=== PATIENT | female | born 1955 | race Caucasian/White ===

== ENCOUNTER 2018-03-15 11:48 | Inpatient (IN) | payer MEDICARE ==
[2018-03-15 12:02] VITALS: BMI 32.1
--- NOTE | 2018-03-15 12:38 | HP ---
COWS - Scale Resting Pulse: 0= [place] 80 or Below Sweatin= Chills/Flushing Restless Observation: 3= Extraneous Movement Pupil Size: 1= Pupils >than Normal Bone or Joint Aches: 2= Severe Diffuse Aches Runny Nose/ Eye Tearin= Runny Nose/Eyes GI Upset > 30mins: 3= Vomiting/Diarrhea Tremor Observation: 2= Slight Tremor Visible Yawning Observation: 2= >3x During Session Anxiety or Irritability: 2=Irritable/Anxious Goose Flesh Skin: 0=Smooth Skin COWS Score: 18 CIWA Score - CIWA Score Nausea/Vomitin Muscle Tremors: 3 Anxiety: 2 Agitation: 2 Paroxysmal Sweats: 1-Minimal Palms Moist Orientation: 0-Oriented Tacttile Disturbances: 1-Very Mild Itch/Numbness Auditory Disturbances: 1-Very Mild Visual Disturbances: 1-Very Mild Sensitivity Headache: 2-Mild CIWA-Ar Total Score: 16 Admission ROS BHS - HPI Chief Complaint: i need help to stop using heroin and alcohol Allergies/Adverse Reactions: Allergies Allergy/AdvReac Type Severity Reaction Status Date / Time No Known Allergies Allergy Verified 03/15/18 12:11 History of Present Illness: this 62 years old female with heroin and alcohol dependence,seeking detox, withdrawal symptom,mandated by court to come in for detox, last treatment in 2016 fail outpatient program htn no med nicotine dependence asthma on albuterol inhaler, low back p0ain scoliosis bipolar disorder,ptsd longest period of sobriety 10 years history of clamydia infection - Ebola screening Have you traveled outside of the country in the last 21 days: No Have you had contact with anyone from an Ebola affected area: No Have you been sick,other than usual withdrawal symptoms: No - Review of Systems Constitutional: Chills, Loss of Appetite, Malaise, Night Sweats, Changes in sleep, Weakness, Unintentional Wgt. Loss EENT: reports: Tearing, Nose Congestion Respiratory: reports: No Symptoms reported, Other (asthma) Cardiac: reports: No Symptoms Reported GI: reports: Nausea, Vomiting, Abdominal cramping : reports: No Symptoms Reported Musculoskeletal: reports: Back Pain, Joint Pain, Muscle Pain, Joint Stiffness Integumentary: reports: Dryness Neuro: reports: Headache, Tremors Endocrine: reports: No Symptoms Reported, Other (hypothyroidism no med for 2 years) Hematology: reports: No Symptoms Reported Psychiatric: reports: No Sypmtoms Reported, Judgement Intact, Mood/Affect Appropiate, Orientated x3 (bipolar disorder) Patient History - Patient Medical History Hx Anemia: No Hx Asthma: Yes (Pt is on MDI.) Hx Chronic Obstructive Pulmonary Disease (COPD): No Hx Cancer: No Hx Cardiac Disorders: No Hx Congestive Heart Failure: No Hx Hypertension: Yes (not on meds.) Hx Hypercholesterolemia: No HX Cerebrovascular Accident: No Hx Seizures: No Hx Dementia: No Hx Diabetes: No Hx Gastrointestinal Disorders: Yes (acid reflux.) Hx Liver Disease: No Hx Genitourinary Disorders: No Hx Sexually Transmitted Disorders: Yes (Pt states she was tx for chlamydia in the past.) Hx Renal Disease (ESRD): No Hx Thyroid Disease: Yes (WAITING TO SEE HER PMD DR FABIAN FOR WORK/UP.) Hx Human Immunodeficiency Virus (HIV): No (NEGATIVE HX LAST 2013) Hx Hepatitis C: No Hx Depression: Yes Hx Suicide Attempt: No Hx Bipolar Disorder: Yes Hx Schizophrenia: No Other Medical History: no suicidal,no homicidal - Patient Surgical History Past Surgical History: Yes Hx Neurologic Surgery: No Hx Cataract Extraction: No Hx Cardiac Surgery: No Hx Lung Surgery: No Hx Breast Surgery: No Hx Breast Biopsy: No Hx Abdominal Surgery: No Hx Appendectomy: Yes (age 7 yrs) Hx Cholecystectomy: No Hx Genitourinary Surgery: No Hx Section: No Hx Orthopedic Surgery: No Other Surgical History: R arm sx for abscess Anesthesia Reaction: No - PPD History Previous Implant?: Yes Documented Results: Negative w/o proof Implanted On Prior [facility] Admission?: Yes Date: 05/07/15 Results: PT AMA. PPD to be Administered?: Yes - Reproductive History Patient is a Female of Child Bearing Age (11 -55 yrs old): No Patient : No - Smoking Cessation Smoking history: Current every day smoker Have you smoked in the past 12 months: Yes Aproximately how many cigarettes per day: 20 Hx Chewing Tobacco Use: No Initiated information on smoking cessation: Yes 'Breaking Loose' booklet given: 03/15/18 - Substance & Tx. History Hx Alcohol Use: Yes Hx Substance Use: Yes Substance Use Type: Alcohol, Heroin Hx Substance Use Treatment: Yes (2015 [facility]) - Substances Abused Heroin Route: Injection Frequency: Daily Amount used: 3-4 BAGS Age of first use: 40 Date of Last Use: 03/14/18 Alcohol Route: Oral Frequency: Daily Amount used: 1/2 GALLON OF WINE Age of first use: 23 Date of Last Use: 03/14/18 Family Disease History - Family Disease History Family Disease History: Diabetes: Mother (HTN), Other: Mother Admission Physical Exam S - Vital Signs Vital Signs: Vital Signs - 24 hr 03/15/18 11:59 Temperature 99.4 F Pulse Rate 64 Respiratory 20 Rate Blood Pressure 151/82 - Physical General Appearance: Yes: Moderate Distress, Tremorous, Irritable, Anxious HEENTM: Yes: Normal ENT Inspection, CHELSI, Pharynx Normal Respiratory: Yes: Lungs Clear, Normal Breath Sounds, No Respiratory Distress Neck: Yes: Within Normal Limits, Supple, Trachea in good position Breast: Yes: Breast Exam Deferred Cardiology: Yes: Within Normal Limits, Regular Rhythm, Regular Rate, S1, S2 Abdominal: Yes: Within Normal Limits, Normal Bowel Sounds, Non Tender, Soft Genitourinary: Yes: Dysuria, Vaginal Discharge Back: Yes: Muscle Spasm Extremities: Yes: Normal Range of Motion, Tremors Neurological: Yes: boat garnisher II-XII NML intact, Fully Oriented, Alert, Motor Strength 5/5 Integumentary: Yes: Dry Lymphatic: Yes: Within Normal Limits - Diagnostic (1) Opioid dependence with withdrawal Current Visit: No Status: Chronic Comment: refer to methadone program per patient request (2) Alcohol dependence with uncomplicated withdrawal Current Visit: No Status: Chronic (3) Asthma Current Visit: No Status: Chronic Qualifiers: Asthma severity: mild persistent Asthma complication type: uncomplicated (4) Back pain Current Visit: No Status: Acute Qualifiers: Back pain location: low back pain Chronicity: chronic Back pain laterality: bilateral Sciatica presence: without sciatica Qualified Code(s) : M54.5 - Low back pain; G89.29 - Other chronic pain Comment: gentle stretches, flexeril (5) COPD (chronic obstructive pulmonary disease) Current Visit: No Status: Chronic Qualifiers: COPD type: chronic bronchitis (6) GERD (gastroesophageal reflux disease) Current Visit: No Status: Chronic Qualifiers: Esophagitis presence: without esophagitis Qualified Code(s): K21.9 - Gastro -esophageal reflux disease without esophagitis (7) Hypothyroidism Current Visit: No Status: Chronic Qualifiers: Hypothyroidism type: unspecified Qualified Code(s): E03.9 - Hypothyroidism , unspecified Comment: needs f/u with primary (8) Nicotine dependence Current Visit: No Status: Chronic Qualifiers: Nicotine product type: cigarettes Substance use status: uncomplicated Qualified Code(s): F17.210 - Nicotine dependence, cigarettes, uncomplicated Comment: counseled cessation - interested in patch - same Rx (9) History of chlamydia infection Current Visit: Yes Status: Acute (10) Bipolar disorder Current Visit: No Status: Chronic Qualifiers: Current bipolar episode type: mixed Current episode severity: unspecified Comment: saw dr ortiz, on meds Cleared for Admission S - Detox or Rehab S Level of Care: Medically Managed Detox Regimen/Protocol: Methadone/Librium S Breath Alcohol Content Breath Alcohol Content: 0 Urine Pregancy Test - Result Urine Test Results: Negative- NO Line Present Urine Drug Screen - Results Drug Screen Negative: No Urine Drug Screen Results: OPI-Opiates, MTD-Methadone, FEN-Fentanyl
[2018-03-15] MEDS ORDERED: MENTHOL/PHENOL 1 EACH UD MM PRN (12:58)
[2018-03-15] MEDS ORDERED: MAGNESIUM HYDROX 2400MG/30ML ORAL SUSPENSION 30 ML CUP PO PRN (12:58)
[2018-03-15] MEDS ORDERED: ACETAMINOPHEN 325 MG TABLET (FP) PO PRN (12:58)
[2018-03-15] MEDS ORDERED: LOPERAMIDE HCL 2 MG CAPSULE PO PRN (12:58)
[2018-03-15] MEDS ORDERED: P-EPHED 60MG/TRIPROLIDI 2.5MG TABLET PO PRN (12:58)
[2018-03-15] MEDS ORDERED: guaiFENesin/D-METHORPHAN HB 10 ML UNIT-DOSE CUPS PO PRN (12:58)
[2018-03-15] MEDS ORDERED: MAGNESIUM CITRATE 300 ML BOTTLE PO PRN (12:58)
[2018-03-15] MEDS ORDERED: MAG HYDROX/AL HYDROX/SIMETH 30 ML UNIT-DOSE CUP PO PRN (12:58)
[2018-03-15] MEDS ORDERED: NICOTINE POLACRILEX 2 MG GUM BUC PRN (12:58)
[2018-03-15] MEDS ORDERED: ALBUTEROL SO4 2.5/IPRATROPIUM 0.5 INH SOL 3 ML VIAL.NEB. NEB PRN (13:02)
[2018-03-15] MEDS ORDERED: METHADONE HCL 10 MG TABLET (FOR DETOX USE ONLY) PO ONE ×2 (14:30→23:00)
[2018-03-15] MEDS: chlordiazePOXIDE HCL 25 MG CAPSULE PO PRN (15:05)
[2018-03-15] MEDS: NICOTINE 21 MG/24 HOURS TOPICAL PATCH TD SCH (15:05)
[2018-03-15] MEDS: metroNIDAZOLE 250 MG TABLET PO SCH ×2 (15:32→22:23)
[2018-03-15] MEDS: chlordiazePOXIDE HCL 25 MG CAPSULE PO SCH ×2 (17:20→22:23)
[2018-03-15] MEDS: THIAMINE HCL 100 MG TABLET (FP) PO SCH (22:22)
[2018-03-15] MEDS: CYCLOBENZAPRINE HCL 10 MG TABLET (FP) PO PRN (22:23)
[2018-03-15] MEDS: MELATONIN 5 MG TABLETS PO PRN (22:23)
[2018-03-16] MEDS: IBUPROFEN 400 MG TABLET (FP) PO PRN ×3 (01:02→22:32)
[2018-03-16] MEDS: chlordiazePOXIDE HCL 25 MG CAPSULE PO PRN ×3 (01:03→18:58)
[2018-03-16] MEDS: metroNIDAZOLE 250 MG TABLET PO SCH ×3 (05:36→22:31)
[2018-03-16] MEDS: chlordiazePOXIDE HCL 25 MG CAPSULE PO SCH ×4 (05:36→22:31)
[2018-03-16] MEDS: ALBUTEROL SO4 8 GM HFA INHALER IH PRN ×2 (05:39→20:14)
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
[2018-03-16] MEDS ORDERED: METHADONE HCL 10 MG TABLET (FOR DETOX USE ONLY) PO SCH (10:00)
[2018-03-16 10:06] LABS: HEMOGLOBIN 14.8 GM/dL (10.7-15.3); MCH 31.6 pg (25.7-33.7); MCHC 33.7 g/dl (32.0-36.0); MEAN CELL VOLUME 93.8 fl (80-96); MEAN PLT VOLUME 10.8 fl (7.5-11.1); PLATELET COUNT 180 K/MM3 (134-434); RBC 4.69 M/mm3 (3.60-5.2); RDW 13.5 % (11.6-15.6); WHITE BLOOD COUNT 7.2 K/mm3 (4.0-10.0)
[2018-03-16 10:31] LABS: ALBUMIN 4.1 g/dl (3.4-5.0); ALK PHOS 83 U/L (45-117); ANION GAP 6 MMOL/L (8-16); BILIRUBIN,TOTAL 0.5 mg/dL (0.2-1); BLOOD UREA NITROGEN 11 mg/dL (7-18); CHLORIDE 104 mmol/L (98-107); CO2 28 mmol/L (21-32); CREATININE 0.7 mg/dL (0.55-1.3); GLUCOSE,RANDOM 83 mg/dL (74-106); POTASSIUM 4.5 mmol/L (3.5-5.1); SGOT/AST 14 U/L (15-37); SGPT/ALT 15 U/L (13-61); SODIUM 138 mmol/L (136-145); TOT PROT 8.2 g/dl (6.4-8.2)
[2018-03-16] MEDS: NICOTINE 21 MG/24 HOURS TOPICAL PATCH TD SCH (10:38)
[2018-03-16] MEDS: PRENATAL VITAMINS W/ FOLIC ACID TABLET (FP) PO SCH (10:38)
[2018-03-16] MEDS: QUEtiapine FUMARATE 50 MG TABLET PO SCH ×2 (10:38→22:32)
--- NOTE | 2018-03-16 11:45 | EKG ---
Test Reason : Blood Pressure : / mmHG Vent. Rate : 065 BPM Atrial Rate : 065 BPM P-R Int : 180 ms QRS Dur : 098 ms QT Int : 412 ms P-R-T Axes : 050 073 035 degrees QTc Int : 428 ms NORMAL SINUS RHYTHM WITH SINUS ARRHYTHMIA POSSIBLE LEFT ATRIAL ENLARGEMENT BORDERLINE ECG WHEN COMPARED WITH ECG OF 13-SEP-2009 02:11, NO SIGNIFICANT CHANGE WAS FOUND Confirmed by SARA ANTHONY, ELDON ([id number]) on 03/16/2018 11:44:50 AM Referred By: Confirmed By:ELDON RUIZ MD
[2018-03-16] MEDS ORDERED: FLU VACCINE QUAD 60 MCG/0.5 ML (MDV 18-19) IM ONE (12:00)
[2018-03-16] MEDS: hydrOXYzine PAMOATE 25 MG CAPSULE (FP) PO PRN (13:23)
[2018-03-16] MEDS: CYCLOBENZAPRINE HCL 10 MG TABLET (FP) PO PRN ×2 (13:23→22:31)
--- NOTE | 2018-03-16 13:50 | PN ---
[facility] CIWA - CIWA Score Nausea/Vomitin-Mild Nausea/No Vomiting Muscle Tremors: 4-Moderate,w/Arms Extend Anxiety: 3 Agitation: 3 Paroxysmal Sweats: 1-Minimal Palms Moist Orientation: 0-Oriented Tacttile Disturbances: 1-Very Mild Itch/Numbness Auditory Disturbances: 0-None Visual Disturbances: 0-None Headache: 1-Very Mild CIWA-Ar Total Score: 14 S COWS - Scale Resting Pulse: 0= [place] 80 or Below Sweatin= Chills/Flushing Restless Observation: 1= Difficult to Sit Still Pupil Size: 0= Normal to Room Light Bone or Joint Aches: 2= Severe Diffuse Aches Runny Nose/ Eye Tearin= Nasal Congestion GI Upset > 30mins: 2= Nausea/Diarrhea Tremor Observation of Outstretched Hands: 2= Slight Tremor Visible Yawning Observation: 1= 1-2x During Session Anxiety or Irritability: 1=Feels Anxious/Irritable Goose Flesh Skin: 3=Piloerection COWS Score: 14 [facility] Progress Note (SOAP) Subjective: body ache joints pain tremor sweat restlessness anxiety Objective: 03/16/18 13:51 Vital Signs Temperature 98.2 F 03/16/18 13:11 Pulse Rate 73 03/16/18 13:11 Respiratory Rate 20 03/16/18 13:11 Blood Pressure 115/69 03/16/18 13:11 O2 Sat by Pulse Oximetry (%) Laboratory Last Values WBC 7.2 K/mm3 (4.0-10.0) 03/16/18 05:45 RBC 4.69 M/mm3 (3.60-5.2) 03/16/18 05:45 Hgb 14.8 GM/dL (10.7-15.3) 03/16/18 05:45 Hct 44.0 % (32.4-45.2) 03/16/18 05:45 MCV 93.8 fl (80-96) 03/16/18 05:45 MCH 31.6 pg (25.7-33.7) 03/16/18 05:45 MCHC 33.7 g/dl (32.0-36.0) 03/16/18 05:45 RDW 13.5 % (11.6-15.6) 03/16/18 05:45 Plt Count 180 K/MM3 (134-434) 03/16/18 05:45 MPV 10.8 fl (7.5-11.1) 03/16/18 05:45 Sodium 138 mmol/L (136-145) 03/16/18 05:45 Potassium 4.5 mmol/L (3.5-5.1) 03/16/18 05:45 Chloride 104 mmol/L (98-107) 03/16/18 05:45 Carbon Dioxide 28 mmol/L (21-32) 03/16/18 05:45 Anion Gap 6 MMOL/L (8-16) L 03/16/18 05:45 BUN 11 mg/dL (7-18) 03/16/18 05:45 Creatinine 0.7 mg/dL (0.55-1.3) 03/16/18 05:45 Creat Clearance w eGFR > 60 (>60) 03/16/18 05:45 Random Glucose 83 mg/dL (74-106) 03/16/18 05:45 Calcium 10.0 mg/dL (8.5-10.1) 03/16/18 05:45 Total Bilirubin 0.5 mg/dL (0.2-1) 03/16/18 05:45 AST 14 U/L (15-37) L 03/16/18 05:45 ALT 15 U/L (13-61) 03/16/18 05:45 Alkaline Phosphatase 83 U/L (45-117) 03/16/18 05:45 Total Protein 8.2 g/dl (6.4-8.2) 03/16/18 05:45 Albumin 4.1 g/dl (3.4-5.0) 03/16/18 05:45 TSH 0.66 uIU/ml (0.358-3.74) 03/15/18 13:20 Resin T3 Uptake 28.9 % (30-39) L 03/15/18 13:20 RPR Titer Nonreactive (NONREACTIVE) 03/16/18 05:45 HIV 1&2 Antibody Screen Negative 03/15/18 13:05 HIV P24 Antigen Negative 03/15/18 13:05 lab noted 03/16/18 13:51 no thyorid nodule palpated Assessment: 03/16/18 13:52 withdrawal sx Plan: continue detox
[2018-03-16 14:58] LABS: URINE APPEARANCE CLEAR; URINE BILIRUBIN NEGATIVE (<2.0 mg/dL); URINE COLOR LTYELLOW; URINE GLUCOSE (UA) NEGATIVE (NEGATIVE); URINE KETONE NEGATIVE (NEGATIVE); URINE LEUK ESTERASE NEGATIVE (NEGATIVE); URINE NITRITE NEGATIVE (NEGATIVE); URINE PROTEIN NEGATIVE (NEGATIVE); URINE UROBILINOGEN NEGATIVE mg/dL (0.2-1.0)
[2018-03-16] MEDS: THIAMINE HCL 100 MG TABLET (FP) PO SCH (22:31)
[2018-03-16] MEDS: MIRTAZAPINE 15 MG TABLET (FP) PO SCH (22:32)
[2018-03-16] MEDS: MELATONIN 5 MG TABLETS PO PRN (22:32)
[2018-03-17] MEDS: chlordiazePOXIDE HCL 25 MG CAPSULE PO PRN ×2 (01:18→20:12)
[2018-03-17] MEDS: hydrOXYzine PAMOATE 25 MG CAPSULE (FP) PO PRN ×2 (03:33→13:20)
[2018-03-17] MEDS: ALBUTEROL SO4 8 GM HFA INHALER IH PRN ×2 (03:33→13:20)
[2018-03-17] MEDS: chlordiazePOXIDE HCL 25 MG CAPSULE PO SCH ×2 (05:27→10:38)
[2018-03-17] MEDS: metroNIDAZOLE 250 MG TABLET PO SCH ×3 (05:27→22:29)
--- NOTE | 2018-03-17 10:36 | PN ---
BHS COWS - Scale Resting Pulse: 0= [place] 80 or Below Sweatin= Chills/Flushing Restless Observation: 1= Difficult to Sit Still Pupil Size: 0= Normal to Room Light Bone or Joint Aches: 1= Mild Discomfort Runny Nose/ Eye Tearin= Runny Nose/Eyes GI Upset > 30mins: 0= None Tremor Observation of Outstretched Hands: 1= Tremor [place], Not Seen Yawning Observation: 2= >3x During Session Anxiety or Irritability: 4=Extreme Anxiety Goose Flesh Skin: 0=Smooth Skin COWS Score: 12 [facility] Progress Note (SOAP) Subjective: anxious, interrupted sleep, body aches Objective: 03/17/18 10:36 Vital Signs Temperature 97.9 F 03/17/18 09:19 Pulse Rate 67 03/17/18 09:19 Respiratory Rate 18 03/17/18 09:19 Blood Pressure 144/77 03/17/18 09:19 O2 Sat by Pulse Oximetry (%) Laboratory Last Values WBC 7.2 K/mm3 (4.0-10.0) 03/16/18 05:45 RBC 4.69 M/mm3 (3.60-5.2) 03/16/18 05:45 Hgb 14.8 GM/dL (10.7-15.3) 03/16/18 05:45 Hct 44.0 % (32.4-45.2) 03/16/18 05:45 MCV 93.8 fl (80-96) 03/16/18 05:45 MCH 31.6 pg (25.7-33.7) 03/16/18 05:45 MCHC 33.7 g/dl (32.0-36.0) 03/16/18 05:45 RDW 13.5 % (11.6-15.6) 03/16/18 05:45 Plt Count 180 K/MM3 (134-434) 03/16/18 05:45 MPV 10.8 fl (7.5-11.1) 03/16/18 05:45 Sodium 138 mmol/L (136-145) 03/16/18 05:45 Potassium 4.5 mmol/L (3.5-5.1) 03/16/18 05:45 Chloride 104 mmol/L (98-107) 03/16/18 05:45 Carbon Dioxide 28 mmol/L (21-32) 03/16/18 05:45 Anion Gap 6 MMOL/L (8-16) L 03/16/18 05:45 BUN 11 mg/dL (7-18) 03/16/18 05:45 Creatinine 0.7 mg/dL (0.55-1.3) 03/16/18 05:45 Creat Clearance w eGFR > 60 (>60) 03/16/18 05:45 Random Glucose 83 mg/dL (74-106) 03/16/18 05:45 Calcium 10.0 mg/dL (8.5-10.1) 03/16/18 05:45 Total Bilirubin 0.5 mg/dL (0.2-1) 03/16/18 05:45 AST 14 U/L (15-37) L 03/16/18 05:45 ALT 15 U/L (13-61) 03/16/18 05:45 Alkaline Phosphatase 83 U/L (45-117) 03/16/18 05:45 Total Protein 8.2 g/dl (6.4-8.2) 03/16/18 05:45 Albumin 4.1 g/dl (3.4-5.0) 03/16/18 05:45 TSH 0.66 uIU/ml (0.358-3.74) 03/15/18 13:20 Resin T3 Uptake 28.9 % (30-39) L 03/15/18 13:20 Urine Color Ltyellow 03/16/18 09:00 Urine Appearance Clear 03/16/18 09:00 Urine pH 7.0 (5.0-8.0) 03/16/18 09:00 Ur Specific [place] 1.009 (1.001-1.035) 03/16/18 09:00 Urine Protein Negative (NEGATIVE) 03/16/18 09:00 Urine Glucose (UA) Negative (NEGATIVE) 03/16/18 09:00 Urine Ketones Negative (NEGATIVE) 03/16/18 09:00 Urine Blood Negative (NEGATIVE) 03/16/18 09:00 Urine Nitrite Negative (NEGATIVE) 03/16/18 09:00 Urine Bilirubin Negative (<2.0 mg/dL) 03/16/18 09:00 Urine Urobilinogen Negative mg/dL (0.2-1.0) 03/16/18 09:00 Ur Leukocyte Esterase Negative (NEGATIVE) 03/16/18 09:00 RPR Titer Nonreactive (NONREACTIVE) 03/16/18 05:45 Hep C Ab Diagnostic 0.3 s/co ratio (0.0-0.9) 03/15/18 13:20 Liver Fibrosis Interp (.) 03/15/18 13:20 HIV 1&2 Antibody Screen Negative 03/15/18 13:05 HIV P24 Antigen Negative 03/15/18 13:05 Aox3, anxious, pacing no adventitious breath sounds full ROM, ambulating in the unit Assessment: 03/17/18 13:29 withdrawal symptoms Plan: increase PO fluids psych consult : insomnia and anxiety, feels seroquel is not working continue detox continue to monitor
[2018-03-17] MEDS: METHADONE HCL 5 MG TABLET (FOR DETOX USE ONLY) PO SCH (10:37)
[2018-03-17] MEDS: QUEtiapine FUMARATE 50 MG TABLET PO SCH ×2 (10:39→22:30)
[2018-03-17] MEDS: PRENATAL VITAMINS W/ FOLIC ACID TABLET (FP) PO SCH (10:39)
[2018-03-17] MEDS: CYCLOBENZAPRINE HCL 10 MG TABLET (FP) PO PRN (10:39)
[2018-03-17] MEDS: NICOTINE 21 MG/24 HOURS TOPICAL PATCH TD SCH (10:40)
[2018-03-17] MEDS: chlordiazePOXIDE 5 MG CAPSULE PO SCH ×2 (17:10→22:30)
--- NOTE | 2018-03-17 17:30 | PN ---
Psychiatric Progress Note Vital Signs: Vital Signs Period Temp Pulse Resp BP Sys/Steinberg Pulse Ox Last 24 Hr 97.5 F-98.2 F 53-71 16-18 123-144/66-77 Date of Session: 03/17/18 Chief Complaint:: BHS HPI: Pt. admitted to for alcohol and opiate dependence. ROS: Asthma, hypertension, acid reflux, Appendectomy Current Medications: Active Medications Generic Name Dose Route Start Last Admin Trade Name Freq PRN Reason Stop Dose Admin Acetaminophen 650 mg 03/15/18 12:58 Tylenol - PO Q4H PRN FEVER Al Hydroxide/Mg Hydroxide 30 ml 03/15/18 12:58 Mylanta Oral Suspension - PO Q6H PRN DYSPEPSIA Albuterol Sulfate 2 puff 03/15/18 13:01 03/17/18 13:20 Ventolin Hfa Inhaler - IH 2 puff Q4H PRN Administration SHORT OF BREATH/WHEEZING Albuterol/Ipratropium 1 amp 03/15/18 13:02 Duoneb - NEB Q6H PRN SHORTNESS OF BREATH Chlordiazepoxide HCl 15 mg 03/17/18 17:00 03/17/18 17:10 Librium - PO 03/18/18 11:01 15 mg [id number] CHALINO Administration Chlordiazepoxide HCl 10 mg 03/18/18 17:00 Librium - PO 03/19/18 11:01 U2I-LIR CHALINO Chlordiazepoxide HCl 25 mg 03/15/18 12:58 03/17/18 01:18 Librium - PO 03/18/18 12:58 25 mg Q4H PRN Administration WITHDRAWAL(CONT SUBST) Cyclobenzaprine HCl 10 mg 03/15/18 13:05 03/17/18 10:39 Flexeril - PO 10 mg TID PRN Administration MUSCLE SPASMS Eucalyptus/Menthol/Phenol/Sorbitol 1 each 03/15/18 12:58 Cepastat Lozenge - MM Q4H PRN SORE THROAT Guaifenesin 10 ml 03/15/18 12:58 Robitussin Dm - PO Q6H PRN COUGH Hydroxyzine Pamoate 25 mg 03/15/18 12:58 03/17/18 13:20 Vistaril - PO 25 mg Q4H PRN Administration AGITATION Ibuprofen 400 mg 03/15/18 12:58 03/16/18 22:32 Motrin - PO 400 mg Q6H PRN Administration PAIN LEVEL 4-6 Loperamide HCl 4 mg 03/15/18 12:58 Imodium - PO Q6H PRN DIARRHEA Magnesium Citrate 300 ml 03/15/18 12:58 Citroma - PO Q48H PRN CONSTIPATION Magnesium Hydroxide 30 ml 03/15/18 12:58 03/16/18 18:59 Milk Of Magnesia - PO 30 ml DAILY PRN Administration CONSTIPATION Melatonin 5 mg 03/15/18 22:00 03/16/18 22:32 Melatonin PO 5 mg HS PRN Administration INSOMNIA Methadone HCl 15 mg 03/17/18 10:00 03/17/18 10:37 Dolophine - PO 03/18/18 10:01 15 mg DAILY CHALINO Administration Methadone HCl 5 mg 03/20/18 06:00 Dolophine - PO 03/20/18 06:01 DAILY@0600 CHALINO Methadone HCl 10 mg 03/19/18 10:00 Dolophine - PO 03/19/18 10:01 DAILY CHALINO Metronidazole 500 mg 03/15/18 14:00 03/17/18 15:11 Flagyl - PO 500 mg TID CHALINO Administration Mirtazapine 15 mg 03/16/18 22:00 03/16/18 22:32 Remeron - PO 15 mg HS CHALINO Administration Nicotine 21 mg 03/15/18 14:30 03/17/18 10:40 Nicoderm Patch - TD 21 mg DAILY CHALINO Administration Nicotine Polacrilex 2 mg 03/15/18 12:58 03/16/18 22:35 Nicorette Gum - BUC 2 mg Q2H PRN Administration NICOTINE REPLACEMENT RX Multivit/Folic Acid/Iron 1 tab 03/16/18 10:00 03/17/18 10:39 Vitamins (Sjr) - PO 1 tab DAILY CHALINO Administration Pseudoephedrine/Triprolidine 1 combo 03/15/18 12:58 Actifed - PO TID PRN NASAL CONGESTION Quetiapine Fumarate 50 mg 03/16/18 10:00 03/17/18 10:39 Seroquel - PO 50 mg BID CHALINO Administration Thiamine HCl 100 mg 03/15/18 22:00 03/16/18 22:31 Vitamin B1 - PO 100 mg HS CHALINO Administration Medication(s) Change(s): Yes . Will increase seroquel to 100mg BID. Current Side Effect: No Lab tests ordered: No Lab tests reviewed: Yes Provider note:: Chart reviewed. Patient c/o anxiety, poor sleep, and a feeling of "ranging inside." She is currently prescribed seroquel 50mg BID. Medication tolerated well. She reports h/o accepting seroquel 900mg. As per chart patient was prescribed seroquel 200mg BID while in rehab in 2016. Will increase seroquel to 100mg BID. Benefits and side effects discussed. Verbal consent given. Total face to face time:: 25 Mental Status Exam - Mental Status Exam Alert and Oriented to: Time, Place, Person Cognitive Function: Good Patient Appearance: Well Groomed Mood: Anxious, Euthymic Affect: Appropriate Patient Behavior: Appropriate, Cooperative Speech Pattern: Appropriate Voice Loudness: Normal Thought Process: Intact, Goal Oriented Thought Disorder: Not Present Hallucinations: Denies Suicidal Ideation: Denies Homicidal Ideation: Denies Insight/Judgement: Poor Sleep: Poorly Appetite: Fair Muscle strength/Tone: Normal Gait/Station: Normal Psychiatric Treatment Plan - Problem List (1) Alcohol dependence with uncomplicated withdrawal Current Visit: Yes (2) Nicotine dependence Current Visit: Yes Qualifiers: Nicotine product type: cigarettes Substance use status: uncomplicated Qualified Code(s): F17.210 - Nicotine dependence, cigarettes, uncomplicated Comment: counseled cessation - interested in patch - same Rx (3) Opioid dependence with withdrawal Current Visit: Yes Comment: refer to methadone program per patient request (4) Bipolar II disorder Current Visit: Yes
[2018-03-17] MEDS: THIAMINE HCL 100 MG TABLET (FP) PO SCH (22:29)
[2018-03-17] MEDS: MIRTAZAPINE 15 MG TABLET (FP) PO SCH (22:32)
[2018-03-18] MEDS: IBUPROFEN 400 MG TABLET (FP) PO PRN ×2 (04:04→18:41)
[2018-03-18] MEDS: chlordiazePOXIDE 5 MG CAPSULE PO SCH ×2 (04:04→10:51)
[2018-03-18] MEDS: metroNIDAZOLE 250 MG TABLET PO SCH ×3 (05:37→22:34)
[2018-03-18] MEDS: METHADONE HCL 5 MG TABLET (FOR DETOX USE ONLY) PO SCH (10:51)
[2018-03-18] MEDS: NICOTINE 21 MG/24 HOURS TOPICAL PATCH TD SCH (10:51)
[2018-03-18] MEDS: PRENATAL VITAMINS W/ FOLIC ACID TABLET (FP) PO SCH (10:51)
[2018-03-18] MEDS: QUEtiapine FUMARATE 50 MG TABLET PO SCH ×2 (10:51→22:33)
--- NOTE | 2018-03-18 12:23 | PN ---
[facility] Progress Note (SOAP) Subjective: sweats shakes interrupted sleep agitation body aches/back pain Objective: 03/18/18 12:22 Vital Signs Temperature 97.9 F 03/18/18 09:36 Pulse Rate 76 03/18/18 09:36 Respiratory Rate 18 03/18/18 09:36 Blood Pressure 141/77 03/18/18 09:36 O2 Sat by Pulse Oximetry (%) Laboratory Tests 03/15/18 03/15/18 03/15/18 13:05 13:20 13:20 WBC RBC Hgb Hct MCV MCH MCHC RDW Plt Count MPV Sodium Potassium Chloride Carbon Dioxide Anion Gap BUN Creatinine Creat Clearance w eGFR Random Glucose Calcium Total Bilirubin AST ALT Alkaline Phosphatase Total Protein Albumin TSH 0.66 Resin T3 Uptake 28.9 L Cancelled Urine Color Urine Appearance Urine pH Ur Specific [place] Urine Protein Urine Glucose (UA) Urine Ketones Urine Blood Urine Nitrite Urine Bilirubin Urine Urobilinogen Ur Leukocyte Esterase RPR Titer Hep C Ab Diagnostic Liver Fibrosis Interp HIV 1&2 Antibody Screen Negative HIV P24 Antigen Negative 03/15/18 03/16/18 03/16/18 13:20 05:45 05:45 WBC 7.2 RBC 4.69 Hgb 14.8 Hct 44.0 MCV 93.8 MCH 31.6 MCHC 33.7 RDW 13.5 Plt Count 180 MPV 10.8 Sodium 138 Potassium 4.5 Chloride 104 Carbon Dioxide 28 Anion Gap 6 L BUN 11 Creatinine 0.7 Creat Clearance w eGFR > 60 Random Glucose 83 Calcium 10.0 Total Bilirubin 0.5 AST 14 L ALT 15 Alkaline Phosphatase 83 Total Protein 8.2 Albumin 4.1 TSH Resin T3 Uptake Urine Color Urine Appearance Urine pH Ur Specific [place] Urine Protein Urine Glucose (UA) Urine Ketones Urine Blood Urine Nitrite Urine Bilirubin Urine Urobilinogen Ur Leukocyte Esterase RPR Titer Hep C Ab Diagnostic 0.3 Liver Fibrosis Interp HIV 1&2 Antibody Screen HIV P24 Antigen 03/16/18 03/16/18 05:45 09:00 WBC RBC Hgb Hct MCV MCH MCHC RDW Plt Count MPV Sodium Potassium Chloride Carbon Dioxide Anion Gap BUN Creatinine Creat Clearance w eGFR Random Glucose Calcium Total Bilirubin AST ALT Alkaline Phosphatase Total Protein Albumin TSH Resin T3 Uptake Urine Color Ltyellow Urine Appearance Clear Urine pH 7.0 Ur Specific [place] 1.009 Urine Protein Negative Urine Glucose (UA) Negative Urine Ketones Negative Urine Blood Negative Urine Nitrite Negative Urine Bilirubin Negative Urine Urobilinogen Negative Ur Leukocyte Esterase Negative RPR Titer Nonreactive Hep C Ab Diagnostic Liver Fibrosis Interp HIV 1&2 Antibody Screen HIV P24 Antigen aaox3 ambulating no acute distress Assessment: 03/18/18 12:22 withdrawal sx Plan: continue detox increase fluids lidocaine patch
[2018-03-18] MEDS: hydrOXYzine PAMOATE 25 MG CAPSULE (FP) PO PRN ×2 (14:20→18:41)
[2018-03-18] MEDS: LIDOCAINE 5% TOPICAL PATCH TP SCH (14:24)
[2018-03-18] MEDS: chlordiazePOXIDE HCL 10 MG CAPSULE PO SCH ×2 (17:00→22:34)
[2018-03-18] MEDS: MIRTAZAPINE 15 MG TABLET (FP) PO SCH (22:34)
[2018-03-18] MEDS: THIAMINE HCL 100 MG TABLET (FP) PO SCH (22:34)
[2018-03-18] MEDS: CYCLOBENZAPRINE HCL 10 MG TABLET (FP) PO PRN (22:35)
[2018-03-18] MEDS: LIDOCAINE PATCH REMOVAL MC SCH (22:36)
[2018-03-19] MEDS: IBUPROFEN 400 MG TABLET (FP) PO PRN (02:34)
[2018-03-19] MEDS: hydrOXYzine PAMOATE 25 MG CAPSULE (FP) PO PRN ×3 (02:34→22:37)
[2018-03-19] MEDS: metroNIDAZOLE 250 MG TABLET PO SCH ×3 (06:14→22:38)
[2018-03-19] MEDS: chlordiazePOXIDE HCL 10 MG CAPSULE PO SCH ×2 (06:14→10:27)
[2018-03-19] MEDS: ALBUTEROL SO4 8 GM HFA INHALER IH PRN (06:15)
--- NOTE | 2018-03-19 09:24 | PN ---
S Progress Note Note: anxious, interrupted sleep, urinary frequency (chronic) Vital Signs Temperature 97.7 F 03/19/18 09:24 Pulse Rate 78 03/19/18 09:24 Respiratory Rate 18 03/19/18 09:24 Blood Pressure 130/65 03/19/18 09:24 O2 Sat by Pulse Oximetry (%) Laboratory Last Values WBC 7.2 K/mm3 (4.0-10.0) 03/16/18 05:45 RBC 4.69 M/mm3 (3.60-5.2) 03/16/18 05:45 Hgb 14.8 GM/dL (10.7-15.3) 03/16/18 05:45 Hct 44.0 % (32.4-45.2) 03/16/18 05:45 MCV 93.8 fl (80-96) 03/16/18 05:45 MCH 31.6 pg (25.7-33.7) 03/16/18 05:45 MCHC 33.7 g/dl (32.0-36.0) 03/16/18 05:45 RDW 13.5 % (11.6-15.6) 03/16/18 05:45 Plt Count 180 K/MM3 (134-434) 03/16/18 05:45 MPV 10.8 fl (7.5-11.1) 03/16/18 05:45 Sodium 138 mmol/L (136-145) 03/16/18 05:45 Potassium 4.5 mmol/L (3.5-5.1) 03/16/18 05:45 Chloride 104 mmol/L (98-107) 03/16/18 05:45 Carbon Dioxide 28 mmol/L (21-32) 03/16/18 05:45 Anion Gap 6 MMOL/L (8-16) L 03/16/18 05:45 BUN 11 mg/dL (7-18) 03/16/18 05:45 Creatinine 0.7 mg/dL (0.55-1.3) 03/16/18 05:45 Creat Clearance w eGFR > 60 (>60) 03/16/18 05:45 Random Glucose 83 mg/dL (74-106) 03/16/18 05:45 Calcium 10.0 mg/dL (8.5-10.1) 03/16/18 05:45 Total Bilirubin 0.5 mg/dL (0.2-1) 03/16/18 05:45 AST 14 U/L (15-37) L 03/16/18 05:45 ALT 15 U/L (13-61) 03/16/18 05:45 Alkaline Phosphatase 83 U/L (45-117) 03/16/18 05:45 Total Protein 8.2 g/dl (6.4-8.2) 03/16/18 05:45 Albumin 4.1 g/dl (3.4-5.0) 03/16/18 05:45 TSH 0.66 uIU/ml (0.358-3.74) 03/15/18 13:20 Resin T3 Uptake 28.9 % (30-39) L 03/15/18 13:20 Urine Color Ltyellow 03/16/18 09:00 Urine Appearance Clear 03/16/18 09:00 Urine pH 7.0 (5.0-8.0) 03/16/18 09:00 Ur Specific [place] 1.009 (1.001-1.035) 03/16/18 09:00 Urine Protein Negative (NEGATIVE) 03/16/18 09:00 Urine Glucose (UA) Negative (NEGATIVE) 03/16/18 09:00 Urine Ketones Negative (NEGATIVE) 03/16/18 09:00 Urine Blood Negative (NEGATIVE) 03/16/18 09:00 Urine Nitrite Negative (NEGATIVE) 03/16/18 09:00 Urine Bilirubin Negative (<2.0 mg/dL) 03/16/18 09:00 Urine Urobilinogen Negative mg/dL (0.2-1.0) 03/16/18 09:00 Ur Leukocyte Esterase Negative (NEGATIVE) 03/16/18 09:00 RPR Titer Nonreactive (NONREACTIVE) 03/16/18 05:45 Hep C Ab Diagnostic 0.3 s/co ratio (0.0-0.9) 03/15/18 13:20 Liver Fibrosis Interp (.) 03/15/18 13:20 HIV 1&2 Antibody Screen Negative 03/15/18 13:05 HIV P24 Antigen Negative 03/15/18 13:05 Aox3 no distress anxious no adventitious breath sounds full ROM ambulating in the unit withdrawal sx continue detox continue to monitor
[2018-03-19] MEDS ORDERED: METHADONE HCL 10 MG TABLET (FOR DETOX USE ONLY) PO SCH (10:00)
[2018-03-19] MEDS: NICOTINE 21 MG/24 HOURS TOPICAL PATCH TD SCH (10:27)
[2018-03-19] MEDS: QUEtiapine FUMARATE 50 MG TABLET PO SCH ×2 (10:27→22:37)
[2018-03-19] MEDS: PRENATAL VITAMINS W/ FOLIC ACID TABLET (FP) PO SCH (10:28)
[2018-03-19] MEDS: LIDOCAINE 5% TOPICAL PATCH TP SCH (10:28)
[2018-03-19 22:23] VITALS: BP 150/75; PULSE 77; TEMP 97.5
[2018-03-19] MEDS: THIAMINE HCL 100 MG TABLET (FP) PO SCH (22:36)
[2018-03-19] MEDS: MIRTAZAPINE 15 MG TABLET (FP) PO SCH (22:37)
[2018-03-19] MEDS: LIDOCAINE PATCH REMOVAL MC SCH (22:37)
[2018-03-19] MEDS: MELATONIN 5 MG TABLETS PO PRN (22:38)
[2018-03-19] MEDS: CYCLOBENZAPRINE HCL 10 MG TABLET (FP) PO PRN (22:38)
[2018-03-20] MEDS: IBUPROFEN 400 MG TABLET (FP) PO PRN (00:30)
[2018-03-20] MEDS ORDERED: METHADONE HCL 5 MG TABLET (FOR DETOX USE ONLY) PO SCH (06:00)
[2018-03-20] MEDS: metroNIDAZOLE 250 MG TABLET PO SCH (06:19)
--- NOTE | 2018-03-20 09:01 | DS ---
[facility] Detox Discharge Summary Admission Date: 03/15/18 Discharge Date: 03/20/18 - History Present History: Alcohol Dependence, Opioid Dependence Additional Comments: 62 years old female admitted on 03/15/18 for alcohol and opiate withdrawal sx completed detox regimen today left detox unit around 0700 the technical report writer did not assess nor evaluate the patient - Physical Exam Results Vital Signs: Vital Signs Temperature 97.5 F L 03/19/18 22:22 Pulse Rate 77 03/19/18 22:22 Respiratory Rate 18 03/20/18 03:30 Blood Pressure 150/75 03/19/18 22:22 O2 Sat by Pulse Oximetry (%) Pertinent Admission Physical Exam Findings: alcohol and opioid withdrawal sx Vital Signs Temperature 97.5 F L 03/19/18 22:22 Pulse Rate 77 03/19/18 22:22 Respiratory Rate 18 03/20/18 03:30 Blood Pressure 150/75 03/19/18 22:22 O2 Sat by Pulse Oximetry (%) Laboratory Last Values WBC 7.2 K/mm3 (4.0-10.0) 03/16/18 05:45 RBC 4.69 M/mm3 (3.60-5.2) 03/16/18 05:45 Hgb 14.8 GM/dL (10.7-15.3) 03/16/18 05:45 Hct 44.0 % (32.4-45.2) 03/16/18 05:45 MCV 93.8 fl (80-96) 03/16/18 05:45 MCH 31.6 pg (25.7-33.7) 03/16/18 05:45 MCHC 33.7 g/dl (32.0-36.0) 03/16/18 05:45 RDW 13.5 % (11.6-15.6) 03/16/18 05:45 Plt Count 180 K/MM3 (134-434) 03/16/18 05:45 MPV 10.8 fl (7.5-11.1) 03/16/18 05:45 Sodium 138 mmol/L (136-145) 03/16/18 05:45 Potassium 4.5 mmol/L (3.5-5.1) 03/16/18 05:45 Chloride 104 mmol/L (98-107) 03/16/18 05:45 Carbon Dioxide 28 mmol/L (21-32) 03/16/18 05:45 Anion Gap 6 MMOL/L (8-16) L 03/16/18 05:45 BUN 11 mg/dL (7-18) 03/16/18 05:45 Creatinine 0.7 mg/dL (0.55-1.3) 03/16/18 05:45 Creat Clearance w eGFR > 60 (>60) 03/16/18 05:45 Random Glucose 83 mg/dL (74-106) 03/16/18 05:45 Calcium 10.0 mg/dL (8.5-10.1) 03/16/18 05:45 Total Bilirubin 0.5 mg/dL (0.2-1) 03/16/18 05:45 AST 14 U/L (15-37) L 03/16/18 05:45 ALT 15 U/L (13-61) 03/16/18 05:45 Alkaline Phosphatase 83 U/L (45-117) 03/16/18 05:45 Total Protein 8.2 g/dl (6.4-8.2) 03/16/18 05:45 Albumin 4.1 g/dl (3.4-5.0) 03/16/18 05:45 TSH 0.66 uIU/ml (0.358-3.74) 03/15/18 13:20 Resin T3 Uptake 28.9 % (30-39) L 03/15/18 13:20 Urine Color Ltyellow 03/16/18 09:00 Urine Appearance Clear 03/16/18 09:00 Urine pH 7.0 (5.0-8.0) 03/16/18 09:00 Ur Specific [place] 1.009 (1.001-1.035) 03/16/18 09:00 Urine Protein Negative (NEGATIVE) 03/16/18 09:00 Urine Glucose (UA) Negative (NEGATIVE) 03/16/18 09:00 Urine Ketones Negative (NEGATIVE) 03/16/18 09:00 Urine Blood Negative (NEGATIVE) 03/16/18 09:00 Urine Nitrite Negative (NEGATIVE) 03/16/18 09:00 Urine Bilirubin Negative (<2.0 mg/dL) 03/16/18 09:00 Urine Urobilinogen Negative mg/dL (0.2-1.0) 03/16/18 09:00 Ur Leukocyte Esterase Negative (NEGATIVE) 03/16/18 09:00 RPR Titer Nonreactive (NONREACTIVE) 03/16/18 05:45 Hep C Ab Diagnostic 0.3 s/co ratio (0.0-0.9) 03/15/18 13:20 Liver Fibrosis Interp (.) 03/15/18 13:20 HIV 1&2 Antibody Screen Negative 03/15/18 13:05 HIV P24 Antigen Negative 03/15/18 13:05 lab noted appears to have bp elevation according to the nursing reported that the patient was in the [place] and back and forth from the nurses station to her room many times refused to recheck bp patient has stable bp throughout the detox regimen - Treatment Hospital Course: Detox Protocol Followed, Detoxed Safely, Responded well, Discharged Condition Good, Rehab Referral Accepted Patient has Accepted a Rehab Referral to: [facility] - Medication Discharge Medications: Ambulatory Orders Quetiapine Fumarate [Seroquel -] 50 mg PO HS 02/24/16 Albuterol Sulfate Inhaler - [Ventolin HFA Inhaler -] 2 inh PO Q4H PRN #1 inhaler 03/04/18 Cyclobenzaprine HCl [Flexeril -] 10 mg PO HS #30 tablet 03/04/18 Mirtazapine [Remeron -] 15 mg PO HS 03/04/18 Albuterol Sulfate Inhaler - [Ventolin HFA Inhaler -] 2 puff IH Q4H PRN #1 inhaler 03/19/18 - Diagnosis (1) Opioid dependence with withdrawal Status: Acute (2) Alcohol dependence with uncomplicated withdrawal Status: Acute (3) Asthma Status: Chronic Qualifiers: Asthma severity: mild Asthma persistence: intermittent Asthma complication type: with status asthmaticus Qualified Code(s): J45.22 - Mild intermittent asthma with status asthmaticus (4) Bipolar disorder Status: Suspected Qualifiers: Current bipolar episode type: mixed Current episode severity: unspecified (5) COPD (chronic obstructive pulmonary disease) Status: Chronic Qualifiers: COPD type: chronic bronchitis Chronic bronchitis type: mixed simple and mucopurulent Qualified Code(s): J41.8 - Mixed simple and mucopurulent chronic bronchitis (6) GERD (gastroesophageal reflux disease) Status: Chronic Qualifiers: Esophagitis presence: without esophagitis Qualified Code(s): K21.9 - Gastro -esophageal reflux disease without esophagitis (7) Nicotine dependence Status: Acute Qualifiers: Nicotine product type: cigarettes Substance use status: in withdrawal Qualified Code(s): F17.213 - Nicotine dependence, cigarettes, with withdrawal (8) Hypothyroidism Status: Chronic Qualifiers: Hypothyroidism type: unspecified Qualified Code(s): E03.9 - Hypothyroidism , unspecified (9) Asthma Status: Chronic Qualifiers: Asthma severity: mild Asthma persistence: intermittent Asthma complication type: unspecified Qualified Code(s): J45.20 - Mild intermittent asthma, uncomplicated - AMA Did Patient Leave Against Medical Advice: No
== END 2018-03-20 07:02 | disposition home or self-care (01) | DRG 897 ==
LOC: YASAS 11:48 → Y6N 13:46
PROC: HZ2ZZZZ Detoxification Services for Substance Abuse Treatment (ICD-10-PCS; principal; 2018-03-15)
DX: F11.23 Opioid dependence with withdrawal (principal); F10.230 Alcohol dependence with withdrawal, uncomplicated; F17.213 Nicotine dependence, cigarettes, with withdrawal; F41.8 Other specified anxiety disorders; J45.20 Mild intermittent asthma, uncomplicated; J41.8 Mixed simple and mucopurulent chronic bronchitis; K21.9 Gastro-esophageal reflux disease without esophagitis; I10 Essential (primary) hypertension; E03.9 Hypothyroidism, unspecified; G47.00 Insomnia, unspecified; M54.5 Low back pain; G89.29 Other chronic pain; Z86.19 Personal history of other infectious and parasitic diseases; Z91.5 Personal history of self-harm
CPT/HCPCS: 36415; 80053; 81003; 84436; 84443; 84479; 85027; 86593; 86803; 87389; 90688; 93005; 93010; G0008

== ENCOUNTER 2018-03-21 12:50 | Inpatient (IN) | payer MEDICARE, OTHER ==
[2018-03-21 13:06] VITALS: BMI 33.7
--- NOTE | 2018-03-21 15:25 | HP ---
Admission ROS [facility] - [facility] Chief Complaint: I was in detox and completed and need rehab for further tx. Allergies/Adverse Reactions: Allergies Allergy/AdvReac Type Severity Reaction Status Date / Time No Known Allergies Allergy Verified 03/21/18 14:41 History of Present Illness: pt is a 62yr old female with a history of heroin and alcohol and now ready for rehab and go to a [facility] program. Exam Limitations: No Limitations - Ebola screening Have you traveled outside of the country in the last 21 days: No Have you had contact with anyone from an Ebola affected area: No Have you been sick,other than usual withdrawal symptoms: No Do you have a fever: No - Review of Systems Constitutional: Changes in sleep EENT: reports: No Symptoms Reported Respiratory: reports: No Symptoms reported Cardiac: reports: No Symptoms Reported GI: reports: No Symptoms Reported : reports: No Symptoms Reported Musculoskeletal: reports: Back Pain Integumentary: reports: Flushing Neuro: reports: Tingling, Tremors Endocrine: reports: No Symptoms Reported Hematology: reports: No Symptoms Reported Psychiatric: reports: Judgement Intact, Orientated x3, Agitated Other Systems: Reviewed and Negative Patient History - Patient Medical History Hx Anemia: No Hx Asthma: Yes Hx Chronic Obstructive Pulmonary Disease (COPD): No Hx Cancer: No Hx Cardiac Disorders: No Hx Congestive Heart Failure: No Hx Hypertension: No Hx Hypercholesterolemia: No HX Cerebrovascular Accident: No Hx Seizures: No Hx Dementia: No Hx Diabetes: No Hx Gastrointestinal Disorders: Yes (acid reflux) Hx Liver Disease: No Hx Genitourinary Disorders: No Hx Sexually Transmitted Disorders: Yes (chlamydia) Hx Renal Disease (ESRD): No Hx Thyroid Disease: Yes (WAITING TO SEE HER PMD DR FAIBAN FOR WORK/UP.) Hx Human Immunodeficiency Virus (HIV): No (NEGATIVE HX LAST 2013) Hx Hepatitis C: No (denies) Hx Depression: Yes Hx Suicide Attempt: No Hx Bipolar Disorder: Yes Hx Schizophrenia: No - Patient Surgical History Past Surgical History: Yes Hx Neurologic Surgery: No Hx Cataract Extraction: No Hx Cardiac Surgery: No Hx Lung Surgery: No Hx Breast Surgery: No Hx Breast Biopsy: No Hx Abdominal Surgery: No Hx Appendectomy: Yes (age 7 yrs) Hx Cholecystectomy: No Hx Genitourinary Surgery: No Hx Section: No Hx Orthopedic Surgery: No Other Surgical History: R arm sx for abscess Anesthesia Reaction: No - PPD History Previous Implant?: Yes Documented Results: Negative w/proof Implanted On Prior [facility] Admission?: Yes Date: 03/17/18 Results: 0 mm PPD to be Administered?: No - Reproductive History Patient is a Female of Child Bearing Age (11 -55 yrs old): No Patient : No - Smoking Cessation Smoking history: Current every day smoker Have you smoked in the past 12 months: Yes Aproximately how many cigarettes per day: 20 Hx Chewing Tobacco Use: No Initiated information on smoking cessation: Yes 'Breaking Loose' booklet given: 03/21/18 - Substance & Tx. History Hx Alcohol Use: Yes Hx Substance Use: Yes Substance Use Type: Alcohol, Heroin Hx Substance Use Treatment: Yes (last detox 02/2018 [facility]) - Substances Abused Heroin Route: Injection Frequency: Daily Amount used: 2-3 bags Age of first use: 40 Date of Last Use: 03/14/18 Alcohol-wine Route: Oral Frequency: Daily Amount used: 1/2 gal. Age of first use: 23 Date of Last Use: 04/13/18 Family Disease History - Family Disease History Family Disease History: Diabetes: Mother (HTN), Other: Mother Admission Physical Exam S - Vital Signs Vital Signs: Vital Signs - 24 hr 03/21/18 13:05 Temperature 99 F Pulse Rate 67 Respiratory 18 Rate Blood Pressure 143/73 - Physical General Appearance: Yes: Appropriately Dressed, Mild Distress HEENTM: Yes: Hearing grossly Normal, Normal Voice Respiratory: Yes: Lungs Clear, Normal Breath Sounds Neck: Yes: No masses,lesions,Nodules Breast: Yes: Within Normal Limits Cardiology: Yes: Regular Rhythm, Regular Rate, S1, S2 Abdominal: Yes: Normal Bowel Sounds Genitourinary: Yes: Within Normal Limits Back: Yes: Normal Inspection Musculoskeletal: Yes: Back pain Extremities: Yes: Normal Capillary Refill, Normal Inspection, Tremors Neurological: Yes: Fully Oriented, Alert, Normal Response Integumentary: Yes: Normal Color Lymphatic: Yes: Within Normal Limits - Diagnostic (1) Alcohol dependence with uncomplicated withdrawal Current Visit: No Status: Acute (2) Back pain Current Visit: Yes Status: Chronic Qualifiers: Back pain location: low back pain Chronicity: chronic Back pain laterality: unspecified Sciatica presence: unspecified whether sciatica present Qualified Code(s): M54.5 - Low back pain; G89.29 - Other chronic pain Comment: gentle stretches, flexeril (3) Drug-induced mood disorder Current Visit: No Status: Acute (4) Nicotine dependence Current Visit: Yes Status: Chronic Qualifiers: Nicotine product type: cigarettes Substance use status: uncomplicated Qualified Code(s): F17.210 - Nicotine dependence, cigarettes, uncomplicated Comment: counseled cessation - interested in patch - same Rx (5) Opioid dependence with withdrawal Current Visit: No Status: Acute Comment: refer to methadone program per patient request (6) Asthma Current Visit: Yes Status: Chronic Qualifiers: Asthma severity: mild Asthma persistence: intermittent (7) Bipolar II disorder Current Visit: No Status: Chronic (8) COPD (chronic obstructive pulmonary disease) Current Visit: Yes Status: Chronic Qualifiers: COPD type: unspecified COPD Qualified Code(s): J44.9 - Chronic obstructive pulmonary disease, unspecified (9) GERD (gastroesophageal reflux disease) Current Visit: Yes Status: Chronic Qualifiers: Esophagitis presence: without esophagitis Qualified Code(s): K21.9 - Gastro -esophageal reflux disease without esophagitis (10) Hypothyroidism Current Visit: No Status: Chronic Qualifiers: Hypothyroidism type: acquired Qualified Code(s): E03.9 - Hypothyroidism, unspecified Comment: needs f/u with primary (11) Bipolar disorder Current Visit: No Status: Suspected Qualifiers: Active/Remission status: currently active Comment: saw dr ortiz, on meds Cleared for Admission S - Detox or Rehab [facility] Level of Care: Medically Managed Claeared for Rehab Admission: Yes [facility] Breath Alcohol Content Breath Alcohol Content: 0 Urine Pregancy Test - Result Urine Test Results: Negative- NO Line Present Urine Drug Screen - Results Drug Screen Negative: No Urine Drug Screen Results: BZO-Benzodiazepines, MTD-Methadone Inpatient Rehab Admission - Initial Determination Are CD services needed?: Yes Free of communicable disease: Yes Not in need of hospitalization: Yes - Rehab Admission Criteria Poor recovery environment: Yes Comorbidities: Yes Lacks judgement: Yes
[2018-03-21] MEDS ORDERED: LOPERAMIDE HCL 2 MG CAPSULE PO PRN (15:29)
[2018-03-21] MEDS ORDERED: MENTHOL/PHENOL 1 EACH UD MM PRN (15:29)
[2018-03-21] MEDS ORDERED: P-EPHED 60MG/TRIPROLIDI 2.5MG TABLET PO PRN (15:29)
[2018-03-21] MEDS ORDERED: MAGNESIUM CITRATE 300 ML BOTTLE PO PRN (15:29)
[2018-03-21] MEDS ORDERED: MAG HYDROX/AL HYDROX/SIMETH 30 ML UNIT-DOSE CUP PO PRN (15:29)
[2018-03-21] MEDS ORDERED: MAGNESIUM HYDROX 2400MG/30ML ORAL SUSPENSION 30 ML CUP PO PRN (15:29)
[2018-03-21] MEDS ORDERED: guaiFENesin/D-METHORPHAN HB 10 ML UNIT-DOSE CUPS PO PRN (15:29)
[2018-03-21] MEDS: MIRTAZAPINE 15 MG TABLET (FP) PO SCH (21:28)
[2018-03-21] MEDS: LIDOCAINE PATCH REMOVAL MC SCH (21:28)
[2018-03-21] MEDS: CYCLOBENZAPRINE HCL 10 MG TABLET (FP) PO SCH (21:28)
[2018-03-21] MEDS: THIAMINE HCL 100 MG TABLET (FP) PO SCH (21:28)
[2018-03-21] MEDS: QUEtiapine FUMARATE 100 MG TABLET (FP) PO SCH (21:28)
[2018-03-21 23:25] LABS: URINE APPEARANCE SLCLOUDY; URINE BILIRUBIN NEGATIVE (<2.0 mg/dL); URINE COLOR YELLOW; URINE GLUCOSE (UA) NEGATIVE (NEGATIVE); URINE KETONE NEGATIVE (NEGATIVE); URINE LEUK ESTERASE NEGATIVE (NEGATIVE); URINE NITRITE NEGATIVE (NEGATIVE); URINE PROTEIN NEGATIVE (NEGATIVE); URINE UROBILINOGEN NEGATIVE mg/dL (0.2-1.0)
[2018-03-22] MEDS: IBUPROFEN 400 MG TABLET (FP) PO PRN ×3 (06:28→21:24)
[2018-03-22] MEDS: NICOTINE 21 MG/24 HOURS TOPICAL PATCH TD SCH (09:13)
[2018-03-22] MEDS: LIDOCAINE 5% TOPICAL PATCH TP SCH (09:13)
[2018-03-22] MEDS: PRENATAL VITAMINS W/ FOLIC ACID TABLET (FP) PO SCH (09:14)
[2018-03-22] MEDS: QUEtiapine FUMARATE 100 MG TABLET (FP) PO SCH ×2 (09:14→21:22)
--- NOTE | 2018-03-22 11:07 | EKG ---
Test Reason : Blood Pressure : / mmHG Vent. Rate : 063 BPM Atrial Rate : 063 BPM P-R Int : 182 ms QRS Dur : 090 ms QT Int : 424 ms P-R-T Axes : 063 065 047 degrees QTc Int : 433 ms NORMAL SINUS RHYTHM NORMAL ECG WHEN COMPARED WITH ECG OF 15-MAR-2018 14:20, NO SIGNIFICANT CHANGE WAS FOUND Confirmed by Johnnie Lopez MD ([id number]) on 03/22/2018 11:07:01 AM Referred By: Confirmed By:Johnnie Lopez MD
[2018-03-22] MEDS: ALBUTEROL SO4 8 GM HFA INHALER IH PRN (12:51)
[2018-03-22] MEDS ORDERED: FLUCONAZOLE 50 MG TABLET PO ONE (12:55)
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
[2018-03-22] MEDS: hydrOXYzine PAMOATE 50 MG CAPSULE (FP) PO PRN ×2 (14:07→21:22)
[2018-03-22] MEDS: BACITRACIN 0.9 GM PACKET TP SCH (14:16)
[2018-03-22 14:55] LABS: HEMOGLOBIN 15.2 GM/dL (10.7-15.3); MCH 31.6 pg (25.7-33.7); MCHC 33.7 g/dl (32.0-36.0); MEAN CELL VOLUME 93.8 fl (80-96); MEAN PLT VOLUME 9.7 fl (7.5-11.1); PLATELET COUNT 180 K/MM3 (134-434); RDW 13.7 % (11.6-15.6); WHITE BLOOD COUNT 6.8 K/mm3 (4.0-10.0)
[2018-03-22 15:30] LABS: ALBUMIN 4.1 g/dl (3.4-5.0); ALK PHOS 95 U/L (45-117); ANION GAP 5 MMOL/L (8-16); BILIRUBIN,TOTAL 0.3 mg/dL (0.2-1); BLOOD UREA NITROGEN 19 mg/dL (7-18); CALCIUM 9.7 mg/dL (8.5-10.1); CHLORIDE 105 mmol/L (98-107); CO2 26 mmol/L (21-32); CREATININE 0.7 mg/dL (0.55-1.3); GLUCOSE,RANDOM 106 mg/dL (74-106); POTASSIUM 4.9 mmol/L (3.5-5.1); SGOT/AST 25 U/L (15-37); SGPT/ALT 42 U/L (13-61); SODIUM 135 mmol/L (136-145); TOT PROT 8.1 g/dl (6.4-8.2)
[2018-03-22] MEDS: LIDOCAINE PATCH REMOVAL MC SCH (21:22)
[2018-03-22] MEDS: THIAMINE HCL 100 MG TABLET (FP) PO SCH (21:22)
[2018-03-22] MEDS: CYCLOBENZAPRINE HCL 10 MG TABLET (FP) PO SCH (21:22)
[2018-03-22] MEDS: MIRTAZAPINE 15 MG TABLET (FP) PO SCH (21:22)
[2018-03-23] MEDS: hydrOXYzine PAMOATE 50 MG CAPSULE (FP) PO PRN ×3 (03:20→17:03)
[2018-03-23] MEDS: LIDOCAINE 5% TOPICAL PATCH TP SCH (10:20)
[2018-03-23] MEDS: NICOTINE 21 MG/24 HOURS TOPICAL PATCH TD SCH (10:20)
[2018-03-23] MEDS: PRENATAL VITAMINS W/ FOLIC ACID TABLET (FP) PO SCH (10:20)
[2018-03-23] MEDS: BACITRACIN 0.9 GM PACKET TP SCH (10:20)
[2018-03-23] MEDS: QUEtiapine FUMARATE 100 MG TABLET (FP) PO SCH ×2 (10:21→21:13)
[2018-03-23] MEDS: IBUPROFEN 400 MG TABLET (FP) PO PRN ×2 (10:21→17:01)
[2018-03-23] MEDS ORDERED: PT OWN MED DRAWER 7, Y5N ONE (10:22)
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
[2018-03-23] MEDS: GABAPENTIN 100 MG CAPSULE (FP) PO SCH ×2 (17:01→21:13)
[2018-03-23] MEDS: THIAMINE HCL 100 MG TABLET (FP) PO SCH (21:13)
[2018-03-23] MEDS: CYCLOBENZAPRINE HCL 10 MG TABLET (FP) PO SCH (21:13)
[2018-03-23] MEDS: MIRTAZAPINE 15 MG TABLET (FP) PO SCH (21:13)
[2018-03-23] MEDS: LIDOCAINE PATCH REMOVAL MC SCH (21:14)
[2018-03-24] MEDS: hydrOXYzine PAMOATE 50 MG CAPSULE (FP) PO PRN ×3 (00:42→17:22)
[2018-03-24] MEDS: IBUPROFEN 400 MG TABLET (FP) PO PRN ×2 (00:42→10:19)
[2018-03-24] MEDS: GABAPENTIN 100 MG CAPSULE (FP) PO SCH ×3 (06:06→21:29)
[2018-03-24] MEDS: PRENATAL VITAMINS W/ FOLIC ACID TABLET (FP) PO SCH (10:13)
[2018-03-24] MEDS: BACITRACIN 0.9 GM PACKET TP SCH (10:13)
[2018-03-24] MEDS: QUEtiapine FUMARATE 100 MG TABLET (FP) PO SCH ×2 (10:13→21:29)
[2018-03-24] MEDS: NICOTINE 21 MG/24 HOURS TOPICAL PATCH TD SCH (10:13)
[2018-03-24] MEDS: LIDOCAINE 5% TOPICAL PATCH TP SCH (10:14)
[2018-03-24] MEDS: ALBUTEROL SO4 8 GM HFA INHALER IH PRN (11:02)
[2018-03-24] MEDS: ACETAMINOPHEN 325 MG TABLET (FP) PO PRN ×2 (12:19→23:47)
[2018-03-24] MEDS ORDERED: CYCLOBENZAPRINE HCL 10 MG TABLET (FP) PO ONE (16:30)
--- NOTE | 2018-03-24 17:02 | PN ---
[facility] Progress Note Note: PT WANTS FLEXERIL CHANGED TO TID FROM HS. Laboratory Tests 03/21/18 03/22/18 03/22/18 19:46 10:40 10:40 WBC 6.8 RBC 4.80 Hgb 15.2 Hct 45.0 MCV 93.8 MCH 31.6 MCHC 33.7 RDW 13.7 Plt Count 180 MPV 9.7 D Sodium 135 L Potassium 4.9 Chloride 105 Carbon Dioxide 26 Anion Gap 5 L BUN 19 H Creatinine 0.7 Creat Clearance w eGFR > 60 Random Glucose 106 Calcium 9.7 Total Bilirubin 0.3 AST 25 ALT 42 Alkaline Phosphatase 95 Total Protein 8.1 Albumin 4.1 Urine Color Yellow Urine Appearance Slcloudy Urine pH 7.0 Ur Specific [place] 1.015 Urine Protein Negative Urine Glucose (UA) Negative Urine Ketones Negative Urine Blood Negative Urine Nitrite Negative Urine Bilirubin Negative Urine Urobilinogen Negative Ur Leukocyte Esterase Negative RPR Titer 03/22/18 10:40 WBC RBC Hgb Hct MCV MCH MCHC RDW Plt Count MPV Sodium Potassium Chloride Carbon Dioxide Anion Gap BUN Creatinine Creat Clearance w eGFR Random Glucose Calcium Total Bilirubin AST ALT Alkaline Phosphatase Total Protein Albumin Urine Color Urine Appearance Urine pH Ur Specific [place] Urine Protein Urine Glucose (UA) Urine Ketones Urine Blood Urine Nitrite Urine Bilirubin Urine Urobilinogen Ur Leukocyte Esterase RPR Titer Nonreactive Vital Signs - 24 hr 03/24/18 06:34 Temperature 97.6 F Pulse Rate 63 Respiratory 18 Rate Blood Pressure 130/71 SEROLOGY RESULT FOR STD PENDING
[2018-03-24] MEDS: THIAMINE HCL 100 MG TABLET (FP) PO SCH (21:29)
[2018-03-24] MEDS: LIDOCAINE PATCH REMOVAL MC SCH (21:29)
[2018-03-24] MEDS: MIRTAZAPINE 15 MG TABLET (FP) PO SCH (21:29)
[2018-03-24] MEDS: CYCLOBENZAPRINE HCL 10 MG TABLET (FP) PO SCH (21:30)
[2018-03-25] MEDS: hydrOXYzine PAMOATE 50 MG CAPSULE (FP) PO PRN ×5 (01:58→21:14)
[2018-03-25] MEDS: IBUPROFEN 400 MG TABLET (FP) PO PRN ×2 (01:58→14:12)
[2018-03-25] MEDS: CYCLOBENZAPRINE HCL 10 MG TABLET (FP) PO SCH ×3 (06:18→21:14)
[2018-03-25] MEDS: GABAPENTIN 100 MG CAPSULE (FP) PO SCH ×3 (06:18→21:14)
[2018-03-25] MEDS: ACETAMINOPHEN 325 MG TABLET (FP) PO PRN ×4 (06:18→21:16)
[2018-03-25] MEDS: LIDOCAINE 5% TOPICAL PATCH TP SCH (10:38)
[2018-03-25] MEDS: QUEtiapine FUMARATE 100 MG TABLET (FP) PO SCH ×2 (10:38→21:14)
[2018-03-25] MEDS: BACITRACIN 0.9 GM PACKET TP SCH (10:38)
[2018-03-25] MEDS: NICOTINE 21 MG/24 HOURS TOPICAL PATCH TD SCH (10:38)
[2018-03-25] MEDS: PRENATAL VITAMINS W/ FOLIC ACID TABLET (FP) PO SCH (10:38)
--- NOTE | 2018-03-25 16:25 | PN ---
S Progress Note Note: PT WANTS TO KNOW RESULT OF STD LABS RESULTS STILL PENDING F/U WHEN RESULTS OBTAINED
[2018-03-25] MEDS: MIRTAZAPINE 15 MG TABLET (FP) PO SCH (21:14)
[2018-03-25] MEDS: THIAMINE HCL 100 MG TABLET (FP) PO SCH (21:14)
[2018-03-25] MEDS: LIDOCAINE PATCH REMOVAL MC SCH (21:16)
[2018-03-26] MEDS: hydrOXYzine PAMOATE 50 MG CAPSULE (FP) PO PRN ×3 (01:50→16:50)
[2018-03-26] MEDS: ACETAMINOPHEN 325 MG TABLET (FP) PO PRN ×4 (01:50→21:10)
[2018-03-26] MEDS: GABAPENTIN 100 MG CAPSULE (FP) PO SCH ×3 (06:40→21:08)
[2018-03-26] MEDS: CYCLOBENZAPRINE HCL 10 MG TABLET (FP) PO SCH ×3 (06:40→21:20)
[2018-03-26] MEDS: IBUPROFEN 400 MG TABLET (FP) PO PRN (06:42)
[2018-03-26] MEDS: LIDOCAINE 5% TOPICAL PATCH TP SCH (09:34)
[2018-03-26] MEDS: NICOTINE 21 MG/24 HOURS TOPICAL PATCH TD SCH (09:35)
[2018-03-26] MEDS: QUEtiapine FUMARATE 100 MG TABLET (FP) PO SCH ×2 (09:35→21:08)
[2018-03-26] MEDS: BACITRACIN 0.9 GM PACKET TP SCH (09:35)
[2018-03-26] MEDS: PRENATAL VITAMINS W/ FOLIC ACID TABLET (FP) PO SCH (09:35)
[2018-03-26] MEDS: MIRTAZAPINE 15 MG TABLET (FP) PO SCH (21:08)
[2018-03-26] MEDS: THIAMINE HCL 100 MG TABLET (FP) PO SCH (21:08)
[2018-03-26] MEDS: LIDOCAINE PATCH REMOVAL MC SCH (21:20)
[2018-03-26] MEDS: ALBUTEROL SO4 8 GM HFA INHALER IH PRN (21:59)
[2018-03-27] MEDS: ACETAMINOPHEN 325 MG TABLET (FP) PO PRN ×2 (01:35→17:02)
[2018-03-27] MEDS: hydrOXYzine PAMOATE 50 MG CAPSULE (FP) PO PRN ×4 (01:36→21:09)
[2018-03-27] MEDS: CYCLOBENZAPRINE HCL 10 MG TABLET (FP) PO SCH ×3 (06:36→21:06)
[2018-03-27] MEDS: GABAPENTIN 100 MG CAPSULE (FP) PO SCH ×3 (06:37→21:06)
[2018-03-27] MEDS: IBUPROFEN 400 MG TABLET (FP) PO PRN (08:50)
[2018-03-27] MEDS: NICOTINE 21 MG/24 HOURS TOPICAL PATCH TD SCH (09:57)
[2018-03-27] MEDS: BACITRACIN 0.9 GM PACKET TP SCH (09:57)
[2018-03-27] MEDS: LIDOCAINE 5% TOPICAL PATCH TP SCH (09:57)
[2018-03-27] MEDS: QUEtiapine FUMARATE 100 MG TABLET (FP) PO SCH ×2 (09:58→21:06)
[2018-03-27] MEDS: PRENATAL VITAMINS W/ FOLIC ACID TABLET (FP) PO SCH (09:58)
[2018-03-27] MEDS: ALBUTEROL SO4 8 GM HFA INHALER IH PRN (09:59)
[2018-03-27] MEDS ORDERED: PT OWN MED DRAWER 7, Y5N ONE ×2 (20:12→21:31)
[2018-03-27] MEDS: MIRTAZAPINE 15 MG TABLET (FP) PO SCH (21:06)
[2018-03-27] MEDS: THIAMINE HCL 100 MG TABLET (FP) PO SCH (21:06)
[2018-03-27] MEDS: LIDOCAINE PATCH REMOVAL MC SCH (21:07)
[2018-03-27] MEDS: MELATONIN 5 MG TABLETS PO PRN (21:09)
[2018-03-28] MEDS: hydrOXYzine PAMOATE 50 MG CAPSULE (FP) PO PRN ×4 (02:39→21:17)
[2018-03-28] MEDS: ACETAMINOPHEN 325 MG TABLET (FP) PO PRN ×2 (02:39→06:22)
[2018-03-28] MEDS: GABAPENTIN 100 MG CAPSULE (FP) PO SCH ×3 (06:21→21:19)
[2018-03-28] MEDS: CYCLOBENZAPRINE HCL 10 MG TABLET (FP) PO SCH ×3 (06:21→21:17)
[2018-03-28] MEDS: PRENATAL VITAMINS W/ FOLIC ACID TABLET (FP) PO SCH (09:44)
[2018-03-28] MEDS: NICOTINE 21 MG/24 HOURS TOPICAL PATCH TD SCH (09:44)
[2018-03-28] MEDS: QUEtiapine FUMARATE 100 MG TABLET (FP) PO SCH ×3 (09:44→21:17)
[2018-03-28] MEDS: LIDOCAINE 5% TOPICAL PATCH TP SCH (09:44)
[2018-03-28] MEDS: BACITRACIN 0.9 GM PACKET TP SCH (09:44)
[2018-03-28] MEDS: IBUPROFEN 400 MG TABLET (FP) PO PRN (12:16)
--- NOTE | 2018-03-28 14:24 | PN ---
[facility] Progress Note (SOAP) Subjective: Sexually active prior to admission. c/o vaginal itching and yellowish discharge. Objective: 03/28/18 14:21 A&O x3. Laboratory Last Values WBC 6.8 K/mm3 (4.0-10.0) 03/22/18 10:40 RBC 4.80 M/mm3 (3.60-5.2) 03/22/18 10:40 Hgb 15.2 GM/dL (10.7-15.3) 03/22/18 10:40 Hct 45.0 % (32.4-45.2) 03/22/18 10:40 MCV 93.8 fl (80-96) 03/22/18 10:40 MCH 31.6 pg (25.7-33.7) 03/22/18 10:40 MCHC 33.7 g/dl (32.0-36.0) 03/22/18 10:40 RDW 13.7 % (11.6-15.6) 03/22/18 10:40 Plt Count 180 K/MM3 (134-434) 03/22/18 10:40 MPV 9.7 fl (7.5-11.1) D 03/22/18 10:40 Sodium 135 mmol/L (136-145) L 03/22/18 10:40 Potassium 4.9 mmol/L (3.5-5.1) 03/22/18 10:40 Chloride 105 mmol/L (98-107) 03/22/18 10:40 Carbon Dioxide 26 mmol/L (21-32) 03/22/18 10:40 Anion Gap 5 MMOL/L (8-16) L 03/22/18 10:40 BUN 19 mg/dL (7-18) H 03/22/18 10:40 Creatinine 0.7 mg/dL (0.55-1.3) 03/22/18 10:40 Creat Clearance w eGFR > 60 (>60) 03/22/18 10:40 Random Glucose 106 mg/dL (74-106) 03/22/18 10:40 Calcium 9.7 mg/dL (8.5-10.1) 03/22/18 10:40 Total Bilirubin 0.3 mg/dL (0.2-1) 03/22/18 10:40 AST 25 U/L (15-37) 03/22/18 10:40 ALT 42 U/L (13-61) 03/22/18 10:40 Alkaline Phosphatase 95 U/L (45-117) 03/22/18 10:40 Total Protein 8.1 g/dl (6.4-8.2) 03/22/18 10:40 Albumin 4.1 g/dl (3.4-5.0) 03/22/18 10:40 Urine Color Yellow 03/21/18 19:46 Urine Appearance Slcloudy 03/21/18 19:46 Urine pH 7.0 (5.0-8.0) 03/21/18 19:46 Ur Specific [place] 1.015 (1.001-1.035) 03/21/18 19:46 Urine Protein Negative (NEGATIVE) 03/21/18 19:46 Urine Glucose (UA) Negative (NEGATIVE) 03/21/18 19:46 Urine Ketones Negative (NEGATIVE) 03/21/18 19:46 Urine Blood Negative (NEGATIVE) 03/21/18 19:46 Urine Nitrite Negative (NEGATIVE) 03/21/18 19:46 Urine Bilirubin Negative (<2.0 mg/dL) 03/21/18 19:46 Urine Urobilinogen Negative mg/dL (0.2-1.0) 03/21/18 19:46 Ur Leukocyte Esterase Negative (NEGATIVE) 03/21/18 19:46 RPR Titer Nonreactive (NONREACTIVE) 03/22/18 10:40 C. trachomatis (JELANI) Negative (Negative) 03/22/18 13:10 N.gonorrhoeae DNA (JELANI) Negative (Negative) 03/22/18 13:10 T. vaginalis (JELANI) Negative (Negative) 03/22/18 13:10 Assessment: R/o BV Early remission poly-substance use. Plan: Increased water intake. Monistat. Continue rehab.
--- NOTE | 2018-03-28 15:51 | PN ---
Psychiatric Progress Note Vital Signs: Vital Signs Period Temp Pulse Resp BP Sys/Steinberg Pulse Ox Last 24 Hr 97.8 F 69 18-18 121/70 Date of Session: 03/28/18 Chief Complaint:: Octavio nervious,sleep is still a problem and i am nervious. HPI: Patient addressed Opioid,Alcohol dependence comorbid with Bipolar disorder. ROS: Significant for GERD,COPD,Hypothyroidism. Current Medications: Active Medications Generic Name Dose Route Start Last Admin Trade Name Freq PRN Reason Stop Dose Admin Acetaminophen 650 mg 03/21/18 15:29 03/28/18 06:22 Tylenol - PO 650 mg Q4H PRN Administration FEVER Al Hydroxide/Mg Hydroxide 30 ml 03/21/18 15:29 Mylanta Oral Suspension - PO Q6H PRN DYSPEPSIA Albuterol Sulfate 2 puff 03/21/18 15:32 03/27/18 09:59 Ventolin Hfa Inhaler - IH 2 puff Q4H PRN Administration SHORT OF BREATH/WHEEZING Bacitracin 0.9 gm 03/22/18 14:10 03/28/18 09:44 Bacitracin - TP 0.9 gm DAILY CHALINO Administration Cyclobenzaprine HCl 10 mg 03/24/18 22:00 03/28/18 13:29 Flexeril - PO 10 mg TID CHALINO Administration Eucalyptus/Menthol/Phenol/Sorbitol 1 each 03/21/18 15:29 Cepastat Lozenge - MM Q4H PRN SORE THROAT Gabapentin 200 mg 03/28/18 15:37 Neurontin - PO TID CHALINO Guaifenesin 10 ml 03/21/18 15:29 Robitussin Dm - PO Q6H PRN COUGH Hydroxyzine Pamoate 50 mg 03/21/18 15:29 03/28/18 13:29 Vistaril - PO 50 mg Q4H PRN Administration AGITATION Ibuprofen 400 mg 03/21/18 15:29 03/28/18 12:16 Motrin - PO 400 mg Q6H PRN Administration Pain level 4-6 Lidocaine 1 patch 03/22/18 10:00 03/28/18 09:44 Lidoderm Patch - TP 1 patch DAILY CHALINO Administration Loperamide HCl 4 mg 03/21/18 15:29 Imodium - PO Q6H PRN DIARRHEA Magnesium Citrate 300 ml 03/21/18 15:29 Citroma - PO Q48H PRN CONSTIPATION Magnesium Hydroxide 30 ml 03/21/18 15:29 03/27/18 21:09 Milk Of Magnesia - PO 30 ml DAILY PRN Administration CONSTIPATION Melatonin 5 mg 03/21/18 22:00 03/27/18 21:09 Melatonin PO 5 mg HS PRN Administration INSOMNIA Miconazole Nitrate 100 mg 03/28/18 22:00 Monistat-7 Vaginal Suppository - PV HS CHALINO Mirtazapine 15 mg 03/21/18 22:00 03/27/18 21:06 Remeron - PO 15 mg HS CHALINO Administration Miscellaneous 1 each 03/21/18 22:00 03/27/18 21:07 Lidoderm Patch Removal MC 1 each DAILY@2200 CHALINO Administration Nicotine 21 mg 03/22/18 10:00 03/28/18 09:44 Nicoderm Patch - TD 21 mg DAILY CHALINO Administration Nicotine Polacrilex 4 mg 03/21/18 15:29 Nicorette Gum - BUC Q2H PRN NICOTINE REPLACEMENT RX Multivit/Folic Acid/Iron 1 tab 03/22/18 10:00 03/28/18 09:44 Vitamins (Sjr) - PO 1 tab DAILY CHALINO Administration Pseudoephedrine/Triprolidine 1 combo 03/21/18 15:29 Actifed - PO TID PRN NASAL CONGESTION Quetiapine Fumarate 100 mg 03/28/18 15:45 Seroquel - PO TID CHALINO Thiamine HCl 100 mg 03/21/18 22:00 03/27/18 21:06 Vitamin B1 - PO 100 mg HS CHALINO Administration Current Side Effect: No Lab tests ordered: No Lab tests reviewed: Yes Provider note:: Chart was revuewed,met with the patient.She addressed ongoing anxiety,mood instability,sleeping difficulties.Properties of Seroquel and Gabapentin has been discussed with the patient including side effects,benefits, dose adjustment.Seroquel 50 mg po hs will be adjusted to 100 mg po hs, Gabapentin 100 mg po tid will be adjusted to 200 mg po tid,continue Remeron 15 mg po hs. Supportive therapy provided. Supportive therapy provided. Total face to face time:: 35 Mental Status Exam - Mental Status Exam Alert and Oriented to: Time, Place, Person Cognitive Function: Grossly Intact Patient Appearance: Unkempt Mood: Sad, Anxious, Irritable Affect: Mood Congruent, Labile Patient Behavior: Cooperative Speech Pattern: Clear Voice Loudness: Normal Thought Process: Goal Oriented Thought Disorder: Not Present Hallucinations: Denies Suicidal Ideation: Denies Homicidal Ideation: Denies Insight/Judgement: Fair Sleep: Fair Appetite: Good Muscle strength/Tone: Normal Gait/Station: Normal Psychiatric Treatment Plan - Problem List (1) Asthma Current Visit: Yes Qualifiers: Asthma severity: mild Asthma persistence: intermittent (2) Back pain Current Visit: Yes Qualifiers: Back pain location: low back pain Chronicity: chronic Back pain laterality: unspecified Sciatica presence: unspecified whether sciatica present Qualified Code(s): M54.5 - Low back pain; G89.29 - Other chronic pain Comment: gentle stretches, flexeril (3) COPD (chronic obstructive pulmonary disease) Current Visit: Yes Qualifiers: COPD type: unspecified COPD Qualified Code(s): J44.9 - Chronic obstructive pulmonary disease, unspecified (4) GERD (gastroesophageal reflux disease) Current Visit: Yes Qualifiers: Esophagitis presence: without esophagitis Qualified Code(s): K21.9 - Gastro -esophageal reflux disease without esophagitis (5) Nicotine dependence Current Visit: Yes Qualifiers: Nicotine product type: cigarettes Substance use status: uncomplicated Qualified Code(s): F17.210 - Nicotine dependence, cigarettes, uncomplicated Comment: counseled cessation - interested in patch - same Rx (6) Opioid dependence Current Visit: Yes (7) Bipolar II disorder Current Visit: Yes (8) Hypothyroidism Current Visit: Yes Qualifiers: Hypothyroidism type: acquired Qualified Code(s): E03.9 - Hypothyroidism, unspecified Comment: needs f/u with primary (9) Alcohol dependence Current Visit: Yes
[2018-03-28] MEDS: THIAMINE HCL 100 MG TABLET (FP) PO SCH (21:16)
[2018-03-28] MEDS: MIRTAZAPINE 15 MG TABLET (FP) PO SCH (21:16)
[2018-03-28] MEDS: LIDOCAINE PATCH REMOVAL MC SCH (21:17)
[2018-03-28] MEDS: MELATONIN 5 MG TABLETS PO PRN (21:17)
[2018-03-28] MEDS: MICONAZOLE NITRATE 100 MG SUPP SUPP.VAG PV SCH (22:49)
[2018-03-29] MEDS: GABAPENTIN 100 MG CAPSULE (FP) PO SCH ×3 (06:07→21:23)
[2018-03-29] MEDS: CYCLOBENZAPRINE HCL 10 MG TABLET (FP) PO SCH ×3 (06:07→21:23)
[2018-03-29] MEDS: QUEtiapine FUMARATE 100 MG TABLET (FP) PO SCH ×3 (06:07→21:23)
[2018-03-29] MEDS: BACITRACIN 0.9 GM PACKET TP SCH (09:34)
[2018-03-29] MEDS: LIDOCAINE 5% TOPICAL PATCH TP SCH (09:34)
[2018-03-29] MEDS: PRENATAL VITAMINS W/ FOLIC ACID TABLET (FP) PO SCH (09:35)
[2018-03-29] MEDS: NICOTINE 21 MG/24 HOURS TOPICAL PATCH TD SCH (09:39)
[2018-03-29] MEDS: hydrOXYzine PAMOATE 50 MG CAPSULE (FP) PO PRN (16:45)
[2018-03-29] MEDS: ACETAMINOPHEN 325 MG TABLET (FP) PO PRN (16:45)
[2018-03-29] MEDS: NICOTINE POLACRILEX 4 MG GUM BUC PRN (16:47)
[2018-03-29] MEDS: MIRTAZAPINE 15 MG TABLET (FP) PO SCH (21:23)
[2018-03-29] MEDS: MELATONIN 5 MG TABLETS PO PRN (21:23)
[2018-03-29] MEDS: THIAMINE HCL 100 MG TABLET (FP) PO SCH (21:23)
[2018-03-29] MEDS: LIDOCAINE PATCH REMOVAL MC SCH (21:24)
[2018-03-29] MEDS: MICONAZOLE NITRATE 100 MG SUPP SUPP.VAG PV SCH (21:45)
[2018-03-29] MEDS ORDERED: PT OWN MED DRAWER 7, Y5N ONE ×2 (23:09→23:10)
[2018-03-30] MEDS: GABAPENTIN 100 MG CAPSULE (FP) PO SCH ×3 (06:22→21:36)
[2018-03-30] MEDS: CYCLOBENZAPRINE HCL 10 MG TABLET (FP) PO SCH ×3 (06:22→21:36)
[2018-03-30] MEDS: QUEtiapine FUMARATE 100 MG TABLET (FP) PO SCH ×3 (06:22→21:36)
[2018-03-30] MEDS: ALBUTEROL SO4 8 GM HFA INHALER IH PRN (06:23)
[2018-03-30] MEDS ORDERED: PT OWN MED DRAWER 7, Y5N ONE (08:43)
[2018-03-30] MEDS: LIDOCAINE 5% TOPICAL PATCH TP SCH (09:40)
[2018-03-30] MEDS: NICOTINE 21 MG/24 HOURS TOPICAL PATCH TD SCH (09:40)
[2018-03-30] MEDS: BACITRACIN 0.9 GM PACKET TP SCH (09:40)
[2018-03-30] MEDS: hydrOXYzine PAMOATE 50 MG CAPSULE (FP) PO PRN ×3 (09:41→21:36)
[2018-03-30] MEDS: PRENATAL VITAMINS W/ FOLIC ACID TABLET (FP) PO SCH (09:41)
[2018-03-30] MEDS: NICOTINE POLACRILEX 4 MG GUM BUC PRN (09:43)
[2018-03-30] MEDS: ACETAMINOPHEN 325 MG TABLET (FP) PO PRN (17:01)
[2018-03-30] MEDS: MELATONIN 5 MG TABLETS PO PRN (21:36)
[2018-03-30] MEDS: MIRTAZAPINE 15 MG TABLET (FP) PO SCH (21:36)
[2018-03-30] MEDS: MICONAZOLE NITRATE 100 MG SUPP SUPP.VAG PV SCH (21:36)
[2018-03-30] MEDS: THIAMINE HCL 100 MG TABLET (FP) PO SCH (21:36)
[2018-03-30] MEDS: LIDOCAINE PATCH REMOVAL MC SCH (21:37)
[2018-03-31] MEDS: CYCLOBENZAPRINE HCL 10 MG TABLET (FP) PO SCH ×3 (06:23→21:18)
[2018-03-31] MEDS: GABAPENTIN 100 MG CAPSULE (FP) PO SCH ×3 (06:23→21:17)
[2018-03-31] MEDS: QUEtiapine FUMARATE 100 MG TABLET (FP) PO SCH ×3 (06:23→21:17)
[2018-03-31] MEDS: ACETAMINOPHEN 325 MG TABLET (FP) PO PRN ×2 (06:24→16:59)
[2018-03-31] MEDS: BACITRACIN 0.9 GM PACKET TP SCH (10:01)
[2018-03-31] MEDS: PRENATAL VITAMINS W/ FOLIC ACID TABLET (FP) PO SCH (10:01)
[2018-03-31] MEDS: NICOTINE 21 MG/24 HOURS TOPICAL PATCH TD SCH (10:01)
[2018-03-31] MEDS: LIDOCAINE 5% TOPICAL PATCH TP SCH (10:01)
[2018-03-31] MEDS: hydrOXYzine PAMOATE 50 MG CAPSULE (FP) PO PRN ×2 (10:02→16:59)
[2018-03-31] MEDS: IBUPROFEN 400 MG TABLET (FP) PO PRN (10:02)
[2018-03-31] MEDS: ALBUTEROL SO4 8 GM HFA INHALER IH PRN (10:04)
[2018-03-31] MEDS: MELATONIN 5 MG TABLETS PO PRN (21:17)
[2018-03-31] MEDS: THIAMINE HCL 100 MG TABLET (FP) PO SCH (21:17)
[2018-03-31] MEDS: MIRTAZAPINE 15 MG TABLET (FP) PO SCH (21:18)
[2018-03-31] MEDS: LIDOCAINE PATCH REMOVAL MC SCH (21:18)
[2018-03-31] MEDS: MICONAZOLE NITRATE 100 MG SUPP SUPP.VAG PV SCH (21:19)
[2018-03-31] MEDS ORDERED: PT OWN MED DRAWER 7, Y5N ONE (21:19)
[2018-04-01] MEDS: hydrOXYzine PAMOATE 50 MG CAPSULE (FP) PO PRN ×3 (02:11→18:38)
[2018-04-01] MEDS: IBUPROFEN 400 MG TABLET (FP) PO PRN ×3 (02:12→18:38)
[2018-04-01] MEDS: CYCLOBENZAPRINE HCL 10 MG TABLET (FP) PO SCH ×3 (06:25→21:09)
[2018-04-01] MEDS: GABAPENTIN 100 MG CAPSULE (FP) PO SCH ×3 (06:25→21:09)
[2018-04-01] MEDS: QUEtiapine FUMARATE 100 MG TABLET (FP) PO SCH ×2 (06:25→13:58)
[2018-04-01] MEDS: LIDOCAINE 5% TOPICAL PATCH TP SCH (10:07)
[2018-04-01] MEDS: PRENATAL VITAMINS W/ FOLIC ACID TABLET (FP) PO SCH (10:07)
[2018-04-01] MEDS: NICOTINE 21 MG/24 HOURS TOPICAL PATCH TD SCH (10:07)
[2018-04-01] MEDS: BACITRACIN 0.9 GM PACKET TP SCH (10:07)
--- NOTE | 2018-04-01 16:39 | PN ---
Psychiatric Progress Note Vital Signs: Vital Signs Period Temp Pulse Resp BP Sys/Steinberg Pulse Ox Last 24 Hr 97.7 F 66 16-18 150/80 Date of Session: 04/01/18 Chief Complaint:: Octavio not sleeping,still anxious. HPI: Alcohol,Opioid dependence comorbid with Bipolar disorder. ROS: COPD,BA,Hypothyroidism. Current Medications: Active Medications Generic Name Dose Route Start Last Admin Trade Name Freq PRN Reason Stop Dose Admin Acetaminophen 650 mg 03/21/18 15:29 03/31/18 16:59 Tylenol - PO 650 mg Q4H PRN Administration FEVER Al Hydroxide/Mg Hydroxide 30 ml 03/21/18 15:29 Mylanta Oral Suspension - PO Q6H PRN DYSPEPSIA Albuterol Sulfate 2 puff 03/21/18 15:32 03/31/18 10:04 Ventolin Hfa Inhaler - IH 2 puff Q4H PRN Administration SHORT OF BREATH/WHEEZING Bacitracin 0.9 gm 03/22/18 14:10 04/01/18 10:07 Bacitracin - TP 0.9 gm DAILY CHALINO Administration Cyclobenzaprine HCl 10 mg 03/24/18 22:00 04/01/18 13:57 Flexeril - PO 10 mg TID CHALINO Administration Eucalyptus/Menthol/Phenol/Sorbitol 1 each 03/21/18 15:29 Cepastat Lozenge - MM Q4H PRN SORE THROAT Gabapentin 200 mg 03/28/18 22:00 04/01/18 13:57 Neurontin - PO 200 mg TID CHALINO Administration Guaifenesin 10 ml 03/21/18 15:29 Robitussin Dm - PO Q6H PRN COUGH Hydroxyzine Pamoate 50 mg 03/21/18 15:29 04/01/18 10:07 Vistaril - PO 50 mg Q4H PRN Administration AGITATION Ibuprofen 400 mg 03/21/18 15:29 04/01/18 10:06 Motrin - PO 400 mg Q6H PRN Administration Pain level 4-6 Lidocaine 1 patch 03/22/18 10:00 04/01/18 10:07 Lidoderm Patch - TP 1 patch DAILY CHALINO Administration Loperamide HCl 4 mg 03/21/18 15:29 Imodium - PO Q6H PRN DIARRHEA Magnesium Citrate 300 ml 10/01/18 15:29 Citroma - PO Q48H PRN CONSTIPATION Magnesium Hydroxide 30 ml 03/21/18 15:29 03/27/18 21:09 Milk Of Magnesia - PO 30 ml DAILY PRN Administration CONSTIPATION Melatonin 5 mg 03/21/18 22:00 03/31/18 21:17 Melatonin PO 5 mg HS PRN Administration INSOMNIA Miconazole Nitrate 100 mg 03/28/18 22:00 03/31/18 21:19 Monistat-7 Vaginal Suppository - PV 1 supp HS CHALINO Administration Mirtazapine 15 mg 03/21/18 22:00 03/31/18 21:18 Remeron - PO 15 mg HS CHALINO Administration Miscellaneous 1 each 03/21/18 22:00 03/31/18 21:18 Lidoderm Patch Removal MC 1 each DAILY@2200 CHALINO Administration Nicotine 21 mg 03/22/18 10:00 04/01/18 10:07 Nicoderm Patch - TD 21 mg DAILY CHALINO Administration Nicotine Polacrilex 4 mg 03/21/18 15:29 03/30/18 09:43 Nicorette Gum - BUC 4 mg Q2H PRN Administration NICOTINE REPLACEMENT RX Multivit/Folic Acid/Iron 1 tab 03/22/18 10:00 04/01/18 10:07 Vitamins (Sjr) - PO 1 tab DAILY CHALINO Administration Pseudoephedrine/Triprolidine 1 combo 03/21/18 15:29 Actifed - PO TID PRN NASAL CONGESTION Quetiapine Fumarate 100 mg 04/02/18 10:00 Seroquel - PO BID@1000,1400 CHALINO Quetiapine Fumarate 150 mg 04/01/18 22:00 Seroquel - PO HS CHALINO Thiamine HCl 100 mg 03/21/18 22:00 03/31/18 21:17 Vitamin B1 - PO 100 mg HS CHALINO Administration Current Side Effect: No Lab tests ordered: No Lab tests reviewed: Yes Provider note:: Chart was revuewed,met with the patient .Properties of Seroquel has been discussed with patient .Seroquel 100 mg po tid will be adjusted to 100 mg po bid and 150 mg po hs.Sleep improving techniques has been discussed with the patient. Emotional support provided. Total face to face time:: 30 Mental Status Exam - Mental Status Exam Alert and Oriented to: Time, Place, Person Cognitive Function: Grossly Intact Patient Appearance: Unkempt Mood: Nervous, Anxious Affect: Labile Patient Behavior: Cooperative Speech Pattern: Clear Voice Loudness: Normal Thought Process: Goal Oriented Thought Disorder: Not Present Hallucinations: Denies Suicidal Ideation: Denies Homicidal Ideation: Denies Insight/Judgement: Fair Sleep: Fair, Difficulty falling asleep Appetite: Good Muscle strength/Tone: Normal Gait/Station: Normal Psychiatric Treatment Plan - Problem List (1) Asthma Current Visit: Yes Qualifiers: Asthma severity: mild Asthma persistence: intermittent (2) Back pain Current Visit: Yes Qualifiers: Back pain location: low back pain Chronicity: chronic Back pain laterality: unspecified Sciatica presence: unspecified whether sciatica present Qualified Code(s): M54.5 - Low back pain; G89.29 - Other chronic pain Comment: gentle stretches, flexeril (3) COPD (chronic obstructive pulmonary disease) Current Visit: Yes Qualifiers: COPD type: unspecified COPD Qualified Code(s): J44.9 - Chronic obstructive pulmonary disease, unspecified (4) GERD (gastroesophageal reflux disease) Current Visit: Yes Qualifiers: Esophagitis presence: without esophagitis Qualified Code(s): K21.9 - Gastro -esophageal reflux disease without esophagitis (5) Nicotine dependence Current Visit: Yes Qualifiers: Nicotine product type: cigarettes Substance use status: uncomplicated Qualified Code(s): F17.210 - Nicotine dependence, cigarettes, uncomplicated Comment: counseled cessation - interested in patch - same Rx (6) Opioid dependence Current Visit: Yes (7) Bipolar II disorder Current Visit: Yes (8) Hypothyroidism Current Visit: Yes Qualifiers: Hypothyroidism type: acquired Qualified Code(s): E03.9 - Hypothyroidism, unspecified Comment: needs f/u with primary (9) Alcohol dependence Current Visit: Yes
[2018-04-01] MEDS ORDERED: PT OWN MED DRAWER 7, Y5N ONE ×2 (19:33→23:32)
[2018-04-01] MEDS: MIRTAZAPINE 15 MG TABLET (FP) PO SCH (21:08)
[2018-04-01] MEDS: THIAMINE HCL 100 MG TABLET (FP) PO SCH (21:08)
[2018-04-01] MEDS: LIDOCAINE PATCH REMOVAL MC SCH (21:09)
[2018-04-01] MEDS: MICONAZOLE NITRATE 100 MG SUPP SUPP.VAG PV SCH (21:09)
[2018-04-01] MEDS: QUEtiapine FUMARATE 50 MG TABLET PO SCH (21:10)
[2018-04-01] MEDS: MELATONIN 5 MG TABLETS PO PRN (21:11)
[2018-04-02] MEDS: IBUPROFEN 400 MG TABLET (FP) PO PRN ×3 (02:27→20:05)
[2018-04-02] MEDS: hydrOXYzine PAMOATE 50 MG CAPSULE (FP) PO PRN ×4 (02:27→20:05)
[2018-04-02] MEDS: GABAPENTIN 100 MG CAPSULE (FP) PO SCH ×3 (06:11→21:15)
[2018-04-02] MEDS: CYCLOBENZAPRINE HCL 10 MG TABLET (FP) PO SCH ×3 (06:11→21:15)
[2018-04-02] MEDS: BACITRACIN 0.9 GM PACKET TP SCH (09:53)
[2018-04-02] MEDS: LIDOCAINE 5% TOPICAL PATCH TP SCH (09:53)
[2018-04-02] MEDS: PRENATAL VITAMINS W/ FOLIC ACID TABLET (FP) PO SCH (09:53)
[2018-04-02] MEDS: QUEtiapine FUMARATE 100 MG TABLET (FP) PO SCH ×2 (09:53→14:13)
[2018-04-02] MEDS: NICOTINE 21 MG/24 HOURS TOPICAL PATCH TD SCH (09:53)
[2018-04-02] MEDS: NICOTINE POLACRILEX 4 MG GUM BUC PRN (09:57)
[2018-04-02] MEDS: MIRTAZAPINE 15 MG TABLET (FP) PO SCH (21:15)
[2018-04-02] MEDS: QUEtiapine FUMARATE 50 MG TABLET PO SCH (21:15)
[2018-04-02] MEDS: MELATONIN 5 MG TABLETS PO PRN (21:16)
[2018-04-02] MEDS: LIDOCAINE PATCH REMOVAL MC SCH (21:17)
[2018-04-02] MEDS: THIAMINE HCL 100 MG TABLET (FP) PO SCH (21:17)
[2018-04-02] MEDS: MICONAZOLE NITRATE 100 MG SUPP SUPP.VAG PV SCH (21:17)
[2018-04-03] MEDS: IBUPROFEN 400 MG TABLET (FP) PO PRN ×2 (03:16→19:29)
[2018-04-03] MEDS: hydrOXYzine PAMOATE 50 MG CAPSULE (FP) PO PRN ×2 (03:16→19:29)
[2018-04-03] MEDS: CYCLOBENZAPRINE HCL 10 MG TABLET (FP) PO SCH ×3 (06:47→21:11)
[2018-04-03] MEDS: GABAPENTIN 100 MG CAPSULE (FP) PO SCH ×3 (06:47→21:11)
[2018-04-03] MEDS: LIDOCAINE 5% TOPICAL PATCH TP SCH (09:40)
[2018-04-03] MEDS: QUEtiapine FUMARATE 100 MG TABLET (FP) PO SCH ×2 (09:40→13:50)
[2018-04-03] MEDS: NICOTINE 21 MG/24 HOURS TOPICAL PATCH TD SCH (09:40)
[2018-04-03] MEDS: BACITRACIN 0.9 GM PACKET TP SCH (09:40)
[2018-04-03] MEDS: PRENATAL VITAMINS W/ FOLIC ACID TABLET (FP) PO SCH (09:40)
[2018-04-03] MEDS: ALBUTEROL SO4 8 GM HFA INHALER IH PRN (09:41)
[2018-04-03] MEDS: QUEtiapine FUMARATE 50 MG TABLET PO SCH (21:11)
[2018-04-03] MEDS: MIRTAZAPINE 15 MG TABLET (FP) PO SCH (21:11)
[2018-04-03] MEDS: THIAMINE HCL 100 MG TABLET (FP) PO SCH (21:11)
[2018-04-03] MEDS: MELATONIN 5 MG TABLETS PO PRN (21:12)
[2018-04-03] MEDS: MICONAZOLE NITRATE 100 MG SUPP SUPP.VAG PV SCH (21:13)
[2018-04-03] MEDS: LIDOCAINE PATCH REMOVAL MC SCH (21:13)
[2018-04-04] MEDS: GABAPENTIN 100 MG CAPSULE (FP) PO SCH ×3 (06:35→21:16)
[2018-04-04] MEDS: CYCLOBENZAPRINE HCL 10 MG TABLET (FP) PO SCH ×3 (06:35→21:16)
[2018-04-04] MEDS: hydrOXYzine PAMOATE 50 MG CAPSULE (FP) PO PRN ×3 (06:35→21:16)
[2018-04-04] MEDS: IBUPROFEN 400 MG TABLET (FP) PO PRN ×2 (06:36→12:44)
[2018-04-04] MEDS: PRENATAL VITAMINS W/ FOLIC ACID TABLET (FP) PO SCH (09:36)
[2018-04-04] MEDS: NICOTINE 21 MG/24 HOURS TOPICAL PATCH TD SCH (09:36)
[2018-04-04] MEDS: LIDOCAINE 5% TOPICAL PATCH TP SCH (09:36)
[2018-04-04] MEDS: BACITRACIN 0.9 GM PACKET TP SCH (09:37)
[2018-04-04] MEDS: QUEtiapine FUMARATE 100 MG TABLET (FP) PO SCH ×2 (09:38→13:43)
--- NOTE | 2018-04-04 16:24 | PN ---
Psychiatric Progress Note Vital Signs: Vital Signs Period Temp Pulse Resp BP Sys/Steinberg Pulse Ox Last 24 Hr 98.3 F 67 18-20 150/53 Date of Session: 04/04/18 Chief Complaint:: Discharge visit Current Medications: Active Medications Generic Name Dose Route Start Last Admin Trade Name Freq PRN Reason Stop Dose Admin Acetaminophen 650 mg 03/21/18 15:29 03/31/18 16:59 Tylenol - PO 650 mg Q4H PRN Administration FEVER Al Hydroxide/Mg Hydroxide 30 ml 03/21/18 15:29 Mylanta Oral Suspension - PO Q6H PRN DYSPEPSIA Albuterol Sulfate 2 puff 03/21/18 15:32 04/03/18 09:41 Ventolin Hfa Inhaler - IH 2 puff Q4H PRN Administration SHORT OF BREATH/WHEEZING Bacitracin 0.9 gm 03/22/18 14:10 04/04/18 09:37 Bacitracin - TP 0.9 gm DAILY CHALINO Administration Cyclobenzaprine HCl 10 mg 03/24/18 22:00 04/04/18 13:43 Flexeril - PO 10 mg TID CHALINO Administration Eucalyptus/Menthol/Phenol/Sorbitol 1 each 03/21/18 15:29 Cepastat Lozenge - MM Q4H PRN SORE THROAT Gabapentin 200 mg 03/28/18 22:00 04/04/18 13:43 Neurontin - PO 200 mg TID CHALINO Administration Guaifenesin 10 ml 03/21/18 15:29 Robitussin Dm - PO Q6H PRN COUGH Hydroxyzine Pamoate 50 mg 03/21/18 15:29 04/04/18 12:44 Vistaril - PO 50 mg Q4H PRN Administration AGITATION Ibuprofen 400 mg 03/21/18 15:29 04/04/18 12:44 Motrin - PO 400 mg Q6H PRN Administration Pain level 4-6 Lidocaine 1 patch 03/22/18 10:00 04/04/18 09:36 Lidoderm Patch - TP 1 patch DAILY CHALINO Administration Loperamide HCl 4 mg 03/21/18 15:29 Imodium - PO Q6H PRN DIARRHEA Magnesium Citrate 300 ml 03/21/18 15:29 Citroma - PO Q48H PRN CONSTIPATION Magnesium Hydroxide 30 ml 03/21/18 15:29 03/27/18 21:09 Milk Of Magnesia - PO 30 ml DAILY PRN Administration CONSTIPATION Melatonin 5 mg 03/21/18 22:00 04/03/18 21:12 Melatonin PO 5 mg HS PRN Administration INSOMNIA Miconazole Nitrate 100 mg 03/28/18 22:00 04/03/18 21:13 Monistat-7 Vaginal Suppository - PV 1 supp HS CHALINO Administration Mirtazapine 15 mg 03/21/18 22:00 04/03/18 21:11 Remeron - PO 15 mg HS CHALINO Administration Miscellaneous 1 each 03/21/18 22:00 04/03/18 21:13 Lidoderm Patch Removal MC 1 each DAILY@2200 CHALINO Administration Nicotine 21 mg 03/22/18 10:00 04/04/18 09:36 Nicoderm Patch - TD 21 mg DAILY CHALINO Administration Nicotine Polacrilex 4 mg 03/21/18 15:29 04/02/18 09:57 Nicorette Gum - BUC 4 mg Q2H PRN Administration NICOTINE REPLACEMENT RX Multivit/Folic Acid/Iron 1 tab 03/22/18 10:00 04/04/18 09:36 Vitamins (Sjr) - PO 1 tab DAILY CHALINO Administration Pseudoephedrine/Triprolidine 1 combo 03/21/18 15:29 Actifed - PO TID PRN NASAL CONGESTION Quetiapine Fumarate 100 mg 04/02/18 10:00 04/04/18 13:43 Seroquel - PO 100 mg BID@1000,1400 CHALINO Administration Quetiapine Fumarate 150 mg 04/01/18 22:00 04/03/18 21:11 Seroquel - PO 150 mg HS CHALINO Administration Thiamine HCl 100 mg 03/21/18 22:00 04/03/18 21:11 Vitamin B1 - PO 100 mg HS CHALINO Administration Psychiatric Treatment Plan - Problem List (1) Asthma Current Visit: Yes Qualifiers: Asthma severity: mild Asthma persistence: intermittent (2) Back pain Current Visit: Yes Qualifiers: Back pain location: low back pain Chronicity: chronic Back pain laterality: unspecified Sciatica presence: unspecified whether sciatica present Qualified Code(s): M54.5 - Low back pain; G89.29 - Other chronic pain Comment: gentle stretches, flexeril (3) COPD (chronic obstructive pulmonary disease) Current Visit: Yes Qualifiers: COPD type: unspecified COPD Qualified Code(s): J44.9 - Chronic obstructive pulmonary disease, unspecified (4) GERD (gastroesophageal reflux disease) Current Visit: Yes Qualifiers: Esophagitis presence: without esophagitis Qualified Code(s): K21.9 - Gastro -esophageal reflux disease without esophagitis (5) Nicotine dependence Current Visit: Yes Qualifiers: Nicotine product type: cigarettes Substance use status: uncomplicated Qualified Code(s): F17.210 - Nicotine dependence, cigarettes, uncomplicated Comment: counseled cessation - interested in patch - same Rx (6) Opioid dependence Current Visit: Yes (7) Bipolar II disorder Current Visit: Yes (8) Hypothyroidism Current Visit: Yes Qualifiers: Hypothyroidism type: acquired Qualified Code(s): E03.9 - Hypothyroidism, unspecified Comment: needs f/u with primary (9) Alcohol dependence Current Visit: Yes
[2018-04-04] MEDS: THIAMINE HCL 100 MG TABLET (FP) PO SCH (21:16)
[2018-04-04] MEDS: QUEtiapine FUMARATE 50 MG TABLET PO SCH (21:16)
[2018-04-04] MEDS: LIDOCAINE PATCH REMOVAL MC SCH (21:17)
[2018-04-04] MEDS: MICONAZOLE NITRATE 100 MG SUPP SUPP.VAG PV SCH (21:17)
[2018-04-04] MEDS: MIRTAZAPINE 15 MG TABLET (FP) PO SCH (21:18)
[2018-04-05] MEDS: IBUPROFEN 400 MG TABLET (FP) PO PRN (02:47)
[2018-04-05] MEDS: hydrOXYzine PAMOATE 50 MG CAPSULE (FP) PO PRN (02:47)
[2018-04-05] MEDS: GABAPENTIN 100 MG CAPSULE (FP) PO SCH (06:25)
[2018-04-05] MEDS: CYCLOBENZAPRINE HCL 10 MG TABLET (FP) PO SCH (06:25)
[2018-04-05 06:56] VITALS: BP 145/79; PULSE 65; TEMP 98.2
--- NOTE | 2018-04-05 09:04 | PN ---
[facility] Progress Note Note: REHAB COMPLETED TODAY. ALERT O X 3. NAD. PT REPORTS SHE HAS PRIMARY CARE AT [facility] IN [address] [place] [address]. REPORTS SHE WAS GIVEN UROLOGY REFERRAL TO ON "[facility]" BY HER PMD BUT NEVER WENT BEFORE COMING HERE. STATES "I AM GOING TO THE UROLOGY WHEN I GET OUT TODAY". Vital Signs - 24 hr 04/05/18 04/05/18 04/05/18 00:30 03:30 06:55 Temperature 98.2 F Pulse Rate 65 Respiratory 18 18 18 Rate Blood Pressure 145/79 Laboratory Tests 03/21/18 03/22/18 03/22/18 19:46 10:40 10:40 WBC 6.8 RBC 4.80 Hgb 15.2 Hct 45.0 MCV 93.8 MCH 31.6 MCHC 33.7 RDW 13.7 Plt Count 180 MPV 9.7 D Sodium 135 L Potassium 4.9 Chloride 105 Carbon Dioxide 26 Anion Gap 5 L BUN 19 H Creatinine 0.7 Creat Clearance w eGFR > 60 Random Glucose 106 Calcium 9.7 Total Bilirubin 0.3 AST 25 ALT 42 Alkaline Phosphatase 95 Total Protein 8.1 Albumin 4.1 Urine Color Yellow Urine Appearance Slcloudy Urine pH 7.0 Ur Specific [place] 1.015 Urine Protein Negative Urine Glucose (UA) Negative Urine Ketones Negative Urine Blood Negative Urine Nitrite Negative Urine Bilirubin Negative Urine Urobilinogen Negative Ur Leukocyte Esterase Negative RPR Titer C. trachomatis (JELANI) N.gonorrhoeae DNA (JELANI) T. vaginalis (JELANI) 03/22/18 03/22/18 10:40 13:10 WBC RBC Hgb Hct MCV MCH MCHC RDW Plt Count MPV Sodium Potassium Chloride Carbon Dioxide Anion Gap BUN Creatinine Creat Clearance w eGFR Random Glucose Calcium Total Bilirubin AST ALT Alkaline Phosphatase Total Protein Albumin Urine Color Urine Appearance Urine pH Ur Specific [place] Urine Protein Urine Glucose (UA) Urine Ketones Urine Blood Urine Nitrite Urine Bilirubin Urine Urobilinogen Ur Leukocyte Esterase RPR Titer Nonreactive C. trachomatis (JELANI) Negative N.gonorrhoeae DNA (JELANI) Negative T. vaginalis (JELANI) Negative PT REMINDED TO TAKE ALL LAB RESULTS TO HER FOLLOW UP APPOINTMENTS. FOLLOW UP AT [facility] FOR AFTER CARE PLANNED.
[2018-04-05] MEDS: PRENATAL VITAMINS W/ FOLIC ACID TABLET (FP) PO SCH (09:14)
[2018-04-05] MEDS: NICOTINE 21 MG/24 HOURS TOPICAL PATCH TD SCH (09:14)
[2018-04-05] MEDS: LIDOCAINE 5% TOPICAL PATCH TP SCH (09:14)
[2018-04-05] MEDS: QUEtiapine FUMARATE 100 MG TABLET (FP) PO SCH (09:14)
[2018-04-05] MEDS: BACITRACIN 0.9 GM PACKET TP SCH (09:14)
== END 2018-04-05 09:15 | disposition home or self-care (01) | DRG 895 ==
LOC: YASAS 12:50 → Y3E 15:44
PROVIDERS: ADMIT Psychiatry & Neurology Psychiatry; ATTEND Psychiatry & Neurology Psychiatry
PROC: HZ42ZZZ Group Counseling for Substance Abuse Treatment, Cognitive-Behavioral (ICD-10-PCS; principal; 2018-03-21)
DX: F11.20 Opioid dependence, uncomplicated (principal); F31.81 Bipolar II disorder; B37.49 Other urogenital candidiasis; F10.20 Alcohol dependence, uncomplicated; F17.210 Nicotine dependence, cigarettes, uncomplicated; E03.9 Hypothyroidism, unspecified; J45.909 Unspecified asthma, uncomplicated; J44.9 Chronic obstructive pulmonary disease, unspecified; K21.9 Gastro-esophageal reflux disease without esophagitis; M54.5 Low back pain; G89.29 Other chronic pain; R10.30 Lower abdominal pain, unspecified; R30.0 Dysuria; Z87.42 Personal history of other diseases of the female genital tract
CPT/HCPCS: 36415; 80053; 81003; 85027; 86593; 87491; 87591; 87661; 93005; 93010

== ENCOUNTER 2018-12-05 11:58 | Inpatient (IN) | payer OTHER ==
[2018-12-05 17:05] VITALS: BMI 39.3
--- NOTE | 2018-12-05 17:36 | HP ---
COWS - Scale Resting Pulse: 1= [place] 81-100 Sweatin= Chills/Flushing Restless Observation: 1= Difficult to Sit Still Pupil Size: 0= Normal to Room Light Bone or Joint Aches: 1= Mild Discomfort Runny Nose/ Eye Tearin= Runny Nose/Eyes GI Upset > 30mins: 2= Nausea/Diarrhea Tremor Observation: 1= Tremor [place], Not Seen Yawning Observation: 1= 1-2x During Session Anxiety or Irritability: 2=Irritable/Anxious Goose Flesh Skin: 0=Smooth Skin COWS Score: 12 CIWA Score Nausea/Vomitin-Mild Nausea/No Vomiting Muscle Tremors: 2 Anxiety: 3 Agitation: 3 Paroxysmal Sweats: 2 Orientation: 0-Oriented Tacttile Disturbances: 0-None Auditory Disturbances: 0-None Visual Disturbances: 0-None Headache: 1-Very Mild CIWA-Ar Total Score: 12 - Admission Criteria OASAS Guidelines: Admission for Medically Managed Detox: Requires at least one of the followin. CIWA greater than 12 2. Seizures within the past 24 hours 3. Delirium tremens within the past 24 hours 4. Hallucinations within the past 24 hours 5. Acute intervention needed for co occurring medical disorder 6. Acute intervention needed for co occurring psychiatric disorder 7. Severe withdrawal that cannot be handled at a lower level of care (continued vomiting, continued diarrhea, abnormal vital signs) requiring intravenous medication and/or fluids 8. Patient presents the following: CIWA greater than 12 Admission Criteria Met: Admission criteria met Admission ROS [facility] Chief Complaint: alcohol and heroin detox 63 yo with MH d/o, asthma/COPD, scoliosis, here for detox. Last here in 03/2018 , completed rehab. Pt states she relapsed to alcohol and heroin after her passed in October. Says she is on disabiilty for . Lives with her son in [place]. Was in a methadone MAT several years ago. Pt [facility] to [facility] 3 days a week. alcohol- a bottle a day of wine, no seizures/DT's heroin- IV, 2-4 bags/day, no h/o OD, has narcan kit, interested in going back to methadone MAT BZO- was in group home 2 weeks ago- got benzo DUR- shows librium from 10/2018 in group home Allergies/Adverse Reactions: Allergies Allergy/AdvReac Type Severity Reaction Status Date / Time No Known Allergies Allergy Verified 03/21/18 14:41 - Ebola screening Have you traveled outside of the country in the last 21 days: No Have you had contact with anyone from an Ebola affected area: No Patient History - Patient Medical History Hx Anemia: No Hx Asthma: Yes Hx Chronic Obstructive Pulmonary Disease (COPD): Yes Hx Cancer: Yes (Cervical Cancer 1983) Hx Cardiac Disorders: No Hx Congestive Heart Failure: No Hx Hypertension: No Hx Hypercholesterolemia: No HX Cerebrovascular Accident: No Hx Seizures: No Hx Dementia: No Hx Diabetes: No Hx Gastrointestinal Disorders: No Hx Liver Disease: No Hx Genitourinary Disorders: No Hx Sexually Transmitted Disorders: Yes (chlamydia) Hx Renal Disease (ESRD): No Hx Thyroid Disease: No Hx Human Immunodeficiency Virus (HIV): No (NEGATIVE HX LAST 2013) Hx Hepatitis C: No (denies) Hx Depression: Yes Hx Suicide Attempt: No Hx Bipolar Disorder: Yes Hx Schizophrenia: No - Patient Surgical History Past Surgical History: Yes Hx Neurologic Surgery: No Hx Cataract Extraction: No Hx Cardiac Surgery: No Hx Lung Surgery: No Hx Breast Surgery: No Hx Breast Biopsy: No Hx Abdominal Surgery: No Hx Appendectomy: Yes (age 7 yrs) Hx Cholecystectomy: No Hx Genitourinary Surgery: No Hx Section: No Hx Orthopedic Surgery: No Other Surgical History: R arm sx for abscess Anesthesia Reaction: No - PPD History Date: 03/17/18 Results: 0 mm - Smoking Cessation Smoking history: Current every day smoker Have you smoked in the past 12 months: Yes Aproximately how many cigarettes per day: 20 Hx Chewing Tobacco Use: No Initiated information on smoking cessation: Yes 'Breaking Loose' booklet given: 12/05/18 - Substance & Tx. History Substance Use Type: Alcohol, Heroin Family Disease History - Family Disease History Family Disease History: Diabetes: Mother (HTN, ), Heart Disease: Grandparent, Mother, CA: Father (Pancreatic cancer ), Sister, Other: Mother, Brother ( for OD), Son (Alive and well ) Admission Physical Exam BHS - Vital Signs Vital Signs: Vital Signs - 24 hr 12/05/18 12/05/18 16:48 17:24 Temperature 97.0 F L 97.0 F L Pulse Rate 53 L 53 L Respiratory 18 18 Rate Blood Pressure 133/66 133/66 - Physical General Appearance: Yes: Within Normal Limits, Disheveled, Obese HEENTM: Yes: Within Normal Limits, EOMI, Hearing grossly Normal, Normal Voice, CHELSI Respiratory: Yes: Within Normal Limits, No Respiratory Distress, Wheezing Neck: Yes: Within Normal Limits Cardiology: Yes: Regular Rhythm, Regular Rate Abdominal: Yes: Non Tender, Protuberent, Other (in umbilicus with redness- no warmth or tenderness- pt states longstanding) Back: Yes: Normal Inspection Musculoskeletal: Yes: Within Normal Limits Extremities: Yes: Other (track krishna, 2 quarter size area of redness, pain, warmth near R elbow and L forearm near antecubital fossa) Neurological: Yes: Within Normal Limits, Fully Oriented, Alert Integumentary: Yes: Track Krishna, Other (track krishna, 2 quarter size area of redness, pain, warmth near R elbow and L forearm near antecubital fossa) Lymphatic: Yes: Within Normal Limits - Diagnostic (1) Alcohol dependence with uncomplicated withdrawal Current Visit: No Status: Acute (2) Candidiasis Current Visit: No Status: Acute (3) Drug-induced mood disorder Current Visit: No Status: Acute (4) Opioid dependence with withdrawal Current Visit: No Status: Acute Comment: refer to methadone program per patient request (5) Asthma Current Visit: No Status: Chronic Qualifiers: Asthma severity: mild Asthma persistence: intermittent Comment: pt did not pick up driver the last set of prescription, will resend; recombivent, smoking cessation, singulair, flovent, exercise as tolerated, pulm consult (6) Back pain Current Visit: No Status: Chronic Qualifiers: Back pain location: low back pain Chronicity: chronic Back pain laterality: unspecified Sciatica presence: unspecified whether sciatica present Qualified Code(s): M54.5 - Low back pain; G89.29 - Other chronic pain Comment: gentle stretches, flexeril (7) Bipolar II disorder Current Visit: No Status: Chronic (8) COPD (chronic obstructive pulmonary disease) Current Visit: No Status: Chronic Qualifiers: COPD type: unspecified COPD Qualified Code(s): J44.9 - Chronic obstructive pulmonary disease, unspecified Comment: combivent, pulmonary consult dalia made, missed last appointment (9) Nicotine dependence Current Visit: No Status: Chronic Qualifiers: Nicotine product type: cigarettes Substance use status: uncomplicated Qualified Code(s): F17.210 - Nicotine dependence, cigarettes, uncomplicated Comment: counseled cessation - interested in patch - same Rx Breathalyzer - Breathalyzer Breathalyzer: 0 Urine Drug Screen - Test Device Lot number: [id number] Expiration date: 08/18/20 - Control Is test valid?: Yes - Results Drug screen NEGATIVE: No Urine drug screen results: FEN-Fentanyl, MOP-Opiates, OXY-Oxycodone, BZO- Benzodiazepines Inpatient Rehab Admission - Rehab Decision to Admit Inpatient rehab admission?: No
[2018-12-05] MEDS ORDERED: ONDANSETRON *ODT* 4 MG TABLET SL PRN (17:46)
[2018-12-05] MEDS ORDERED: chlordiazePOXIDE HCL 25 MG CAPSULE PO ONE ×2 (17:46→18:30)
[2018-12-05] MEDS ORDERED: BISMUTH SUBSALICYLATE 524 MG/30 ML UD PO PRN (17:46)
[2018-12-05] MEDS ORDERED: NALOXONE HCL 0.4 MG/ML VIAL IVPUSH PRN (17:46)
[2018-12-05] MEDS ORDERED: MAGNESIUM CITRATE 300 ML BOTTLE PO PRN (17:46)
[2018-12-05] MEDS ORDERED: ACETAMINOPHEN 325 MG TABLET (FP) PO PRN (17:46)
[2018-12-05] MEDS ORDERED: MAGNESIUM HYDROX 2400MG/30ML ORAL SUSPENSION 30 ML CUP PO PRN (17:46)
[2018-12-05] MEDS ORDERED: MENTHOL/PHENOL 1 EACH UD MM PRN (17:46)
[2018-12-05] MEDS ORDERED: ALBUTEROL SO4 0.083% IH SOL 2.5 MG/3 ML VIAL.NEB. NEB PRN (17:53)
[2018-12-05] MEDS ORDERED: METHADONE HCL 10 MG TABLET (FOR DETOX USE ONLY) PO ONE ×2 (18:00→23:00)
[2018-12-05] MEDS: CEPHALEXIN MONOHYDRATE 250 MG CAPSULE (FP) PO SCH ×2 (19:07→23:05)
[2018-12-05] MEDS: ACETAMINOPHEN 325 MG TABLET (FP) PO PRN (20:43)
[2018-12-05] MEDS: MOMETASONE FUROATE 220 MCG/IH INHALER IH SCH (20:51)
[2018-12-05] MEDS: ALBUTEROL SO4 8 GM HFA INHALER IH PRN (20:52)
[2018-12-05] MEDS ORDERED: ALBUTEROL SO4 2.5/IPRATROPIUM 0.5 INH SOL 3 ML VIAL.NEB. NEB PRN (22:00)
[2018-12-05] MEDS: CLOTRIMAZOLE 1% CREAM 15 GM TUBE TP SCH (22:53)
[2018-12-05] MEDS: THIAMINE HCL 100 MG TABLET (FP) PO SCH (22:53)
[2018-12-05] MEDS: MIRTAZAPINE 15 MG TABLET (FP) PO SCH (22:54)
[2018-12-05] MEDS: chlordiazePOXIDE HCL 25 MG CAPSULE PO SCH (22:54)
[2018-12-05] MEDS: GABAPENTIN 300 MG CAPSULE (FP) PO SCH (22:55)
[2018-12-06] MEDS: chlordiazePOXIDE HCL 10 MG CAPSULE PO PRN ×3 (01:32→17:08)
[2018-12-06] MEDS: CEPHALEXIN MONOHYDRATE 250 MG CAPSULE (FP) PO SCH ×4 (05:52→23:11)
[2018-12-06] MEDS: GABAPENTIN 300 MG CAPSULE (FP) PO SCH ×3 (05:52→22:22)
[2018-12-06] MEDS: chlordiazePOXIDE HCL 25 MG CAPSULE PO SCH ×2 (05:52→12:01)
[2018-12-06] MEDS ORDERED: METHADONE HCL 10 MG TABLET (FOR DETOX USE ONLY) PO ONE (10:00)
[2018-12-06] MEDS: CLOTRIMAZOLE 1% CREAM 15 GM TUBE TP SCH ×2 (10:37→22:23)
[2018-12-06] MEDS: PRENATAL VITAMINS W/ FOLIC ACID TABLET (FP) PO SCH (10:37)
[2018-12-06] MEDS: LACTOBACILLUS ACIDOPHILUS 1 TABLET PO SCH (10:37)
[2018-12-06] MEDS: NICOTINE 21 MG/24 HOURS TOPICAL PATCH TD SCH (10:37)
[2018-12-06] MEDS: MONTELUKAST NA 10 MG TABLET PO SCH (10:37)
[2018-12-06] MEDS: ALBUTEROL SO4 8 GM HFA INHALER IH PRN ×2 (10:38→17:07)
[2018-12-06 10:49] LABS: HEMATOCRIT 39.2 % (32.4-45.2); HEMOGLOBIN 13.1 GM/dL (10.7-15.3); MCH 32.1 pg (25.7-33.7); MCHC 33.4 g/dl (32.0-36.0); MEAN CELL VOLUME 95.9 fl (80-96); MEAN PLT VOLUME 10.5 fl (7.5-11.1); PLATELET COUNT 144 K/MM3 (134-434); RBC 4.09 M/mm3 (3.60-5.2); RDW 13.3 % (11.6-15.6); WHITE BLOOD COUNT 5.4 K/mm3 (4.0-10.0)
[2018-12-06 10:55] LABS: ALBUMIN 3.4 g/dl (3.4-5.0); BILIRUBIN,TOTAL 0.5 mg/dL (0.2-1); BLOOD UREA NITROGEN 9.1 mg/dL (7-18); CALCIUM 8.8 mg/dL (8.5-10.1); CREATININE 0.7 mg/dL (0.55-1.3); POTASSIUM 3.8 mmol/L (3.5-5.1); TOT PROT 6.4 g/dl (6.4-8.2)
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
--- NOTE | 2018-12-06 14:51 | PN ---
S CIWA - CIWA Score Nausea/Vomitin-No Nausea/No Vomiting Muscle Tremors: 2 Anxiety: 3 Agitation: 2 Paroxysmal Sweats: 2 Orientation: 0-Oriented Tacttile Disturbances: 0-None Auditory Disturbances: 0-None Visual Disturbances: 2-Mild Sensitivity Headache: 0-None Present CIWA-Ar Total Score: 11 S COWS - Scale Resting Pulse: 0= [place] 80 or Below Sweatin= Chills/Flushing Restless Observation: 1= Difficult to Sit Still Pupil Size: 0= Normal to Room Light Bone or Joint Aches: 2= Severe Diffuse Aches Runny Nose/ Eye Tearin= None GI Upset > 30mins: 0= None Tremor Observation of Outstretched Hands: 2= Slight Tremor Visible Yawning Observation: 1= 1-2x During Session Anxiety or Irritability: 2=Irritable/Anxious Goose Flesh Skin: 3=Piloerection COWS Score: 12 S Progress Note (SOAP) Subjective: Sweating, Tremors, Anxious, Body Aches. Objective: PATIENT A & O X 3, OBSERVED AMBULATING ON UNIT UNASSISTED. IN NO ACUTE DISTRESS. 12/06/18 14:53 Vital Signs Temperature 98.1 F 12/06/18 13:35 Pulse Rate 54 L 12/06/18 13:35 Respiratory Rate 20 12/06/18 13:35 Blood Pressure 153/69 12/06/18 13:35 O2 Sat by Pulse Oximetry (%) Laboratory Tests 12/05/18 12/06/18 12/06/18 17:25 07:20 07:20 WBC 5.4 RBC 4.09 Hgb 13.1 Hct 39.2 MCV 95.9 MCH 32.1 MCHC 33.4 RDW 13.3 Plt Count 144 MPV 10.5 Sodium 141 Potassium 3.8 Chloride 108 H Carbon Dioxide 25 Anion Gap 8 BUN 9.1 Creatinine 0.7 Est GFR (CKD-EPI)AfAm 108.38 Est GFR (CKD-EPI)NonAf 93.51 Random Glucose 104 Calcium 8.8 Total Bilirubin 0.5 AST 13 L ALT 23 Alkaline Phosphatase 71 Total Protein 6.4 Albumin 3.4 POC Urine HCG, Qual Negative RPR Titer 12/06/18 07:20 WBC RBC Hgb Hct MCV MCH MCHC RDW Plt Count MPV Sodium Potassium Chloride Carbon Dioxide Anion Gap BUN Creatinine Est GFR (CKD-EPI)AfAm Est GFR (CKD-EPI)NonAf Random Glucose Calcium Total Bilirubin AST ALT Alkaline Phosphatase Total Protein Albumin POC Urine HCG, Qual RPR Titer Nonreactive LABS NOTED. Assessment: 12/06/18 14:53 WITHDRAWAL SYMPTOMS. INTERMITTENT ELEVATED BP (SYSTOLIC). 12/06/18 14:54 Plan: CONTINUE DETOX. CONTINUE TO MONITOR BP.
[2018-12-06] MEDS: hydrOXYzine PAMOATE 25 MG CAPSULE (FP) PO PRN (15:35)
[2018-12-06] MEDS: MOMETASONE FUROATE 220 MCG/IH INHALER IH SCH (17:05)
[2018-12-06] MEDS: cloNIDine HCL 0.1 MG TABLET PO PRN (17:08)
[2018-12-06] MEDS: CYCLOBENZAPRINE HCL 10 MG TABLET (FP) PO PRN (17:09)
[2018-12-06 18:51] LABS: PH,URINE 5.5 (5.0-8.0); URINE APPEARANCE TURBID; URINE BILIRUBIN 2+ (NEGATIVE); URINE COLOR DK YELLOW; URINE GLUCOSE (UA) NEGATIVE (NEGATIVE); URINE KETONE 1+ (NEGATIVE); URINE LEUK ESTERASE 1+ (NEGATIVE); URINE NITRITE NEGATIVE (NEGATIVE); URINE PROTEIN 1+ (NEGATIVE)
[2018-12-06] MEDS: chlordiazePOXIDE 5 MG CAPSULE PO SCH (22:22)
[2018-12-06] MEDS: THIAMINE HCL 100 MG TABLET (FP) PO SCH (22:22)
[2018-12-06] MEDS: MIRTAZAPINE 15 MG TABLET (FP) PO SCH (22:22)
[2018-12-06] MEDS: MELATONIN 5 MG TABLETS PO PRN (22:25)
[2018-12-07] MEDS: chlordiazePOXIDE HCL 10 MG CAPSULE PO PRN ×2 (00:42→10:35)
[2018-12-07] MEDS: hydrOXYzine PAMOATE 25 MG CAPSULE (FP) PO PRN ×2 (00:43→16:42)
[2018-12-07] MEDS: CEPHALEXIN MONOHYDRATE 250 MG CAPSULE (FP) PO SCH ×3 (06:34→18:09)
[2018-12-07] MEDS: GABAPENTIN 300 MG CAPSULE (FP) PO SCH ×3 (06:34→21:15)
[2018-12-07] MEDS: chlordiazePOXIDE 5 MG CAPSULE PO SCH ×2 (06:35→13:41)
[2018-12-07] MEDS: ALBUTEROL SO4 8 GM HFA INHALER IH PRN ×2 (06:36→18:11)
[2018-12-07] MEDS ORDERED: METHADONE HCL 10 MG TABLET (FOR DETOX USE ONLY) PO ONE (10:00)
[2018-12-07] MEDS: PRENATAL VITAMINS W/ FOLIC ACID TABLET (FP) PO SCH (10:35)
[2018-12-07] MEDS: LACTOBACILLUS ACIDOPHILUS 1 TABLET PO SCH (10:36)
[2018-12-07] MEDS: CLOTRIMAZOLE 1% CREAM 15 GM TUBE TP SCH ×2 (10:36→21:16)
[2018-12-07] MEDS: NICOTINE 21 MG/24 HOURS TOPICAL PATCH TD SCH (10:37)
[2018-12-07] MEDS: MONTELUKAST NA 10 MG TABLET PO SCH (10:37)
[2018-12-07] MEDS: CYCLOBENZAPRINE HCL 10 MG TABLET (FP) PO PRN ×2 (12:16→21:15)
--- NOTE | 2018-12-07 16:43 | PN ---
[facility] CIWA - CIWA Score Nausea/Vomitin-No Nausea/No Vomiting Muscle Tremors: None Anxiety: 0-No Anxiety, at Ease Agitation: 2 Paroxysmal Sweats: 3 Orientation: 0-Oriented Tacttile Disturbances: 1-Very Mild Itch/Numbness Auditory Disturbances: 0-None Visual Disturbances: 1-Very Mild Sensitivity Headache: 0-None Present CIWA-Ar Total Score: 7 BHS COWS - Scale Resting Pulse: 0= [place] 80 or Below Sweatin= Chills/Flushing Restless Observation: 1= Difficult to Sit Still Pupil Size: 0= Normal to Room Light Bone or Joint Aches: 2= Severe Diffuse Aches Runny Nose/ Eye Tearin= None GI Upset > 30mins: 0= None Tremor Observation of Outstretched Hands: 0= None Yawning Observation: 1= 1-2x During Session Anxiety or Irritability: 2=Irritable/Anxious Goose Flesh Skin: 0=Smooth Skin COWS Score: 7 S Progress Note (SOAP) Subjective: Sweating (Mild), Body Aches (Mild). Patient Reports that Current Withdrawal / Detox Symptoms have subsided considerably over last couple of days. Objective: PATIENT A & O X 3, OBSERVED AMBULATING ON UNIT UNASSISTED. IN NO ACUTE DISTRESS. 12/07/18 16:45 Vital Signs Temperature 97.3 F L 12/07/18 13:18 Pulse Rate 53 L 12/07/18 13:18 Respiratory Rate 18 12/07/18 13:18 Blood Pressure 136/72 12/07/18 13:18 O2 Sat by Pulse Oximetry (%) Laboratory Tests 12/05/18 12/05/18 12/06/18 15:45 17:25 07:20 WBC 5.4 RBC 4.09 Hgb 13.1 Hct 39.2 MCV 95.9 MCH 32.1 MCHC 33.4 RDW 13.3 Plt Count 144 MPV 10.5 Sodium Potassium Chloride Carbon Dioxide Anion Gap BUN Creatinine Est GFR (CKD-EPI)AfAm Est GFR (CKD-EPI)NonAf Random Glucose Calcium Total Bilirubin AST ALT Alkaline Phosphatase Total Protein Albumin Urine Color Dk yellow Urine Appearance Turbid Urine pH 5.5 Ur Specific [place] 1.036 H Urine Protein 1+ H Urine Glucose (UA) Negative Urine Ketones 1+ H Urine Blood Negative Urine Nitrite Negative Urine Bilirubin 2+ H Urine Urobilinogen 1.0 Ur Leukocyte Esterase 1+ H Urine WBC (Auto) 2-5 Urine RBC (Auto) No Result Required. Urine Casts (Auto) No Result Required. U Pathogenic Cast Auto No Result Required. U Epithel Cells (Auto) No Result Required. U Sm Round Cell (Auto) No Result Required. Urine Crystals (Auto) Urine Bacteria (Auto) No Result Required. POC Urine HCG, Qual Negative RPR Titer 12/06/18 12/06/18 07:20 07:20 WBC RBC Hgb Hct MCV MCH MCHC RDW Plt Count MPV Sodium 141 Potassium 3.8 Chloride 108 H Carbon Dioxide 25 Anion Gap 8 BUN 9.1 Creatinine 0.7 Est GFR (CKD-EPI)AfAm 108.38 Est GFR (CKD-EPI)NonAf 93.51 Random Glucose 104 Calcium 8.8 Total Bilirubin 0.5 AST 13 L ALT 23 Alkaline Phosphatase 71 Total Protein 6.4 Albumin 3.4 Urine Color Urine Appearance Urine pH Ur Specific [place] Urine Protein Urine Glucose (UA) Urine Ketones Urine Blood Urine Nitrite Urine Bilirubin Urine Urobilinogen Ur Leukocyte Esterase Urine WBC (Auto) Urine RBC (Auto) Urine Casts (Auto) U Pathogenic Cast Auto U Epithel Cells (Auto) U Sm Round Cell (Auto) Urine Crystals (Auto) Urine Bacteria (Auto) POC Urine HCG, Qual RPR Titer Nonreactive LABS NOTED. Assessment: 12/07/18 16:45 WITHDRAWAL SYMPTOMS. Plan: CONTINUE DETOX. PATIENT REPORTS THAT CURRENT WITHDRAWAL / DETOX SYMPTOMS ARE MINIMAL AND THAT SHE IS TOLERATING THEM WELL. AT PATIENT'S REQUEST, CURRENT DETOX MEDICATION REGIMEN MODIFIED SO THAT PATIENT MAY BE DISCHARGED TOMORROW, 12/08/2018. PATIENT NOTES THAT SHE INTENDS TO RETURN HOME B[place] AFTER DISCHARGE FROM DETOX UNIT, THEN SHE WILL APPLY FOR ADMISSION TO REHAB WITHIN NEXT FEW DAYS.
[2018-12-07] MEDS: MOMETASONE FUROATE 220 MCG/IH INHALER IH SCH (18:09)
[2018-12-07] MEDS ORDERED: chlordiazePOXIDE HCL 10 MG CAPSULE PO PRN (21:00)
[2018-12-07] MEDS: THIAMINE HCL 100 MG TABLET (FP) PO SCH (21:16)
[2018-12-07] MEDS: chlordiazePOXIDE HCL 10 MG CAPSULE PO SCH (21:16)
[2018-12-07] MEDS: MIRTAZAPINE 15 MG TABLET (FP) PO SCH (21:16)
[2018-12-07] MEDS: cloNIDine HCL 0.1 MG TABLET PO PRN (21:16)
[2018-12-08] MEDS: CEPHALEXIN MONOHYDRATE 250 MG CAPSULE (FP) PO SCH ×4 (00:20→18:51)
[2018-12-08] MEDS: GABAPENTIN 300 MG CAPSULE (FP) PO SCH ×3 (05:40→21:32)
[2018-12-08] MEDS: chlordiazePOXIDE HCL 10 MG CAPSULE PO SCH (05:40)
[2018-12-08] MEDS ORDERED: METHADONE HCL 10 MG TABLET (FOR DETOX USE ONLY) PO ONE ×2 (06:00→10:00)
[2018-12-08] MEDS: PRENATAL VITAMINS W/ FOLIC ACID TABLET (FP) PO SCH (10:27)
[2018-12-08] MEDS: CLOTRIMAZOLE 1% CREAM 15 GM TUBE TP SCH ×2 (10:27→21:34)
[2018-12-08] MEDS: MONTELUKAST NA 10 MG TABLET PO SCH (10:28)
[2018-12-08] MEDS: NICOTINE 21 MG/24 HOURS TOPICAL PATCH TD SCH (10:28)
[2018-12-08] MEDS: ALBUTEROL SO4 8 GM HFA INHALER IH PRN ×2 (10:29→15:35)
[2018-12-08] MEDS: ACETAMINOPHEN 325 MG TABLET (FP) PO PRN (12:34)
[2018-12-08] MEDS: hydrOXYzine PAMOATE 25 MG CAPSULE (FP) PO PRN (12:34)
--- NOTE | 2018-12-08 13:37 | DS ---
[facility] Detox Discharge Summary Admission Date: 12/05/18 Discharge Date: 12/08/18 - History Present History: Alcohol Dependence, Opioid Dependence Additional Comments: PATIENT GOING TO [facility] ([facility]) FOR AFTERCARE. PATIENT WAS DISCHARGED FROM DETOX UNIT TO BE TAKEN OVER TO REHAB UNIT IN STABLE MEDICAL CONDITION. Pertinent Past History: Asthma, Candidiasis, History Of Back Pain, History Of Scoliosis, History Of Cervical Cancer, History Of Bipolar Disorder, C.O.P.D., Nicotine Dependence, History Of Depression, Abscess Of Right And Left Arms, Bereavement. - Physical Exam Results Vital Signs: Vital Signs Temperature 98.5 F 12/08/18 09:37 Pulse Rate 59 L 12/08/18 09:37 Respiratory Rate 18 12/08/18 09:37 Blood Pressure 131/81 12/08/18 09:37 O2 Sat by Pulse Oximetry (%) Pertinent Admission Physical Exam Findings: WITHDRAWAL SYMPTOMS. Laboratory Tests 12/05/18 12/05/18 12/06/18 15:45 17:25 07:20 WBC 5.4 RBC 4.09 Hgb 13.1 Hct 39.2 MCV 95.9 MCH 32.1 MCHC 33.4 RDW 13.3 Plt Count 144 MPV 10.5 Sodium Potassium Chloride Carbon Dioxide Anion Gap BUN Creatinine Est GFR (CKD-EPI)AfAm Est GFR (CKD-EPI)NonAf Random Glucose Calcium Total Bilirubin AST ALT Alkaline Phosphatase Total Protein Albumin Urine Color Dk yellow Urine Appearance Turbid Urine pH 5.5 Ur Specific [place] 1.036 H Urine Protein 1+ H Urine Glucose (UA) Negative Urine Ketones 1+ H Urine Blood Negative Urine Nitrite Negative Urine Bilirubin 2+ H Urine Urobilinogen 1.0 Ur Leukocyte Esterase 1+ H Urine WBC (Auto) 2-5 Urine RBC (Auto) No Result Required. Urine Casts (Auto) No Result Required. U Pathogenic Cast Auto No Result Required. U Epithel Cells (Auto) No Result Required. U Sm Round Cell (Auto) No Result Required. Urine Crystals (Auto) Urine Bacteria (Auto) No Result Required. POC Urine HCG, Qual Negative RPR Titer 12/06/18 12/06/18 07:20 07:20 WBC RBC Hgb Hct MCV MCH MCHC RDW Plt Count MPV Sodium 141 Potassium 3.8 Chloride 108 H Carbon Dioxide 25 Anion Gap 8 BUN 9.1 Creatinine 0.7 Est GFR (CKD-EPI)AfAm 108.38 Est GFR (CKD-EPI)NonAf 93.51 Random Glucose 104 Calcium 8.8 Total Bilirubin 0.5 AST 13 L ALT 23 Alkaline Phosphatase 71 Total Protein 6.4 Albumin 3.4 Urine Color Urine Appearance Urine pH Ur Specific [place] Urine Protein Urine Glucose (UA) Urine Ketones Urine Blood Urine Nitrite Urine Bilirubin Urine Urobilinogen Ur Leukocyte Esterase Urine WBC (Auto) Urine RBC (Auto) Urine Casts (Auto) U Pathogenic Cast Auto U Epithel Cells (Auto) U Sm Round Cell (Auto) Urine Crystals (Auto) Urine Bacteria (Auto) POC Urine HCG, Qual RPR Titer Nonreactive LABS NOTED. - Treatment Hospital Course: Detox Protocol Followed, Detoxed Safely, Responded well, Discharged Condition Good, Rehab Referral Accepted Patient has Accepted a Rehab Referral to: [facility] ([place], [place]). - Medication Discharge Medications: Ambulatory Orders Mirtazapine [Remeron -] 15 mg PO HS 03/04/18 Quetiapine Fumarate [Seroquel -] 150 mg PO HS #90 tablet 04/04/18 Quetiapine Fumarate [Seroquel] 100 tab PO ACBK 04/13/18 Cyclobenzaprine HCl [Flexeril -] 10 mg PO HS PRN #30 tablet 09/16/18 Gabapentin [Neurontin] 600 mg PO TID #90 tablet 09/16/18 Albuterol Sulfate Inhaler - [Ventolin HFA Inhaler -] 2 puff IH Q4H PRN #1 inhaler 12/01/18 Fluticasone Propionate [Flovent Diskus] 50 mcg IH BID #1 blst.w.dev 12/01/18 Ipratropium/Albuterol Sulfate [Combivent Respimat 20-100 Mcg] 1 puff IH Q6H PRN #1 aer.w.adap 12/01/18 Montelukast Sodium [Singulair] 10 mg PO DAILY #30 tablet 12/01/18 Nicotine [Nicotine Patch 21 mg/24 hr] 1 each TD DAILY #30 patch.td24 12/01/18 Cephalexin [Keflex] 500 mg PO TID 7 Days #21 capsule 12/07/18 - Diagnosis (1) Alcohol dependence with uncomplicated withdrawal Current Visit: Yes Status: Acute (2) Opioid dependence with withdrawal Current Visit: Yes Status: Acute (3) Drug-induced mood disorder Current Visit: Yes Status: Chronic (4) Nicotine dependence Current Visit: Yes Status: Chronic Qualifiers: Nicotine product type: cigarettes Substance use status: uncomplicated Qualified Code(s): F17.210 - Nicotine dependence, cigarettes, uncomplicated (5) Candidiasis Current Visit: Yes Status: Acute (6) Asthma Current Visit: Yes Status: Chronic Qualifiers: Asthma severity: mild Asthma persistence: intermittent Asthma complication type: uncomplicated Qualified Code(s): J45.20 - Mild intermittent asthma, uncomplicated (7) Back pain Current Visit: No Status: Chronic Qualifiers: Back pain location: low back pain Chronicity: chronic Back pain laterality: unspecified Sciatica presence: unspecified whether sciatica present Qualified Code(s): M54.5 - Low back pain; G89.29 - Other chronic pain (8) Bipolar II disorder Current Visit: Yes Status: Chronic (9) COPD (chronic obstructive pulmonary disease) Current Visit: Yes Status: Chronic Qualifiers: COPD type: unspecified COPD Qualified Code(s): J44.9 - Chronic obstructive pulmonary disease, unspecified (10) Abscess Current Visit: Yes Status: Acute (11) Bereavement Current Visit: Yes Status: Acute (12) Bipolar disorder Current Visit: Yes Status: Chronic Qualifiers: Active/Remission status: remission status unspecified Qualified Code(s): F31.9 - Bipolar disorder, unspecified (13) Non-compliance Current Visit: Yes Status: Chronic - AMA Did Patient Leave Against Medical Advice: No
--- NOTE | 2018-12-08 13:43 | HP ---
[facility] Rehab Assess/Revision - Admission History Admitted to Rehab from: [facility] Date of Admission to Rehab: 12/08/2018 - Vital signs Vital Signs: Vital Signs Period Temp Pulse Resp BP Sys/Steinberg Pulse Ox Last 24 Hr 97.5 F-98.6 F 54-67 18-18 119-140/70-97 - Findings Detox History & Physical reviewed: Yes Concur with findings: Yes Comments/Additional Findings: PATIENT'S MEDICAL / MEDICATION HISTORY REVIEWED PRIOR TO DISCHARGE FROM DETOX UNIT. ANTIBIOTIC (KELFLEX) STARTED FOR TREATMENT OF ABSCESS OF BILATERAL ARMS WHILE PATIENT WAS ADMITTED FOR DETOX TO BE CONTINUED FOR FIRST SEVEN DAYS OF REHAB ADMISSION. PATIENT WAS DISCHARGED FROM DETOX UNIT TO BE TAKEN OVER TO REHAB UNIT IN STABLE MEDICAL CONDITION. Inpatient Rehab Admission - Rehab Decision to Admit Inpatient rehab admission?: Yes - Initial Determination Are CD services needed?: Yes Free of communicable disease: Yes Not in need of hospitalization: Yes - Rehab Admission Criteria Previous failed treatment: Yes Poor recovery environment: Yes Comorbidities: Yes Lacks judgement: No Patient is meeting Inpatient Rehab admission criteria:: Yes
[2018-12-08] MEDS: MIRTAZAPINE 15 MG TABLET (FP) PO SCH (21:32)
[2018-12-08] MEDS: THIAMINE HCL 100 MG TABLET (FP) PO SCH (21:32)
[2018-12-08] MEDS: CYCLOBENZAPRINE HCL 10 MG TABLET (FP) PO PRN (21:33)
[2018-12-08] MEDS: MELATONIN 5 MG TABLETS PO PRN (21:33)
[2018-12-08] MEDS: MOMETASONE FUROATE 220 MCG/IH INHALER IH SCH (22:30)
[2018-12-09] MEDS: CEPHALEXIN MONOHYDRATE 250 MG CAPSULE (FP) PO SCH ×5 (00:02→23:28)
[2018-12-09] MEDS ORDERED: METHADONE HCL 5 MG TABLET (FOR DETOX USE ONLY) PO ONE (06:00)
[2018-12-09] MEDS: GABAPENTIN 300 MG CAPSULE (FP) PO SCH ×3 (06:16→21:05)
[2018-12-09] MEDS: ACETAMINOPHEN 325 MG TABLET (FP) PO PRN (06:17)
[2018-12-09] MEDS ORDERED: PT OWN MED DRAWER 7, Y5N ONE ×4 (08:46→21:38)
[2018-12-09] MEDS: MONTELUKAST NA 10 MG TABLET PO SCH (10:15)
[2018-12-09] MEDS: LACTOBACILLUS ACIDOPHILUS 1 TABLET PO SCH (10:15)
[2018-12-09] MEDS: PRENATAL VITAMINS W/ FOLIC ACID TABLET (FP) PO SCH (10:15)
[2018-12-09] MEDS: NICOTINE 21 MG/24 HOURS TOPICAL PATCH TD SCH (10:16)
[2018-12-09] MEDS: IBUPROFEN 400 MG TABLET (FP) PO PRN (10:18)
[2018-12-09] MEDS: CLOTRIMAZOLE 1% CREAM 15 GM TUBE TP SCH ×2 (10:19→21:06)
--- NOTE | 2018-12-09 10:54 | PN ---
Psychiatric Progress Note Vital Signs: Vital Signs Period Temp Pulse Resp BP Sys/Steinberg Pulse Ox Last 24 Hr 97.9 F-98.5 F 60-65 18-18 136-140/77-84 Date of Session: 12/09/18 Chief Complaint:: " I need medication for my mood." HPI: Patient calm and cooperative but is reporting worsening anxiety and irritability while in rehab. ROS: Patient is coherent, alert and oriented X3. Current Medications: Active Medications Generic Name Dose Route Start Last Admin Trade Name Freq PRN Reason Stop Dose Admin Acetaminophen 650 mg 12/05/18 17:46 12/09/18 06:17 Tylenol - PO 650 mg Q6H PRN Administration PAIN LEVEL 4 - 6 Acetaminophen 650 mg 12/05/18 17:46 Tylenol - PO Q6H PRN FEVER Al Hydroxide/Mg Hydroxide 30 ml 12/05/18 17:46 Mylanta Oral Suspension - PO Q6H PRN DYSPEPSIA Albuterol Sulfate 2 puff 12/05/18 17:52 12/08/18 15:35 Ventolin Hfa Inhaler - IH 2 puff Q4H PRN Administration SHORT OF BREATH/WHEEZING Albuterol Sulfate 1 amp 12/05/18 17:53 Ventolin 0.083% Nebulizer Soln - NEB Q6H PRN SHORT OF BREATH/WHEEZING Albuterol/Ipratropium 1 amp 12/05/18 22:00 Duoneb - NEB BID PRN SHORTNESS OF BREATH Bismuth Subsalicylate 524 mg 12/05/18 17:46 Pepto-Bismol - PO Q1H PRN DIARRHEA Cephalexin HCl 250 mg 12/05/18 18:00 12/09/18 06:16 Keflex - PO 250 mg Q6HPO CHALINO Administration Clotrimazole 1 applic 12/05/18 22:00 12/09/18 10:19 Lotrimin 1% Cream - TP Not Given BID CHALINO Cyclobenzaprine HCl 10 mg 12/05/18 17:52 12/08/18 21:33 Flexeril - PO 10 mg HS PRN Administration BACK PAIN Eucalyptus/Menthol/Phenol/Sorbitol 1 each 12/05/18 17:46 Cepastat Lozenge - MM 12/11/18 17:47 Q4H PRN SORE THROAT Gabapentin 600 mg 12/05/18 22:00 12/09/18 06:16 Neurontin - PO 600 mg TID CHALINO Administration Hydroxyzine Pamoate 25 mg 12/05/18 17:46 12/08/18 12:34 Vistaril - PO 12/11/18 17:47 25 mg Q6H PRN Administration For Anxiety Ibuprofen 400 mg 12/05/18 17:46 12/09/18 10:18 Motrin - PO 400 mg Q6H PRN Administration PAIN LEVEL 1 - 3 Lactobacillus Acidophilus 1 tab 12/06/18 10:00 12/09/18 10:15 Bacid - PO 1 tab DAILY CHALINO Administration Magnesium Citrate 300 ml 12/05/18 17:46 Citroma - PO Q48H PRN CONSTIPATION Magnesium Hydroxide 30 ml 12/05/18 17:46 Milk Of Magnesia - PO PRN PRN CONSTIPATION Melatonin 5 mg 12/05/18 17:46 12/08/18 21:33 Melatonin PO 5 mg HS PRN Administration INSOMNIA Mirtazapine 15 mg 12/05/18 22:00 12/08/18 21:32 Remeron - PO 15 mg HS CHALINO Administration Mometasone Furoate 1 puff 12/05/18 19:00 12/08/18 22:30 Asmanex 220mcg - IH Not Given DAILY@1800 [facility] Montelukast Sodium 10 mg 12/06/18 10:00 12/09/18 10:15 Singulair - PO 10 mg DAILY CHALINO Administration Naloxone HCl 0.4 mg 12/05/18 17:46 Narcan - IVPUSH PRN PRN RESPIRATORY DEPRESSION Nicotine 21 mg 12/06/18 10:00 12/09/18 10:16 Nicoderm Patch - TD 21 mg DAILY [facility] Administration Ondansetron HCl 4 mg 12/05/18 17:46 Zofran Odt - SL 12/11/18 17:48 Q12H PRN Nausea/Vomiting Multivit/Folic Acid/Iron 1 tab 12/06/18 10:00 12/09/18 10:15 Vitamins (Sjr) - PO 1 tab DAILY CHALINO Administration Thiamine HCl 100 mg 12/05/18 22:00 12/08/18 21:32 Vitamin B1 - PO 100 mg HS CHALINO Administration Medication(s) Change(s): Yes. Will add risperdal 0.5mg BID Current Side Effect: No Lab tests ordered: No Lab tests reviewed: Yes Provider note:: Patient reports h/o mood dyregulation and irritability. Past diagnosis of Bipolar disorder. Dr. Alonso note read and appreciated. Patient reports feeling sad and depressed due to the of her last month. States she becomes easily irritable and does not want to have any issues on the unit. Patient with past history of accepting seroquel, risperdal and depakote. A prescription of risperdal 0.5mg BID + Depakote 250mg BID was electronically sent to patient's pharmacy on 11/03/18. Ms. Zhu is unwilling to resume depakote and is agreeable to resuming risperdal 0.5mg BID. Benefits and side effects discussed. Verbal consent given. Total face to face time:: 25 Mental Status Exam - Mental Status Exam Alert and Oriented to: Time, Place, Person Cognitive Function: Good Patient Appearance: Well Groomed Mood: Euthymic Affect: Appropriate Patient Behavior: Cooperative Speech Pattern: Appropriate Voice Loudness: Normal Thought Process: Goal Oriented Thought Disorder: Not Present Hallucinations: Denies Suicidal Ideation: Denies Homicidal Ideation: Denies Insight/Judgement: Poor Sleep: Fair Appetite: Fair Muscle strength/Tone: Normal Gait/Station: Normal Psychiatric Treatment Plan - Problem List (1) Alcohol dependence Current Visit: Yes (2) Bereavement Current Visit: Yes Comment: on 10/31/18 from medical complications (as per patient). (3) Bipolar disorder Current Visit: Yes Qualifiers: Active/Remission status: remission status unspecified Qualified Code(s): F31.9 - Bipolar disorder, unspecified Comment: As per history. (4) Nicotine dependence Current Visit: Yes Qualifiers: Nicotine product type: cigarettes Substance use status: uncomplicated Qualified Code(s): F17.210 - Nicotine dependence, cigarettes, uncomplicated Comment: counseled cessation - interested in patch - same Rx (5) Opioid dependence Current Visit: Yes
[2018-12-09] MEDS ORDERED: risperiDONE 0.5 MG TABLET (FP) PO SCH (12:05)
--- NOTE | 2018-12-09 13:30 | PN ---
[facility] Progress Note Note: Patient seen for c/o LBP. Has hx of scoliosis. Denies any numbness/tingling to extremities. Laboratory Tests 12/05/18 12/05/18 12/06/18 15:45 17:25 07:20 WBC 5.4 RBC 4.09 Hgb 13.1 Hct 39.2 MCV 95.9 MCH 32.1 MCHC 33.4 RDW 13.3 Plt Count 144 MPV 10.5 Sodium Potassium Chloride Carbon Dioxide Anion Gap BUN Creatinine Est GFR (CKD-EPI)AfAm Est GFR (CKD-EPI)NonAf Random Glucose Calcium Total Bilirubin AST ALT Alkaline Phosphatase Total Protein Albumin Urine Color Dk yellow Urine Appearance Turbid Urine pH 5.5 Ur Specific [place] 1.036 H Urine Protein 1+ H Urine Glucose (UA) Negative Urine Ketones 1+ H Urine Blood Negative Urine Nitrite Negative Urine Bilirubin 2+ H Urine Urobilinogen 1.0 Ur Leukocyte Esterase 1+ H Urine WBC (Auto) 2-5 Urine RBC (Auto) No Result Required. Urine Casts (Auto) No Result Required. U Pathogenic Cast Auto No Result Required. U Epithel Cells (Auto) No Result Required. U Sm Round Cell (Auto) No Result Required. Urine Crystals (Auto) Urine Bacteria (Auto) No Result Required. POC Urine HCG, Qual Negative RPR Titer 12/06/18 12/06/18 07:20 07:20 WBC RBC Hgb Hct MCV MCH MCHC RDW Plt Count MPV Sodium 141 Potassium 3.8 Chloride 108 H Carbon Dioxide 25 Anion Gap 8 BUN 9.1 Creatinine 0.7 Est GFR (CKD-EPI)AfAm 108.38 Est GFR (CKD-EPI)NonAf 93.51 Random Glucose 104 Calcium 8.8 Total Bilirubin 0.5 AST 13 L ALT 23 Alkaline Phosphatase 71 Total Protein 6.4 Albumin 3.4 Urine Color Urine Appearance Urine pH Ur Specific [place] Urine Protein Urine Glucose (UA) Urine Ketones Urine Blood Urine Nitrite Urine Bilirubin Urine Urobilinogen Ur Leukocyte Esterase Urine WBC (Auto) Urine RBC (Auto) Urine Casts (Auto) U Pathogenic Cast Auto U Epithel Cells (Auto) U Sm Round Cell (Auto) Urine Crystals (Auto) Urine Bacteria (Auto) POC Urine HCG, Qual RPR Titer Nonreactive Vital Signs Temperature 97.9 F 12/09/18 07:04 Pulse Rate 65 12/09/18 07:04 Respiratory Rate 18 12/09/18 07:04 Blood Pressure 140/84 12/09/18 07:04 O2 Sat by Pulse Oximetry (%) PE: alert and oriented x 3 skin warm and dry Ext full rom, amb ad steven UA appreciated (no symptoms reported) A/P abnormal UA LBP will repeat UA lidocaine patch for pain monitor clinically
[2018-12-09] MEDS ORDERED: COLLOIDAL OATMEAL 1 BAR EACH TP PRN (13:49)
[2018-12-09] MEDS: LIDOCAINE 5% TOPICAL PATCH TP SCH (14:33)
[2018-12-09] MEDS: hydrOXYzine PAMOATE 25 MG CAPSULE (FP) PO PRN (14:50)
--- NOTE | 2018-12-09 15:19 | PN ---
Psychiatric Progress Note Vital Signs: Vital Signs Period Temp Pulse Resp BP Sys/Steinberg Pulse Ox Last 24 Hr 97.9 F 65 18 140/84 Date of Session: 12/09/18 Chief Complaint:: " I do not want risperdal. Seroquel is more effective." HPI: Patient complaining of worsening irritability while in rehab. ROS: Patient coherent, alert and oriented X3. Current Medications: Active Medications Generic Name Dose Route Start Last Admin Trade Name Freq PRN Reason Stop Dose Admin Acetaminophen 650 mg 12/05/18 17:46 12/09/18 06:17 Tylenol - PO 650 mg Q6H PRN Administration PAIN LEVEL 4 - 6 Acetaminophen 650 mg 12/05/18 17:46 Tylenol - PO Q6H PRN FEVER Al Hydroxide/Mg Hydroxide 30 ml 12/05/18 17:46 Mylanta Oral Suspension - PO Q6H PRN DYSPEPSIA Albuterol Sulfate 2 puff 12/05/18 17:52 12/08/18 15:35 Ventolin Hfa Inhaler - IH 2 puff Q4H PRN Administration SHORT OF BREATH/WHEEZING Albuterol Sulfate 1 amp 12/05/18 17:53 Ventolin 0.083% Nebulizer Soln - NEB Q6H PRN SHORT OF BREATH/WHEEZING Albuterol/Ipratropium 1 amp 12/05/18 22:00 Duoneb - NEB BID PRN SHORTNESS OF BREATH Bismuth Subsalicylate 524 mg 12/05/18 17:46 Pepto-Bismol - PO Q1H PRN DIARRHEA Cephalexin HCl 250 mg 12/05/18 18:00 12/09/18 12:32 Keflex - PO 250 mg Q6HPO CHALINO Administration Clotrimazole 1 applic 12/05/18 22:00 12/09/18 10:19 Lotrimin 1% Cream - TP Not Given BID CHALINO Colloidal Oatmeal 1 applic 12/09/18 13:49 12/09/18 14:33 Aveeno Soap - TP 1 bar DAILY PRN Administration HYGEINE Cyclobenzaprine HCl 10 mg 12/05/18 17:52 12/08/18 21:33 Flexeril - PO 10 mg HS PRN Administration BACK PAIN Eucalyptus/Menthol/Phenol/Sorbitol 1 each 12/05/18 17:46 Cepastat Lozenge - MM 12/11/18 17:47 Q4H PRN SORE THROAT Gabapentin 600 mg 12/05/18 22:00 12/09/18 13:03 Neurontin - PO 600 mg TID CHALINO Administration Hydroxyzine Pamoate 25 mg 12/05/18 17:46 12/09/18 14:50 Vistaril - PO 12/11/18 17:47 25 mg Q6H PRN Administration For Anxiety Ibuprofen 400 mg 12/05/18 17:46 12/09/18 10:18 Motrin - PO 400 mg Q6H PRN Administration PAIN LEVEL 1 - 3 Lactobacillus Acidophilus 1 tab 12/06/18 10:00 12/09/18 10:15 Bacid - PO 1 tab DAILY CHALINO Administration Lidocaine 2 patch 12/09/18 14:15 12/09/18 14:33 Lidoderm Patch - TP 2 patch DAILY CHALINO Administration Magnesium Citrate 300 ml 12/05/18 17:46 Citroma - PO Q48H PRN CONSTIPATION Magnesium Hydroxide 30 ml 12/05/18 17:46 Milk Of Magnesia - PO PRN PRN CONSTIPATION Melatonin 5 mg 12/05/18 17:46 12/08/18 21:33 Melatonin PO 5 mg HS PRN Administration INSOMNIA Mirtazapine 15 mg 12/05/18 22:00 12/08/18 21:32 Remeron - PO 15 mg HS CHALINO Administration Miscellaneous 1 each 12/09/18 22:00 Lidoderm Patch Removal MC DAILY@2200 [facility] Mometasone Furoate 1 puff 12/05/18 19:00 12/08/18 22:30 Asmanex 220mcg - IH Not Given DAILY@1800 [facility] Montelukast Sodium 10 mg 12/06/18 10:00 12/09/18 10:15 Singulair - PO 10 mg DAILY [facility]ALINO Administration Naloxone HCl 0.4 mg 12/05/18 17:46 Narcan - IVPUSH PRN PRN RESPIRATORY DEPRESSION Nicotine 21 mg 12/06/18 10:00 12/09/18 10:16 Nicoderm Patch - TD 21 mg DAILY [facility] Administration Ondansetron HCl 4 mg 12/05/18 17:46 Zofran Odt - SL 12/11/18 17:48 Q12H PRN Nausea/Vomiting Multivit/Folic Acid/Iron 1 tab 12/06/18 10:00 12/09/18 10:15 Vitamins (Sjr) - PO 1 tab DAILY CHALINO Administration Risperidone 0.5 mg 12/09/18 12:05 12/09/18 12:32 Risperdal - PO 0.5 mg BID CHALINO Administration Thiamine HCl 100 mg 12/05/18 22:00 12/08/18 21:32 Vitamin B1 - PO 100 mg HS CHALINO Administration Medication(s) Change(s): Yes. Will d/c risperdal 0.5mg BID and will order Seroquel 50mg BID. Current Side Effect: No Lab tests ordered: No Lab tests reviewed: Yes Provider note:: Cafeteria Operator saw patient earlier this morning concerning her history of bipolar disorder and was resumed on risperdal 0.5mg BID for mood stabilization. Patient spoke to telegraphic typewriter installer again this afternoon and requested if seroquel can be ordered as oppose to risperdal. Patient states the seroquel is more effective in managing her anxiety and irritability throughout the day. States her 's which occured last month has made her depressed and states the seroquel has been effective for improving her mood. Patient has accepted seroquel 50mg BID in the past with good effect while in detox. Patient reports past history of accepting seroquel 150mg HS + Seroquel 100mg daily in 2018. Will d/c risperdal 0.5mg BID and order Seroquel 50mg BID. Benefits and side effects discussed. Verbal consent given. Total face to face time:: 25 Mental Status Exam - Mental Status Exam Alert and Oriented to: Time, Place, Person Cognitive Function: Good Patient Appearance: Well Groomed Mood: Irritable (Slightly irritable) Affect: Appropriate Patient Behavior: Cooperative Speech Pattern: Appropriate Voice Loudness: Normal Thought Process: Goal Oriented Thought Disorder: Not Present Hallucinations: Denies Suicidal Ideation: Denies Homicidal Ideation: Denies Insight/Judgement: Poor Sleep: Poorly Appetite: Fair Muscle strength/Tone: Normal Gait/Station: Normal Psychiatric Treatment Plan - Problem List (1) Alcohol dependence Current Visit: Yes (2) Bereavement Current Visit: Yes Comment: on 10/31/18 from medical complications (as per patient). (3) Bipolar disorder Current Visit: Yes Qualifiers: Active/Remission status: remission status unspecified Qualified Code(s): F31.9 - Bipolar disorder, unspecified Comment: As per history. (4) Nicotine dependence Current Visit: Yes Qualifiers: Nicotine product type: cigarettes Substance use status: uncomplicated Qualified Code(s): F17.210 - Nicotine dependence, cigarettes, uncomplicated Comment: counseled cessation - interested in patch - same Rx (5) Opioid dependence Current Visit: Yes
[2018-12-09] MEDS: MOMETASONE FUROATE 220 MCG/IH INHALER IH SCH (17:40)
[2018-12-09] MEDS: ALBUTEROL SO4 8 GM HFA INHALER IH PRN (17:40)
[2018-12-09] MEDS: MIRTAZAPINE 15 MG TABLET (FP) PO SCH (21:05)
[2018-12-09] MEDS: LIDOCAINE PATCH REMOVAL MC SCH (21:06)
[2018-12-09] MEDS: QUEtiapine FUMARATE 50 MG TABLET PO SCH (21:06)
[2018-12-09] MEDS: THIAMINE HCL 100 MG TABLET (FP) PO SCH (21:07)
[2018-12-09] MEDS: MELATONIN 5 MG TABLETS PO PRN (21:36)
[2018-12-10] MEDS: hydrOXYzine PAMOATE 25 MG CAPSULE (FP) PO PRN ×3 (04:06→21:23)
[2018-12-10] MEDS: ACETAMINOPHEN 325 MG TABLET (FP) PO PRN ×2 (04:06→19:13)
[2018-12-10] MEDS: GABAPENTIN 300 MG CAPSULE (FP) PO SCH ×3 (06:19→21:23)
[2018-12-10] MEDS: CEPHALEXIN MONOHYDRATE 250 MG CAPSULE (FP) PO SCH ×3 (06:19→17:29)
[2018-12-10] MEDS ORDERED: PT OWN MED DRAWER 7, Y5N ONE ×2 (08:39→09:21)
[2018-12-10] MEDS: MONTELUKAST NA 10 MG TABLET PO SCH (09:18)
[2018-12-10] MEDS: QUEtiapine FUMARATE 50 MG TABLET PO SCH ×2 (09:18→21:23)
[2018-12-10] MEDS: PRENATAL VITAMINS W/ FOLIC ACID TABLET (FP) PO SCH (09:18)
[2018-12-10] MEDS: LACTOBACILLUS ACIDOPHILUS 1 TABLET PO SCH (09:18)
[2018-12-10] MEDS: LIDOCAINE 5% TOPICAL PATCH TP SCH (09:19)
[2018-12-10] MEDS: NICOTINE 21 MG/24 HOURS TOPICAL PATCH TD SCH (09:19)
[2018-12-10] MEDS: CLOTRIMAZOLE 1% CREAM 15 GM TUBE TP SCH ×2 (09:22→21:25)
[2018-12-10] MEDS: IBUPROFEN 400 MG TABLET (FP) PO PRN (12:59)
[2018-12-10] MEDS ORDERED: ALBUTEROL SO4 2.5/IPRATROPIUM 0.5 INH SOL 3 ML VIAL.NEB. NEB PRN (12:59)
[2018-12-10] MEDS: NICOTINE POLACRILEX 2 MG GUM BUC PRN ×3 (13:00→21:24)
[2018-12-10] MEDS: MOMETASONE FUROATE 220 MCG/IH INHALER IH SCH (17:30)
[2018-12-10] MEDS ORDERED: ALBUTEROL SO4 0.083% IH SOL 2.5 MG/3 ML VIAL.NEB. NEB PRN (17:53)
[2018-12-10] MEDS: MIRTAZAPINE 15 MG TABLET (FP) PO SCH (21:23)
[2018-12-10] MEDS: CYCLOBENZAPRINE HCL 10 MG TABLET (FP) PO PRN (21:23)
[2018-12-10] MEDS: MELATONIN 5 MG TABLETS PO PRN (21:23)
[2018-12-10] MEDS: THIAMINE HCL 100 MG TABLET (FP) PO SCH (21:23)
[2018-12-10] MEDS: LIDOCAINE PATCH REMOVAL MC SCH (21:25)
[2018-12-11] MEDS: CEPHALEXIN MONOHYDRATE 250 MG CAPSULE (FP) PO SCH ×5 (00:11→23:24)
[2018-12-11] MEDS: hydrOXYzine PAMOATE 25 MG CAPSULE (FP) PO PRN ×3 (04:02→17:42)
[2018-12-11] MEDS: ACETAMINOPHEN 325 MG TABLET (FP) PO PRN ×2 (04:02→17:42)
[2018-12-11] MEDS: GABAPENTIN 300 MG CAPSULE (FP) PO SCH ×3 (06:37→21:29)
[2018-12-11] MEDS ORDERED: PT OWN MED DRAWER 7, Y5N ONE ×2 (08:24→20:01)
[2018-12-11] MEDS: NICOTINE 21 MG/24 HOURS TOPICAL PATCH TD SCH (09:54)
[2018-12-11] MEDS: LACTOBACILLUS ACIDOPHILUS 1 TABLET PO SCH (09:55)
[2018-12-11] MEDS: MONTELUKAST NA 10 MG TABLET PO SCH (09:55)
[2018-12-11] MEDS: PRENATAL VITAMINS W/ FOLIC ACID TABLET (FP) PO SCH (09:55)
[2018-12-11] MEDS: QUEtiapine FUMARATE 50 MG TABLET PO SCH ×2 (09:55→21:29)
[2018-12-11] MEDS: LIDOCAINE 5% TOPICAL PATCH TP SCH (09:56)
[2018-12-11] MEDS: CLOTRIMAZOLE 1% CREAM 15 GM TUBE TP SCH ×2 (09:56→21:31)
[2018-12-11] MEDS: NICOTINE POLACRILEX 2 MG GUM BUC PRN ×3 (09:59→21:32)
[2018-12-11] MEDS: MAG HYDROX/AL HYDROX/SIMETH 30 ML UNIT-DOSE CUP PO PRN (18:45)
[2018-12-11] MEDS: MOMETASONE FUROATE 220 MCG/IH INHALER IH SCH (21:28)
[2018-12-11] MEDS: MIRTAZAPINE 15 MG TABLET (FP) PO SCH (21:29)
[2018-12-11] MEDS: MELATONIN 5 MG TABLETS PO PRN (21:30)
[2018-12-11] MEDS: THIAMINE HCL 100 MG TABLET (FP) PO SCH (21:30)
[2018-12-11] MEDS: LIDOCAINE PATCH REMOVAL MC SCH (21:31)
[2018-12-12] MEDS: IBUPROFEN 400 MG TABLET (FP) PO PRN (05:00)
[2018-12-12] MEDS ORDERED: hydrOXYzine PAMOATE 25 MG CAPSULE (FP) PO ONE (05:09)
[2018-12-12] MEDS: GABAPENTIN 300 MG CAPSULE (FP) PO SCH ×3 (06:10→21:06)
[2018-12-12] MEDS: CEPHALEXIN MONOHYDRATE 250 MG CAPSULE (FP) PO SCH ×3 (06:10→23:27)
[2018-12-12] MEDS ORDERED: PT OWN MED DRAWER 7, Y5N ONE ×3 (09:41→17:17)
[2018-12-12] MEDS: NICOTINE 21 MG/24 HOURS TOPICAL PATCH TD SCH (09:42)
[2018-12-12] MEDS: LACTOBACILLUS ACIDOPHILUS 1 TABLET PO SCH (09:42)
[2018-12-12] MEDS: LIDOCAINE 5% TOPICAL PATCH TP SCH (09:42)
[2018-12-12] MEDS: QUEtiapine FUMARATE 50 MG TABLET PO SCH ×2 (09:43→21:06)
[2018-12-12] MEDS: PRENATAL VITAMINS W/ FOLIC ACID TABLET (FP) PO SCH (09:43)
[2018-12-12] MEDS: MONTELUKAST NA 10 MG TABLET PO SCH (09:43)
[2018-12-12] MEDS: CLOTRIMAZOLE 1% CREAM 15 GM TUBE TP SCH ×2 (09:43→21:08)
[2018-12-12] MEDS: NICOTINE POLACRILEX 2 MG GUM BUC PRN ×2 (09:44→13:56)
[2018-12-12] MEDS: ACETAMINOPHEN 325 MG TABLET (FP) PO PRN (11:43)
--- NOTE | 2018-12-12 11:52 | PN ---
[facility] Progress Note Note: PT REQUESTING TO RESTART VISTARIL 25 MG PO Q4H PRN FOR ANXIETY AND TO SEE PSYCH FOR RE-EVAL FOR MEDICATION. PT REPORTS SHE IS RECENTLY BEREAVED IN OCTOBER OF LOSS OF . PT IS ALERT O X 3. Vital Signs - 24 hr 12/12/18 12/12/18 00:30 07:09 Temperature 97.9 F Pulse Rate 57 L Respiratory 18 18 Rate Blood Pressure 116/68 Laboratory Tests 12/05/18 12/05/18 12/06/18 15:45 17:25 07:20 WBC 5.4 RBC 4.09 Hgb 13.1 Hct 39.2 MCV 95.9 MCH 32.1 MCHC 33.4 RDW 13.3 Plt Count 144 MPV 10.5 Sodium Potassium Chloride Carbon Dioxide Anion Gap BUN Creatinine Est GFR (CKD-EPI)AfAm Est GFR (CKD-EPI)NonAf Random Glucose Calcium Total Bilirubin AST ALT Alkaline Phosphatase Total Protein Albumin Urine Color Dk yellow Urine Appearance Turbid Urine pH 5.5 Ur Specific [place] 1.036 H Urine Protein 1+ H Urine Glucose (UA) Negative Urine Ketones 1+ H Urine Blood Negative Urine Nitrite Negative Urine Bilirubin 2+ H Urine Urobilinogen 1.0 Ur Leukocyte Esterase 1+ H Urine WBC (Auto) 2-5 Urine RBC (Auto) No Result Required. Urine Casts (Auto) No Result Required. U Pathogenic Cast Auto No Result Required. U Epithel Cells (Auto) No Result Required. U Sm Round Cell (Auto) No Result Required. Urine Crystals (Auto) Urine Bacteria (Auto) No Result Required. POC Urine HCG, Qual Negative RPR Titer 12/06/18 12/06/18 07:20 07:20 WBC RBC Hgb Hct MCV MCH MCHC RDW Plt Count MPV Sodium 141 Potassium 3.8 Chloride 108 H Carbon Dioxide 25 Anion Gap 8 BUN 9.1 Creatinine 0.7 Est GFR (CKD-EPI)AfAm 108.38 Est GFR (CKD-EPI)NonAf 93.51 Random Glucose 104 Calcium 8.8 Total Bilirubin 0.5 AST 13 L ALT 23 Alkaline Phosphatase 71 Total Protein 6.4 Albumin 3.4 Urine Color Urine Appearance Urine pH Ur Specific [place] Urine Protein Urine Glucose (UA) Urine Ketones Urine Blood Urine Nitrite Urine Bilirubin Urine Urobilinogen Ur Leukocyte Esterase Urine WBC (Auto) Urine RBC (Auto) Urine Casts (Auto) U Pathogenic Cast Auto U Epithel Cells (Auto) U Sm Round Cell (Auto) Urine Crystals (Auto) Urine Bacteria (Auto) POC Urine HCG, Qual RPR Titer Nonreactive PLAN:PSYCH RE-EVAL REORDER VISTARIL 25 MG PO Q4H PRN FOR ANXIETY.
[2018-12-12] MEDS: hydrOXYzine PAMOATE 25 MG CAPSULE (FP) PO PRN ×2 (13:05→18:20)
[2018-12-12] MEDS: MOMETASONE FUROATE 220 MCG/IH INHALER IH SCH (18:22)
[2018-12-12] MEDS: THIAMINE HCL 100 MG TABLET (FP) PO SCH (21:05)
[2018-12-12] MEDS: MIRTAZAPINE 15 MG TABLET (FP) PO SCH (21:06)
[2018-12-12] MEDS: CYCLOBENZAPRINE HCL 10 MG TABLET (FP) PO PRN (21:06)
[2018-12-12] MEDS: MELATONIN 5 MG TABLETS PO PRN (21:06)
[2018-12-12] MEDS: LIDOCAINE PATCH REMOVAL MC SCH (23:28)
[2018-12-13] MEDS: hydrOXYzine PAMOATE 25 MG CAPSULE (FP) PO PRN ×5 (00:30→19:03)
[2018-12-13] MEDS: ACETAMINOPHEN 325 MG TABLET (FP) PO PRN ×2 (00:30→06:09)
[2018-12-13] MEDS: GABAPENTIN 300 MG CAPSULE (FP) PO SCH ×3 (06:09→21:24)
[2018-12-13] MEDS: CEPHALEXIN MONOHYDRATE 250 MG CAPSULE (FP) PO SCH ×4 (06:09→23:57)
[2018-12-13] MEDS: NICOTINE POLACRILEX 2 MG GUM BUC PRN ×2 (06:10→21:26)
[2018-12-13] MEDS: LACTOBACILLUS ACIDOPHILUS 1 TABLET PO SCH (09:43)
[2018-12-13] MEDS: LIDOCAINE 5% TOPICAL PATCH TP SCH (09:43)
[2018-12-13] MEDS: MONTELUKAST NA 10 MG TABLET PO SCH (09:43)
[2018-12-13] MEDS: QUEtiapine FUMARATE 50 MG TABLET PO SCH (09:43)
[2018-12-13] MEDS: CLOTRIMAZOLE 1% CREAM 15 GM TUBE TP SCH ×2 (09:43→21:24)
[2018-12-13] MEDS: NICOTINE 21 MG/24 HOURS TOPICAL PATCH TD SCH (09:43)
[2018-12-13] MEDS: PRENATAL VITAMINS W/ FOLIC ACID TABLET (FP) PO SCH (09:45)
[2018-12-13] MEDS: ALBUTEROL SO4 8 GM HFA INHALER IH PRN (09:46)
[2018-12-13] MEDS ORDERED: QUEtiapine FUMARATE 100 MG TABLET (FP) PO SCH (10:00)
[2018-12-13] MEDS ORDERED: QUEtiapine FUMARATE 25 MG TABLET (FP) PO ONE (10:55)
--- NOTE | 2018-12-13 10:59 | PN ---
Psychiatric Progress Note Vital Signs: Vital Signs Period Temp Pulse Resp BP Sys/Steinberg Pulse Ox Last 24 Hr 97.1 F 65 18 133/84 Date of Session: 12/13/18 Chief Complaint:: " I need an increase in seroquel" HPI: Patient reports worsening irritability. ROS: Patient is coherent, alert and oriented X3. Current Medications: Active Medications Generic Name Dose Route Start Last Admin Trade Name Freq PRN Reason Stop Dose Admin Acetaminophen 650 mg 12/05/18 17:46 12/13/18 06:09 Tylenol - PO 650 mg Q6H PRN Administration PAIN LEVEL 4 - 6 Acetaminophen 650 mg 12/05/18 17:46 Tylenol - PO Q6H PRN FEVER Al Hydroxide/Mg Hydroxide 30 ml 12/05/18 17:46 12/11/18 18:45 Mylanta Oral Suspension - PO 30 ml Q6H PRN Administration DYSPEPSIA Albuterol Sulfate 2 puff 12/05/18 17:52 12/13/18 09:46 Ventolin Hfa Inhaler - IH 2 puff Q4H PRN Administration SHORT OF BREATH/WHEEZING Albuterol Sulfate 1 amp 12/10/18 17:53 Ventolin 0.083% Nebulizer Soln - NEB 12/17/18 17:52 Q6H PRN SHORT OF BREATH/WHEEZING Albuterol/Ipratropium 1 amp 12/10/18 12:59 Duoneb - NEB Q6H PRN SHORTNESS OF BREATH Bismuth Subsalicylate 524 mg 12/05/18 17:46 Pepto-Bismol - PO Q1H PRN DIARRHEA Cephalexin HCl 250 mg 12/12/18 18:00 12/13/18 06:09 Keflex - PO 250 mg Q6HPO CHALINO Administration Clotrimazole 1 applic 12/05/18 22:00 12/13/18 09:43 Lotrimin 1% Cream - TP 1 applic BID CHALINO Administration Colloidal Oatmeal 1 applic 12/09/18 13:49 12/09/18 14:33 Aveeno Soap - TP 1 bar DAILY PRN Administration HYGEINE Cyclobenzaprine HCl 10 mg 12/05/18 17:52 12/12/18 21:06 Flexeril - PO 10 mg HS PRN Administration BACK PAIN Gabapentin 600 mg 12/05/18 22:00 12/13/18 06:09 Neurontin - PO 600 mg TID CHALINO Administration Hydroxyzine Pamoate 25 mg 12/12/18 11:20 12/13/18 09:48 Vistaril - PO 25 mg Q4H PRN Administration FOR ITCHING Ibuprofen 400 mg 12/05/18 17:46 12/12/18 05:00 Motrin - PO 400 mg Q6H PRN Administration PAIN LEVEL 1 - 3 Lactobacillus Acidophilus 1 tab 12/06/18 10:00 12/13/18 09:43 Bacid - PO 1 tab DAILY CHALINO Administration Lidocaine 2 patch 12/09/18 14:15 12/13/18 09:43 Lidoderm Patch - TP 2 patch DAILY CHALINO Administration Magnesium Citrate 300 ml 12/05/18 17:46 Citroma - PO Q48H PRN CONSTIPATION Magnesium Hydroxide 30 ml 12/05/18 17:46 Milk Of Magnesia - PO PRN PRN CONSTIPATION Melatonin 5 mg 12/05/18 17:46 12/12/18 21:06 Melatonin PO 5 mg HS PRN Administration INSOMNIA Mirtazapine 15 mg 12/05/18 22:00 12/12/18 21:06 Remeron - PO 15 mg HS CHALINO Administration Miscellaneous 1 each 12/09/18 22:00 12/12/18 23:28 Lidoderm Patch Removal MC 1 each DAILY@2200 [facility] Administration Mometasone Furoate 1 puff 12/05/18 19:00 12/12/18 18:22 Asmanex 220mcg - IH Not Given DAILY@1800 [facility] Montelukast Sodium 10 mg 12/06/18 10:00 12/13/18 09:43 Singulair - PO 10 mg DAILY [facility]INO Administration Naloxone HCl 0.4 mg 12/05/18 17:46 Narcan - IVPUSH PRN PRN RESPIRATORY DEPRESSION Nicotine 21 mg 12/06/18 10:00 12/13/18 09:43 Nicoderm Patch - TD 21 mg DAILY CHALINO Administration Nicotine Polacrilex 2 mg 12/10/18 09:30 12/13/18 06:10 Nicorette Gum - BUC 2 mg Q2H PRN Administration NICOTINE REPLACEMENT RX Multivit/Folic Acid/Iron 1 tab 12/06/18 10:00 12/13/18 09:45 Vitamins (Sjr) - PO Not Given DAILY [facility]ALINO Quetiapine Fumarate 100 mg 12/13/18 22:00 Seroquel - PO BID CHALINO Thiamine HCl 100 mg 12/05/18 22:00 12/12/18 21:05 Vitamin B1 - PO 100 mg HS CHALINO Administration Medication(s) Change(s): Yes. Will d/c Seroquel 50mg BID. Will order Seroquel 100mg BID. Current Side Effect: No Lab tests ordered: No Lab tests reviewed: Yes Provider note:: Patient reports worsening irritabilty, anxiety, restless, and sadness due to her 's which occured last month. Detacher saw patient last week and started her on seroquel 50mg BID after she refused to continue risperdal 0.5mg BID. Patient reports past history of accepting seroquel 150mg HS + 100 daily with favorable effect. Will d/c seroquel 50mg BID and order Seroquel 100mg BID. Patient encouraged to utilize her coping mechansims when she becomes irritable and anxious. Patient satisfied and receptive to feedback. Total face to face time:: 25 Mental Status Exam - Mental Status Exam Alert and Oriented to: Time, Place, Person Cognitive Function: Good Patient Appearance: Well Groomed Mood: Sad Affect: Mood Congruent Patient Behavior: Cooperative Speech Pattern: Appropriate Voice Loudness: Normal Thought Process: Goal Oriented Thought Disorder: Not Present Hallucinations: Denies Suicidal Ideation: Denies Homicidal Ideation: Denies Insight/Judgement: Poor Sleep: Poorly Appetite: Fair Muscle strength/Tone: Normal Gait/Station: Normal Psychiatric Treatment Plan - Problem List (1) Alcohol dependence Current Visit: Yes (2) Bereavement Current Visit: Yes Comment: on 10/31/18 from medical complications (as per patient). (3) Bipolar disorder Current Visit: Yes Qualifiers: Active/Remission status: remission status unspecified Qualified Code(s): F31.9 - Bipolar disorder, unspecified Comment: As per history. (4) Nicotine dependence Current Visit: Yes Qualifiers: Nicotine product type: cigarettes Substance use status: uncomplicated Qualified Code(s): F17.210 - Nicotine dependence, cigarettes, uncomplicated Comment: counseled cessation - interested in patch - same Rx (5) Opioid dependence Current Visit: Yes
[2018-12-13] MEDS ORDERED: QUEtiapine FUMARATE 50 MG TABLET PO ONE (11:15)
[2018-12-13] MEDS: MOMETASONE FUROATE 220 MCG/IH INHALER IH SCH (17:18)
[2018-12-13] MEDS: LIDOCAINE PATCH REMOVAL MC SCH (21:24)
[2018-12-13] MEDS: MIRTAZAPINE 15 MG TABLET (FP) PO SCH (21:24)
[2018-12-13] MEDS: THIAMINE HCL 100 MG TABLET (FP) PO SCH (21:25)
[2018-12-13] MEDS: MELATONIN 5 MG TABLETS PO PRN (21:26)
[2018-12-13] MEDS: QUEtiapine FUMARATE 100 MG TABLET (FP) PO SCH (21:54)
[2018-12-14] MEDS: ACETAMINOPHEN 325 MG TABLET (FP) PO PRN ×2 (01:54→17:02)
[2018-12-14] MEDS: hydrOXYzine PAMOATE 25 MG CAPSULE (FP) PO PRN ×6 (01:54→21:38)
[2018-12-14] MEDS: CEPHALEXIN MONOHYDRATE 250 MG CAPSULE (FP) PO SCH ×4 (06:17→23:28)
[2018-12-14] MEDS: GABAPENTIN 300 MG CAPSULE (FP) PO SCH ×3 (06:17→21:38)
[2018-12-14] MEDS: IBUPROFEN 400 MG TABLET (FP) PO PRN ×2 (06:19→21:40)
[2018-12-14] MEDS ORDERED: PT OWN MED DRAWER 7, Y5N ONE (09:24)
[2018-12-14] MEDS: MONTELUKAST NA 10 MG TABLET PO SCH (09:57)
[2018-12-14] MEDS: NICOTINE 21 MG/24 HOURS TOPICAL PATCH TD SCH (09:57)
[2018-12-14] MEDS: LACTOBACILLUS ACIDOPHILUS 1 TABLET PO SCH (09:57)
[2018-12-14] MEDS: LIDOCAINE 5% TOPICAL PATCH TP SCH (09:57)
[2018-12-14] MEDS: QUEtiapine FUMARATE 100 MG TABLET (FP) PO SCH ×2 (09:57→21:38)
[2018-12-14] MEDS: CLOTRIMAZOLE 1% CREAM 15 GM TUBE TP SCH ×2 (10:13→22:25)
[2018-12-14] MEDS: PRENATAL VITAMINS W/ FOLIC ACID TABLET (FP) PO SCH (10:13)
[2018-12-14] MEDS: MOMETASONE FUROATE 220 MCG/IH INHALER IH SCH (18:43)
[2018-12-14] MEDS: MIRTAZAPINE 15 MG TABLET (FP) PO SCH (21:38)
[2018-12-14] MEDS: CYCLOBENZAPRINE HCL 10 MG TABLET (FP) PO PRN (21:38)
[2018-12-14] MEDS: MELATONIN 5 MG TABLETS PO PRN (21:39)
[2018-12-14] MEDS: LIDOCAINE PATCH REMOVAL MC SCH (21:39)
[2018-12-14] MEDS: THIAMINE HCL 100 MG TABLET (FP) PO SCH (21:40)
[2018-12-14] MEDS: NICOTINE POLACRILEX 2 MG GUM BUC PRN (22:25)
[2018-12-15] MEDS: GABAPENTIN 300 MG CAPSULE (FP) PO SCH ×3 (05:58→21:51)
[2018-12-15] MEDS: CEPHALEXIN MONOHYDRATE 250 MG CAPSULE (FP) PO SCH ×3 (05:59→17:37)
[2018-12-15] MEDS: ACETAMINOPHEN 325 MG TABLET (FP) PO PRN ×2 (05:59→11:47)
[2018-12-15] MEDS: hydrOXYzine PAMOATE 25 MG CAPSULE (FP) PO PRN ×3 (05:59→17:37)
[2018-12-15] MEDS ORDERED: PT OWN MED DRAWER 7, Y5N ONE (08:49)
[2018-12-15] MEDS ORDERED: ALBUTEROL SO4 0.083% IH SOL 2.5 MG/3 ML VIAL.NEB. NEB PRN (09:14)
[2018-12-15] MEDS: NICOTINE 21 MG/24 HOURS TOPICAL PATCH TD SCH (09:58)
[2018-12-15] MEDS: LACTOBACILLUS ACIDOPHILUS 1 TABLET PO SCH (09:58)
[2018-12-15] MEDS: LIDOCAINE 5% TOPICAL PATCH TP SCH (09:59)
[2018-12-15] MEDS: CLOTRIMAZOLE 1% CREAM 15 GM TUBE TP SCH ×2 (09:59→21:51)
[2018-12-15] MEDS: PRENATAL VITAMINS W/ FOLIC ACID TABLET (FP) PO SCH (09:59)
[2018-12-15] MEDS: QUEtiapine FUMARATE 100 MG TABLET (FP) PO SCH ×2 (09:59→21:50)
[2018-12-15] MEDS: MONTELUKAST NA 10 MG TABLET PO SCH (09:59)
[2018-12-15] MEDS: NICOTINE POLACRILEX 2 MG GUM BUC PRN ×3 (11:48→21:52)
--- NOTE | 2018-12-15 14:43 | PN ---
[facility] COWS - Scale Resting Pulse: 0= NE 80 or Below Sweatin= No chills or Flushing Restless Observation: 0= Sits Still Pupil Size: 0= Normal to Room Light Bone or Joint Aches: 4=Acute Joint/Muscle Pain Runny Nose/ Eye Tearin= Runny Nose/Eyes GI Upset > 30mins: 0= None Tremor Observation of Outstretched Hands: 0= None Yawning Observation: 1= 1-2x During Session Anxiety or Irritability: 2=Irritable/Anxious Goose Flesh Skin: 0=Smooth Skin COWS Score: 9 [facility] Progress Note (SOAP) Subjective: PT REQUESTING FOR SUBOXONE TREATMENT. PT HAS MET WITH HER COUNSELOR, JASS LEBLANC AND PT WILL BE REFERRED TO [facility] FOR CD AFTERCARE WELL CONTINUE WITH SUBOXONE TREATMENT. Objective: 12/15/18 14:59 Vital Signs (72 hours) 12/13/18 12/14/18 12/14/18 07:05 00:30 03:30 Temperature 97.1 F L Pulse Rate 65 Respiratory 18 18 18 Rate Blood Pressure 133/84 12/14/18 12/15/18 12/15/18 07:13 00:30 03:30 Temperature 97.8 F Pulse Rate 56 L Respiratory 18 18 18 Rate Blood Pressure 135/70 12/15/18 06:54 Temperature 97.2 F L Pulse Rate 64 Respiratory 18 Rate Blood Pressure 120/77 Assessment: 12/15/18 14:59 PROTRACTED W/S CRAVINGS Plan: UDS FOR MAT D/W PT ABOUT CONTINUING CD AFTERCARE AND SUBOXONE MAINTENANCE AT [facility] AFTER DISCHARGE FROM REHAB. START SUBOXONE 2MG/0.5 MG SL NOW THEN 4MG/1MG SL DAILY STARTING 12/16/18.
[2018-12-15] MEDS ORDERED: BUPRENORPHINE/NALOXONE 2 MG/0.5 MG FILM PACKET SL ONE (16:30)
[2018-12-15] MEDS: MOMETASONE FUROATE 220 MCG/IH INHALER IH SCH (17:41)
[2018-12-15] MEDS: MIRTAZAPINE 15 MG TABLET (FP) PO SCH (21:50)
[2018-12-15] MEDS: THIAMINE HCL 100 MG TABLET (FP) PO SCH (21:50)
[2018-12-15] MEDS: CYCLOBENZAPRINE HCL 10 MG TABLET (FP) PO PRN (21:50)
[2018-12-15] MEDS: MELATONIN 5 MG TABLETS PO PRN (21:50)
[2018-12-15] MEDS: LIDOCAINE PATCH REMOVAL MC SCH (21:51)
[2018-12-16] MEDS: CEPHALEXIN MONOHYDRATE 250 MG CAPSULE (FP) PO SCH ×5 (00:04→23:22)
[2018-12-16] MEDS: hydrOXYzine PAMOATE 25 MG CAPSULE (FP) PO PRN ×4 (04:41→18:28)
[2018-12-16] MEDS: ACETAMINOPHEN 325 MG TABLET (FP) PO PRN (04:41)
[2018-12-16] MEDS: GABAPENTIN 300 MG CAPSULE (FP) PO SCH ×3 (06:16→21:32)
[2018-12-16] MEDS ORDERED: PT OWN MED DRAWER 7, Y5N ONE ×3 (08:59→21:35)
[2018-12-16] MEDS: PRENATAL VITAMINS W/ FOLIC ACID TABLET (FP) PO SCH (09:56)
[2018-12-16] MEDS: MONTELUKAST NA 10 MG TABLET PO SCH (09:57)
[2018-12-16] MEDS: LACTOBACILLUS ACIDOPHILUS 1 TABLET PO SCH (09:57)
[2018-12-16] MEDS: QUEtiapine FUMARATE 100 MG TABLET (FP) PO SCH ×2 (09:57→21:34)
[2018-12-16] MEDS: LIDOCAINE 5% TOPICAL PATCH TP SCH (09:58)
[2018-12-16] MEDS: NICOTINE 21 MG/24 HOURS TOPICAL PATCH TD SCH (09:59)
[2018-12-16] MEDS: CLOTRIMAZOLE 1% CREAM 15 GM TUBE TP SCH ×2 (09:59→21:35)
[2018-12-16] MEDS: BUPRENORPHINE/NALOXONE 2 MG/0.5 MG FILM PACKET SL SCH (10:07)
--- NOTE | 2018-12-16 10:43 | PN ---
[facility] Progress Note Note: Pt refused suboxone dose this morning- requesting it now- ordered 4mg
[2018-12-16] MEDS ORDERED: BUPRENORPHINE/NALOXONE 2 MG/0.5 MG FILM PACKET SL ONE (11:05)
[2018-12-16] MEDS: IBUPROFEN 400 MG TABLET (FP) PO PRN ×2 (11:23→17:40)
[2018-12-16] MEDS: MOMETASONE FUROATE 220 MCG/IH INHALER IH SCH (17:38)
[2018-12-16] MEDS: ALBUTEROL SO4 8 GM HFA INHALER IH PRN (17:39)
[2018-12-16] MEDS: MIRTAZAPINE 15 MG TABLET (FP) PO SCH (21:32)
[2018-12-16] MEDS: THIAMINE HCL 100 MG TABLET (FP) PO SCH (21:32)
[2018-12-16] MEDS: MELATONIN 5 MG TABLETS PO PRN (21:33)
[2018-12-16] MEDS: LIDOCAINE PATCH REMOVAL MC SCH (21:33)
[2018-12-17] MEDS: hydrOXYzine PAMOATE 25 MG CAPSULE (FP) PO PRN ×4 (01:43→16:59)
[2018-12-17] MEDS: IBUPROFEN 400 MG TABLET (FP) PO PRN ×2 (01:43→13:03)
[2018-12-17] MEDS: CEPHALEXIN MONOHYDRATE 250 MG CAPSULE (FP) PO SCH ×4 (06:12→23:15)
[2018-12-17] MEDS: GABAPENTIN 300 MG CAPSULE (FP) PO SCH ×3 (06:12→21:28)
[2018-12-17] MEDS: ACETAMINOPHEN 325 MG TABLET (FP) PO PRN (06:13)
[2018-12-17] MEDS ORDERED: PT OWN MED DRAWER 7, Y5N ONE ×2 (08:33→10:00)
[2018-12-17] MEDS: LACTOBACILLUS ACIDOPHILUS 1 TABLET PO SCH (09:42)
[2018-12-17] MEDS: LIDOCAINE 5% TOPICAL PATCH TP SCH (09:43)
[2018-12-17] MEDS: CLOTRIMAZOLE 1% CREAM 15 GM TUBE TP SCH ×2 (09:43→21:28)
[2018-12-17] MEDS: NICOTINE 21 MG/24 HOURS TOPICAL PATCH TD SCH (09:43)
[2018-12-17] MEDS: PRENATAL VITAMINS W/ FOLIC ACID TABLET (FP) PO SCH (09:44)
[2018-12-17] MEDS: MONTELUKAST NA 10 MG TABLET PO SCH (09:44)
[2018-12-17] MEDS: QUEtiapine FUMARATE 100 MG TABLET (FP) PO SCH ×2 (09:44→21:28)
[2018-12-17] MEDS: BUPRENORPHINE/NALOXONE 2 MG/0.5 MG FILM PACKET SL SCH (09:46)
[2018-12-17] MEDS: NICOTINE POLACRILEX 2 MG GUM BUC PRN ×3 (09:49→21:29)
[2018-12-17] MEDS: MOMETASONE FUROATE 220 MCG/IH INHALER IH SCH (17:00)
[2018-12-17] MEDS: THIAMINE HCL 100 MG TABLET (FP) PO SCH (21:28)
[2018-12-17] MEDS: LIDOCAINE PATCH REMOVAL MC SCH (21:28)
[2018-12-17] MEDS: MIRTAZAPINE 15 MG TABLET (FP) PO SCH (21:28)
[2018-12-17] MEDS: MELATONIN 5 MG TABLETS PO PRN (21:29)
[2018-12-17] MEDS: CYCLOBENZAPRINE HCL 10 MG TABLET (FP) PO PRN (21:31)
[2018-12-18] MEDS: ACETAMINOPHEN 325 MG TABLET (FP) PO PRN (03:06)
[2018-12-18] MEDS: hydrOXYzine PAMOATE 25 MG CAPSULE (FP) PO PRN ×3 (03:06→17:36)
[2018-12-18] MEDS: CEPHALEXIN MONOHYDRATE 250 MG CAPSULE (FP) PO SCH ×4 (06:08→23:30)
[2018-12-18] MEDS: GABAPENTIN 300 MG CAPSULE (FP) PO SCH ×3 (06:08→21:29)
[2018-12-18] MEDS ORDERED: PT OWN MED DRAWER 7, Y5N ONE ×2 (08:30→17:32)
[2018-12-18] MEDS: NICOTINE 21 MG/24 HOURS TOPICAL PATCH TD SCH (10:08)
[2018-12-18] MEDS: LIDOCAINE 5% TOPICAL PATCH TP SCH (10:08)
[2018-12-18] MEDS: PRENATAL VITAMINS W/ FOLIC ACID TABLET (FP) PO SCH (10:08)
[2018-12-18] MEDS: LACTOBACILLUS ACIDOPHILUS 1 TABLET PO SCH (10:09)
[2018-12-18] MEDS: MONTELUKAST NA 10 MG TABLET PO SCH (10:09)
[2018-12-18] MEDS: QUEtiapine FUMARATE 100 MG TABLET (FP) PO SCH ×2 (10:09→21:28)
[2018-12-18] MEDS: BUPRENORPHINE/NALOXONE 2 MG/0.5 MG FILM PACKET SL SCH (10:13)
[2018-12-18] MEDS: CLOTRIMAZOLE 1% CREAM 15 GM TUBE TP SCH ×2 (10:14→21:29)
[2018-12-18] MEDS: NICOTINE POLACRILEX 2 MG GUM BUC PRN ×3 (14:41→21:31)
[2018-12-18] MEDS: MOMETASONE FUROATE 220 MCG/IH INHALER IH SCH (17:35)
[2018-12-18] MEDS: MIRTAZAPINE 15 MG TABLET (FP) PO SCH (21:28)
[2018-12-18] MEDS: MELATONIN 5 MG TABLETS PO PRN (21:29)
[2018-12-18] MEDS: LIDOCAINE PATCH REMOVAL MC SCH (21:29)
[2018-12-18] MEDS: THIAMINE HCL 100 MG TABLET (FP) PO SCH (21:29)
[2018-12-18] MEDS: CYCLOBENZAPRINE HCL 10 MG TABLET (FP) PO PRN (21:30)
[2018-12-19] MEDS: hydrOXYzine PAMOATE 25 MG CAPSULE (FP) PO PRN ×4 (02:26→21:17)
[2018-12-19] MEDS: IBUPROFEN 400 MG TABLET (FP) PO PRN (02:27)
[2018-12-19] MEDS: GABAPENTIN 300 MG CAPSULE (FP) PO SCH ×3 (06:30→21:17)
[2018-12-19] MEDS: CEPHALEXIN MONOHYDRATE 250 MG CAPSULE (FP) PO SCH ×2 (06:31→11:58)
[2018-12-19] MEDS: NICOTINE POLACRILEX 2 MG GUM BUC PRN ×3 (06:50→13:46)
[2018-12-19] MEDS: NICOTINE 21 MG/24 HOURS TOPICAL PATCH TD SCH (10:03)
[2018-12-19] MEDS: MONTELUKAST NA 10 MG TABLET PO SCH (10:04)
[2018-12-19] MEDS: PRENATAL VITAMINS W/ FOLIC ACID TABLET (FP) PO SCH (10:04)
[2018-12-19] MEDS: CLOTRIMAZOLE 1% CREAM 15 GM TUBE TP SCH ×2 (10:04→21:18)
[2018-12-19] MEDS: LACTOBACILLUS ACIDOPHILUS 1 TABLET PO SCH (10:04)
[2018-12-19] MEDS: BUPRENORPHINE/NALOXONE 2 MG/0.5 MG FILM PACKET SL SCH (10:04)
[2018-12-19] MEDS: QUEtiapine FUMARATE 100 MG TABLET (FP) PO SCH ×2 (10:04→21:17)
[2018-12-19] MEDS: LIDOCAINE 5% TOPICAL PATCH TP SCH (10:05)
[2018-12-19] MEDS ORDERED: PT OWN MED DRAWER 7, Y5N ONE ×2 (10:20→10:35)
[2018-12-19] MEDS: MOMETASONE FUROATE 220 MCG/IH INHALER IH SCH (17:44)
[2018-12-19] MEDS: MIRTAZAPINE 15 MG TABLET (FP) PO SCH (21:17)
[2018-12-19] MEDS: THIAMINE HCL 100 MG TABLET (FP) PO SCH (21:17)
[2018-12-19] MEDS: MELATONIN 5 MG TABLETS PO PRN (21:18)
[2018-12-19] MEDS: LIDOCAINE PATCH REMOVAL MC SCH (21:18)
[2018-12-19] MEDS: CYCLOBENZAPRINE HCL 10 MG TABLET (FP) PO SCH (21:19)
[2018-12-20] MEDS: IBUPROFEN 400 MG TABLET (FP) PO PRN ×2 (01:55→12:00)
[2018-12-20] MEDS: hydrOXYzine PAMOATE 25 MG CAPSULE (FP) PO PRN ×2 (01:55→06:29)
[2018-12-20] MEDS: NICOTINE POLACRILEX 2 MG GUM BUC PRN ×2 (01:57→12:08)
[2018-12-20] MEDS: GABAPENTIN 300 MG CAPSULE (FP) PO SCH ×3 (06:29→21:15)
[2018-12-20] MEDS ORDERED: ALBUTEROL SO4 0.083% IH SOL 2.5 MG/3 ML VIAL.NEB. NEB PRN (06:59)
[2018-12-20] MEDS: MONTELUKAST NA 10 MG TABLET PO SCH (09:32)
[2018-12-20] MEDS: QUEtiapine FUMARATE 100 MG TABLET (FP) PO SCH ×2 (09:32→21:15)
[2018-12-20] MEDS: BUPRENORPHINE/NALOXONE 2 MG/0.5 MG FILM PACKET SL SCH (09:32)
[2018-12-20] MEDS: CYCLOBENZAPRINE HCL 10 MG TABLET (FP) PO SCH ×2 (09:32→21:15)
[2018-12-20] MEDS: LACTOBACILLUS ACIDOPHILUS 1 TABLET PO SCH (09:32)
[2018-12-20] MEDS: NICOTINE 21 MG/24 HOURS TOPICAL PATCH TD SCH (09:32)
[2018-12-20] MEDS: PRENATAL VITAMINS W/ FOLIC ACID TABLET (FP) PO SCH (09:32)
[2018-12-20] MEDS: LIDOCAINE 5% TOPICAL PATCH TP SCH (09:32)
[2018-12-20] MEDS: CLOTRIMAZOLE 1% CREAM 15 GM TUBE TP SCH ×2 (09:33→21:16)
--- NOTE | 2018-12-20 11:24 | PN ---
Psychiatric Progress Note Vital Signs: Vital Signs Period Temp Pulse Resp BP Sys/Steinberg Pulse Ox Last 24 Hr 97.6 F 55 18-18 123/73 Date of Session: 12/20/18 Chief Complaint:: " I feel anxious and irritable. HPI: Patient mildly anxious. ROS: Patient coherent, alert and oriented X3. Current Medications: Active Medications Generic Name Dose Route Start Last Admin Trade Name Freq PRN Reason Stop Dose Admin Acetaminophen 650 mg 12/05/18 17:46 12/18/18 03:06 Tylenol - PO 650 mg Q6H PRN Administration PAIN LEVEL 4 - 6 Acetaminophen 650 mg 12/05/18 17:46 Tylenol - PO Q6H PRN FEVER Al Hydroxide/Mg Hydroxide 30 ml 12/05/18 17:46 12/11/18 18:45 Mylanta Oral Suspension - PO 30 ml Q6H PRN Administration DYSPEPSIA Albuterol Sulfate 2 puff 12/05/18 17:52 12/16/18 17:39 Ventolin Hfa Inhaler - IH 2 puff Q4H PRN Administration SHORT OF BREATH/WHEEZING Albuterol Sulfate 1 amp 12/20/18 06:59 Ventolin 0.083% Nebulizer Soln - NEB 12/23/18 06:57 Q6H PRN SHORT OF BREATH/WHEEZING Bismuth Subsalicylate 524 mg 12/05/18 17:46 Pepto-Bismol - PO Q1H PRN DIARRHEA Buprenorphine/Naloxone 2 each 12/16/18 10:00 12/20/18 09:32 Suboxone 2mg/0.5mg Sl Film - SL 2 each DAILY CHALINO Administration Clotrimazole 1 applic 12/05/18 22:00 12/20/18 09:33 Lotrimin 1% Cream - TP Not Given BID CHALINO Colloidal Oatmeal 1 applic 12/09/18 13:49 12/09/18 14:33 Aveeno Soap - TP 1 bar DAILY PRN Administration HYGEINE Cyclobenzaprine HCl 10 mg 12/19/18 22:00 12/20/18 09:32 Flexeril - PO 10 mg BID CHALINO Administration Gabapentin 600 mg 12/05/18 22:00 12/20/18 06:29 Neurontin - PO 600 mg TID CHALINO Administration Hydroxyzine Pamoate 25 mg 12/12/18 11:20 12/20/18 06:29 Vistaril - PO 25 mg Q4H PRN Administration FOR ITCHING Ibuprofen 400 mg 12/05/18 17:46 12/20/18 01:55 Motrin - PO 400 mg Q6H PRN Administration PAIN LEVEL 1 - 3 Lactobacillus Acidophilus 1 tab 12/06/18 10:00 12/20/18 09:32 Bacid - PO 1 tab DAILY CHALINO Administration Lidocaine 2 patch 12/09/18 14:15 12/20/18 09:32 Lidoderm Patch - TP 2 patch DAILY CHALINO Administration Magnesium Citrate 300 ml 12/05/18 17:46 Citroma - PO Q48H PRN CONSTIPATION Magnesium Hydroxide 30 ml 12/05/18 17:46 Milk Of Magnesia - PO PRN PRN CONSTIPATION Melatonin 5 mg 12/05/18 17:46 12/19/18 21:18 Melatonin PO 5 mg HS PRN Administration INSOMNIA Mirtazapine 15 mg 12/05/18 22:00 12/19/18 21:17 Remeron - PO 15 mg HS CHALINO Administration Miscellaneous 1 each 12/09/18 22:00 12/19/18 21:18 Lidoderm Patch Removal MC 1 each DAILY@2200 CHALINO Administration Mometasone Furoate 1 puff 12/05/18 19:00 12/19/18 17:44 Asmanex 220mcg - IH Not Given DAILY@1800 CHALINO Montelukast Sodium 10 mg 12/06/18 10:00 12/20/18 09:32 Singulair - PO 10 mg DAILY CHALINO Administration Naloxone HCl 0.4 mg 12/05/18 17:46 Narcan - IVPUSH PRN PRN RESPIRATORY DEPRESSION Nicotine 21 mg 12/06/18 10:00 12/20/18 09:32 Nicoderm Patch - TD 21 mg DAILY CHALINO Administration Nicotine Polacrilex 2 mg 12/10/18 09:30 12/20/18 01:57 Nicorette Gum - BUC 2 mg Q2H PRN Administration NICOTINE REPLACEMENT RX Multivit/Folic Acid/Iron 1 tab 12/06/18 10:00 12/20/18 09:32 Vitamins (Sjr) - PO Not Given DAILY CHALINO Quetiapine Fumarate 100 mg 12/13/18 22:00 12/20/18 09:32 Seroquel - PO 100 mg BID CHALINO Administration Thiamine HCl 100 mg 12/05/18 22:00 12/19/18 21:17 Vitamin B1 - PO 100 mg HS CHALINO Administration Medication(s) Change(s): Yes. Current Side Effect: No Lab tests ordered: No Lab tests reviewed: Yes Provider note:: Patient reports ongoing anxiety, restlessness, and irritability. Reports having cravings to leave rehab so that she can use illicit substances. Medications reviewed. Will discontinue vistaril 25mg q4h and order vistaril 50mg q4h. Patient encouraged to utilize her coping mechanisms to help manage her anxiety and irritability. Patient satisifed and receptive to feedback. Total face to face time:: 25 Mental Status Exam - Mental Status Exam Alert and Oriented to: Time, Place, Person Cognitive Function: Good Patient Appearance: Well Groomed Mood: Anxious, Euthymic Affect: Appropriate Patient Behavior: Cooperative Speech Pattern: Appropriate Voice Loudness: Normal Thought Process: Goal Oriented Thought Disorder: Not Present Hallucinations: Denies Suicidal Ideation: Denies Homicidal Ideation: Denies Insight/Judgement: Poor Sleep: Fair Appetite: Fair Muscle strength/Tone: Normal Gait/Station: Normal Psychiatric Treatment Plan - Problem List (1) Alcohol dependence Current Visit: Yes (2) Bereavement Current Visit: Yes Comment: on 10/31/18 from medical complications (as per patient). (3) Bipolar disorder Current Visit: Yes Qualifiers: Active/Remission status: remission status unspecified Qualified Code(s): F31.9 - Bipolar disorder, unspecified Comment: As per history. (4) Nicotine dependence Current Visit: Yes Qualifiers: Nicotine product type: cigarettes Substance use status: uncomplicated Qualified Code(s): F17.210 - Nicotine dependence, cigarettes, uncomplicated Comment: counseled cessation - interested in patch - same Rx (5) Opioid dependence Current Visit: Yes
[2018-12-20] MEDS ORDERED: BUPRENORPHINE/NALOXONE 2 MG/0.5 MG FILM PACKET SL ONE (11:52)
[2018-12-20] MEDS: hydrOXYzine PAMOATE 50 MG CAPSULE (FP) PO PRN ×2 (11:59→21:15)
--- NOTE | 2018-12-20 12:31 | PN ---
[facility] Progress Note (SOAP) Subjective: PT REQUESTING INCREASED SUBOXONE DUE TO CRAVINGS AND DISCOMFORT. Objective: 12/20/18 12:29 Vital Signs - 24 hr 12/20/18 12/20/18 03:30 07:17 Temperature 97.6 F Pulse Rate 55 L Respiratory 18 18 Rate Blood Pressure 123/73 Laboratory Tests 12/05/18 12/05/18 12/06/18 15:45 17:25 07:20 WBC 5.4 RBC 4.09 Hgb 13.1 Hct 39.2 MCV 95.9 MCH 32.1 MCHC 33.4 RDW 13.3 Plt Count 144 MPV 10.5 Sodium Potassium Chloride Carbon Dioxide Anion Gap BUN Creatinine Est GFR (CKD-EPI)AfAm Est GFR (CKD-EPI)NonAf Random Glucose Calcium Total Bilirubin AST ALT Alkaline Phosphatase Total Protein Albumin Urine Color Dk yellow Urine Appearance Turbid Urine pH 5.5 Ur Specific [place] 1.036 H Urine Protein 1+ H Urine Glucose (UA) Negative Urine Ketones 1+ H Urine Blood Negative Urine Nitrite Negative Urine Bilirubin 2+ H Urine Urobilinogen 1.0 Ur Leukocyte Esterase 1+ H Urine WBC (Auto) 2-5 Urine RBC (Auto) No Result Required. Urine Casts (Auto) No Result Required. U Pathogenic Cast Auto No Result Required. U Epithel Cells (Auto) No Result Required. U Sm Round Cell (Auto) No Result Required. Urine Crystals (Auto) Urine Bacteria (Auto) No Result Required. POC Urine HCG, Qual Negative RPR Titer 12/06/18 12/06/18 07:20 07:20 WBC RBC Hgb Hct MCV MCH MCHC RDW Plt Count MPV Sodium 141 Potassium 3.8 Chloride 108 H Carbon Dioxide 25 Anion Gap 8 BUN 9.1 Creatinine 0.7 Est GFR (CKD-EPI)AfAm 108.38 Est GFR (CKD-EPI)NonAf 93.51 Random Glucose 104 Calcium 8.8 Total Bilirubin 0.5 AST 13 L ALT 23 Alkaline Phosphatase 71 Total Protein 6.4 Albumin 3.4 Urine Color Urine Appearance Urine pH Ur Specific [place] Urine Protein Urine Glucose (UA) Urine Ketones Urine Blood Urine Nitrite Urine Bilirubin Urine Urobilinogen Ur Leukocyte Esterase Urine WBC (Auto) Urine RBC (Auto) Urine Casts (Auto) U Pathogenic Cast Auto U Epithel Cells (Auto) U Sm Round Cell (Auto) Urine Crystals (Auto) Urine Bacteria (Auto) POC Urine HCG, Qual RPR Titer Nonreactive Assessment: 12/20/18 12:29 OUD CRAVINGS Plan: INCREASE TO SUBOXONE 8 MG/2MG SL DAILY STARTING 12/21/18 GIVE ADDITIONAL 4MG/1M G SL TODAY.
[2018-12-20] MEDS: MOMETASONE FUROATE 220 MCG/IH INHALER IH SCH (17:42)
[2018-12-20] MEDS: MELATONIN 5 MG TABLETS PO PRN (21:15)
[2018-12-20] MEDS: MIRTAZAPINE 15 MG TABLET (FP) PO SCH (21:15)
[2018-12-20] MEDS: LIDOCAINE PATCH REMOVAL MC SCH (21:16)
[2018-12-20] MEDS: THIAMINE HCL 100 MG TABLET (FP) PO SCH (21:17)
[2018-12-21] MEDS: ACETAMINOPHEN 325 MG TABLET (FP) PO PRN (03:35)
[2018-12-21] MEDS: hydrOXYzine PAMOATE 50 MG CAPSULE (FP) PO PRN ×4 (03:35→21:18)
[2018-12-21] MEDS: GABAPENTIN 300 MG CAPSULE (FP) PO SCH ×3 (06:20→21:18)
[2018-12-21] MEDS: NICOTINE POLACRILEX 2 MG GUM BUC PRN ×3 (06:21→14:52)
[2018-12-21] MEDS: LACTOBACILLUS ACIDOPHILUS 1 TABLET PO SCH (09:36)
[2018-12-21] MEDS: LIDOCAINE 5% TOPICAL PATCH TP SCH (09:37)
[2018-12-21] MEDS: QUEtiapine FUMARATE 100 MG TABLET (FP) PO SCH ×2 (09:37→21:18)
[2018-12-21] MEDS: CYCLOBENZAPRINE HCL 10 MG TABLET (FP) PO SCH ×2 (09:37→21:18)
[2018-12-21] MEDS: NICOTINE 21 MG/24 HOURS TOPICAL PATCH TD SCH (09:37)
[2018-12-21] MEDS: MONTELUKAST NA 10 MG TABLET PO SCH (09:39)
[2018-12-21] MEDS: BUPRENORPHINE/NALOXONE 8 MG/2 MG FILM PACKET SL SCH (09:39)
[2018-12-21] MEDS: PRENATAL VITAMINS W/ FOLIC ACID TABLET (FP) PO SCH (09:40)
[2018-12-21] MEDS: CLOTRIMAZOLE 1% CREAM 15 GM TUBE TP SCH ×2 (10:00→21:20)
[2018-12-21] MEDS: IBUPROFEN 400 MG TABLET (FP) PO PRN (14:52)
[2018-12-21] MEDS ORDERED: PT OWN MED DRAWER 7, Y5N ONE (16:11)
[2018-12-21] MEDS: MOMETASONE FUROATE 220 MCG/IH INHALER IH SCH (17:51)
[2018-12-21] MEDS: MELATONIN 5 MG TABLETS PO PRN (21:18)
[2018-12-21] MEDS: THIAMINE HCL 100 MG TABLET (FP) PO SCH (21:18)
[2018-12-21] MEDS: MIRTAZAPINE 15 MG TABLET (FP) PO SCH (21:18)
[2018-12-21] MEDS: LIDOCAINE PATCH REMOVAL MC SCH (21:20)
[2018-12-22] MEDS: ACETAMINOPHEN 325 MG TABLET (FP) PO PRN (01:34)
[2018-12-22] MEDS: hydrOXYzine PAMOATE 50 MG CAPSULE (FP) PO PRN ×4 (01:34→18:21)
[2018-12-22] MEDS: IBUPROFEN 400 MG TABLET (FP) PO PRN (06:13)
[2018-12-22] MEDS: GABAPENTIN 300 MG CAPSULE (FP) PO SCH ×3 (06:13→21:19)
[2018-12-22] MEDS: NICOTINE POLACRILEX 2 MG GUM BUC PRN ×2 (06:14→09:54)
[2018-12-22] MEDS: NICOTINE 21 MG/24 HOURS TOPICAL PATCH TD SCH (09:52)
[2018-12-22] MEDS: QUEtiapine FUMARATE 100 MG TABLET (FP) PO SCH ×2 (09:52→21:19)
[2018-12-22] MEDS: CYCLOBENZAPRINE HCL 10 MG TABLET (FP) PO SCH ×2 (09:52→21:19)
[2018-12-22] MEDS: LACTOBACILLUS ACIDOPHILUS 1 TABLET PO SCH (09:52)
[2018-12-22] MEDS: PRENATAL VITAMINS W/ FOLIC ACID TABLET (FP) PO SCH (09:52)
[2018-12-22] MEDS: MONTELUKAST NA 10 MG TABLET PO SCH (09:52)
[2018-12-22] MEDS: BUPRENORPHINE/NALOXONE 8 MG/2 MG FILM PACKET SL SCH (09:53)
[2018-12-22] MEDS: LIDOCAINE 5% TOPICAL PATCH TP SCH (09:54)
[2018-12-22] MEDS: CLOTRIMAZOLE 1% CREAM 15 GM TUBE TP SCH ×2 (09:54→21:20)
[2018-12-22] MEDS: MOMETASONE FUROATE 220 MCG/IH INHALER IH SCH (17:02)
[2018-12-22] MEDS: THIAMINE HCL 100 MG TABLET (FP) PO SCH (21:19)
[2018-12-22] MEDS: MIRTAZAPINE 15 MG TABLET (FP) PO SCH (21:19)
[2018-12-22] MEDS: LIDOCAINE PATCH REMOVAL MC SCH (21:20)
[2018-12-23] MEDS: hydrOXYzine PAMOATE 50 MG CAPSULE (FP) PO PRN ×4 (00:47→19:36)
[2018-12-23] MEDS: IBUPROFEN 400 MG TABLET (FP) PO PRN ×2 (00:48→19:36)
[2018-12-23] MEDS: NICOTINE POLACRILEX 2 MG GUM BUC PRN ×3 (06:18→19:37)
[2018-12-23] MEDS: GABAPENTIN 300 MG CAPSULE (FP) PO SCH ×3 (06:18→21:00)
[2018-12-23] MEDS ORDERED: PT OWN MED DRAWER 7, Y5N ONE ×2 (08:50→19:37)
[2018-12-23] MEDS: LACTOBACILLUS ACIDOPHILUS 1 TABLET PO SCH (09:46)
[2018-12-23] MEDS: LIDOCAINE 5% TOPICAL PATCH TP SCH (09:47)
[2018-12-23] MEDS: CYCLOBENZAPRINE HCL 10 MG TABLET (FP) PO SCH ×2 (09:47→21:00)
[2018-12-23] MEDS: NICOTINE 21 MG/24 HOURS TOPICAL PATCH TD SCH (09:47)
[2018-12-23] MEDS: QUEtiapine FUMARATE 100 MG TABLET (FP) PO SCH ×2 (09:48→21:00)
[2018-12-23] MEDS: MONTELUKAST NA 10 MG TABLET PO SCH (09:49)
[2018-12-23] MEDS: BUPRENORPHINE/NALOXONE 8 MG/2 MG FILM PACKET SL SCH (09:49)
[2018-12-23] MEDS: PRENATAL VITAMINS W/ FOLIC ACID TABLET (FP) PO SCH (09:49)
[2018-12-23] MEDS: CLOTRIMAZOLE 1% CREAM 15 GM TUBE TP SCH ×2 (09:54→21:02)
[2018-12-23] MEDS: ALBUTEROL SO4 8 GM HFA INHALER IH PRN (19:38)
[2018-12-23] MEDS: MOMETASONE FUROATE 220 MCG/IH INHALER IH SCH (19:41)
[2018-12-23] MEDS: THIAMINE HCL 100 MG TABLET (FP) PO SCH (20:59)
[2018-12-23] MEDS: MELATONIN 5 MG TABLETS PO PRN (21:00)
[2018-12-23] MEDS: MIRTAZAPINE 15 MG TABLET (FP) PO SCH (21:00)
[2018-12-23] MEDS: LIDOCAINE PATCH REMOVAL MC SCH (21:01)
[2018-12-24] MEDS: hydrOXYzine PAMOATE 50 MG CAPSULE (FP) PO PRN ×4 (02:12→19:17)
[2018-12-24] MEDS: IBUPROFEN 400 MG TABLET (FP) PO PRN (02:12)
[2018-12-24] MEDS: NICOTINE POLACRILEX 2 MG GUM BUC PRN ×3 (02:14→13:59)
[2018-12-24] MEDS: GABAPENTIN 300 MG CAPSULE (FP) PO SCH ×3 (06:16→21:36)
[2018-12-24] MEDS ORDERED: PT OWN MED DRAWER 7, Y5N ONE ×2 (09:16→14:54)
[2018-12-24] MEDS: CLOTRIMAZOLE 1% CREAM 15 GM TUBE TP SCH ×2 (10:10→21:37)
[2018-12-24] MEDS: LIDOCAINE 5% TOPICAL PATCH TP SCH (10:10)
[2018-12-24] MEDS: NICOTINE 21 MG/24 HOURS TOPICAL PATCH TD SCH (10:10)
[2018-12-24] MEDS: BUPRENORPHINE/NALOXONE 8 MG/2 MG FILM PACKET SL SCH (10:11)
[2018-12-24] MEDS: MONTELUKAST NA 10 MG TABLET PO SCH (10:11)
[2018-12-24] MEDS: QUEtiapine FUMARATE 100 MG TABLET (FP) PO SCH ×2 (10:11→21:36)
[2018-12-24] MEDS: PRENATAL VITAMINS W/ FOLIC ACID TABLET (FP) PO SCH (10:11)
[2018-12-24] MEDS: CYCLOBENZAPRINE HCL 10 MG TABLET (FP) PO SCH ×2 (10:11→21:36)
[2018-12-24] MEDS: LACTOBACILLUS ACIDOPHILUS 1 TABLET PO SCH (10:42)
[2018-12-24] MEDS: MOMETASONE FUROATE 220 MCG/IH INHALER IH SCH (19:29)
[2018-12-24] MEDS: MIRTAZAPINE 15 MG TABLET (FP) PO SCH (21:36)
[2018-12-24] MEDS: THIAMINE HCL 100 MG TABLET (FP) PO SCH (21:36)
[2018-12-24] MEDS: MELATONIN 5 MG TABLETS PO PRN (21:36)
[2018-12-24] MEDS: LIDOCAINE PATCH REMOVAL MC SCH (21:37)
[2018-12-25] MEDS: GABAPENTIN 300 MG CAPSULE (FP) PO SCH ×3 (06:36→21:26)
[2018-12-25] MEDS: hydrOXYzine PAMOATE 50 MG CAPSULE (FP) PO PRN ×2 (06:36→18:02)
[2018-12-25] MEDS: LACTOBACILLUS ACIDOPHILUS 1 TABLET PO SCH (09:53)
[2018-12-25] MEDS: QUEtiapine FUMARATE 100 MG TABLET (FP) PO SCH ×2 (09:54→21:26)
[2018-12-25] MEDS: CYCLOBENZAPRINE HCL 10 MG TABLET (FP) PO SCH ×2 (09:54→21:26)
[2018-12-25] MEDS: BUPRENORPHINE/NALOXONE 8 MG/2 MG FILM PACKET SL SCH (09:54)
[2018-12-25] MEDS: MONTELUKAST NA 10 MG TABLET PO SCH (09:54)
[2018-12-25] MEDS: NICOTINE 21 MG/24 HOURS TOPICAL PATCH TD SCH (09:54)
[2018-12-25] MEDS: CLOTRIMAZOLE 1% CREAM 15 GM TUBE TP SCH ×2 (09:55→21:28)
[2018-12-25] MEDS: PRENATAL VITAMINS W/ FOLIC ACID TABLET (FP) PO SCH (09:56)
[2018-12-25] MEDS: LIDOCAINE 5% TOPICAL PATCH TP SCH (09:57)
[2018-12-25] MEDS: NICOTINE POLACRILEX 2 MG GUM BUC PRN (10:53)
[2018-12-25] MEDS: IBUPROFEN 400 MG TABLET (FP) PO PRN (18:02)
[2018-12-25] MEDS: MOMETASONE FUROATE 220 MCG/IH INHALER IH SCH (18:04)
[2018-12-25] MEDS: MELATONIN 5 MG TABLETS PO PRN (21:26)
[2018-12-25] MEDS: THIAMINE HCL 100 MG TABLET (FP) PO SCH (21:26)
[2018-12-25] MEDS: MIRTAZAPINE 15 MG TABLET (FP) PO SCH (21:27)
[2018-12-25] MEDS: LIDOCAINE PATCH REMOVAL MC SCH (21:28)
[2018-12-26] MEDS: GABAPENTIN 300 MG CAPSULE (FP) PO SCH ×3 (06:10→21:14)
[2018-12-26] MEDS: hydrOXYzine PAMOATE 50 MG CAPSULE (FP) PO PRN ×3 (06:11→21:14)
[2018-12-26] MEDS: NICOTINE POLACRILEX 2 MG GUM BUC PRN ×4 (06:12→17:00)
[2018-12-26] MEDS: LACTOBACILLUS ACIDOPHILUS 1 TABLET PO SCH (09:19)
[2018-12-26] MEDS: QUEtiapine FUMARATE 100 MG TABLET (FP) PO SCH ×2 (09:20→21:14)
[2018-12-26] MEDS: LIDOCAINE 5% TOPICAL PATCH TP SCH (09:20)
[2018-12-26] MEDS: NICOTINE 21 MG/24 HOURS TOPICAL PATCH TD SCH (09:20)
[2018-12-26] MEDS: BUPRENORPHINE/NALOXONE 8 MG/2 MG FILM PACKET SL SCH (09:21)
[2018-12-26] MEDS: CYCLOBENZAPRINE HCL 10 MG TABLET (FP) PO SCH ×2 (09:21→21:14)
[2018-12-26] MEDS: CLOTRIMAZOLE 1% CREAM 15 GM TUBE TP SCH ×2 (09:21→21:16)
[2018-12-26] MEDS: PRENATAL VITAMINS W/ FOLIC ACID TABLET (FP) PO SCH (09:21)
[2018-12-26] MEDS: MONTELUKAST NA 10 MG TABLET PO SCH (09:21)
[2018-12-26] MEDS: MOMETASONE FUROATE 220 MCG/IH INHALER IH SCH (19:55)
[2018-12-26] MEDS: MIRTAZAPINE 15 MG TABLET (FP) PO SCH (21:14)
[2018-12-26] MEDS: LIDOCAINE PATCH REMOVAL MC SCH (21:16)
[2018-12-26] MEDS: THIAMINE HCL 100 MG TABLET (FP) PO SCH (21:16)
[2018-12-27] MEDS: IBUPROFEN 400 MG TABLET (FP) PO PRN ×2 (04:49→21:12)
[2018-12-27] MEDS: hydrOXYzine PAMOATE 50 MG CAPSULE (FP) PO PRN ×2 (04:49→18:18)
[2018-12-27] MEDS: NICOTINE POLACRILEX 2 MG GUM BUC PRN ×3 (04:50→21:11)
[2018-12-27] MEDS: GABAPENTIN 300 MG CAPSULE (FP) PO SCH ×3 (06:27→21:11)
[2018-12-27] MEDS: CYCLOBENZAPRINE HCL 10 MG TABLET (FP) PO SCH ×2 (09:35→21:11)
[2018-12-27] MEDS: QUEtiapine FUMARATE 100 MG TABLET (FP) PO SCH ×2 (09:35→21:11)
[2018-12-27] MEDS: PRENATAL VITAMINS W/ FOLIC ACID TABLET (FP) PO SCH (09:35)
[2018-12-27] MEDS: NICOTINE 21 MG/24 HOURS TOPICAL PATCH TD SCH (09:35)
[2018-12-27] MEDS: MONTELUKAST NA 10 MG TABLET PO SCH (09:35)
[2018-12-27] MEDS: CLOTRIMAZOLE 1% CREAM 15 GM TUBE TP SCH ×2 (09:36→22:49)
[2018-12-27] MEDS: LIDOCAINE 5% TOPICAL PATCH TP SCH (09:36)
[2018-12-27] MEDS: BUPRENORPHINE/NALOXONE 8 MG/2 MG FILM PACKET SL SCH (09:58)
[2018-12-27] MEDS: LACTOBACILLUS ACIDOPHILUS 1 TABLET PO SCH (10:50)
[2018-12-27] MEDS ORDERED: PT OWN MED DRAWER 7, Y5N ONE ×2 (17:04→20:40)
[2018-12-27] MEDS: MOMETASONE FUROATE 220 MCG/IH INHALER IH SCH (18:19)
[2018-12-27] MEDS: MIRTAZAPINE 15 MG TABLET (FP) PO SCH (21:11)
[2018-12-27] MEDS: THIAMINE HCL 100 MG TABLET (FP) PO SCH (21:11)
[2018-12-27] MEDS: MELATONIN 5 MG TABLETS PO PRN (21:12)
[2018-12-27] MEDS: LIDOCAINE PATCH REMOVAL MC SCH (22:50)
[2018-12-28] MEDS: hydrOXYzine PAMOATE 50 MG CAPSULE (FP) PO PRN ×3 (02:53→21:21)
[2018-12-28] MEDS: IBUPROFEN 400 MG TABLET (FP) PO PRN (02:53)
[2018-12-28] MEDS: GABAPENTIN 300 MG CAPSULE (FP) PO SCH ×3 (06:42→21:21)
[2018-12-28] MEDS: NICOTINE POLACRILEX 2 MG GUM BUC PRN ×3 (06:43→21:24)
[2018-12-28] MEDS ORDERED: PT OWN MED DRAWER 7, Y5N ONE (09:18)
[2018-12-28] MEDS: NICOTINE 21 MG/24 HOURS TOPICAL PATCH TD SCH (09:55)
[2018-12-28] MEDS: MONTELUKAST NA 10 MG TABLET PO SCH (09:55)
[2018-12-28] MEDS: CYCLOBENZAPRINE HCL 10 MG TABLET (FP) PO SCH ×2 (09:55→21:22)
[2018-12-28] MEDS: BUPRENORPHINE/NALOXONE 8 MG/2 MG FILM PACKET SL SCH (09:55)
[2018-12-28] MEDS: LACTOBACILLUS ACIDOPHILUS 1 TABLET PO SCH (09:55)
[2018-12-28] MEDS: LIDOCAINE 5% TOPICAL PATCH TP SCH (09:55)
[2018-12-28] MEDS: CLOTRIMAZOLE 1% CREAM 15 GM TUBE TP SCH ×2 (09:56→21:45)
[2018-12-28] MEDS: QUEtiapine FUMARATE 100 MG TABLET (FP) PO SCH ×2 (09:56→21:46)
[2018-12-28] MEDS: PRENATAL VITAMINS W/ FOLIC ACID TABLET (FP) PO SCH (09:56)
[2018-12-28] MEDS: ACETAMINOPHEN 325 MG TABLET (FP) PO PRN ×2 (13:52→21:20)
[2018-12-28] MEDS: MOMETASONE FUROATE 220 MCG/IH INHALER IH SCH (20:58)
[2018-12-28] MEDS: MELATONIN 5 MG TABLETS PO PRN (21:21)
[2018-12-28] MEDS: THIAMINE HCL 100 MG TABLET (FP) PO SCH (21:21)
[2018-12-28] MEDS: MIRTAZAPINE 15 MG TABLET (FP) PO SCH (21:22)
[2018-12-28] MEDS: LIDOCAINE PATCH REMOVAL MC SCH (21:45)
[2018-12-29] MEDS: GABAPENTIN 300 MG CAPSULE (FP) PO SCH ×3 (06:40→21:41)
[2018-12-29] MEDS: NICOTINE POLACRILEX 2 MG GUM BUC PRN ×2 (06:41→14:10)
[2018-12-29] MEDS: hydrOXYzine PAMOATE 50 MG CAPSULE (FP) PO PRN ×2 (06:42→18:55)
[2018-12-29] MEDS: LIDOCAINE 5% TOPICAL PATCH TP SCH (09:28)
[2018-12-29] MEDS: LACTOBACILLUS ACIDOPHILUS 1 TABLET PO SCH (09:28)
[2018-12-29] MEDS: CYCLOBENZAPRINE HCL 10 MG TABLET (FP) PO SCH ×2 (09:28→21:41)
[2018-12-29] MEDS: QUEtiapine FUMARATE 100 MG TABLET (FP) PO SCH ×2 (09:29→21:40)
[2018-12-29] MEDS: PRENATAL VITAMINS W/ FOLIC ACID TABLET (FP) PO SCH (09:29)
[2018-12-29] MEDS: MONTELUKAST NA 10 MG TABLET PO SCH (09:29)
[2018-12-29] MEDS: BUPRENORPHINE/NALOXONE 8 MG/2 MG FILM PACKET SL SCH (09:29)
[2018-12-29] MEDS: CLOTRIMAZOLE 1% CREAM 15 GM TUBE TP SCH ×2 (09:29→21:41)
[2018-12-29] MEDS: NICOTINE 21 MG/24 HOURS TOPICAL PATCH TD SCH (09:30)
[2018-12-29] MEDS: MOMETASONE FUROATE 220 MCG/IH INHALER IH SCH (18:55)
[2018-12-29] MEDS: MAG HYDROX/AL HYDROX/SIMETH 30 ML UNIT-DOSE CUP PO PRN (18:55)
[2018-12-29] MEDS: THIAMINE HCL 100 MG TABLET (FP) PO SCH (21:40)
[2018-12-29] MEDS: MIRTAZAPINE 15 MG TABLET (FP) PO SCH (21:41)
[2018-12-29] MEDS: ACETAMINOPHEN 325 MG TABLET (FP) PO PRN (21:41)
[2018-12-29] MEDS: LIDOCAINE PATCH REMOVAL MC SCH (21:50)
[2018-12-30] MEDS: hydrOXYzine PAMOATE 50 MG CAPSULE (FP) PO PRN ×3 (06:26→21:30)
[2018-12-30] MEDS: GABAPENTIN 300 MG CAPSULE (FP) PO SCH ×3 (06:27→21:30)
[2018-12-30] MEDS: NICOTINE POLACRILEX 2 MG GUM BUC PRN ×2 (06:27→10:09)
[2018-12-30] MEDS ORDERED: PT OWN MED DRAWER 7, Y5N ONE ×2 (08:56→18:57)
[2018-12-30] MEDS: LACTOBACILLUS ACIDOPHILUS 1 TABLET PO SCH (10:08)
[2018-12-30] MEDS: CLOTRIMAZOLE 1% CREAM 15 GM TUBE TP SCH ×2 (10:08→21:40)
[2018-12-30] MEDS: PRENATAL VITAMINS W/ FOLIC ACID TABLET (FP) PO SCH (10:08)
[2018-12-30] MEDS: NICOTINE 21 MG/24 HOURS TOPICAL PATCH TD SCH (10:08)
[2018-12-30] MEDS: LIDOCAINE 5% TOPICAL PATCH TP SCH (10:08)
[2018-12-30] MEDS: BUPRENORPHINE/NALOXONE 8 MG/2 MG FILM PACKET SL SCH (10:08)
[2018-12-30] MEDS: QUEtiapine FUMARATE 100 MG TABLET (FP) PO SCH ×2 (10:09→21:29)
[2018-12-30] MEDS: CYCLOBENZAPRINE HCL 10 MG TABLET (FP) PO SCH ×2 (10:09→21:29)
[2018-12-30] MEDS: MONTELUKAST NA 10 MG TABLET PO SCH (10:09)
[2018-12-30] MEDS: MOMETASONE FUROATE 220 MCG/IH INHALER IH SCH (18:57)
[2018-12-30] MEDS: THIAMINE HCL 100 MG TABLET (FP) PO SCH (21:29)
[2018-12-30] MEDS: MIRTAZAPINE 15 MG TABLET (FP) PO SCH (21:29)
[2018-12-30] MEDS: MELATONIN 5 MG TABLETS PO PRN (21:30)
[2018-12-30] MEDS: LIDOCAINE PATCH REMOVAL MC SCH (21:30)
[2018-12-30] MEDS: ACETAMINOPHEN 325 MG TABLET (FP) PO PRN (21:31)
[2018-12-31] MEDS: GABAPENTIN 300 MG CAPSULE (FP) PO SCH ×3 (06:24→21:18)
[2018-12-31] MEDS: NICOTINE POLACRILEX 2 MG GUM BUC PRN ×3 (06:25→21:20)
[2018-12-31] MEDS: LACTOBACILLUS ACIDOPHILUS 1 TABLET PO SCH (09:47)
[2018-12-31] MEDS: QUEtiapine FUMARATE 100 MG TABLET (FP) PO SCH ×2 (09:47→21:18)
[2018-12-31] MEDS: CYCLOBENZAPRINE HCL 10 MG TABLET (FP) PO SCH ×2 (09:47→21:18)
[2018-12-31] MEDS: LIDOCAINE 5% TOPICAL PATCH TP SCH (09:47)
[2018-12-31] MEDS: MONTELUKAST NA 10 MG TABLET PO SCH (09:47)
[2018-12-31] MEDS: PRENATAL VITAMINS W/ FOLIC ACID TABLET (FP) PO SCH (09:47)
[2018-12-31] MEDS: CLOTRIMAZOLE 1% CREAM 15 GM TUBE TP SCH ×2 (09:48→21:20)
[2018-12-31] MEDS: NICOTINE 21 MG/24 HOURS TOPICAL PATCH TD SCH (09:48)
[2018-12-31] MEDS: BUPRENORPHINE/NALOXONE 8 MG/2 MG FILM PACKET SL SCH (09:48)
[2018-12-31] MEDS: hydrOXYzine PAMOATE 50 MG CAPSULE (FP) PO PRN (09:49)
[2018-12-31] MEDS: MOMETASONE FUROATE 220 MCG/IH INHALER IH SCH (18:40)
[2018-12-31] MEDS: MELATONIN 5 MG TABLETS PO PRN (21:19)
[2018-12-31] MEDS: MIRTAZAPINE 15 MG TABLET (FP) PO SCH (21:19)
[2018-12-31] MEDS: THIAMINE HCL 100 MG TABLET (FP) PO SCH (21:20)
[2018-12-31] MEDS: LIDOCAINE PATCH REMOVAL MC SCH (21:20)
[2019-01-01] MEDS: hydrOXYzine PAMOATE 50 MG CAPSULE (FP) PO PRN ×2 (06:26→16:37)
[2019-01-01] MEDS: GABAPENTIN 300 MG CAPSULE (FP) PO SCH ×3 (06:26→21:27)
[2019-01-01] MEDS: ACETAMINOPHEN 325 MG TABLET (FP) PO PRN (06:27)
[2019-01-01] MEDS: NICOTINE POLACRILEX 2 MG GUM BUC PRN (06:28)
[2019-01-01] MEDS ORDERED: PT OWN MED DRAWER 7, Y5N ONE (08:57)
[2019-01-01] MEDS: MONTELUKAST NA 10 MG TABLET PO SCH (10:23)
[2019-01-01] MEDS: CYCLOBENZAPRINE HCL 10 MG TABLET (FP) PO SCH ×2 (10:23→21:27)
[2019-01-01] MEDS: QUEtiapine FUMARATE 100 MG TABLET (FP) PO SCH ×2 (10:23→21:27)
[2019-01-01] MEDS: LACTOBACILLUS ACIDOPHILUS 1 TABLET PO SCH (10:23)
[2019-01-01] MEDS: PRENATAL VITAMINS W/ FOLIC ACID TABLET (FP) PO SCH (10:23)
[2019-01-01] MEDS: LIDOCAINE 5% TOPICAL PATCH TP SCH (10:23)
[2019-01-01] MEDS: BUPRENORPHINE/NALOXONE 8 MG/2 MG FILM PACKET SL SCH (10:25)
[2019-01-01] MEDS: NICOTINE 21 MG/24 HOURS TOPICAL PATCH TD SCH (10:27)
[2019-01-01] MEDS: CLOTRIMAZOLE 1% CREAM 15 GM TUBE TP SCH ×2 (10:27→23:30)
[2019-01-01] MEDS: MOMETASONE FUROATE 220 MCG/IH INHALER IH SCH (18:00)
[2019-01-01] MEDS: MIRTAZAPINE 15 MG TABLET (FP) PO SCH (21:27)
[2019-01-01] MEDS: MELATONIN 5 MG TABLETS PO PRN (21:27)
[2019-01-01] MEDS: LIDOCAINE PATCH REMOVAL MC SCH (21:28)
[2019-01-01] MEDS: THIAMINE HCL 100 MG TABLET (FP) PO SCH (23:30)
[2019-01-02] MEDS: GABAPENTIN 300 MG CAPSULE (FP) PO SCH ×3 (06:36→21:41)
[2019-01-02] MEDS: ACETAMINOPHEN 325 MG TABLET (FP) PO PRN ×2 (06:36→21:42)
[2019-01-02] MEDS: hydrOXYzine PAMOATE 50 MG CAPSULE (FP) PO PRN ×3 (06:36→19:18)
[2019-01-02] MEDS: NICOTINE POLACRILEX 2 MG GUM BUC PRN ×3 (06:37→21:43)
[2019-01-02] MEDS: LIDOCAINE 5% TOPICAL PATCH TP SCH (10:13)
[2019-01-02] MEDS: NICOTINE 21 MG/24 HOURS TOPICAL PATCH TD SCH (10:13)
[2019-01-02] MEDS: LACTOBACILLUS ACIDOPHILUS 1 TABLET PO SCH (10:14)
[2019-01-02] MEDS: MONTELUKAST NA 10 MG TABLET PO SCH (10:15)
[2019-01-02] MEDS: CYCLOBENZAPRINE HCL 10 MG TABLET (FP) PO SCH ×2 (10:15→21:42)
[2019-01-02] MEDS: QUEtiapine FUMARATE 100 MG TABLET (FP) PO SCH ×2 (10:15→21:42)
[2019-01-02] MEDS: ALBUTEROL SO4 8 GM HFA INHALER IH PRN (10:16)
[2019-01-02] MEDS: PRENATAL VITAMINS W/ FOLIC ACID TABLET (FP) PO SCH (10:16)
[2019-01-02] MEDS: CLOTRIMAZOLE 1% CREAM 15 GM TUBE TP SCH ×2 (10:17→21:44)
[2019-01-02] MEDS ORDERED: PT OWN MED DRAWER 7, Y5N ONE ×2 (10:46→16:56)
[2019-01-02] MEDS ORDERED: BUPRENORPHINE/NALOXONE 8 MG/2 MG FILM PACKET SL ONE (11:15)
[2019-01-02] MEDS: MAG HYDROX/AL HYDROX/SIMETH 30 ML UNIT-DOSE CUP PO PRN (16:39)
[2019-01-02] MEDS: MOMETASONE FUROATE 220 MCG/IH INHALER IH SCH (17:52)
[2019-01-02] MEDS: MIRTAZAPINE 15 MG TABLET (FP) PO SCH (21:42)
[2019-01-02] MEDS: THIAMINE HCL 100 MG TABLET (FP) PO SCH (21:44)
[2019-01-02] MEDS: LIDOCAINE PATCH REMOVAL MC SCH (21:44)
[2019-01-03] MEDS: GABAPENTIN 300 MG CAPSULE (FP) PO SCH ×3 (06:54→21:43)
[2019-01-03] MEDS: ACETAMINOPHEN 325 MG TABLET (FP) PO PRN ×2 (10:32→21:44)
[2019-01-03] MEDS: hydrOXYzine PAMOATE 50 MG CAPSULE (FP) PO PRN ×2 (10:32→19:41)
[2019-01-03] MEDS: NICOTINE 21 MG/24 HOURS TOPICAL PATCH TD SCH (10:33)
[2019-01-03] MEDS: LACTOBACILLUS ACIDOPHILUS 1 TABLET PO SCH (10:33)
[2019-01-03] MEDS: QUEtiapine FUMARATE 100 MG TABLET (FP) PO SCH ×2 (10:33→21:43)
[2019-01-03] MEDS: MONTELUKAST NA 10 MG TABLET PO SCH (10:33)
[2019-01-03] MEDS: CYCLOBENZAPRINE HCL 10 MG TABLET (FP) PO SCH ×2 (10:33→21:43)
[2019-01-03] MEDS: CLOTRIMAZOLE 1% CREAM 15 GM TUBE TP SCH ×2 (10:34→21:45)
[2019-01-03] MEDS: LIDOCAINE 5% TOPICAL PATCH TP SCH (10:34)
[2019-01-03] MEDS: BUPRENORPHINE/NALOXONE 8 MG/2 MG FILM PACKET SL SCH (10:34)
[2019-01-03] MEDS: NICOTINE POLACRILEX 2 MG GUM BUC PRN (10:34)
[2019-01-03] MEDS: PRENATAL VITAMINS W/ FOLIC ACID TABLET (FP) PO SCH (10:49)
--- NOTE | 2019-01-03 13:33 | PN ---
[facility] Progress Note Note: c/o dyspepsia/hx acid reflux and was on prilosec otc sometime ago. Wants remedy. Vital Signs - 24 hr 01/03/19 01/03/19 01/03/19 00:30 03:30 07:25 Temperature 97.6 F Pulse Rate 64 Respiratory 20 20 18 Rate Blood Pressure 139/79 Abdomen:+bs:fatty abdomen; protruded. A:Hx Gerd P:Protonix 40 mg po daily, first dose now.
[2019-01-03] MEDS ORDERED: PANTOPRAZOLE 40 MG TABLET (FP) PO ONE (14:00)
[2019-01-03] MEDS ORDERED: PT OWN MED DRAWER 7, Y5N ONE (14:06)
[2019-01-03] MEDS: MOMETASONE FUROATE 220 MCG/IH INHALER IH SCH (17:52)
[2019-01-03] MEDS: MAG HYDROX/AL HYDROX/SIMETH 30 ML UNIT-DOSE CUP PO PRN (19:40)
[2019-01-03] MEDS: MIRTAZAPINE 15 MG TABLET (FP) PO SCH (21:43)
[2019-01-03] MEDS: THIAMINE HCL 100 MG TABLET (FP) PO SCH (21:43)
[2019-01-03] MEDS: LIDOCAINE PATCH REMOVAL MC SCH (21:45)
[2019-01-04] MEDS: ACETAMINOPHEN 325 MG TABLET (FP) PO PRN ×2 (06:15→21:32)
[2019-01-04] MEDS: hydrOXYzine PAMOATE 50 MG CAPSULE (FP) PO PRN ×2 (06:15→21:34)
[2019-01-04] MEDS: NICOTINE POLACRILEX 2 MG GUM BUC PRN (06:15)
[2019-01-04] MEDS: GABAPENTIN 300 MG CAPSULE (FP) PO SCH ×3 (06:15→21:33)
[2019-01-04 07:33] VITALS: BP 134/74; PULSE 67; TEMP 97.9
[2019-01-04] MEDS ORDERED: PANTOPRAZOLE 40 MG TABLET (FP) PO SCH (10:00)
[2019-01-04] MEDS: NICOTINE 21 MG/24 HOURS TOPICAL PATCH TD SCH (10:06)
[2019-01-04] MEDS: LIDOCAINE 5% TOPICAL PATCH TP SCH (10:06)
[2019-01-04] MEDS: BUPRENORPHINE/NALOXONE 8 MG/2 MG FILM PACKET SL SCH (10:06)
[2019-01-04] MEDS: PRENATAL VITAMINS W/ FOLIC ACID TABLET (FP) PO SCH (10:07)
[2019-01-04] MEDS: MONTELUKAST NA 10 MG TABLET PO SCH (10:07)
[2019-01-04] MEDS: LACTOBACILLUS ACIDOPHILUS 1 TABLET PO SCH (10:07)
[2019-01-04] MEDS: CLOTRIMAZOLE 1% CREAM 15 GM TUBE TP SCH ×2 (10:07→21:35)
[2019-01-04] MEDS: QUEtiapine FUMARATE 100 MG TABLET (FP) PO SCH ×2 (10:07→21:32)
[2019-01-04] MEDS: CYCLOBENZAPRINE HCL 10 MG TABLET (FP) PO SCH ×2 (10:07→21:33)
--- NOTE | 2019-01-04 14:36 | PN ---
[facility] Progress Note Note: Patient is scheduled for discharge tomorrow. Scripts for 30 days supply(Remeron 15 mg/hs, Seroquel 100 mg/bid) will be electronically transmitted to [facility] at [address] [place], [place] [id number]
[2019-01-04] MEDS: MOMETASONE FUROATE 220 MCG/IH INHALER IH SCH (17:00)
[2019-01-04] MEDS ORDERED: PT OWN MED DRAWER 7, Y5N ONE (19:31)
[2019-01-04] MEDS: MAG HYDROX/AL HYDROX/SIMETH 30 ML UNIT-DOSE CUP PO PRN (19:35)
[2019-01-04] MEDS: THIAMINE HCL 100 MG TABLET (FP) PO SCH (21:32)
[2019-01-04] MEDS: MIRTAZAPINE 15 MG TABLET (FP) PO SCH (21:33)
[2019-01-04] MEDS: LIDOCAINE PATCH REMOVAL MC SCH (21:35)
[2019-01-05] MEDS: hydrOXYzine PAMOATE 50 MG CAPSULE (FP) PO PRN (06:06)
[2019-01-05] MEDS: GABAPENTIN 300 MG CAPSULE (FP) PO SCH (06:06)
[2019-01-05] MEDS: ACETAMINOPHEN 325 MG TABLET (FP) PO PRN (06:07)
[2019-01-05] MEDS: NICOTINE POLACRILEX 2 MG GUM BUC PRN (06:08)
[2019-01-05] MEDS ORDERED: BUPRENORPHINE/NALOXONE 8 MG/2 MG FILM PACKET SL ONE (06:18)
== END 2019-01-05 06:55 | disposition home or self-care (01) | DRG 895 ==
LOC: YASAS 11:58 → Y3N 18:02 → Y3E 12-08 13:49
PROVIDERS: ADMIT Surgery; ATTEND Neuromusculoskeletal Medicine & OMM
PROC: HZ2ZZZZ Detoxification Services for Substance Abuse Treatment (ICD-10-PCS; 2018-12-05)
PROC: HZ42ZZZ Group Counseling for Substance Abuse Treatment, Cognitive-Behavioral (ICD-10-PCS; principal; 2018-12-08)
DX: F10.20 Alcohol dependence, uncomplicated (principal); F11.20 Opioid dependence, uncomplicated; F17.210 Nicotine dependence, cigarettes, uncomplicated; F31.9 Bipolar disorder, unspecified; F41.9 Anxiety disorder, unspecified; K21.9 Gastro-esophageal reflux disease without esophagitis; M54.5 Low back pain; J44.9 Chronic obstructive pulmonary disease, unspecified; Z63.4 Disappearance and death of family member
CPT/HCPCS: 36415; 80053; 81003; 81025; 85027; 86593; J0735

== ENCOUNTER 2019-05-24 06:08 | Inpatient (IN) | payer OTHER ==
[2019-05-24] MEDS ORDERED: MAGNESIUM SULF 50% (8.12 MEQ/2 ML-1 GM VIAL) IVPB ONE (07:41)
[2019-05-24] MEDS ORDERED: methylPREDNISolone NA SUCC 125 MG/2 ML VIAL IVPUSH ONE (07:41)
[2019-05-24] MEDS ORDERED: ALBUTEROL SO4 2.5/IPRATROPIUM 0.5 INH SOL 3 ML VIAL.NEB. NEB ONE ×2 (07:41→07:45)
[2019-05-24] MEDS ORDERED: MAGNESIUM SULF 50% (8.12 MEQ/2 ML-1 GM VIAL) ONE (07:45)
[2019-05-24] MEDS ORDERED: methylPREDNISolone NA SUCC 125 MG/2 ML VIAL ONE ×2 (07:46→16:49)
[2019-05-24 07:47] LABS: HEMATOCRIT 39.8 % (32.4-45.2); HEMOGLOBIN 13.5 GM/dL (10.7-15.3); MCH 31.5 pg (25.7-33.7); MCHC 33.8 g/dl (32.0-36.0); MEAN CELL VOLUME 93.1 fl (80-96); MEAN PLT VOLUME 8.7 fl (7.5-11.1); PLATELET COUNT 170 K/MM3 (134-434); RBC 4.27 M/mm3 (3.60-5.2); RDW 13.8 % (11.6-15.6); WHITE BLOOD COUNT 8.6 K/mm3 (4.0-10.0)
[2019-05-24 08:07] LABS: ALBUMIN 3.8 g/dl (3.4-5.0); BILIRUBIN,TOTAL 0.5 mg/dL (0.2-1); BLOOD UREA NITROGEN 6.6 mg/dL (7-18); CALCIUM 9.1 mg/dL (8.5-10.1); CREATININE 0.7 mg/dL (0.55-1.3); POTASSIUM 4.2 mmol/L (3.5-5.1)
[2019-05-24] MEDS ORDERED: ALBUTEROL SO4 0.083% IH SOL 2.5 MG/3 ML VIAL.NEB. NEB ONE ×2 (09:28→09:33)
[2019-05-24] MEDS ORDERED: AZITHROMYCIN IVPB 500 MG in DEXTROSE 5%-WATER - 250 ML IVPB ONE (09:53)
[2019-05-24] MEDS ORDERED: CEFTRIAXONE 1,000 MG in DEXTROSE 5%-WATER - 50 ML IVPB ONE (09:53)
--- NOTE | 2019-05-24 10:01 | PDOC ---
Documentation entered by Laci Gaines SCRIBE, acting as scribe for Alexys Hi MD. Alexys Hi MD: This documentation has been prepared by the Eder muhammad Daniel, SCRIBE, under my direction and personally reviewed by me in its entirety. I confirm that the documentation accurately reflects all work, treatment, procedures, and medical decision making performed by me. History of Present Illness - General Chief Complaint: Shortness of Breath Stated Complaint: S.O.B. Time Seen by Provider: 05/24/19 07:28 History Source: Patient Exam Limitations: No Limitations - History of Present Illness Initial Comments: 05/24/19 07:49 The patient is a 63 year old female with a past medical history of COPD, HTN, and scoliosis here today for evaluation of shortness of breath and chest pain. The patient reports that she has had 3 weeks of shortness of breath and dyspnea on exertion. She states that she presented to [facility] twice over a week ago and was two 5 day courses of prednisone which ended 5 days ago and was on antibiotics for 2 weeks. She states that has trouble walking from room to room without becoming short of breath. Patient notes a productive cough of greenish sputum for the past 3 days which has been getting worse and notes associated chills. She also reports substernal stabbing chest pain that is worse with laying down. Patient denies headache, lightheadedness. Denies fever. Denies nausea, vomiting , diarrhea, abdominal pain. Allergies: NKA Social history: Confirms 2 pack a day smoking history for 45 years and IV heroin use (currently on suboxone). 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 Past History - Past Medical History Allergies/Adverse Reactions: Allergies Allergy/AdvReac Type Severity Reaction Status Date / Time No Known Allergies Allergy Verified 03/21/18 14:41 Home Medications: Ambulatory Orders Pantoprazole Sodium [Protonix -] 40 mg PO DAILY #14 tablet.ec 01/03/19 Blood Pressure Test Kit-Large [Blood Pressure Monitor] 1 each MC DAILY #1 kit Cyclobenzaprine HCl [Flexeril -] 10 mg PO HS PRN #30 tablet 02/24/19 Gabapentin 300 mg PO TID #42 capsule 03/22/19 Budesonide/Formeterol Fumarate [SYMBICORT 160/4.5mcg -] 1 inh IH BID #1 inhaler 04/07/19 Chlorthalidone 25 mg PO DAILY #30 tablet 04/07/19 Albuterol Sulfate Inhaler - [Ventolin HFA Inhaler -] 2 puff IH Q4H PRN #1 inhaler 04/12/19 Fluticasone Propionate [Flovent Diskus] 50 mcg IH BID #1 blst.w.dev 04/12/19 Mirtazapine [Remeron -] 15 mg PO HS #30 tablet 05/05/19 Quetiapine Fumarate [Seroquel -] 100 mg PO DAILY #30 tablet 05/05/19 Quetiapine Fumarate [Seroquel -] 200 tab PO HS #60 tablet 05/05/19 Albuterol 0.083% Nebulizer Nida [Ventolin 0.083% Nebulizer Soln -] 1 neb NEB Q4H #4 box 05/10/19 Amlodipine Besylate 5 mg PO DAILY #30 tablet 05/10/19 Ipratropium 0.02% Nebulizer [Atrovent 0.02% Nebulizer -] 1 neb NEB TID #2 box Montelukast Na [Singulair -] 10 mg PO DAILY #30 tablet 05/10/19 Buprenorphine/Naloxone [Suboxone 8Mg/2Mg Sl Film -] 1 each SL DAILY #14 packet MDD 1 05/17/19 Anemia: No Asthma: Yes Cancer: Yes (Cervical Cancer 1983) Cardiac Disorders: No CVA: No COPD: Yes CHF: No Dementia: No Diabetes: No GI Disorders: No Disorders: No HTN: No Hypercholesterolemia: No Kidney Stones: No Liver Disease: No Seizures: No Thyroid Disease: No - Surgical History Abdominal Surgery: No Appendectomy: Yes (age 7 yrs) Cardiac Surgery: No Cholecystectomy: No Lung Surgery: No Neurologic Surgery: No Orthopedic Surgery: No - Reproductive History PID: No - Immunization History Td Vaccination: Yes TDAP Vaccination: Yes - Psycho Social/Smoking Cessation Hx Smoking Status: Yes Smoking History: Current every day smoker Have you smoked in the past 12 months: Yes Number of Cigarettes Smoked Daily: 40 Information on smoking cessation initiated: No 'Breaking Loose' booklet given: 12/05/18 Hx Alcohol Use: No Drug/Substance Use Hx: No Substance Use Type: Alcohol, Heroin Hx Substance Use Treatment: Yes (detox, rehab, methadone) Review of Systems - Review of Systems Able to Perform ROS?: Yes Comments:: 05/24/19 07:49 CONSTITUTIONAL:+chills. No fever, no fatigue EYES: No visual changes ENT: No ear pain, no sore throat CARDIOVASCULAR: +chest pain. No palpitations RESPIRATORY: +cough. +SOB. +dyspnea on exertion. GI: No abdominal pain, no nausea, no vomiting, no constipation, no diarrhea GENITOURINARY: No dysuria, no frequency, no hematuria MUSKULOSKELETAL: No backpain, no joint pain, no myalgias SKIN: No rash NEURO: No headache *Physical Exam - Vital Signs Last Vital Signs Temp Pulse Resp BP Pulse Ox 97.9 F 91 H 20 158/73 95 05/24/19 06:28 05/24/19 06:28 05/24/19 06:28 05/24/19 06:28 05/24/19 06:45 - Physical Exam 05/24/19 08:15 CONSTITUTIONAL: +obese. Well-appearing; well-nourished; in no apparent distress HEAD: Normocephalic; atraumatic EYES: PERRL; EOM intact ENMT: External appears normal; normal oropharynx NECK: Supple; non-tender; no cervical lymphadenopathy CARD: Normal S1, S2; no murmurs, rubs, or gallops RESP: +significantly decreased lung sounds with diffuse rhonchi and expiratory wheeze. +hypoxic to 90 on 2L nasal cannula and 85 on room air. Normal chest excursion with respiration; no rales ABD: Soft, non-distended; non-tender; no palpable organomegaly, no palpable hernias EXT: Normal ROM in all four extremities; non-tender to palpation; distal pulses intact SKIN: Warm, dry, no rash NEURO: No focal neurological deficiencies. Heart Score/ECG Review - ECG Intrepretation Comment:: 05/24/19 07:49 Normal sinus rhythm, possible left atrial enlargement, borderline EKG. ED Treatment Course - LABORATORY CBC & Chemistry Diagram: 05/24/19 07:22 05/24/19 07:22 - ADDITIONAL ORDERS Additional order review: Laboratory Results 05/24/19 05/24/19 07:22 07:22 Sodium 139 Potassium 4.2 Chloride 106 Carbon Dioxide 24 Anion Gap 9 BUN 6.6 L Creatinine 0.7 Est GFR (CKD-EPI)AfAm 108.38 Est GFR (CKD-EPI)NonAf 93.51 Random Glucose 121 H Calcium 9.1 Total Bilirubin 0.5 AST 12 L ALT 16 Alkaline Phosphatase 93 Troponin I < 0.02 Total Protein 7.0 Albumin 3.8 05/24/19 07:22 RBC 4.27 MCV 93.1 MCHC 33.8 RDW 13.8 MPV 8.7 - RADIOLOGY Radiology Studies Ordered: Category Date Time Status CHEST CT WITHOUT CONTRAST [CT] Stat CT Scan 05/24/19 08:36 Completed - Medications Given in the ED: ED Medications Discontinued Medications Generic Name Dose Route Start Last Admin Trade Name Freq PRN Reason Stop Dose Admin Albuterol Sulfate 1 amp 05/24/19 09:28 05/24/19 09:38 Ventolin 0.083% Nebulizer Soln - NEB 05/24/19 09:29 1 amp ONCE ONE Administration Albuterol/Ipratropium 3 amp 05/24/19 07:41 05/24/19 07:55 Duoneb - NEB 05/24/19 07:42 3 amp ONCE ONE Administration Magnesium Sulfate 2 gm 05/24/19 07:41 05/24/19 08:10 Magnesium Sulfate IVPB 05/24/19 07:42 2 gm ONCE ONE Administration Methylprednisolone Sodium Succinate 125 mg 05/24/19 07:41 05/24/19 07:55 Solu-Medrol - IVPUSH 05/24/19 07:42 125 mg ONCE ONE Administration Medical Decision Making - Medical Decision Making 05/24/19 09:36 As per pharmacist at [facility], patient was prescribed 10 days cefdinir 300mg BID starting on 05/08/19 and was taking prednisone 20mg BID, last dose 4 days ago. 05/24/19 09:59 Patient is a 63-year-old female with poorly controlled COPD, history of heavy smoking, former IVDA who presents with signs and symptoms of acute COPD exacerbation. On room air, patient is noted to have oxygen saturation of 82 to 85%, increasing to 92% on 6 L via nasal cannula. Patient is afebrile without significant leukocytosis. Patient had recently completed 2 courses of prednisone-5 days each and cefdinir. CT of chest in the ER, reveals significant emphysematous changes as well as diffuse groundglass opacities which may be infectious/inflammatory. Will obtain blood and sputum cultures. Will administer ceftriaxone and Zithromax IV. Patient is received Combivent, albuterol nebs, [id number] mg as well as 2 g of magnesium sulfate. Patient 's clinical condition has improved only minimally at this time. She does not require definitive airway control but will consider BiPAP if patient's condition deteriorates. Will admit. Discharge - Discharge Information Problems reviewed: Yes Clinical Impression/Diagnosis: COPD with acute exacerbation, Hypoxemia Condition: Fair - Admission Yes - Follow up/Referral - Patient Discharge Instructions - Post Discharge Activity
[2019-05-24] MEDS ORDERED: AZITHROMYCIN IVPB 500 MG/250 ML BAG IVPB ONE (10:19)
[2019-05-24] MEDS ORDERED: CEFTRIAXONE 1 GM/50 ML BAG ONE (10:19)
--- NOTE | 2019-05-24 10:32 | HP ---
Admitting History and Physical - Primary Care Physician PCP: Dov Velazquez - Admission Chief Complaint: SOB, sputumn production, plerutic chest pain History of Present Illness: 63yo F with h/o of long-standing tobacco use, suspected ENRIQUE, HTN, suboxone use who presents to ED worsening AGUIRRE and wheezing. She was seen in ED at [facility] about 3 weeks ago with similar complaints where she was given a Medrol dose pack and abx. She was instructed to use her home nebulizer. After completions of steroids she had reoccurrence of symptoms and returned back to [facility] where she was given another dose pack. Pt had worsening of symptoms in addition to green sputum production and pleuritic chest pain and presented to ED here History Source: Patient Limitations to Obtaining History: No Limitations - Past Medical History Cardiovascular: Yes: HTN Pulmonary: Yes: COPD, Sleep Apnea (suspected) Heme/Onc: Yes: Cancer (cervical Ca 1983) - Past Surgical History Past Surgical History: Yes: Appendectomy (age 7) - Smoking History Smoking history: Current every day smoker Have you smoked in the past 12 months: Yes Aproximately how many cigarettes per day: 40 - Alcohol/Substance Use Hx Alcohol Use: No History of Substance Use: reports: Heroin (currently on suboxone) - Social History Usual Living Arrangement: Yes: With Spouse, With Child (son) Do you think of yourself as: Straight/Heterosexual ADL: Family Assistance Occupation: on disability, worked at [employer] History of Recent Travel: No Home Medications - Allergies Allergies/Adverse Reactions: Allergies Allergy/AdvReac Type Severity Reaction Status Date / Time No Known Allergies Allergy Verified 03/21/18 14:41 - Home Medications Home Medications: Ambulatory Orders Pantoprazole Sodium [Protonix -] 40 mg PO DAILY #14 tablet.ec 01/03/19 Blood Pressure Test Kit-Large [Blood Pressure Monitor] 1 each MC DAILY #1 kit Cyclobenzaprine HCl [Flexeril -] 10 mg PO HS PRN #30 tablet 02/24/19 Gabapentin 300 mg PO TID #42 capsule 03/22/19 Budesonide/Formeterol Fumarate [SYMBICORT 160/4.5mcg -] 1 inh IH BID #1 inhaler 04/07/19 Chlorthalidone 25 mg PO DAILY #30 tablet 04/07/19 Albuterol Sulfate Inhaler - [Ventolin HFA Inhaler -] 2 puff IH Q4H PRN #1 inhaler 04/12/19 Fluticasone Propionate [Flovent Diskus] 50 mcg IH BID #1 blst.w.dev 04/12/19 Mirtazapine [Remeron -] 15 mg PO HS #30 tablet 05/05/19 Quetiapine Fumarate [Seroquel -] 100 mg PO DAILY #30 tablet 05/05/19 Quetiapine Fumarate [Seroquel -] 200 tab PO HS #60 tablet 05/05/19 Albuterol 0.083% Nebulizer Nida [Ventolin 0.083% Nebulizer Soln -] 1 neb NEB Q4H #4 box 05/10/19 Amlodipine Besylate 5 mg PO DAILY #30 tablet 05/10/19 Ipratropium 0.02% Nebulizer [Atrovent 0.02% Nebulizer -] 1 neb NEB TID #2 box Montelukast Na [Singulair -] 10 mg PO DAILY #30 tablet 05/10/19 Buprenorphine/Naloxone [Suboxone 8Mg/2Mg Sl Film -] 1 each SL DAILY #14 packet MDD 1 05/17/19 Family Medical History Family Hx Cancer: Father (pancreatic Ca) Family Hx Cardiac Disorders: Mother Family Hx Psychiatric Problems: Mother (drug abuse), Sister Review of Systems - Review of Systems Constitutional: reports: Chills Eyes: reports: No Symptoms HENT: reports: No Symptoms Neck: reports: No Symptoms Cardiovascular: reports: Chest Pain (pleutioc chest pain) Respiratory: reports: Cough, Exercise Intolerance, SOB, SOB on Exertion, Other ( yellow/greenish sputum) Gastrointestinal: reports: No Symptoms Genitourinary: reports: No Symptoms Breasts: reports: No Symptoms Reported Musculoskeletal: reports: No Symptoms Integumentary: reports: No Symptoms Neurological: reports: No Symptoms Endocrine: reports: No Symptoms Hematology/Lymphatic: reports: No Symptoms Psychiatric: reports: No Symptoms Physical Examination Vital Signs: Vital Signs Temperature 97.9 F 05/24/19 06:28 Pulse Rate 91 H 05/24/19 06:28 Respiratory Rate 20 05/24/19 06:28 Blood Pressure 158/73 05/24/19 06:28 O2 Sat by Pulse Oximetry (%) 95 05/24/19 06:45 Constitutional: Yes: Calm, Mild Distress (due to SOB) Eyes: Yes: WNL, Conjunctiva Clear, EOM Intact HENT: Yes: WNL, Atraumatic, Normocephalic Neck: Yes: WNL, Supple, Trachea Midline Cardiovascular: Yes: WNL, Regular Rate and Rhythm (HR 90) Respiratory: Yes: Diminished, On Nasal O2 (6L), Poor Air Entry, Rhonchi ( scattered), SOB on Exertion Gastrointestinal: Yes: Soft, Abdomen, Obese ...Rectal Exam: Yes: Deferred Renal/: Yes: WNL Breast(s): Yes: WNL Musculoskeletal: Yes: WNL Extremities: Yes: WNL Edema: No Peripheral Pulses WNL: Yes Peripheral Pulses: Left Radial: 2+, Right Radial: 2+, Left Doralis Pedis: 2+, Right Dorsalis Pedis: 2+, Left Femoral: 2+, Right Femoral: 2+ Integumentary: Yes: WNL Neurological: Yes: WNL, Alert, Oriented ...Motor Strength: WNL Psychiatric: Yes: WNL Labs: CBC, BMP 05/24/19 07:22 05/24/19 07:22 Imaging - Results Cat Scan: Report Reviewed (Multiple ground glass opacities BL scattered throughout. Most liekly infectious/inflammatory. Emyhysematous changes with subpleural blebs. Small right sided nodule will need outpatient follow up. Hepatomegaly with fatty liver) Problem List - Problems (1) Heroin addiction Assessment/Plan: c/w suboxone Code(s): F11.20 - OPIOID DEPENDENCE, UNCOMPLICATED (2) Prophylactic measure Assessment/Plan: FEN regualr diet adequate PO intake monitor electrolytes DVT heparin sq Dispo maintain as in patient full code discharge planning Code(s): Z29.9 - ENCOUNTER FOR PROPHYLACTIC MEASURES, UNSPECIFIED (3) COPD with acute exacerbation Assessment/Plan: supplemental O2 to maintain SPO2 >92% Duo nebs solumedrol c/w home dose of sinqular c/w abx for now Code(s): J44.1 - CHRONIC OBSTRUCTIVE PULMONARY DISEASE W (ACUTE) EXACERBATION (4) Hypoxemia Assessment/Plan: supplemental O2 with Bipap prn Code(s): R09.02 - HYPOXEMIA (5) Pneumonia Assessment/Plan: c/w axithromycin and ceftriaxone Dr Serna to see Code(s): J18.9 - PNEUMONIA, UNSPECIFIED ORGANISM (6) Hypertension Assessment/Plan: c/w home medications, norvasc Code(s): I10 - ESSENTIAL (PRIMARY) HYPERTENSION (7) Back pain Assessment/Plan: PT to see Code(s): M54.9 - DORSALGIA, UNSPECIFIED Qualifiers: Back pain location: low back pain Chronicity: chronic Back pain laterality: unspecified Sciatica presence: unspecified whether sciatica present Qualified Code(s): M54.5 - Low back pain; G89.29 - Other chronic pain (8) Bipolar disorder Assessment/Plan: c/w seroquel Code(s): F31.9 - BIPOLAR DISORDER, UNSPECIFIED Qualifiers: Active/Remission status: remission status unspecified Qualified Code(s): F31.9 - Bipolar disorder, unspecified (9) GERD (gastroesophageal reflux disease) Assessment/Plan: c/w protonix Code(s): K21.9 - GASTRO-ESOPHAGEAL REFLUX DISEASE WITHOUT ESOPHAGITIS Qualifiers: Esophagitis presence: without esophagitis Qualified Code(s): K21.9 - Gastro -esophageal reflux disease without esophagitis (10) Nicotine dependence Assessment/Plan: nictotine patch counseled on smoking cessation Code(s): F17.200 - NICOTINE DEPENDENCE, UNSPECIFIED, UNCOMPLICATED Qualifiers: Nicotine product type: cigarettes Substance use status: uncomplicated Qualified Code(s): F17.210 - Nicotine dependence, cigarettes, uncomplicated (11) Obesity (BMI 30-39.9) Assessment/Plan: counseled on weight loss Code(s): E66.9 - OBESITY, UNSPECIFIED (12) Respiratory failure with hypoxia Assessment/Plan: BiPap prn, supplemental O2 c/w steroids & abx Code(s): J96.91 - RESPIRATORY FAILURE, UNSPECIFIED WITH HYPOXIA Visit type - Emergency Visit Emergency Visit: Yes ED Registration Date: 05/24/19 Care time: The patient presented to the Emergency Department on the above date and was hospitalized for further evaluation of their emergent condition. - New Patient This patient is new to me today: Yes Date on this admission: 05/25/19 - Critical Care Critical Care patient: No
[2019-05-24] MEDS ORDERED: ALBUTEROL SO4 2.5/IPRATROPIUM 0.5 INH SOL 3 ML VIAL.NEB. NEB PRN (10:36)
--- NOTE | 2019-05-24 10:40 | EKG ---
Test Reason : Blood Pressure : / mmHG Vent. Rate : 074 BPM Atrial Rate : 074 BPM P-R Int : 178 ms QRS Dur : 096 ms QT Int : 394 ms P-R-T Axes : 054 073 070 degrees QTc Int : 437 ms NORMAL SINUS RHYTHM POSSIBLE LEFT ATRIAL ENLARGEMENT BORDERLINE ECG WHEN COMPARED WITH ECG OF 21-MAR-2018 17:47, NO SIGNIFICANT CHANGE WAS FOUND Confirmed by SARA ANTHONY, ELDON ([id number]) on 05/24/2019 10:40:45 AM Referred By: Confirmed By:ELDON RUIZ MD
[2019-05-24] MEDS ORDERED: QUEtiapine FUMARATE 100 MG TABLET (FP) PO ONE (13:27)
--- NOTE | 2019-05-24 13:27 | CON.ID ---
Consult Consult Specialty:: infectious diseases Referred by:: Wili Reason for Consultation:: pneumonia,sob - History of Present Illness Chief Complaint: sob History of Present Illness: 63yo F with h/o of long-standing tobacco use, suspected ENRIQUE, HTN, suboxone use who presents today with worsening AGUIRRE and wheezing. Pt reports about 3 weeks ago going to [facility] due to increasing dyspnea where she was given a Medrol dose pack. She was instructed to use her home nebulizer at this time as well. After she finished her corticosteroids pt had reoccurrence of symptoms and returned to [facility] where she was given another dose pack. Pt had worsening of symptoms in addition to green sputum production and pleuritic chest pain. patient feels like everything is stuck in her chest and continues to ahve breathing difficulty - History Source History Provided By: Patient Limitations to Obtaining History: No Limitations - Alcohol/Substance Use Hx Alcohol Use: No - Smoking History Smoking history: Current every day smoker Have you smoked in the past 12 months: Yes Aproximately how many cigarettes per day: 40 Home Medications - Allergies Allergies/Adverse Reactions: Allergies Allergy/AdvReac Type Severity Reaction Status Date / Time No Known Allergies Allergy Verified 03/21/18 14:41 - Home Medications Home Medications: Ambulatory Orders Pantoprazole Sodium [Protonix -] 40 mg PO DAILY #14 tablet.ec 01/03/19 Blood Pressure Test Kit-Large [Blood Pressure Monitor] 1 each MC DAILY #1 kit Cyclobenzaprine HCl [Flexeril -] 10 mg PO HS PRN #30 tablet 02/24/19 Gabapentin 300 mg PO TID #42 capsule 03/22/19 Budesonide/Formeterol Fumarate [SYMBICORT 160/4.5mcg -] 1 inh IH BID #1 inhaler 04/07/19 Chlorthalidone 25 mg PO DAILY #30 tablet 04/07/19 Albuterol Sulfate Inhaler - [Ventolin HFA Inhaler -] 2 puff IH Q4H PRN #1 inhaler 04/12/19 Fluticasone Propionate [Flovent Diskus] 50 mcg IH BID #1 blst.w.dev 04/12/19 Mirtazapine [Remeron -] 15 mg PO HS #30 tablet 05/05/19 Quetiapine Fumarate [Seroquel -] 100 mg PO DAILY #30 tablet 05/05/19 Quetiapine Fumarate [Seroquel -] 200 tab PO HS #60 tablet 05/05/19 Albuterol 0.083% Nebulizer Nida [Ventolin 0.083% Nebulizer Soln -] 1 neb NEB Q4H #4 box 05/10/19 Amlodipine Besylate 5 mg PO DAILY #30 tablet 05/10/19 Ipratropium 0.02% Nebulizer [Atrovent 0.02% Nebulizer -] 1 neb NEB TID #2 box Montelukast Na [Singulair -] 10 mg PO DAILY #30 tablet 05/10/19 Buprenorphine/Naloxone [Suboxone 8Mg/2Mg Sl Film -] 1 each SL DAILY #14 packet MDD 1 05/17/19 Review of Systems - Review of Systems Constitutional: reports: No Symptoms Eyes: reports: No Symptoms HENT: reports: No Symptoms Neck: reports: No Symptoms Cardiovascular: reports: No Symptoms Respiratory: reports: Cough, Wheezing Gastrointestinal: reports: No Symptoms Genitourinary: reports: No Symptoms Musculoskeletal: reports: No Symptoms Integumentary: reports: No Symptoms Neurological: reports: No Symptoms Endocrine: reports: No Symptoms Hematology/Lymphatic: reports: No Symptoms Psychiatric: reports: No Symptoms Physical Exam Vital Signs: Vital Signs Temperature 98.1 F 05/24/19 11:56 Pulse Rate 88 05/24/19 11:56 Respiratory Rate 18 05/24/19 11:56 Blood Pressure 144/71 05/24/19 11:56 O2 Sat by Pulse Oximetry (%) 94 L 05/24/19 11:56 Constitutional: Yes: Well Nourished, Calm, Mild Distress Eyes: Yes: Conjunctiva Clear HENT: Yes: Atraumatic, Normocephalic Neck: Yes: Supple, Trachea Midline Cardiovascular: Yes: Regular Rate and Rhythm Respiratory: Yes: On Nasal O2, Poor Air Entry, Rhonchi Gastrointestinal: Yes: Normal Bowel Sounds, Soft Musculoskeletal: Yes: WNL Extremities: Yes: WNL Neurological: Yes: Alert, Oriented Psychiatric: Yes: Alert, Oriented Labs: CBC, BMP 05/24/19 07:22 05/24/19 07:22 Imaging - Results Chest X-ray: Report Reviewed, Image Reviewed Assessment/Plan mayra List - Problems (1) COPD with acute exacerbation Code(s): J44.1 - CHRONIC OBSTRUCTIVE PULMONARY DISEASE W (ACUTE) EXACERBATION (2) Hypoxemia Code(s): R09.02 - HYPOXEMIA (3) COPD exacerbation Code(s): J44.1 - CHRONIC OBSTRUCTIVE PULMONARY DISEASE W (ACUTE) EXACERBATION (4) Hypertension Code(s): I10 - ESSENTIAL (PRIMARY) HYPERTENSION (5) GERD (gastroesophageal reflux disease) Code(s): K21.9 - GASTRO-ESOPHAGEAL REFLUX DISEASE WITHOUT ESOPHAGITIS Qualifiers: Esophagitis presence: without esophagitis Qualified Code(s): K21.9 - Gastro -esophageal reflux disease without esophagitis (6) Hypothyroidism Code(s): E03.9 - HYPOTHYROIDISM, UNSPECIFIED Qualifiers: Hypothyroidism type: acquired Qualified Code(s): E03.9 - Hypothyroidism, unspecified (7) Nicotine dependence Code(s): F17.200 - NICOTINE DEPENDENCE, UNSPECIFIED, UNCOMPLICATED Qualifiers: Nicotine product type: cigarettes Substance use status: uncomplicated Qualified Code(s): F17.210 - Nicotine dependence, cigarettes, uncomplicated (8) Obesity (BMI 30-39.9) Code(s): E66.9 - OBESITY, UNSPECIFIED (9) Pneumonia Code(s): J18.9 - PNEUMONIA, UNSPECIFIED ORGANISM plan will start patient on zosyn ct scan of the chest resp support rest as per the team
[2019-05-24] MEDS ORDERED: PANTOPRAZOLE 40 MG TABLET (FP) ONE (15:16)
[2019-05-24] MEDS ORDERED: PIPERACILLIN/TAZOB 3.375 GM 3.375 GM/50 ML BAG IVPB ONE (15:17)
[2019-05-24] MEDS ORDERED: MONTELUKAST NA 10 MG TABLET ONE (15:17)
[2019-05-24] MEDS ORDERED: GABAPENTIN 100 MG CAPSULE (FP) ONE (15:17)
[2019-05-24] MEDS ORDERED: QUEtiapine FUMARATE 100 MG TABLET (FP) ONE (15:17)
[2019-05-24] MEDS: GABAPENTIN 300 MG CAPSULE (FP) PO SCH ×2 (15:27→21:53)
[2019-05-24] MEDS: PIPERACILLIN/TAZOB 3.375 GM 3.375 GM in DEXTROSE 5%-WATER - 50 ML IVPB SCH ×2 (15:27→18:39)
[2019-05-24] MEDS: PANTOPRAZOLE 40 MG TABLET (FP) PO SCH (15:27)
[2019-05-24] MEDS: QUEtiapine FUMARATE 100 MG TABLET (FP) PO SCH (15:28)
[2019-05-24] MEDS: CHLORTHALIDONE 25 MG TABLET PO SCH (15:43)
--- NOTE | 2019-05-24 15:44 | PN ---
Teaching Attending Note Name of Resident: Rehan Ochoa ATTENDING PHYSICIAN STATEMENT I saw and evaluated the patient. I reviewed the resident's note and discussed the case with the resident. I agree with the resident's findings and plan as documented. PULMONARY IMP DYSPNEA COPD EXACERBATION BILATERAL GROUND GLASS INFILTRATES LIKELY INFECTIOUS PNEUMONIA HTN TOBACCO ABUSE SUSPECTED ENRIQUE PLAN ABX PER ID INHALED BRONCHODILATORS O2 ABG ON RA SPUTUM C+S F/U CHESTS X-RAYS ECHO OUTPATIENT PFTS F/U CHEST CT 6 WKS TO DOCUMENT RESOLUTION OF INFILTRATES SMOKING CESSATION COUNSELED OUTPATIENT SLEEP STUDIES DR PERSAUD Problem List - Problems (1) COPD with acute exacerbation Code(s): J44.1 - CHRONIC OBSTRUCTIVE PULMONARY DISEASE W (ACUTE) EXACERBATION (2) Hypoxemia Code(s): R09.02 - HYPOXEMIA (3) COPD exacerbation Code(s): J44.1 - CHRONIC OBSTRUCTIVE PULMONARY DISEASE W (ACUTE) EXACERBATION (4) Hypertension Code(s): I10 - ESSENTIAL (PRIMARY) HYPERTENSION (5) GERD (gastroesophageal reflux disease) Code(s): K21.9 - GASTRO-ESOPHAGEAL REFLUX DISEASE WITHOUT ESOPHAGITIS Qualifiers: Esophagitis presence: without esophagitis Qualified Code(s): K21.9 - Gastro -esophageal reflux disease without esophagitis (6) Hypothyroidism Code(s): E03.9 - HYPOTHYROIDISM, UNSPECIFIED Qualifiers: Hypothyroidism type: acquired Qualified Code(s): E03.9 - Hypothyroidism, unspecified (7) Nicotine dependence Code(s): F17.200 - NICOTINE DEPENDENCE, UNSPECIFIED, UNCOMPLICATED Qualifiers: Nicotine product type: cigarettes Substance use status: uncomplicated Qualified Code(s): F17.210 - Nicotine dependence, cigarettes, uncomplicated (8) Obesity (BMI 30-39.9) Code(s): E66.9 - OBESITY, UNSPECIFIED (9) Pneumonia Code(s): J18.9 - PNEUMONIA, UNSPECIFIED ORGANISM
--- NOTE | 2019-05-24 15:54 | CONSULT ---
Consultation: REQUESTING PROVIDER: CONSULT REQUEST: We have been asked to medically evaluate this patient for ( specify). HISTORY OF PRESENT ILLNESS: 63yo F with h/o of long-standing tobacco use, suspected ENRIQUE, HTN, suboxone use who presents today with worsening AGUIRRE and wheezing. Pt reports about 3 weeks ago going to [facility] due to increasing dyspnea where she was given a Medrol dose pack. She was instructed to use her home nebulizer at this time as well. After she finished her corticosteroids pt had reoccurrence of symptoms and returned to [facility] where she was given another dose pack. Pt had worsening of symptoms in addition to green sputum production and pleuritic chest pain. At home, pt continues to smoke, denies using oxygen, and does not have any maintenance inhalers. She does have an operating nebulizer which she had used without any effect. Pt denies any fever/chills, rhinorrhea, sick contacts, palpitations, current chest pain, abdominal pain, dysuria, polyuria, increasing LE edema. PMHX: As above Depression/Bipolar PSHx: Appendectomy age 7 I&D arm abscess (over 10 years prior) FamHx: Mother - HTN, CAD, Drug abuse Father: Pancreatic Ca Sister: Drug abuse SoHx: Tobacco - 2 packs /day for 30 years Alcohol - Denies Illicit substances - Prior Heroin use; now on suboxone Occuptation: Unemployed Living: Lives in Apartment with ; has O2 REVIEW OF SYSTEMS: As per HPI PHYSICAL EXAMINATION Vital Signs - 24 hr 05/24/19 05/24/19 05/24/19 06:28 06:45 11:56 Temperature 97.9 F 98.1 F Pulse Rate 91 H Pulse Rate [ 88 Right Radial] Respiratory 20 18 Rate Blood Pressure 158/73 Blood Pressure 144/71 [Right Arm] O2 Sat by Pulse 95 95 94 L Oximetry (%) 05/24/19 15:42 Temperature 98.6 F Pulse Rate Pulse Rate [ 91 H Right Radial] Respiratory 18 Rate Blood Pressure Blood Pressure 145/64 [Right Arm] O2 Sat by Pulse 92 L Oximetry (%) GENERAL: N AD, Awake, alert, and fully oriented, dyspneic HEENT: NC/AT, EOMI, VIRAJ, sclera anicteric, MMM, no exudates of posterior oropharynx NECK: No JVD LUNGS: Scattered wheezes bilaterally. No rales appreciated. No accessory muscle use. 4LNC SpO2 91% . HEART: RRR, normal S1 and S2 without murmur ABDOMEN: Soft, nontender, not distended, normoactive bowel sounds, EXTREMITIES: 2+ pulses, warm, well-perfused. No calf tenderness. Trace peripheral edema. PSYCHIATRIC: Cooperative. Good eye contact. Appropriate mood and affect. SKIN: Warm, dry, normal turgor, no rashes or lesions noted. Laboratory Results - last 24 hr 05/24/19 05/24/19 05/24/19 07:22 07:22 07:22 WBC 8.6 RBC 4.27 Hgb 13.5 Hct 39.8 MCV 93.1 MCH 31.5 MCHC 33.8 RDW 13.8 Plt Count 170 D MPV 8.7 Sodium 139 Potassium 4.2 Chloride 106 Carbon Dioxide 24 Anion Gap 9 BUN 6.6 L Creatinine 0.7 Est GFR (CKD-EPI)AfAm 108.38 Est GFR (CKD-EPI)NonAf 93.51 Random Glucose 121 H Calcium 9.1 Total Bilirubin 0.5 AST 12 L ALT 16 Alkaline Phosphatase 93 Troponin I < 0.02 Total Protein 7.0 Albumin 3.8 Active Medications Generic Name Dose Route Start Last Admin Trade Name Freq PRN Reason Stop Dose Admin Albuterol/Ipratropium 1 amp 05/24/19 10:36 Duoneb - NEB Q4H PRN Dyspnea Amlodipine Besylate 5 mg 05/25/19 14:00 Norvasc - PO DAILY CHALINO Buprenorphine/Naloxone 1 each 05/25/19 10:00 Suboxone 8 Mg/2 Mg Film Packet SL 06/07/19 10:01 DAILY CHALINO Chlorthalidone 25 mg 05/24/19 14:00 05/24/19 15:43 Hygroton - PO 25 mg DAILY CHALINO Administration Gabapentin 300 mg 05/24/19 14:00 05/24/19 15:27 Neurontin - PO 300 mg TID [facility]INO Administration Heparin Sodium (Porcine) 5,000 unit 05/24/19 22:00 Heparin - SQ BID [facility]INO Piperacillin Sod/Tazobactam 50 mls @ 100 mls/hr 05/24/19 13:30 05/24/19 15:27 Sod 3.375 gm/ Dextrose IVPB 100 mls/hr Q8H-IV [facility]INO Administration Protocol Mirtazapine 15 mg 12/04/19 22:00 Remeron - PO HS [facility]INO Montelukast Sodium 10 mg 05/24/19 18:00 Singulair - PO DAILY@1800 [facility] Pantoprazole Sodium 40 mg 05/24/19 14:00 05/24/19 15:27 Protonix - PO 40 mg DAILY [facility] Administration Quetiapine Fumarate 200 mg 05/24/19 22:00 Seroquel - PO HS [facility] Quetiapine Fumarate 100 mg 05/24/19 14:00 05/24/19 15:28 Seroquel - PO Not Given DAILY [facility] ASSESSMENT/PLAN: Acute COPD Exacerbation Ground Glass Opacifications Pneumonia Rule-out ENRIQUE Hypertension History --CT Chest reviewed with areas of bronchiectasis and ground-glass opacifications --ABG ordered while on RA --Medrol 40mg q6h --Duoneb QID with Albuterol PRN --Would benefit from outpatient PFTs and f/u chest CT for ground glass opacities --Encouraged smoking cessation --Recommend outpatient sleep studies --Sputum culture ordered --F/u CXR tomorrow AM Case discussed with Dr. Luci Ochoa, DO - IM PGY-3 Thank you for this consultative opportunity Visit type - Emergency Visit Emergency Visit: Yes ED Registration Date: 05/24/19 Care time: The patient presented to the Emergency Department on the above date and was hospitalized for further evaluation of their emergent condition. - New Patient This patient is new to me today: Yes Date on this admission: 05/24/19 - Critical Care Critical Care patient: No ATTENDING PHYSICIAN STATEMENT I saw and evaluated the patient. I reviewed the resident's note and discussed the case with the resident. I agree with the resident's findings and plan as documented. SUBJECTIVE: OBJECTIVE: ASSESSMENT AND PLAN:
[2019-05-24] MEDS ORDERED: ALBUTEROL SO4 0.083% IH SOL 2.5 MG/3 ML VIAL.NEB. NEB PRN (16:05)
[2019-05-24] MEDS: ALBUTEROL SO4 2.5/IPRATROPIUM 0.5 INH SOL 3 ML VIAL.NEB. NEB SCH ×2 (16:46→20:45)
[2019-05-24] MEDS: methylPREDNISolone NA SUCC 40 MG/1 ML VIAL IVPUSH SCH ×2 (16:46→21:53)
[2019-05-24] MEDS ORDERED: PNEUMOC 13-VAL CONJ-DIP CRM/PF 0.5 ML DISP.SYRIN IM ONE (17:59)
[2019-05-24] MEDS ORDERED: PNEUMOCOCCAL 23 VACCINE 0.5 ML VIAL IM ONE (18:15)
[2019-05-24] MEDS ORDERED: DEXTROSE 5%-WATER - 50 ML IVPB ONE (18:24)
[2019-05-24] MEDS ORDERED: PIPERACILLIN/TAZOBACTAM 3.375 GM VIAL IVPB ONE (18:24)
[2019-05-24] MEDS: NICOTINE 21 MG/24 HOURS TOPICAL PATCH TD SCH (18:33)
[2019-05-24] MEDS: BUPRENORPHINE/NALOXONE 8 MG/2 MG FILM PACKET SL SCH (18:33)
[2019-05-24] MEDS: MONTELUKAST NA 10 MG TABLET PO SCH (18:33)
[2019-05-24 21:42] LABS: ALLENS TEST POSITIVE; ARTERIAL BLOOD GAS BASE EXCESS -2.4 meq/l (-2-2); ARTERIAL BLOOD GAS PCO2 42.2 mmHg (35-45); ARTERIAL BLOOD GAS PO2 61.3 mmHg (80-100); ARTERIAL BLOOD GAS pH 7.35 (7.35-7.45)
[2019-05-24] MEDS: MIRTAZAPINE 15 MG TABLET (FP) PO SCH (21:53)
[2019-05-24] MEDS: HEPARIN NA (PORCINE) 5,000 UNITS/ML 1ML VIAL SQ SCH (21:53)
[2019-05-24] MEDS: QUEtiapine FUMARATE 200 MG TABLET PO SCH (21:53)
[2019-05-24] MEDS ORDERED: QUEtiapine FUMARATE 100 MG TABLET (FP) PO SCH (22:00)
[2019-05-25] MEDS ORDERED: DEXTROSE 5%-WATER - 50 ML IVPB ONE ×3 (02:44→16:59)
[2019-05-25] MEDS ORDERED: PIPERACILLIN/TAZOBACTAM 3.375 GM VIAL IVPB ONE ×3 (02:44→16:59)
[2019-05-25] MEDS: methylPREDNISolone NA SUCC 40 MG/1 ML VIAL IVPUSH SCH ×4 (02:47→21:42)
[2019-05-25] MEDS: PIPERACILLIN/TAZOB 3.375 GM 3.375 GM in DEXTROSE 5%-WATER - 50 ML IVPB SCH ×3 (02:47→17:20)
[2019-05-25] MEDS: GABAPENTIN 300 MG CAPSULE (FP) PO SCH ×3 (06:39→21:42)
--- NOTE | 2019-05-25 07:24 | PN ---
Progress Note, Physician Chief Complaint: States breathing is better but still remains dyspneic off O2 History of Present Illness: 63yo F with h/o of long-standing tobacco use, suspected ENRIQUE, HTN, suboxone use who presents to ED worsening AGUIRRE and wheezing. She was seen in ED at [facility] about 3 weeks ago with similar complaints where she was given a Medrol dose pack and abx. Her home nebs were ineffective. After completion of steroids she had reoccurrence of symptoms and returned back to [facility] where she was given another dose pack. Pt had worsening of symptoms in addition to green sputum production and pleuritic chest pain and presented to ED here - Current Medication List Current Medications: Active Medications Albuterol Sulfate (Ventolin 0.083% Nebulizer Soln -) 1 amp NEB Q4H PRN PRN Reason: SHORT OF BREATH/WHEEZING Albuterol/Ipratropium (Duoneb -) 1 amp NEB RQID [facility] Last Admin: 05/24/19 20:45 Dose: 1 amp Amlodipine Besylate (Norvasc -) 5 mg PO DAILY [facility] Buprenorphine/Naloxone (Suboxone 8 Mg/2 Mg Film Packet) 1 each SL DAILY [facility] Stop: 06/06/19 10:01 Last Admin: 05/24/19 18:33 Dose: 1 each Chlorthalidone (Hygroton -) 25 mg PO DAILY [facility] Last Admin: 05/24/19 15:43 Dose: 25 mg Gabapentin (Neurontin -) 300 mg PO TID [facility] Last Admin: 05/25/19 06:39 Dose: 300 mg Heparin Sodium (Porcine) (Heparin -) 5,000 unit SQ BID [facility] Last Admin: 05/24/19 21:53 Dose: 5,000 unit Piperacillin Sod/Tazobactam (Sod 3.375 gm/ Dextrose) 50 mls @ 100 mls/hr IVPB Q8H-IV [facility]; Protocol Last Admin: 05/25/19 02:47 Dose: 100 mls/hr Methylprednisolone Sodium Succinate (Solu-Medrol -) 40 mg IVPUSH Q6H-IV [facility] Last Admin: 05/25/19 02:47 Dose: 40 mg Mirtazapine (Remeron -) 15 mg PO HS [facility] Last Admin: 05/24/19 21:53 Dose: 15 mg Montelukast Sodium (Singulair -) 10 mg PO DAILY@1800 [facility] Last Admin: 05/24/19 18:33 Dose: 10 mg Nicotine (Nicoderm Patch -) 21 mg TD DAILY [facility] Stop: 07/04/19 10:01 Last Admin: 05/24/19 18:33 Dose: 21 mg Pantoprazole Sodium (Protonix -) 40 mg PO DAILY [facility] Last Admin: 05/24/19 15:27 Dose: 40 mg Quetiapine Fumarate (Seroquel -) 200 mg PO HS [facility] Last Admin: 05/24/19 21:53 Dose: 200 mg Quetiapine Fumarate (Seroquel -) 100 mg PO DAILY [facility] Last Admin: 05/24/19 15:28 Dose: Not Given - Objective Vital Signs: Vital Signs Temperature 97.9 F 05/25/19 05:50 Pulse Rate 83 05/25/19 05:50 Respiratory Rate 22 H 05/25/19 05:50 Blood Pressure 127/92 05/25/19 05:50 O2 Sat by Pulse Oximetry (%) 94 L 05/24/19 21:00 Additional Findings/Remarks: Constitutional: Yes: Calm, Mild Distress (due to SOB) Eyes: Yes: WNL, Conjunctiva Clear, EOM Intact HENT: Yes: WNL, Atraumatic, Normocephalic Neck: Yes: WNL, Supple, Trachea Midline Cardiovascular: Yes: WNL, Regular Rate and Rhythm (HR 90) Respiratory: Yes: Diminished, On Nasal O2 (6L), Poor Air Entry, Rhonchi ( scattered), SOB on Exertion Gastrointestinal: Yes: Soft, Abdomen, Obese ...Rectal Exam: Yes: Deferred Renal/: Yes: WNL Breast(s): Yes: WNL Musculoskeletal: Yes: WNL Extremities: Yes: WNL Edema: No Peripheral Pulses WNL: Yes Peripheral Pulses: Left Radial: 2+, Right Radial: 2+, Left Doralis Pedis: 2+, Right Dorsalis Pedis: 2+, Left Femoral: 2+, Right Femoral: 2+ Integumentary: Yes: WNL Neurological: Yes: WNL, Alert, Oriented ...Motor Strength: WNL Psychiatric: Yes: WNL Labs: CBC, BMP 05/24/19 07:22 05/24/19 07:22 - ....Imaging Chest X-ray: Report Reviewed, Image Reviewed Cat Scan: Report Reviewed Problem List - Problems (1) Heroin addiction Assessment/Plan: c/w suboxone Code(s): F11.20 - OPIOID DEPENDENCE, UNCOMPLICATED (2) Prophylactic measure Assessment/Plan: FEN regular diet adequate PO intake monitor electrolytes DVT heparin sq Dispo maintain as in patient full code discharge planning Code(s): Z29.9 - ENCOUNTER FOR PROPHYLACTIC MEASURES, UNSPECIFIED (3) COPD with acute exacerbation Assessment/Plan: supplemental O2 to maintain SPO2 >92% Duo nebs solumedrol c/w home dose of sinqular c/w abx Code(s): J44.1 - CHRONIC OBSTRUCTIVE PULMONARY DISEASE W (ACUTE) EXACERBATION (4) Hypoxemia Assessment/Plan: supplemental O2 with Bipap prn Code(s): R09.02 - HYPOXEMIA (5) Pneumonia Assessment/Plan: c/w axithromycin and ceftriaxone Dr Daphne blas, c/w abx Code(s): J18.9 - PNEUMONIA, UNSPECIFIED ORGANISM (6) Hypertension Assessment/Plan: c/w home medications, norvasc Code(s): I10 - ESSENTIAL (PRIMARY) HYPERTENSION (7) Back pain Assessment/Plan: PT to see Code(s): M54.9 - DORSALGIA, UNSPECIFIED Qualifiers: Back pain location: low back pain Chronicity: chronic Back pain laterality: unspecified Sciatica presence: unspecified whether sciatica present Qualified Code(s): M54.5 - Low back pain; G89.29 - Other chronic pain (8) Bipolar disorder Assessment/Plan: c/w seroquel Code(s): F31.9 - BIPOLAR DISORDER, UNSPECIFIED Qualifiers: Active/Remission status: remission status unspecified Qualified Code(s): F31.9 - Bipolar disorder, unspecified (9) GERD (gastroesophageal reflux disease) Assessment/Plan: c/w protonix Code(s): K21.9 - GASTRO-ESOPHAGEAL REFLUX DISEASE WITHOUT ESOPHAGITIS Qualifiers: Esophagitis presence: without esophagitis Qualified Code(s): K21.9 - Gastro -esophageal reflux disease without esophagitis (10) Nicotine dependence Assessment/Plan: nictotine patch counseled on smoking cessation pt walking off unit to smoke, counseled Code(s): F17.200 - NICOTINE DEPENDENCE, UNSPECIFIED, UNCOMPLICATED Qualifiers: Nicotine product type: cigarettes Substance use status: uncomplicated Qualified Code(s): F17.210 - Nicotine dependence, cigarettes, uncomplicated (11) Obesity (BMI 30-39.9) Assessment/Plan: counseled on weight loss Code(s): E66.9 - OBESITY, UNSPECIFIED (12) Respiratory failure with hypoxia Assessment/Plan: BiPap prn, supplemental O2 c/w steroids & abx appreciate pulm consultation Code(s): J96.91 - RESPIRATORY FAILURE, UNSPECIFIED WITH HYPOXIA Visit type - Emergency Visit Emergency Visit: Yes ED Registration Date: 05/24/19 Care time: The patient presented to the Emergency Department on the above date and was hospitalized for further evaluation of their emergent condition. - New Patient This patient is new to me today: No - Critical Care Critical Care patient: No - Discharge Referral Referred to [facility] Med [facility] No
[2019-05-25] MEDS: ALBUTEROL SO4 2.5/IPRATROPIUM 0.5 INH SOL 3 ML VIAL.NEB. NEB SCH ×4 (08:03→20:41)
[2019-05-25 08:54] LABS: BASO % 0.1 % (0-2.0); HEMATOCRIT 39.7 % (32.4-45.2); HEMOGLOBIN 13.3 GM/dL (10.7-15.3); LYMPH % 7.4 % (8-40); MCH 31.4 pg (25.7-33.7); MCHC 33.5 g/dl (32.0-36.0); MEAN CELL VOLUME 93.7 fl (80-96); MEAN PLT VOLUME 9.2 fl (7.5-11.1); MONO % 3.1 % (3.8-10.2); NEUT % 89.4 % (42.8-82.8); PLATELET COUNT 184 K/MM3 (134-434); RBC 4.24 M/mm3 (3.60-5.2); WHITE BLOOD COUNT 13.6 K/mm3 (4.0-10.0)
[2019-05-25 09:08] LABS: INR 0.99 (0.83-1.09); PROTHROMBIN TIME (PATIENT) 11.7 SEC (9.7-13.0)
[2019-05-25 09:23] LABS: ALBUMIN 3.8 g/dl (3.4-5.0); BILIRUBIN,TOTAL 0.3 mg/dL (0.2-1); BLOOD UREA NITROGEN 17.7 mg/dL (7-18); CALCIUM 9.2 mg/dL (8.5-10.1); CREATININE 1.1 mg/dL (0.55-1.3); MAGNESIUM 2.5 mg/dL (1.8-2.4); PHOSPHOROUS 2.9 mg/dL (2.5-4.9); POTASSIUM 4.2 mmol/L (3.5-5.1); TOT PROT 7.6 g/dl (6.4-8.2)
[2019-05-25] MEDS: CHLORTHALIDONE 25 MG TABLET PO SCH (09:54)
[2019-05-25] MEDS: HEPARIN NA (PORCINE) 5,000 UNITS/ML 1ML VIAL SQ SCH ×2 (09:54→21:42)
[2019-05-25] MEDS: QUEtiapine FUMARATE 100 MG TABLET (FP) PO SCH (09:54)
[2019-05-25] MEDS: PANTOPRAZOLE 40 MG TABLET (FP) PO SCH (09:54)
[2019-05-25] MEDS: BUPRENORPHINE/NALOXONE 8 MG/2 MG FILM PACKET SL SCH (09:55)
[2019-05-25] MEDS: NICOTINE 21 MG/24 HOURS TOPICAL PATCH TD SCH (09:55)
[2019-05-25] MEDS ORDERED: QUEtiapine FUMARATE 100 MG TABLET (FP) PO SCH (10:00)
[2019-05-25] MEDS ORDERED: CHLORTHALIDONE 25 MG TABLET PO SCH (10:00)
[2019-05-25] MEDS ORDERED: BUPRENORPHINE/NALOXONE 8 MG/2 MG FILM PACKET SL SCH (10:00)
[2019-05-25] MEDS ORDERED: PANTOPRAZOLE 40 MG TABLET (FP) PO SCH (10:00)
[2019-05-25] MEDS ORDERED: amLODIPine BESYLATE 5 MG TABLET (FP) PO SCH (10:00)
--- NOTE | 2019-05-25 10:11 | PN ---
Progress Note, Physician History of Present Illness: still not feeling much better breathing still an issue - Current Medication List Current Medications: Active Medications Albuterol Sulfate (Ventolin 0.083% Nebulizer Soln -) 1 amp NEB Q4H PRN PRN Reason: SHORT OF BREATH/WHEEZING Albuterol/Ipratropium (Duoneb -) 1 amp NEB RQID [facility] Last Admin: 05/25/19 08:03 Dose: 1 amp Amlodipine Besylate (Norvasc -) 5 mg PO DAILY [facility] Buprenorphine/Naloxone (Suboxone 8 Mg/2 Mg Film Packet) 1 each SL DAILY [facility] Stop: 06/06/19 10:01 Last Admin: 05/25/19 09:55 Dose: 1 each Chlorthalidone (Hygroton -) 25 mg PO DAILY [facility] Last Admin: 05/25/19 09:54 Dose: 25 mg Gabapentin (Neurontin -) 300 mg PO TID [facility] Last Admin: 05/25/19 06:39 Dose: 300 mg Heparin Sodium (Porcine) (Heparin -) 5,000 unit SQ BID [facility] Last Admin: 05/25/19 09:54 Dose: 5,000 unit Piperacillin Sod/Tazobactam (Sod 3.375 gm/ Dextrose) 50 mls @ 100 mls/hr IVPB Q8H-IV [facility]; Protocol Last Admin: 05/25/19 09:53 Dose: 100 mls/hr Methylprednisolone Sodium Succinate (Solu-Medrol -) 40 mg IVPUSH Q6H-IV [facility] Last Admin: 05/25/19 09:53 Dose: 40 mg Mirtazapine (Remeron -) 15 mg PO HS [facility] Last Admin: 05/24/19 21:53 Dose: 15 mg Montelukast Sodium (Singulair -) 10 mg PO DAILY@1800 [facility] Last Admin: 05/24/19 18:33 Dose: 10 mg Nicotine (Nicoderm Patch -) 21 mg TD DAILY [facility] Stop: 07/04/19 10:01 Last Admin: 05/25/19 09:55 Dose: 21 mg Pantoprazole Sodium (Protonix -) 40 mg PO DAILY [facility] Last Admin: 05/25/19 09:54 Dose: 40 mg Quetiapine Fumarate (Seroquel -) 200 mg PO HS [facility] Last Admin: 05/24/19 21:53 Dose: 200 mg Quetiapine Fumarate (Seroquel -) 100 mg PO DAILY [facility] Last Admin: 05/25/19 09:54 Dose: 100 mg - Objective Vital Signs: Vital Signs Temperature 97.9 F 05/25/19 05:50 Pulse Rate 83 05/25/19 05:50 Respiratory Rate 22 H 05/25/19 05:50 Blood Pressure 127/92 05/25/19 05:50 O2 Sat by Pulse Oximetry (%) 94 L 05/24/19 21:00 Constitutional: Yes: No Distress, Calm Cardiovascular: Yes: S1, S2 Respiratory: Yes: Regular, On Nasal O2, Rhonchi Gastrointestinal: Yes: Normal Bowel Sounds, Soft Musculoskeletal: Yes: Other Extremities: Yes: WNL Neurological: Yes: Alert, Oriented Psychiatric: Yes: Alert, Oriented Labs: CBC, BMP 05/25/19 08:00 05/25/19 08:00 INR, PTT INR 0.99 (0.83-1.09) 05/25/19 08:00 - ....Imaging Cat Scan: Report Reviewed, Image Reviewed Assessment/Plan mayra List - Problems (1) COPD with acute exacerbation Code(s): J44.1 - CHRONIC OBSTRUCTIVE PULMONARY DISEASE W (ACUTE) EXACERBATION (2) Hypoxemia Code(s): R09.02 - HYPOXEMIA (3) COPD exacerbation Code(s): J44.1 - CHRONIC OBSTRUCTIVE PULMONARY DISEASE W (ACUTE) EXACERBATION (4) Hypertension Code(s): I10 - ESSENTIAL (PRIMARY) HYPERTENSION (5) GERD (gastroesophageal reflux disease) Code(s): K21.9 - GASTRO-ESOPHAGEAL REFLUX DISEASE WITHOUT ESOPHAGITIS Qualifiers: Esophagitis presence: without esophagitis Qualified Code(s): K21.9 - Gastro -esophageal reflux disease without esophagitis (6) Hypothyroidism Code(s): E03.9 - HYPOTHYROIDISM, UNSPECIFIED Qualifiers: Hypothyroidism type: acquired Qualified Code(s): E03.9 - Hypothyroidism, unspecified (7) Nicotine dependence Code(s): F17.200 - NICOTINE DEPENDENCE, UNSPECIFIED, UNCOMPLICATED Qualifiers: Nicotine product type: cigarettes Substance use status: uncomplicated Qualified Code(s): F17.210 - Nicotine dependence, cigarettes, uncomplicated (8) Obesity (BMI 30-39.9) Code(s): E66.9 - OBESITY, UNSPECIFIED (9) Pneumonia Code(s): J18.9 - PNEUMONIA, UNSPECIFIED ORGANISM plan ct abx resp support incentive renetta rest as per the team
--- NOTE | 2019-05-25 11:16 | PN ---
Progress Note (short form) - Note Progress Note: PULMONARY Still short of breath, cough and wheezing. Vital Signs Period Temp Pulse Resp BP Sys/Steinberg Pulse Ox Last 24 Hr 97.8 F-98.6 F 83-98 18-24 127-145/64-92 91-94 Gen: NAD at rest Heart: RRR Lung: scattered rhonchi Abd: soft, nontender Ext: no edema CBC, BMP 05/25/19 08:00 05/25/19 08:00 Active Medications Albuterol Sulfate (Ventolin 0.083% Nebulizer Soln -) 1 amp NEB Q4H PRN PRN Reason: SHORT OF BREATH/WHEEZING Albuterol/Ipratropium (Duoneb -) 1 amp NEB RQID [facility] Last Admin: 05/25/19 08:03 Dose: 1 amp Amlodipine Besylate (Norvasc -) 5 mg PO DAILY [facility] Buprenorphine/Naloxone (Suboxone 8 Mg/2 Mg Film Packet) 1 each SL DAILY [facility] Stop: 06/06/19 10:01 Last Admin: 05/25/19 09:55 Dose: 1 each Chlorthalidone (Hygroton -) 25 mg PO DAILY [facility] Last Admin: 05/25/19 09:54 Dose: 25 mg Gabapentin (Neurontin -) 300 mg PO TID [facility] Last Admin: 05/25/19 06:39 Dose: 300 mg Heparin Sodium (Porcine) (Heparin -) 5,000 unit SQ BID [facility] Last Admin: 05/25/19 09:54 Dose: 5,000 unit Piperacillin Sod/Tazobactam (Sod 3.375 gm/ Dextrose) 50 mls @ 100 mls/hr IVPB Q8H-IV [facility]; Protocol Last Admin: 05/25/19 09:53 Dose: 100 mls/hr Methylprednisolone Sodium Succinate (Solu-Medrol -) 40 mg IVPUSH Q6H-IV [facility] Last Admin: 05/25/19 09:53 Dose: 40 mg Mirtazapine (Remeron -) 15 mg PO HS [facility] Last Admin: 05/24/19 21:53 Dose: 15 mg Montelukast Sodium (Singulair -) 10 mg PO DAILY@1800 [facility] Last Admin: 05/24/19 18:33 Dose: 10 mg Nicotine (Nicoderm Patch -) 21 mg TD DAILY [facility] Stop: 07/04/19 10:01 Last Admin: 05/25/19 09:55 Dose: 21 mg Pantoprazole Sodium (Protonix -) 40 mg PO DAILY [facility] Last Admin: 05/25/19 09:54 Dose: 40 mg Quetiapine Fumarate (Seroquel -) 200 mg PO HS [facility] Last Admin: 05/24/19 21:53 Dose: 200 mg Quetiapine Fumarate (Seroquel -) 100 mg PO DAILY [facility] Last Admin: 05/25/19 09:54 Dose: 100 mg A/P Acute COPD Exacerbation Pneumonia HTN Smoker Suspected ENRIQUE - continue medrol at current dose - inhaled bronchodilators - O2 to keep SpO2 >90% - check ambulatory room air SpO2 when ready for discharge to assess for home O2 - smoking cessation - outpt PFTs, NPSG - outpt f/u of chest imaging - DVT prophylaxis
[2019-05-25] MEDS ORDERED: MICONAZOLE NITRATE 14 GM/TUBE TUBE TP SCH (13:00)
[2019-05-25] MEDS ORDERED: COLLOIDAL OATMEAL 1 BAR EACH TP PRN (13:06)
[2019-05-25] MEDS: amLODIPine BESYLATE 5 MG TABLET (FP) PO SCH (15:30)
[2019-05-25] MEDS: MONTELUKAST NA 10 MG TABLET PO SCH (17:21)
[2019-05-25] MEDS ORDERED: MONTELUKAST NA 10 MG TABLET PO SCH (18:00)
[2019-05-25] MEDS: MICONAZOLE NITRATE 2% VAGINAL CREAM 45 GM TUBE PV SCH (21:42)
[2019-05-25] MEDS: QUEtiapine FUMARATE 200 MG TABLET PO SCH (21:42)
[2019-05-25] MEDS: MIRTAZAPINE 15 MG TABLET (FP) PO SCH (21:42)
[2019-05-26] MEDS ORDERED: PIPERACILLIN/TAZOBACTAM 3.375 GM VIAL IVPB ONE ×3 (02:32→17:19)
[2019-05-26] MEDS ORDERED: DEXTROSE 5%-WATER - 50 ML IVPB ONE ×3 (02:33→17:19)
[2019-05-26] MEDS: PIPERACILLIN/TAZOB 3.375 GM 3.375 GM in DEXTROSE 5%-WATER - 50 ML IVPB SCH ×3 (02:50→17:49)
[2019-05-26] MEDS: methylPREDNISolone NA SUCC 40 MG/1 ML VIAL IVPUSH SCH ×4 (03:11→21:09)
[2019-05-26] MEDS: GABAPENTIN 300 MG CAPSULE (FP) PO SCH ×3 (06:49→21:09)
[2019-05-26] MEDS: ALBUTEROL SO4 2.5/IPRATROPIUM 0.5 INH SOL 3 ML VIAL.NEB. NEB SCH ×4 (07:49→20:12)
[2019-05-26 08:48] LABS: BASO % 0.1 % (0-2.0); EOS % 0.1 % (0-4.5); HEMATOCRIT 37.4 % (32.4-45.2); HEMOGLOBIN 12.7 GM/dL (10.7-15.3); LYMPH % 7.9 % (8-40); MCH 31.5 pg (25.7-33.7); MCHC 33.9 g/dl (32.0-36.0); MEAN PLT VOLUME 9.3 fl (7.5-11.1); MONO % 3.7 % (3.8-10.2); NEUT % 88.2 % (42.8-82.8); PLATELET COUNT 187 K/MM3 (134-434); RBC 4.02 M/mm3 (3.60-5.2); RDW 13.9 % (11.6-15.6); WHITE BLOOD COUNT 12.7 K/mm3 (4.0-10.0)
[2019-05-26 09:20] LABS: ALBUMIN 3.8 g/dl (3.4-5.0); BILIRUBIN,TOTAL 0.2 mg/dL (0.2-1); BLOOD UREA NITROGEN 17.9 mg/dL (7-18); CALCIUM 9.6 mg/dL (8.5-10.1); CREATININE 0.8 mg/dL (0.55-1.3); MAGNESIUM 2.6 mg/dL (1.8-2.4); POTASSIUM 4.1 mmol/L (3.5-5.1); TOT PROT 7.5 g/dl (6.4-8.2)
--- NOTE | 2019-05-26 09:49 | PN ---
Progress Note, Physician History of Present Illness: still not improving says still sob - Current Medication List Current Medications: Active Medications Albuterol Sulfate (Ventolin 0.083% Nebulizer Soln -) 1 amp NEB Q4H PRN PRN Reason: SHORT OF BREATH/WHEEZING Last Admin: 05/26/19 03:22 Dose: 1 amp Albuterol/Ipratropium (Duoneb -) 1 amp NEB RQID [facility] Last Admin: 05/26/19 07:49 Dose: 1 amp Amlodipine Besylate (Norvasc -) 5 mg PO DAILY [facility] Last Admin: 05/25/19 15:30 Dose: 5 mg Buprenorphine/Naloxone (Suboxone 8 Mg/2 Mg Film Packet) 1 each SL DAILY [facility] Stop: 06/06/19 10:01 Last Admin: 05/25/19 09:55 Dose: 1 each Chlorthalidone (Hygroton -) 25 mg PO DAILY [facility] Last Admin: 05/25/19 09:54 Dose: 25 mg Colloidal Oatmeal (Aveeno Soap -) 1 applic TP DAILY PRN PRN Reason: HYGEINE Gabapentin (Neurontin -) 300 mg PO TID [facility] Last Admin: 05/26/19 06:49 Dose: 300 mg Heparin Sodium (Porcine) (Heparin -) 5,000 unit SQ BID [facility] Last Admin: 05/25/19 21:42 Dose: 5,000 unit Piperacillin Sod/Tazobactam (Sod 3.375 gm/ Dextrose) 50 mls @ 100 mls/hr IVPB Q8H-IV [facility]; Protocol Last Admin: 05/26/19 02:50 Dose: 100 mls/hr Methylprednisolone Sodium Succinate (Solu-Medrol -) 40 mg IVPUSH Q6H-IV [facility] Last Admin: 05/26/19 03:11 Dose: 40 mg Miconazole Nitrate (Monistat-7 Vaginal Cream -) 1 applic PV HS [facility] Last Admin: 05/25/19 21:42 Dose: 1 applic Mirtazapine (Remeron -) 15 mg PO HS [facility] Last Admin: 05/25/19 21:42 Dose: 15 mg Montelukast Sodium (Singulair -) 10 mg PO DAILY@1800 [facility] Last Admin: 05/25/19 17:21 Dose: 10 mg Nicotine (Nicoderm Patch -) 21 mg TD DAILY [facility] Stop: 07/04/19 10:01 Last Admin: 05/25/19 09:55 Dose: 21 mg Pantoprazole Sodium (Protonix -) 40 mg PO DAILY [facility] Last Admin: 05/25/19 09:54 Dose: 40 mg Quetiapine Fumarate (Seroquel -) 200 mg PO HS [facility] Last Admin: 05/25/19 21:42 Dose: 200 mg Quetiapine Fumarate (Seroquel -) 100 mg PO DAILY [facility] Last Admin: 05/25/19 09:54 Dose: 100 mg - Objective Vital Signs: Vital Signs Temperature 97.9 F 05/26/19 05:45 Pulse Rate 66 05/26/19 05:45 Respiratory Rate 22 H 05/26/19 05:45 Blood Pressure 132/65 05/26/19 05:45 O2 Sat by Pulse Oximetry (%) 92 L 05/25/19 21:00 Constitutional: Yes: Calm, Mild Distress Cardiovascular: Yes: S1, S2 Respiratory: Yes: On Nasal O2, Poor Air Entry Gastrointestinal: Yes: Normal Bowel Sounds, Soft Musculoskeletal: Yes: WNL Extremities: Yes: WNL Neurological: Yes: Alert, Oriented Psychiatric: Yes: Alert, Oriented Labs: CBC, BMP 05/26/19 07:35 05/26/19 07:35 INR, PTT INR 0.99 (0.83-1.09) 05/25/19 08:00 Assessment/Plan roblem List - Problems (1) COPD with acute exacerbation Code(s): J44.1 - CHRONIC OBSTRUCTIVE PULMONARY DISEASE W (ACUTE) EXACERBATION (2) Hypoxemia Code(s): R09.02 - HYPOXEMIA (3) COPD exacerbation Code(s): J44.1 - CHRONIC OBSTRUCTIVE PULMONARY DISEASE W (ACUTE) EXACERBATION (4) Hypertension Code(s): I10 - ESSENTIAL (PRIMARY) HYPERTENSION (5) GERD (gastroesophageal reflux disease) Code(s): K21.9 - GASTRO-ESOPHAGEAL REFLUX DISEASE WITHOUT ESOPHAGITIS Qualifiers: Esophagitis presence: without esophagitis Qualified Code(s): K21.9 - Gastro -esophageal reflux disease without esophagitis (6) Hypothyroidism Code(s): E03.9 - HYPOTHYROIDISM, UNSPECIFIED Qualifiers: Hypothyroidism type: acquired Qualified Code(s): E03.9 - Hypothyroidism, unspecified (7) Nicotine dependence Code(s): F17.200 - NICOTINE DEPENDENCE, UNSPECIFIED, UNCOMPLICATED Qualifiers: Nicotine product type: cigarettes Substance use status: uncomplicated Qualified Code(s): F17.210 - Nicotine dependence, cigarettes, uncomplicated (8) Obesity (BMI 30-39.9) Code(s): E66.9 - OBESITY, UNSPECIFIED (9) Pneumonia Code(s): J18.9 - PNEUMONIA, UNSPECIFIED ORGANISM plan ct abx resp support incentive renetta rest as per the team
[2019-05-26] MEDS ORDERED: PT OWN MED DRAWER 7, Y5N ONE ×3 (10:38→17:19)
[2019-05-26] MEDS: PANTOPRAZOLE 40 MG TABLET (FP) PO SCH (10:47)
[2019-05-26] MEDS: amLODIPine BESYLATE 5 MG TABLET (FP) PO SCH (10:47)
[2019-05-26] MEDS: QUEtiapine FUMARATE 100 MG TABLET (FP) PO SCH (10:47)
[2019-05-26] MEDS: NICOTINE 21 MG/24 HOURS TOPICAL PATCH TD SCH (10:47)
[2019-05-26] MEDS: BUPRENORPHINE/NALOXONE 8 MG/2 MG FILM PACKET SL SCH (10:48)
[2019-05-26] MEDS: HEPARIN NA (PORCINE) 5,000 UNITS/ML 1ML VIAL SQ SCH ×2 (10:48→21:09)
[2019-05-26] MEDS: CHLORTHALIDONE 25 MG TABLET PO SCH (10:49)
[2019-05-26] MEDS ORDERED: POLYETHYLENE GLYCOL 3350 119 GM BTL PO ONE (13:30)
--- NOTE | 2019-05-26 17:25 | PN ---
Physical Exam: SUBJECTIVE: Patient seen and examined at the bedside. still with episodes of dyspnea but overall improving and can tolerate ambulating w/o oxygen. OBJECTIVE: Patient is a 63yo F with h/o of long-standing tobacco use, suspected ENRIQUE, HTN, suboxone use who presents to ED worsening AGUIRRE and wheezing. She was seen in ED at [facility] about 3 weeks ago with similar complaints where she was given a Medrol dose pack and abx. Her home nebs were ineffective. After completion of steroids she had reoccurrence of symptoms and returned back to [facility] where she was given another dose pack. Pt had worsening of symptoms in addition to green sputum production and pleuritic chest pain and presented to ED here for further evaluation. Vital Signs Period Temp Pulse Resp BP Sys/Steinberg Pulse Ox Last 24 Hr 97.9 F-98.2 F 66-96 20-22 132-155/65-75 92 GENERAL: The patient is awake, alert, and fully oriented, in no acute distress. HEAD: Normal with no signs of trauma. EYES: PERRL, extraocular movements intact, sclera anicteric, conjunctiva clear. No ptosis. ENT: Ears normal, nares patent, oropharynx clear without exudates, moist mucous membranes. NECK: Trachea midline, full range of motion, supple. LUNGS: + wheezing bilaterally, oxygen stable, prn 2-4 liters HEART: Regular rate and rhythm ABDOMEN: Soft, nontender, nondistended, normoactive bowel sounds, no guarding, no rebound, no hepatosplenomegaly, no masses. EXTREMITIES: no edema. NEUROLOGICAL: Normal speech, gait steady PSYCH: Normal mood, normal affect. SKIN: Warm, dry, normal turgor, no rashes or lesions noted Laboratory Results - last 24 hr 05/26/19 05/26/19 07:35 07:35 WBC 12.7 H RBC 4.02 Hgb 12.7 Hct 37.4 MCV 93.0 MCH 31.5 MCHC 33.9 RDW 13.9 Plt Count 187 MPV 9.3 Absolute Neuts (auto) 11.2 H Neutrophils % 88.2 H Lymphocytes % 7.9 L Monocytes % 3.7 L Eosinophils % 0.1 D Basophils % 0.1 Nucleated RBC % 0 Sodium 140 Potassium 4.1 Chloride 104 Carbon Dioxide 26 Anion Gap 10 BUN 17.9 Creatinine 0.8 Est GFR (CKD-EPI)AfAm 92.22 Est GFR (CKD-EPI)NonAf 79.57 Random Glucose 202 H Calcium 9.6 Magnesium 2.6 H Total Bilirubin 0.2 AST 23 ALT 23 Alkaline Phosphatase 93 Total Protein 7.5 Albumin 3.8 Active Medications Generic Name Dose Route Start Last Admin Trade Name Freq PRN Reason Stop Dose Admin Albuterol Sulfate 1 amp 05/24/19 16:05 05/26/19 03:22 Ventolin 0.083% Nebulizer Soln - NEB 1 amp Q4H PRN Administration SHORT OF BREATH/WHEEZING Albuterol/Ipratropium 1 amp 05/24/19 16:00 05/26/19 16:32 Duoneb - NEB 1 amp RQID [facility] Administration Amlodipine Besylate 5 mg 05/25/19 14:00 05/26/19 10:47 Norvasc - PO 5 mg DAILY [facility] Administration Buprenorphine/Naloxone 1 each 05/24/19 18:15 05/26/19 10:48 Suboxone 8 Mg/2 Mg Film Packet SL 06/06/19 10:01 1 each DAILY [facility] Administration Chlorthalidone 25 mg 05/24/19 14:00 05/26/19 10:49 Hygroton - PO 25 mg DAILY [facility] Administration Colloidal Oatmeal 1 applic 05/25/19 13:06 Aveeno Soap - TP DAILY PRN HYGEINE Cyclobenzaprine HCl 5 mg 05/26/19 14:00 Cyclobenzaprine Hcl PO TID [facility] Gabapentin 300 mg 05/24/19 14:00 05/26/19 15:29 Neurontin - PO 300 mg TID [facility] Administration Heparin Sodium (Porcine) 5,000 unit 05/24/19 22:00 05/26/19 10:48 Heparin - SQ 5,000 unit BID [facility] Administration Piperacillin Sod/Tazobactam 50 mls @ 100 mls/hr 05/24/19 13:30 05/26/19 10:48 Sod 3.375 gm/ Dextrose IVPB 100 mls/hr Q8H-IV [facility] Administration Protocol Methylprednisolone Sodium Succinate 40 mg 05/24/19 16:00 05/26/19 15:30 Solu-Medrol - IVPUSH 40 mg Q6H-IV [facility] Administration Miconazole Nitrate 1 applic 05/25/19 22:00 05/25/19 21:42 Monistat-7 Vaginal Cream - PV 1 applic HS [facility] Administration Mirtazapine 15 mg 05/24/19 22:00 05/25/19 21:42 Remeron - PO 15 mg HS [facility] Administration Montelukast Sodium 10 mg 05/24/19 18:00 05/25/19 17:21 Singulair - PO 10 mg DAILY@1800 [facility] Administration Nicotine 21 mg 05/24/19 17:45 05/26/19 10:47 Nicoderm Patch - TD 07/04/19 10:01 21 mg DAILY [facility] Administration Pantoprazole Sodium 40 mg 05/24/19 14:00 05/26/19 10:47 Protonix - PO 40 mg DAILY [facility] Administration Quetiapine Fumarate 200 mg 05/24/19 22:00 05/25/19 21:42 Seroquel - PO 200 mg HS [facility] Administration Quetiapine Fumarate 100 mg 05/24/19 14:00 05/26/19 10:47 Seroquel - PO 100 mg DAILY [facility] Administration ASSESSMENT/PLAN: Problem List - Problems (1) Pneumonia Assessment/Plan: Dr Daphne blas, c/w abx Code(s): J18.9 - PNEUMONIA, UNSPECIFIED ORGANISM Qualifiers: Pneumonia type: due to Mycoplasma pneumoniae (2) COPD with acute exacerbation Assessment/Plan: supplemental O2 to maintain SPO2 >92% Duo nebs solumedrol c/w home dose of sinqular c/w abx Code(s): J44.1 - CHRONIC OBSTRUCTIVE PULMONARY DISEASE W (ACUTE) EXACERBATION (3) Heroin addiction Assessment/Plan: on subxone Code(s): F11.20 - OPIOID DEPENDENCE, UNCOMPLICATED (4) Hypoxemia Code(s): R09.02 - HYPOXEMIA (5) Prophylactic measure Assessment/Plan: protonix Code(s): Z29.9 - ENCOUNTER FOR PROPHYLACTIC MEASURES, UNSPECIFIED (6) Respiratory failure with hypoxia Code(s): J96.91 - RESPIRATORY FAILURE, UNSPECIFIED WITH HYPOXIA (7) Hypertension Code(s): I10 - ESSENTIAL (PRIMARY) HYPERTENSION (8) Back pain Code(s): M54.9 - DORSALGIA, UNSPECIFIED Qualifiers: Back pain location: low back pain Chronicity: chronic Back pain laterality: unspecified Sciatica presence: unspecified whether sciatica present Qualified Code(s): M54.5 - Low back pain; G89.29 - Other chronic pain (9) Nicotine dependence Code(s): F17.200 - NICOTINE DEPENDENCE, UNSPECIFIED, UNCOMPLICATED Qualifiers: Nicotine product type: cigarettes Substance use status: uncomplicated Qualified Code(s): F17.210 - Nicotine dependence, cigarettes, uncomplicated Visit type - Emergency Visit Emergency Visit: Yes ED Registration Date: 05/24/19 Care time: The patient presented to the Emergency Department on the above date and was hospitalized for further evaluation of their emergent condition. - New Patient This patient is new to me today: Yes Date on this admission: 05/26/19 - Critical Care Critical Care patient: No - Discharge Referral Referred to [facility] Med P.C.: No
[2019-05-26] MEDS: MONTELUKAST NA 10 MG TABLET PO SCH (17:54)
[2019-05-26] MEDS: CYCLOBENZAPRINE HCL 5 MG TABLET PO SCH ×2 (17:57→21:09)
[2019-05-26] MEDS: MIRTAZAPINE 15 MG TABLET (FP) PO SCH (21:09)
[2019-05-26] MEDS: QUEtiapine FUMARATE 200 MG TABLET PO SCH (21:09)
[2019-05-26] MEDS: MICONAZOLE NITRATE 2% VAGINAL CREAM 45 GM TUBE PV SCH (21:10)
[2019-05-26 23:41] LABS: EPI CELLS 3.6 /HPF (0-5/HPF); HYALINE CASTS 1 /lpf (0-8); PH,URINE 6.5 (5.0-8.0); URINE APPEARANCE CLEAR; URINE BACTERIA 0.8 /hpf (NEGATIVE); URINE BILIRUBIN NEGATIVE (NEGATIVE); URINE COLOR YELLOW; URINE GLUCOSE (UA) 3+ (NEGATIVE); URINE KETONE NEGATIVE (NEGATIVE); URINE LEUK ESTERASE NEGATIVE (NEGATIVE); URINE NITRITE NEGATIVE (NEGATIVE); URINE PROTEIN NEGATIVE (NEGATIVE); URINE RBC 5 /hpf (0-4); URINE UROBILINOGEN 0.2 mg/dL (0.2-1.0); URINE WBC 1 /hpf (0-5)
[2019-05-27] MEDS ORDERED: PIPERACILLIN/TAZOBACTAM 3.375 GM VIAL IVPB ONE ×3 (01:53→17:16)
[2019-05-27] MEDS ORDERED: DEXTROSE 5%-WATER - 50 ML IVPB ONE ×3 (01:54→17:17)
[2019-05-27] MEDS: PIPERACILLIN/TAZOB 3.375 GM 3.375 GM in DEXTROSE 5%-WATER - 50 ML IVPB SCH ×3 (01:57→17:47)
[2019-05-27] MEDS: methylPREDNISolone NA SUCC 40 MG/1 ML VIAL IVPUSH SCH ×4 (02:56→21:19)
[2019-05-27] MEDS: GABAPENTIN 300 MG CAPSULE (FP) PO SCH ×3 (06:00→21:19)
[2019-05-27] MEDS: CYCLOBENZAPRINE HCL 5 MG TABLET PO SCH ×3 (06:00→21:19)
[2019-05-27] MEDS: ALBUTEROL SO4 2.5/IPRATROPIUM 0.5 INH SOL 3 ML VIAL.NEB. NEB SCH ×4 (07:30→21:02)
[2019-05-27 09:34] LABS: BASO % 0.2 % (0-2.0); HEMATOCRIT 40.6 % (32.4-45.2); HEMOGLOBIN 13.5 GM/dL (10.7-15.3); LYMPH % 19.3 % (8-40); MCH 31.2 pg (25.7-33.7); MCHC 33.2 g/dl (32.0-36.0); MEAN CELL VOLUME 93.8 fl (80-96); MEAN PLT VOLUME 9.4 fl (7.5-11.1); MONO % 6.3 % (3.8-10.2); NEUT % 74.2 % (42.8-82.8); PLATELET COUNT 193 K/MM3 (134-434); RBC 4.33 M/mm3 (3.60-5.2); RDW 13.7 % (11.6-15.6)
[2019-05-27] MEDS: amLODIPine BESYLATE 5 MG TABLET (FP) PO SCH (09:49)
[2019-05-27] MEDS: QUEtiapine FUMARATE 100 MG TABLET (FP) PO SCH (09:49)
[2019-05-27] MEDS: BUPRENORPHINE/NALOXONE 8 MG/2 MG FILM PACKET SL SCH (09:49)
[2019-05-27] MEDS: HEPARIN NA (PORCINE) 5,000 UNITS/ML 1ML VIAL SQ SCH ×2 (09:49→21:19)
[2019-05-27] MEDS: PANTOPRAZOLE 40 MG TABLET (FP) PO SCH (09:49)
[2019-05-27 09:57] LABS: ALBUMIN 4.1 g/dl (3.4-5.0); BILIRUBIN,TOTAL 0.2 mg/dL (0.2-1); BLOOD UREA NITROGEN 16.4 mg/dL (7-18); CALCIUM 9.8 mg/dL (8.5-10.1); CREATININE 0.8 mg/dL (0.55-1.3); MAGNESIUM 2.5 mg/dL (1.8-2.4); TOT PROT 7.8 g/dl (6.4-8.2)
[2019-05-27] MEDS ORDERED: PT OWN MED DRAWER 7, Y5N ONE ×2 (10:04→13:34)
[2019-05-27] MEDS: NICOTINE 21 MG/24 HOURS TOPICAL PATCH TD SCH (10:06)
[2019-05-27] MEDS: CHLORTHALIDONE 25 MG TABLET PO SCH (10:06)
[2019-05-27] MEDS ORDERED: ACETAMINOPHEN 325 MG TABLET (FP) PO PRN (10:53)
--- NOTE | 2019-05-27 11:41 | PN ---
Progress Note (short form) - Note Progress Note: In the atrium with her son. Feels a little better today. Still with congested cough, short of breath, and wheezing. Intake & Output 05/24/19 05/25/19 05/26/19 05/27/19 23:59 23:59 23:59 23:59 Intake Total 500 980 550 880 Balance 500 980 550 880 Weight 285 lb 296 lb 6 oz 299 lb 4 oz 298 lb Last Vital Signs Temp Pulse Resp BP Pulse Ox 97.9 F 66 20 147/74 91 L 05/27/19 05:51 05/27/19 05:51 05/27/19 05:51 05/27/19 05:51 05/26/19 21:00 Active Medications Acetaminophen (Tylenol -) 650 mg PO Q6H PRN PRN Reason: Fever Albuterol Sulfate (Ventolin 0.083% Nebulizer Soln -) 1 amp NEB Q4H PRN PRN Reason: SHORT OF BREATH/WHEEZING Last Admin: 05/26/19 03:22 Dose: 1 amp Albuterol/Ipratropium (Duoneb -) 1 amp NEB RQID [facility] Last Admin: 05/27/19 07:30 Dose: 1 amp Amlodipine Besylate (Norvasc -) 5 mg PO DAILY [facility] Last Admin: 05/27/19 09:49 Dose: 5 mg Buprenorphine/Naloxone (Suboxone 8 Mg/2 Mg Film Packet) 1 each SL DAILY [facility] Stop: 06/06/19 10:01 Last Admin: 05/27/19 09:49 Dose: 1 each Chlorthalidone (Hygroton -) 25 mg PO DAILY [facility] Last Admin: 05/27/19 10:06 Dose: 25 mg Colloidal Oatmeal (Aveeno Soap -) 1 applic TP DAILY PRN PRN Reason: HYGEINE Cyclobenzaprine HCl (Cyclobenzaprine Hcl) 5 mg PO TID [facility] Last Admin: 05/27/19 06:00 Dose: 5 mg Gabapentin (Neurontin -) 300 mg PO TID [facility] Last Admin: 05/27/19 06:00 Dose: 300 mg Heparin Sodium (Porcine) (Heparin -) 5,000 unit SQ BID [facility] Last Admin: 05/27/19 09:49 Dose: 5,000 unit Piperacillin Sod/Tazobactam (Sod 3.375 gm/ Dextrose) 50 mls @ 100 mls/hr IVPB Q8H-IV [facility]; Protocol Last Admin: 05/27/19 09:48 Dose: 100 mls/hr Methylprednisolone Sodium Succinate (Solu-Medrol -) 40 mg IVPUSH Q6H-IV [facility] Last Admin: 05/27/19 09:48 Dose: 40 mg Miconazole Nitrate (Monistat-7 Vaginal Cream -) 1 applic PV HS [facility] Last Admin: 05/26/19 21:10 Dose: 1 applic Mirtazapine (Remeron -) 15 mg PO HS [facility] Last Admin: 05/26/19 21:09 Dose: 15 mg Montelukast Sodium (Singulair -) 10 mg PO DAILY@1800 [facility] Last Admin: 05/26/19 17:54 Dose: 10 mg Nicotine (Nicoderm Patch -) 21 mg TD DAILY [facility] Stop: 07/04/19 10:01 Last Admin: 05/27/19 10:06 Dose: 21 mg Pantoprazole Sodium (Protonix -) 40 mg PO DAILY [facility] Last Admin: 05/27/19 09:49 Dose: 40 mg Quetiapine Fumarate (Seroquel -) 200 mg PO HS [facility] Last Admin: 05/26/19 21:09 Dose: 200 mg Quetiapine Fumarate (Seroquel -) 100 mg PO DAILY [facility] Last Admin: 05/27/19 09:49 Dose: 100 mg Gen: NAD at rest Heart: RRR Lung: scattered rhonchi and wheeze Abd: soft, nontender Ext: no edema Laboratory Results - last 24 hr 05/26/19 05/27/19 05/27/19 23:00 08:12 08:12 WBC 12.0 H RBC 4.33 Hgb 13.5 Hct 40.6 MCV 93.8 MCH 31.2 MCHC 33.2 RDW 13.7 Plt Count 193 MPV 9.4 Absolute Neuts (auto) 8.9 H Neutrophils % 74.2 Lymphocytes % 19.3 D Monocytes % 6.3 Eosinophils % 0.0 D Basophils % 0.2 Nucleated RBC % 0 Sodium 137 Potassium 4.0 Chloride 100 Carbon Dioxide 29 Anion Gap 8 BUN 16.4 Creatinine 0.8 Est GFR (CKD-EPI)AfAm 92.22 Est GFR (CKD-EPI)NonAf 79.57 Random Glucose 160 H Calcium 9.8 Magnesium 2.5 H Total Bilirubin 0.2 AST 11 L ALT 24 Alkaline Phosphatase 99 Total Protein 7.8 Albumin 4.1 Urine Color Yellow Urine Appearance Clear Urine pH 6.5 Ur Specific [place] 1.023 Urine Protein Negative Urine Glucose (UA) 3+ H Urine Ketones Negative Urine Blood Trace Urine Nitrite Negative Urine Bilirubin Negative Urine Urobilinogen 0.2 Ur Leukocyte Esterase Negative Urine WBC (Auto) 1 Urine RBC (Auto) 5 Urine Casts (Auto) 1 U Epithel Cells (Auto) 3.6 Urine Bacteria (Auto) 0.8 A/P Acute COPD Exacerbation Pneumonia HTN Smoker Suspected ENRIQUE - continue medrol at current dose - inhaled bronchodilators - O2 to keep SpO2 >90% - check ambulatory room air SpO2 when ready for discharge to assess for home O2 - smoking cessation - outpt PFTs, NPSG - outpt f/u of chest imaging - DVT prophylaxis Dr Ritter
[2019-05-27 13:17] LABS: ANISOCYTOSIS 0; MACROCYTOSIS 0; PLATELET ESTIMATE NORMAL
[2019-05-27 13:39] LABS: TOXIC GRANULATION 1+
--- NOTE | 2019-05-27 13:53 | PN ---
Progress Note, Physician History of Present Illness: Pt is alert, afebrile. States she has improved overall since admission. Was able to ambulate in the [place] and take a shower today with less SOB. Still c/o intermittent cough. - Current Medication List Current Medications: Active Medications Acetaminophen (Tylenol -) 650 mg PO Q6H PRN PRN Reason: Fever Last Admin: 05/27/19 13:38 Dose: 650 mg Albuterol Sulfate (Ventolin 0.083% Nebulizer Soln -) 1 amp NEB Q4H PRN PRN Reason: SHORT OF BREATH/WHEEZING Last Admin: 05/26/19 03:22 Dose: 1 amp Albuterol/Ipratropium (Duoneb -) 1 amp NEB RQID [facility] Last Admin: 05/27/19 11:35 Dose: 1 amp Amlodipine Besylate (Norvasc -) 5 mg PO DAILY [facility] Last Admin: 05/27/19 09:49 Dose: 5 mg Buprenorphine/Naloxone (Suboxone 8 Mg/2 Mg Film Packet) 1 each SL DAILY [facility] Stop: 06/06/19 10:01 Last Admin: 05/27/19 09:49 Dose: 1 each Chlorthalidone (Hygroton -) 25 mg PO DAILY [facility] Last Admin: 05/27/19 10:06 Dose: 25 mg Colloidal Oatmeal (Aveeno Soap -) 1 applic TP DAILY PRN PRN Reason: HYGEINE Cyclobenzaprine HCl (Cyclobenzaprine Hcl) 5 mg PO TID [facility] Last Admin: 05/27/19 13:41 Dose: 5 mg Gabapentin (Neurontin -) 300 mg PO TID [facility] Last Admin: 05/27/19 13:37 Dose: 300 mg Heparin Sodium (Porcine) (Heparin -) 5,000 unit SQ BID [facility] Last Admin: 05/27/19 09:49 Dose: 5,000 unit Piperacillin Sod/Tazobactam (Sod 3.375 gm/ Dextrose) 50 mls @ 100 mls/hr IVPB Q8H-IV [facility]; Protocol Last Admin: 05/27/19 09:48 Dose: 100 mls/hr Methylprednisolone Sodium Succinate (Solu-Medrol -) 40 mg IVPUSH Q6H-IV [facility] Last Admin: 05/27/19 09:48 Dose: 40 mg Miconazole Nitrate (Monistat-7 Vaginal Cream -) 1 applic PV HS [facility] Last Admin: 05/26/19 21:10 Dose: 1 applic Mirtazapine (Remeron -) 15 mg PO [facility] Last Admin: 05/26/19 21:09 Dose: 15 mg Montelukast Sodium (Singulair -) 10 mg PO DAILY@1800 COUNTS INCLUDE 234 BEDS AT THE [facility] Last Admin: 05/26/19 17:54 Dose: 10 mg Nicotine (Nicoderm Patch -) 21 mg TD DAILY [facility]S INCLUDE 234 BEDS AT THE [facility] Stop: 07/04/19 10:01 Last Admin: 05/27/19 10:06 Dose: 21 mg Pantoprazole Sodium (Protonix -) 40 mg PO DAILY [facility]CLUDE 234 BEDS AT THE [facility] Last Admin: 05/27/19 09:49 Dose: 40 mg Quetiapine Fumarate (Seroquel -) 200 mg PO [facility] Last Admin: 05/26/19 21:09 Dose: 200 mg Quetiapine Fumarate (Seroquel -) 100 mg PO DAILY [facility] INCLUDE 234 BEDS AT THE [facility] Last Admin: 05/27/19 09:49 Dose: 100 mg - Objective Vital Signs: Vital Signs Temperature 97.9 F 05/27/19 05:51 Pulse Rate 66 05/27/19 05:51 Respiratory Rate 20 05/27/19 05:51 Blood Pressure 147/74 05/27/19 05:51 O2 Sat by Pulse Oximetry (%) 91 L 05/26/19 21:00 Constitutional: Yes: No Distress, Calm Cardiovascular: Yes: Regular Rate and Rhythm Respiratory: Yes: Wheezes Gastrointestinal: Yes: Normal Bowel Sounds, Soft, Abdomen, Obese Integumentary: Yes: WNL Neurological: Yes: Alert, Oriented Labs: CBC, BMP 05/27/19 08:12 05/27/19 08:12 INR, PTT INR 0.99 (0.83-1.09) 05/25/19 08:00 Microbiology 05/24/19 15:39 Sputum - Expectorated Gram Stain - Final 05/24/19 15:39 Sputum - Expectorated Sputum Culture - Final NORMAL RESPIRATORY CRUZITO 05/24/19 09:54 Blood - Peripheral Venous Blood Culture - Preliminary NO GROWTH OBTAINED AFTER 72 HOURS, INCUBATION TO CONTINUE FOR 2 DAYS. 05/24/19 09:34 Blood - Peripheral Venous Blood Culture - Preliminary NO GROWTH OBTAINED AFTER 72 HOURS, INCUBATION TO CONTINUE FOR 2 DAYS. - ....Imaging Chest X-ray: Report Reviewed Problem List - Problems (1) COPD with acute exacerbation Code(s): J44.1 - CHRONIC OBSTRUCTIVE PULMONARY DISEASE W (ACUTE) EXACERBATION (2) Hypoxemia Code(s): R09.02 - HYPOXEMIA (3) Pneumonia Code(s): J18.9 - PNEUMONIA, UNSPECIFIED ORGANISM Qualifiers: Pneumonia type: due to Mycoplasma pneumoniae (4) Respiratory failure with hypoxia Code(s): J96.91 - RESPIRATORY FAILURE, UNSPECIFIED WITH HYPOXIA (5) Hypertension Code(s): I10 - ESSENTIAL (PRIMARY) HYPERTENSION (6) Bipolar disorder Code(s): F31.9 - BIPOLAR DISORDER, UNSPECIFIED Qualifiers: Active/Remission status: remission status unspecified Qualified Code(s): F31.9 - Bipolar disorder, unspecified (7) GERD (gastroesophageal reflux disease) Code(s): K21.9 - GASTRO-ESOPHAGEAL REFLUX DISEASE WITHOUT ESOPHAGITIS Qualifiers: Esophagitis presence: without esophagitis Qualified Code(s): K21.9 - Gastro -esophageal reflux disease without esophagitis (8) Nicotine dependence Code(s): F17.200 - NICOTINE DEPENDENCE, UNSPECIFIED, UNCOMPLICATED Qualifiers: Nicotine product type: cigarettes Substance use status: uncomplicated Qualified Code(s): F17.210 - Nicotine dependence, cigarettes, uncomplicated (9) Obesity (BMI 30-39.9) Code(s): E66.9 - OBESITY, UNSPECIFIED (10) Opioid dependence Code(s): F11.20 - OPIOID DEPENDENCE, UNCOMPLICATED Qualifiers: Substance use status: uncomplicated Qualified Code(s): F11.20 - Opioid dependence, uncomplicated Assessment/Plan Pt appears to be slightly improving Continue antibiotics On medrol Monitor closely
--- NOTE | 2019-05-27 14:35 | PN ---
Progress Note, Physician Chief Complaint: improved, and less sob, - Current Medication List Current Medications: Active Medications Acetaminophen (Tylenol -) 650 mg PO Q6H PRN PRN Reason: Fever Last Admin: 05/27/19 13:38 Dose: 650 mg Albuterol Sulfate (Ventolin 0.083% Nebulizer Soln -) 1 amp NEB Q4H PRN PRN Reason: SHORT OF BREATH/WHEEZING Last Admin: 05/26/19 03:22 Dose: 1 amp Albuterol/Ipratropium (Duoneb -) 1 amp NEB RQID [facility] Last Admin: 05/27/19 11:35 Dose: 1 amp Amlodipine Besylate (Norvasc -) 5 mg PO DAILY [facility] Last Admin: 05/27/19 09:49 Dose: 5 mg Buprenorphine/Naloxone (Suboxone 8 Mg/2 Mg Film Packet) 1 each SL DAILY [facility] Stop: 06/06/19 10:01 Last Admin: 05/27/19 09:49 Dose: 1 each Chlorthalidone (Hygroton -) 25 mg PO DAILY [facility] Last Admin: 05/27/19 10:06 Dose: 25 mg Colloidal Oatmeal (Aveeno Soap -) 1 applic TP DAILY PRN PRN Reason: HYGEINE Cyclobenzaprine HCl (Cyclobenzaprine Hcl) 5 mg PO TID [facility] Last Admin: 05/27/19 13:41 Dose: 5 mg Gabapentin (Neurontin -) 300 mg PO TID [facility] Last Admin: 05/27/19 13:37 Dose: 300 mg Heparin Sodium (Porcine) (Heparin -) 5,000 unit SQ BID [facility] Last Admin: 05/27/19 09:49 Dose: 5,000 unit Piperacillin Sod/Tazobactam (Sod 3.375 gm/ Dextrose) 50 mls @ 100 mls/hr IVPB Q8H-IV [facility]; Protocol Last Admin: 05/27/19 09:48 Dose: 100 mls/hr Methylprednisolone Sodium Succinate (Solu-Medrol -) 40 mg IVPUSH Q6H-IV [facility] Last Admin: 05/27/19 09:48 Dose: 40 mg Miconazole Nitrate (Monistat-7 Vaginal Cream -) 1 applic PV HS [facility] Last Admin: 05/26/19 21:10 Dose: 1 applic Mirtazapine (Remeron -) 15 mg PO HS [facility] Last Admin: 05/26/19 21:09 Dose: 15 mg Montelukast Sodium (Singulair -) 10 mg PO DAILY@1800 [facility] Last Admin: 05/26/19 17:54 Dose: 10 mg Nicotine (Nicoderm Patch -) 21 mg TD DAILY [facility] Stop: 07/04/19 10:01 Last Admin: 05/27/19 10:06 Dose: 21 mg Pantoprazole Sodium (Protonix -) 40 mg PO DAILY [facility] Last Admin: 05/27/19 09:49 Dose: 40 mg Quetiapine Fumarate (Seroquel -) 200 mg PO HS [facility] Last Admin: 05/26/19 21:09 Dose: 200 mg Quetiapine Fumarate (Seroquel -) 100 mg PO DAILY [facility] Last Admin: 05/27/19 09:49 Dose: 100 mg - Objective Vital Signs: Vital Signs Temperature 97.9 F 05/27/19 05:51 Pulse Rate 66 05/27/19 05:51 Respiratory Rate 20 05/27/19 05:51 Blood Pressure 147/74 05/27/19 05:51 O2 Sat by Pulse Oximetry (%) 91 L 05/26/19 21:00 Constitutional: Yes: Well Nourished Eyes: Yes: WNL, EOM Intact Neck: Yes: Supple, Trachea Midline Cardiovascular: Yes: Regular Rate and Rhythm Respiratory: Yes: CTA Bilaterally Edema: No Neurological: Yes: WNL Labs: CBC, BMP 05/27/19 08:12 05/27/19 08:12 INR, PTT INR 0.99 (0.83-1.09) 05/25/19 08:00 Impression/Plan Impression/Plan: mayra List - Problems COPD with acute exacerbation Code(s): J44.1 - CHRONIC OBSTRUCTIVE PULMONARY DISEASE W (ACUTE) EXACERBATION Hypoxemia Code(s): R09.02 - HYPOXEMIA Pneumonia Code(s): J18.9 - PNEUMONIA, UNSPECIFIED ORGANISM continue abx, Respiratory failure with hypoxia continue medrol taper, and o2, Hypertension Code(s): I10 - ESSENTIAL (PRIMARY) HYPERTENSION Bipolar disorder Ccontinue meds, GERD (gastroesophageal reflux disease) Code(s): K21.9 - GASTRO-ESOPHAGEAL REFLUX DISEASE WITHOUT ESOPHAGITIS stable, Opioid dependence Code(s): F11.20 - OPIOID DEPENDENCE, UNCOMPLICATED continue current meds, Visit type - Emergency Visit Emergency Visit: No - New Patient This patient is new to me today: Yes Date on this admission: 05/27/19 - Critical Care Critical Care patient: No - Discharge Referral Referred to [facility] Med P.C.: No
[2019-05-27] MEDS: MONTELUKAST NA 10 MG TABLET PO SCH (17:46)
[2019-05-27] MEDS: MICONAZOLE NITRATE 2% VAGINAL CREAM 45 GM TUBE PV SCH (21:19)
[2019-05-27] MEDS: MIRTAZAPINE 15 MG TABLET (FP) PO SCH (21:19)
[2019-05-27] MEDS: QUEtiapine FUMARATE 200 MG TABLET PO SCH (21:19)
[2019-05-28] MEDS ORDERED: DEXTROSE 5%-WATER - 50 ML IVPB ONE ×3 (01:27→17:30)
[2019-05-28] MEDS ORDERED: PIPERACILLIN/TAZOBACTAM 3.375 GM VIAL IVPB ONE ×3 (01:27→17:30)
[2019-05-28] MEDS: PIPERACILLIN/TAZOB 3.375 GM 3.375 GM in DEXTROSE 5%-WATER - 50 ML IVPB SCH ×3 (01:36→18:30)
[2019-05-28] MEDS: methylPREDNISolone NA SUCC 40 MG/1 ML VIAL IVPUSH SCH ×4 (02:16→21:41)
[2019-05-28] MEDS: CYCLOBENZAPRINE HCL 5 MG TABLET PO SCH ×3 (05:42→21:47)
[2019-05-28] MEDS: GABAPENTIN 300 MG CAPSULE (FP) PO SCH ×3 (05:42→21:41)
[2019-05-28] MEDS: ALBUTEROL SO4 2.5/IPRATROPIUM 0.5 INH SOL 3 ML VIAL.NEB. NEB SCH ×4 (07:40→21:51)
[2019-05-28 07:54] LABS: BASO % 0.2 % (0-2.0); EOS % 0.1 % (0-4.5); HEMATOCRIT 41.7 % (32.4-45.2); HEMOGLOBIN 14.2 GM/dL (10.7-15.3); LYMPH % 12.4 % (8-40); MCH 31.6 pg (25.7-33.7); MCHC 34.2 g/dl (32.0-36.0); MEAN CELL VOLUME 92.4 fl (80-96); MEAN PLT VOLUME 8.9 fl (7.5-11.1); MONO % 4.9 % (3.8-10.2); NEUT % 82.4 % (42.8-82.8); PLATELET COUNT 223 K/MM3 (134-434); RBC 4.51 M/mm3 (3.60-5.2); RDW 13.4 % (11.6-15.6); WHITE BLOOD COUNT 11.7 K/mm3 (4.0-10.0)
[2019-05-28 07:59] LABS: ALBUMIN 3.9 g/dl (3.4-5.0); BILIRUBIN,TOTAL 0.3 mg/dL (0.2-1); CALCIUM 9.7 mg/dL (8.5-10.1); CREATININE 0.9 mg/dL (0.55-1.3); POTASSIUM 4.2 mmol/L (3.5-5.1); TOT PROT 7.9 g/dl (6.4-8.2)
[2019-05-28] MEDS: amLODIPine BESYLATE 5 MG TABLET (FP) PO SCH (09:31)
[2019-05-28] MEDS: HEPARIN NA (PORCINE) 5,000 UNITS/ML 1ML VIAL SQ SCH ×2 (09:31→21:41)
[2019-05-28] MEDS: BUPRENORPHINE/NALOXONE 8 MG/2 MG FILM PACKET SL SCH (09:31)
[2019-05-28] MEDS: QUEtiapine FUMARATE 100 MG TABLET (FP) PO SCH (09:31)
[2019-05-28] MEDS: PANTOPRAZOLE 40 MG TABLET (FP) PO SCH (09:31)
[2019-05-28] MEDS: NICOTINE 21 MG/24 HOURS TOPICAL PATCH TD SCH (09:32)
[2019-05-28] MEDS ORDERED: PT OWN MED DRAWER 7, Y5N ONE (09:34)
[2019-05-28] MEDS: CHLORTHALIDONE 25 MG TABLET PO SCH (09:35)
[2019-05-28 10:11] LABS: ANISOCYTOSIS 0; MACROCYTOSIS 0; PLATELET ESTIMATE NORMAL
--- NOTE | 2019-05-28 10:21 | PN ---
Physical Exam: SUBJECTIVE: Patient seen and examined. She feels short of breath at rest and worse with minimal exertion. OBJECTIVE: Vital Signs Period Temp Pulse Resp BP Sys/Steinberg Pulse Ox Last 24 Hr 97.8 F-98 F 65-78 20-20 154-154/71-88 93 GENERAL: The patient is awake, alert, and fully oriented, in no acute distress. LUNGS: Breath sounds equal, diffuse rhonchi and wheezes, no accessory muscle use. HEART: Regular rate and rhythm, S1, S2 without murmur, rub or gallop. ABDOMEN: Obese, soft, nontender, nondistended, normoactive bowel sounds, no guarding, no rebound, no hepatosplenomegaly, no masses. EXTREMITIES: 2+ pulses, warm, well-perfused, no edema. Laboratory Results - last 24 hr 05/27/19 05/28/19 05/28/19 08:12 07:15 07:15 WBC 11.7 H RBC 4.51 Hgb 14.2 Hct 41.7 MCV 92.4 MCH 31.6 MCHC 34.2 RDW 13.4 Plt Count 223 MPV 8.9 Absolute Neuts (auto) 9.7 H Neutrophils % 82.4 Neutrophils % (Manual) 75.3 Band Neutrophils % 0.0 Lymphocytes % 12.4 D Lymphocytes % (Manual) 18.5 Monocytes % 4.9 Monocytes % (Manual) 4 Eosinophils % 0.1 D Eosinophils % (Manual) 0.0 Basophils % 0.2 Basophils % (Manual) 0.0 Myelocytes % (Man) 2 Promyelocytes % (Man) 0 Blast Cells % (Manual) 0 Nucleated RBC % 0 Metamyelocytes 0 Hypochromia 0 Toxic Granulation 1+ Platelet Estimate Normal Polychromasia 0 Poikilocytosis 0 Anisocytosis 0 Microcytosis 0 Macrocytosis 0 Sodium 135 L Potassium 4.2 Chloride 99 Carbon Dioxide 27 Anion Gap 9 BUN 18.0 Creatinine 0.9 Est GFR (CKD-EPI)AfAm 79.98 Est GFR (CKD-EPI)NonAf 69.01 Random Glucose 254 H Calcium 9.7 Total Bilirubin 0.3 AST 9 L ALT 23 Alkaline Phosphatase 110 Total Protein 7.9 Albumin 3.9 Active Medications Generic Name Dose Route Start Last Admin Trade Name Freq PRN Reason Stop Dose Admin Acetaminophen 650 mg 05/27/19 10:53 05/27/19 13:38 Tylenol - PO 650 mg Q6H PRN Administration Fever Albuterol Sulfate 1 amp 05/24/19 16:05 05/26/19 03:22 Ventolin 0.083% Nebulizer Soln - NEB 1 amp Q4H PRN Administration SHORT OF BREATH/WHEEZING Albuterol/Ipratropium 1 amp 05/24/19 16:00 05/28/19 07:40 Duoneb - NEB 1 amp RQID [facility] Administration Amlodipine Besylate 5 mg 05/25/19 14:00 05/28/19 09:31 Norvasc - PO 5 mg DAILY [facility] Administration Buprenorphine/Naloxone 1 each 05/24/19 18:15 05/28/19 09:31 Suboxone 8 Mg/2 Mg Film Packet SL 06/06/19 10:01 1 each DAILY [facility] Administration Chlorthalidone 25 mg 05/24/19 14:00 05/28/19 09:35 Hygroton - PO 25 mg DAILY [facility] Administration Colloidal Oatmeal 1 applic 05/25/19 13:06 Aveeno Soap - TP DAILY PRN HYGEINE Cyclobenzaprine HCl 5 mg 05/26/19 14:00 05/28/19 05:42 Cyclobenzaprine Hcl PO 5 mg TID [facility] Administration Gabapentin 300 mg 05/24/19 14:00 05/28/19 05:42 Neurontin - PO 300 mg TID [facility] Administration Heparin Sodium (Porcine) 5,000 unit 05/24/19 22:00 05/28/19 09:31 Heparin - SQ 5,000 unit BID [facility] Administration Piperacillin Sod/Tazobactam 50 mls @ 100 mls/hr 05/24/19 13:30 05/28/19 09:31 Sod 3.375 gm/ Dextrose IVPB 100 mls/hr Q8H-IV [facility] Administration Protocol Methylprednisolone Sodium Succinate 40 mg 05/24/19 16:00 05/28/19 09:31 Solu-Medrol - IVPUSH 40 mg Q6H-IV [facility] Administration Miconazole Nitrate 1 applic 05/25/19 22:00 05/27/19 21:19 Monistat-7 Vaginal Cream - PV 1 applic HS [facility] Administration Mirtazapine 15 mg 05/24/19 22:00 05/27/19 21:19 Remeron - PO 15 mg HS [facility] Administration Montelukast Sodium 10 mg 05/24/19 18:00 05/27/19 17:46 Singulair - PO 10 mg DAILY@1800 [facility] Administration Nicotine 21 mg 05/24/19 17:45 05/28/19 09:32 Nicoderm Patch - TD 07/04/19 10:01 21 mg DAILY [facility] Administration Pantoprazole Sodium 40 mg 05/24/19 14:00 05/28/19 09:31 Protonix - PO 40 mg DAILY [facility] Administration Quetiapine Fumarate 200 mg 05/24/19 22:00 05/27/19 21:19 Seroquel - PO 200 mg HS [facility] Administration Quetiapine Fumarate 100 mg 05/24/19 14:00 05/28/19 09:31 Seroquel - PO 100 mg DAILY [facility] Administration ASSESSMENT/PLAN: This is a 63 year old woman with a history of HTN, bipolar disorder, opioid dependence, obesity, possible ENRIQUE, nicotine dependence who presented to the ED with worsening shortness of breath. 1. Acute hypoxic respiratory failure and acute exacerbation of COPD secondary to pneumonia - Continue SoluMedrol, Singulair, DuoNeb, Zosyn - Oxygen to maintain saturation >90% - Add Mucinex 2. Hypertension - Continue Norvasc, Chlorthalidone 3. Bipolar disorder - Continue Seroquel, Remeron 4. Morbid obesity with BMI 41.0 5. GERD - Continue Protonix 6. Opioid dependence - Continue Suboxone 7. Nicotine dependence - Continue nicotine patch Visit type - Emergency Visit Emergency Visit: Yes ED Registration Date: 05/24/19 Care time: The patient presented to the Emergency Department on the above date and was hospitalized for further evaluation of their emergent condition. - New Patient This patient is new to me today: Yes Date on this admission: 05/28/19 - Critical Care Critical Care patient: No - Discharge Referral Referred to [facility] Med P.C.: No
--- NOTE | 2019-05-28 11:54 | PN ---
Progress Note (short form) - Note Progress Note: Still with significant congestion and cough. Breathing feels the same. Still with short of breath. Intake & Output 05/25/19 05/26/19 05/27/19 05/28/19 23:59 23:59 23:59 23:59 Intake Total 122 090 5039 870 Balance 320 734 7635 870 Weight 296 lb 6 oz 299 lb 4 oz 298 lb 294 lb Last Vital Signs Temp Pulse Resp BP Pulse Ox 97.8 F 65 20 154/88 93 L 05/28/19 04:43 05/28/19 04:43 05/28/19 04:43 05/28/19 04:43 05/27/19 21:00 Active Medications Acetaminophen (Tylenol -) 650 mg PO Q6H PRN PRN Reason: Fever Last Admin: 05/27/19 13:38 Dose: 650 mg Albuterol Sulfate (Ventolin 0.083% Nebulizer Soln -) 1 amp NEB Q4H PRN PRN Reason: SHORT OF BREATH/WHEEZING Last Admin: 05/26/19 03:22 Dose: 1 amp Albuterol/Ipratropium (Duoneb -) 1 amp NEB RQID [facility] Last Admin: 05/28/19 07:40 Dose: 1 amp Amlodipine Besylate (Norvasc -) 5 mg PO DAILY [facility] Last Admin: 05/28/19 09:31 Dose: 5 mg Buprenorphine/Naloxone (Suboxone 8 Mg/2 Mg Film Packet) 1 each SL DAILY [facility] Stop: 06/06/19 10:01 Last Admin: 05/28/19 09:31 Dose: 1 each Chlorthalidone (Hygroton -) 25 mg PO DAILY [facility] Last Admin: 05/28/19 09:35 Dose: 25 mg Colloidal Oatmeal (Aveeno Soap -) 1 applic TP DAILY PRN PRN Reason: HYGEINE Cyclobenzaprine HCl (Cyclobenzaprine Hcl) 5 mg PO TID [facility] Last Admin: 05/28/19 05:42 Dose: 5 mg Gabapentin (Neurontin -) 300 mg PO TID [facility] Last Admin: 05/28/19 05:42 Dose: 300 mg Guaifenesin (Mucinex -) 600 mg PO BID [facility] Heparin Sodium (Porcine) (Heparin -) 5,000 unit SQ BID [facility] Last Admin: 12/08/19 09:31 Dose: 5,000 unit Piperacillin Sod/Tazobactam (Sod 3.375 gm/ Dextrose) 50 mls @ 100 mls/hr IVPB Q8H-IV [facility]; Protocol Last Admin: 05/28/19 09:31 Dose: 100 mls/hr Methylprednisolone Sodium Succinate (Solu-Medrol -) 40 mg IVPUSH Q6H-IV [facility] Last Admin: 05/28/19 09:31 Dose: 40 mg Miconazole Nitrate (Monistat-7 Vaginal Cream -) 1 applic PV HS [facility] Last Admin: 05/27/19 21:19 Dose: 1 applic Mirtazapine (Remeron -) 15 mg PO HS [facility] Last Admin: 05/27/19 21:19 Dose: 15 mg Montelukast Sodium (Singulair -) 10 mg PO DAILY@1800 [facility] Last Admin: 05/27/19 17:46 Dose: 10 mg Nicotine (Nicoderm Patch -) 21 mg TD DAILY [facility] Stop: 07/04/19 10:01 Last Admin: 05/28/19 09:32 Dose: 21 mg Pantoprazole Sodium (Protonix -) 40 mg PO DAILY [facility] Last Admin: 05/28/19 09:31 Dose: 40 mg Quetiapine Fumarate (Seroquel -) 200 mg PO HS [facility] Last Admin: 05/27/19 21:19 Dose: 200 mg Quetiapine Fumarate (Seroquel -) 100 mg PO DAILY [facility] Last Admin: 05/28/19 09:31 Dose: 100 mg Gen: Mildly tachypneic at rest Heart: RRR Lung: scattered rhonchi and wheeze Abd: soft, nontender Ext: no edema Laboratory Results - last 24 hr 05/27/19 05/28/19 05/28/19 08:12 07:15 07:15 WBC 11.7 H RBC 4.51 Hgb 14.2 Hct 41.7 MCV 92.4 MCH 31.6 MCHC 34.2 RDW 13.4 Plt Count 223 MPV 8.9 Absolute Neuts (auto) 9.7 H Neutrophils % 82.4 Neutrophils % (Manual) 75.3 77.0 Band Neutrophils % 0.0 1.0 Lymphocytes % 12.4 D Lymphocytes % (Manual) 18.5 14.0 D Monocytes % 4.9 Monocytes % (Manual) 4 5 Eosinophils % 0.1 D Eosinophils % (Manual) 0.0 0.0 Basophils % 0.2 Basophils % (Manual) 0.0 0.0 Myelocytes % (Man) 2 1 D Promyelocytes % (Man) 0 0 Blast Cells % (Manual) 0 0 Nucleated RBC % 0 Metamyelocytes 0 0 Hypochromia 0 0 Toxic Granulation 1+ Platelet Estimate Normal Normal Polychromasia 0 0 Poikilocytosis 0 0 Anisocytosis 0 0 Microcytosis 0 0 Macrocytosis 0 0 Sodium 135 L Potassium 4.2 Chloride 99 Carbon Dioxide 27 Anion Gap 9 BUN 18.0 Creatinine 0.9 Est GFR (CKD-EPI)AfAm 79.98 Est GFR (CKD-EPI)NonAf 69.01 Random Glucose 254 H Calcium 9.7 Total Bilirubin 0.3 AST 9 L ALT 23 Alkaline Phosphatase 110 Total Protein 7.9 Albumin 3.9 A/P Acute COPD Exacerbation Pneumonia HTN Smoker Suspected ENRIQUE - Noted Mucinex ordered - continue medrol at current dose - inhaled bronchodilators - O2 to keep SpO2 >90% - check ambulatory room air SpO2 when ready for discharge to assess for home O2 - smoking cessation - outpt PFTs, NPSG - outpt f/u of chest imaging - DVT prophylaxis Dr Ritter
--- NOTE | 2019-05-28 14:45 | PN ---
Progress Note, Physician History of Present Illness: Pt states she still feels her chest is congested. Still with SOB but slightly less AGUIRRE. Has grayish sputum. Remains afebrile. - Current Medication List Current Medications: Active Medications Acetaminophen (Tylenol -) 650 mg PO Q6H PRN PRN Reason: Fever Last Admin: 05/27/19 13:38 Dose: 650 mg Albuterol Sulfate (Ventolin 0.083% Nebulizer Soln -) 1 amp NEB Q4H PRN PRN Reason: SHORT OF BREATH/WHEEZING Last Admin: 05/26/19 03:22 Dose: 1 amp Albuterol/Ipratropium (Duoneb -) 1 amp NEB RQID [facility] Last Admin: 05/28/19 11:35 Dose: 1 amp Amlodipine Besylate (Norvasc -) 5 mg PO DAILY [facility] Last Admin: 05/28/19 09:31 Dose: 5 mg Buprenorphine/Naloxone (Suboxone 8 Mg/2 Mg Film Packet) 1 each SL DAILY [facility] Stop: 06/06/19 10:01 Last Admin: 05/28/19 09:31 Dose: 1 each Chlorthalidone (Hygroton -) 25 mg PO DAILY [facility] Last Admin: 05/28/19 09:35 Dose: 25 mg Colloidal Oatmeal (Aveeno Soap -) 1 applic TP DAILY PRN PRN Reason: HYGEINE Cyclobenzaprine HCl (Cyclobenzaprine Hcl) 5 mg PO TID [facility] Last Admin: 05/28/19 05:42 Dose: 5 mg Gabapentin (Neurontin -) 300 mg PO TID [facility] Last Admin: 05/28/19 05:42 Dose: 300 mg Guaifenesin (Mucinex -) 600 mg PO BID [facility] Heparin Sodium (Porcine) (Heparin -) 5,000 unit SQ BID [facility] Last Admin: 05/28/19 09:31 Dose: 5,000 unit Piperacillin Sod/Tazobactam (Sod 3.375 gm/ Dextrose) 50 mls @ 100 mls/hr IVPB Q8H-IV [facility]; Protocol Last Admin: 05/28/19 09:31 Dose: 100 mls/hr Methylprednisolone Sodium Succinate (Solu-Medrol -) 40 mg IVPUSH Q6H-IV [facility] Last Admin: 05/28/19 09:31 Dose: 40 mg Miconazole Nitrate (Monistat-7 Vaginal Cream -) 1 applic PV [facility] Last Admin: 05/27/19 21:19 Dose: 1 applic Mirtazapine (Remeron -) 15 mg PO [facility] Last Admin: 05/27/19 21:19 Dose: 15 mg Montelukast Sodium (Singulair -) 10 mg PO DAILY@1800 [facility] Last Admin: 05/27/19 17:46 Dose: 10 mg Nicotine (Nicoderm Patch -) 21 mg TD DAILY [facility] Stop: 07/04/19 10:01 Last Admin: 05/28/19 09:32 Dose: 21 mg Pantoprazole Sodium (Protonix -) 40 mg PO DAILY [facility] Last Admin: 05/28/19 09:31 Dose: 40 mg Quetiapine Fumarate (Seroquel -) 200 mg PO [facility] Last Admin: 05/27/19 21:19 Dose: 200 mg Quetiapine Fumarate (Seroquel -) 100 mg PO DAILY [facility] Last Admin: 05/28/19 09:31 Dose: 100 mg - Objective Vital Signs: Vital Signs Temperature 97.8 F 05/28/19 04:43 Pulse Rate 65 05/28/19 04:43 Respiratory Rate 20 05/28/19 04:43 Blood Pressure 154/88 05/28/19 04:43 O2 Sat by Pulse Oximetry (%) 93 L 05/27/19 21:00 Constitutional: Yes: No Distress, Calm Cardiovascular: Yes: Regular Rate and Rhythm Respiratory: Yes: Rhonchi, Wheezes Gastrointestinal: Yes: Normal Bowel Sounds, Soft, Abdomen, Obese Genitourinary: Yes: WNL Integumentary: Yes: WNL Neurological: Yes: Alert, Oriented Labs: CBC, BMP 05/28/19 07:15 05/28/19 07:15 INR, PTT INR 0.99 (0.83-1.09) 05/25/19 08:00 Microbiology 05/24/19 09:54 Blood - Peripheral Venous Blood Culture - Preliminary NO GROWTH OBTAINED AFTER 96 HOURS, INCUBATION TO CONTINUE FOR 1 DAYS. 05/24/19 09:34 Blood - Peripheral Venous Blood Culture - Preliminary NO GROWTH OBTAINED AFTER 96 HOURS, INCUBATION TO CONTINUE FOR 1 DAYS. 05/24/19 15:39 Sputum - Expectorated Gram Stain - Final 05/24/19 15:39 Sputum - Expectorated Sputum Culture - Final NORMAL RESPIRATORY CRUZITO Problem List - Problems (1) COPD with acute exacerbation Code(s): J44.1 - CHRONIC OBSTRUCTIVE PULMONARY DISEASE W (ACUTE) EXACERBATION (2) Hypoxemia Code(s): R09.02 - HYPOXEMIA (3) Pneumonia Code(s): J18.9 - PNEUMONIA, UNSPECIFIED ORGANISM Qualifiers: Pneumonia type: due to Mycoplasma pneumoniae (4) Respiratory failure with hypoxia Code(s): J96.91 - RESPIRATORY FAILURE, UNSPECIFIED WITH HYPOXIA (5) Hypertension Code(s): I10 - ESSENTIAL (PRIMARY) HYPERTENSION (6) Bipolar disorder Code(s): F31.9 - BIPOLAR DISORDER, UNSPECIFIED Qualifiers: Active/Remission status: remission status unspecified Qualified Code(s): F31.9 - Bipolar disorder, unspecified (7) GERD (gastroesophageal reflux disease) Code(s): K21.9 - GASTRO-ESOPHAGEAL REFLUX DISEASE WITHOUT ESOPHAGITIS Qualifiers: Esophagitis presence: without esophagitis Qualified Code(s): K21.9 - Gastro -esophageal reflux disease without esophagitis (8) Nicotine dependence Code(s): F17.200 - NICOTINE DEPENDENCE, UNSPECIFIED, UNCOMPLICATED Qualifiers: Nicotine product type: cigarettes Substance use status: uncomplicated Qualified Code(s): F17.210 - Nicotine dependence, cigarettes, uncomplicated (9) Obesity (BMI 30-39.9) Code(s): E66.9 - OBESITY, UNSPECIFIED (10) Opioid dependence Code(s): F11.20 - OPIOID DEPENDENCE, UNCOMPLICATED Qualifiers: Substance use status: uncomplicated Qualified Code(s): F11.20 - Opioid dependence, uncomplicated Assessment/Plan PNA COPD Exacerbation HTN Obesity Pt still with SOB/cough, improved slightly Continue antibiotics On medrol, BD continue onitor closely
[2019-05-28] MEDS: guaiFENesin 600 MG TABLET.ER (FP) PO SCH ×2 (14:47→21:41)
[2019-05-28] MEDS: MONTELUKAST NA 10 MG TABLET PO SCH (18:30)
[2019-05-28] MEDS: MIRTAZAPINE 15 MG TABLET (FP) PO SCH (21:41)
[2019-05-28] MEDS: QUEtiapine FUMARATE 200 MG TABLET PO SCH (21:41)
[2019-05-28] MEDS: MICONAZOLE NITRATE 2% VAGINAL CREAM 45 GM TUBE PV SCH (21:43)
[2019-05-29] MEDS ORDERED: DEXTROSE 5%-WATER - 50 ML IVPB ONE ×3 (01:08→16:43)
[2019-05-29] MEDS ORDERED: PIPERACILLIN/TAZOBACTAM 3.375 GM VIAL IVPB ONE ×3 (01:08→16:42)
[2019-05-29] MEDS: methylPREDNISolone NA SUCC 40 MG/1 ML VIAL IVPUSH SCH ×4 (02:01→21:32)
[2019-05-29] MEDS: PIPERACILLIN/TAZOB 3.375 GM 3.375 GM in DEXTROSE 5%-WATER - 50 ML IVPB SCH ×4 (02:01→17:40)
[2019-05-29] MEDS: CYCLOBENZAPRINE HCL 5 MG TABLET PO SCH ×3 (06:41→21:32)
[2019-05-29] MEDS: GABAPENTIN 300 MG CAPSULE (FP) PO SCH ×3 (06:41→21:32)
[2019-05-29] MEDS: ALBUTEROL SO4 2.5/IPRATROPIUM 0.5 INH SOL 3 ML VIAL.NEB. NEB SCH ×4 (07:20→20:00)
[2019-05-29 08:23] LABS: BASO % 0.2 % (0-2.0); HEMATOCRIT 40.9 % (32.4-45.2); HEMOGLOBIN 14.1 GM/dL (10.7-15.3); LYMPH % 13.6 % (8-40); MCH 31.7 pg (25.7-33.7); MCHC 34.5 g/dl (32.0-36.0); MEAN CELL VOLUME 91.9 fl (80-96); MONO % 3.7 % (3.8-10.2); NEUT % 82.5 % (42.8-82.8); PLATELET COUNT 215 K/MM3 (134-434); RBC 4.45 M/mm3 (3.60-5.2); RDW 13.1 % (11.6-15.6); WHITE BLOOD COUNT 9.9 K/mm3 (4.0-10.0)
--- NOTE | 2019-05-29 08:40 | PN ---
Progress Note, Physician Chief Complaint: States breathing is better , still needing supplemental o2. Starting to expectorate more sputum-greenish in color History of Present Illness: 63yo F with h/o of long-standing tobacco use, suspected ENRIQUE, HTN, suboxone use who presents to ED worsening AGUIRRE and wheezing. She was seen in ED at [facility] about 3 weeks ago with similar complaints where she was given a Medrol dose pack and abx. Her home nebs were ineffective. After completion of steroids she had reoccurrence of symptoms and returned back to [facility] where she was given another dose pack. Pt had worsening of symptoms in addition to green sputum production and pleuritic chest pain and presented to ED here - Current Medication List Current Medications: Active Medications Acetaminophen (Tylenol -) 650 mg PO Q6H PRN PRN Reason: Fever Last Admin: 05/27/19 13:38 Dose: 650 mg Albuterol Sulfate (Ventolin 0.083% Nebulizer Soln -) 1 amp NEB Q4H PRN PRN Reason: SHORT OF BREATH/WHEEZING Last Admin: 05/26/19 03:22 Dose: 1 amp Albuterol/Ipratropium (Duoneb -) 1 amp NEB RQID [facility] Last Admin: 05/29/19 07:20 Dose: 1 amp Amlodipine Besylate (Norvasc -) 5 mg PO DAILY [facility] Last Admin: 05/28/19 09:31 Dose: 5 mg Buprenorphine/Naloxone (Suboxone 8 Mg/2 Mg Film Packet) 1 each SL DAILY [facility] Stop: 06/06/19 10:01 Last Admin: 05/28/19 09:31 Dose: 1 each Chlorthalidone (Hygroton -) 25 mg PO DAILY [facility] Last Admin: 05/28/19 09:35 Dose: 25 mg Colloidal Oatmeal (Aveeno Soap -) 1 applic TP DAILY PRN PRN Reason: HYGEINE Cyclobenzaprine HCl (Cyclobenzaprine Hcl) 5 mg PO TID [facility] Last Admin: 05/29/19 06:41 Dose: 5 mg Gabapentin (Neurontin -) 300 mg PO TID [facility] Last Admin: 05/29/19 06:41 Dose: 300 mg Guaifenesin (Mucinex -) 600 mg PO BID [facility] Last Admin: 05/28/19 21:41 Dose: 600 mg Heparin Sodium (Porcine) (Heparin -) 5,000 unit SQ BID [facility] Last Admin: 05/28/19 21:41 Dose: 5,000 unit Piperacillin Sod/Tazobactam (Sod 3.375 gm/ Dextrose) 50 mls @ 100 mls/hr IVPB Q8H-IV [facility]; Protocol Last Admin: 05/29/19 02:01 Dose: 100 mls/hr Methylprednisolone Sodium Succinate (Solu-Medrol -) 40 mg IVPUSH Q6H-IV [facility] Last Admin: 05/29/19 02:01 Dose: 40 mg Miconazole Nitrate (Monistat-7 Vaginal Cream -) 1 applic PV HS [facility] Last Admin: 05/28/19 21:43 Dose: 1 applic Mirtazapine (Remeron -) 15 mg PO HS [facility] Last Admin: 05/28/19 21:41 Dose: 15 mg Montelukast Sodium (Singulair -) 10 mg PO DAILY@1800 [facility] Last Admin: 05/28/19 18:30 Dose: 10 mg Nicotine (Nicoderm Patch -) 21 mg TD DAILY [facility] Stop: 07/04/19 10:01 Last Admin: 05/28/19 09:32 Dose: 21 mg Pantoprazole Sodium (Protonix -) 40 mg PO DAILY [facility] Last Admin: 05/28/19 09:31 Dose: 40 mg Quetiapine Fumarate (Seroquel -) 200 mg PO HS [facility] Last Admin: 05/28/19 21:41 Dose: 200 mg Quetiapine Fumarate (Seroquel -) 100 mg PO DAILY [facility] Last Admin: 05/28/19 09:31 Dose: 100 mg - Objective Vital Signs: Vital Signs Temperature 98.0 F 05/29/19 07:51 Pulse Rate 64 05/29/19 07:51 Respiratory Rate 18 05/29/19 07:51 Blood Pressure 145/82 05/29/19 07:51 O2 Sat by Pulse Oximetry (%) 95 05/28/19 21:00 Additional Findings/Remarks: Constitutional: Yes: Calm, Mild Distress (due to SOB) Eyes: Yes: WNL, Conjunctiva Clear, EOM Intact HENT: Yes: WNL, Atraumatic, Normocephalic Neck: Yes: WNL, Supple, Trachea Midline Cardiovascular: Yes: WNL, Regular Rate and Rhythm (HR 90) Respiratory: Yes: Diminished, On Nasal O2 (6L), Poor Air Entry, Rhonchi ( scattered), SOB on Exertion less Gastrointestinal: Yes: Soft, Abdomen, Obese ...Rectal Exam: Yes: Deferred Renal/: Yes: WNL Breast(s): Yes: WNL Musculoskeletal: Yes: WNL Extremities: Yes: WNL Edema: No Peripheral Pulses WNL: Yes Peripheral Pulses: Left Radial: 2+, Right Radial: 2+, Left Doralis Pedis: 2+, Right Dorsalis Pedis: 2+, Left Femoral: 2+, Right Femoral: 2+ Integumentary: Yes: WNL Neurological: Yes: WNL, Alert, Oriented ...Motor Strength: WNL Psychiatric: Yes: WNL Labs: CBC, BMP 05/29/19 07:28 INR, PTT INR 0.99 (0.83-1.09) 05/25/19 08:00 Problem List - Problems (1) Heroin addiction Assessment/Plan: c/w suboxone Code(s): F11.20 - OPIOID DEPENDENCE, UNCOMPLICATED (2) Prophylactic measure Assessment/Plan: FEN regular diet adequate PO intake monitor electrolytes DVT heparin sq Dispo maintain as in patient full code discharge planning Code(s): Z29.9 - ENCOUNTER FOR PROPHYLACTIC MEASURES, UNSPECIFIED (3) COPD with acute exacerbation Assessment/Plan: supplemental O2 to maintain SPO2 >92% Duo nebs solumedrol-start to taper tomorrow if cont to inmprove c/w home dose of sinqular monitor off abx Code(s): J44.1 - CHRONIC OBSTRUCTIVE PULMONARY DISEASE W (ACUTE) EXACERBATION (4) Hypoxemia Assessment/Plan: supplemental O2 with Bipap prn Code(s): R09.02 - HYPOXEMIA (5) Pneumonia Assessment/Plan: c/w zosyn can charge to PO lvx on discharge c/w mucinex Dr Serna following Code(s): J18.9 - PNEUMONIA, UNSPECIFIED ORGANISM Qualifiers: Pneumonia type: due to Mycoplasma pneumoniae (6) Hypertension Assessment/Plan: c/w home medications, norvasc Code(s): I10 - ESSENTIAL (PRIMARY) HYPERTENSION (7) Back pain Assessment/Plan: PT to see Code(s): M54.9 - DORSALGIA, UNSPECIFIED Qualifiers: Back pain location: low back pain Chronicity: chronic Back pain laterality: unspecified Sciatica presence: unspecified whether sciatica present Qualified Code(s): M54.5 - Low back pain; G89.29 - Other chronic pain (8) Bipolar disorder Assessment/Plan: c/w seroquel Code(s): F31.9 - BIPOLAR DISORDER, UNSPECIFIED Qualifiers: Active/Remission status: remission status unspecified Qualified Code(s): F31.9 - Bipolar disorder, unspecified (9) GERD (gastroesophageal reflux disease) Assessment/Plan: c/w protonix Code(s): K21.9 - GASTRO-ESOPHAGEAL REFLUX DISEASE WITHOUT ESOPHAGITIS Qualifiers: Esophagitis presence: without esophagitis Qualified Code(s): K21.9 - Gastro -esophageal reflux disease without esophagitis (10) Nicotine dependence Assessment/Plan: nictotine patch counseled on smoking cessation continues to leave unit to smoke, counseled Code(s): F17.200 - NICOTINE DEPENDENCE, UNSPECIFIED, UNCOMPLICATED Qualifiers: Nicotine product type: cigarettes Substance use status: uncomplicated Qualified Code(s): F17.210 - Nicotine dependence, cigarettes, uncomplicated (11) Obesity (BMI 30-39.9) Assessment/Plan: counseled on weight loss Code(s): E66.9 - OBESITY, UNSPECIFIED (12) Respiratory failure with hypoxia Assessment/Plan: BiPap prn, supplemental O2 c/w steroids & abx appreciate pulm consultation Code(s): J96.91 - RESPIRATORY FAILURE, UNSPECIFIED WITH HYPOXIA Visit type - Emergency Visit Emergency Visit: Yes ED Registration Date: 05/24/19 Care time: The patient presented to the Emergency Department on the above date and was hospitalized for further evaluation of their emergent condition. - New Patient This patient is new to me today: No - Critical Care Critical Care patient: No - Discharge Referral Referred to [facility] Med P.C.: No
[2019-05-29 08:53] LABS: BLOOD UREA NITROGEN 24.6 mg/dL (7-18); CALCIUM 9.7 mg/dL (8.5-10.1); CREATININE 1.1 mg/dL (0.55-1.3); MAGNESIUM 2.3 mg/dL (1.8-2.4)
[2019-05-29] MEDS ORDERED: PT OWN MED DRAWER 7, Y5N ONE (09:25)
[2019-05-29] MEDS: BUPRENORPHINE/NALOXONE 8 MG/2 MG FILM PACKET SL SCH (09:28)
[2019-05-29] MEDS: HEPARIN NA (PORCINE) 5,000 UNITS/ML 1ML VIAL SQ SCH ×2 (09:35→21:32)
[2019-05-29] MEDS: QUEtiapine FUMARATE 100 MG TABLET (FP) PO SCH (09:37)
[2019-05-29] MEDS: PANTOPRAZOLE 40 MG TABLET (FP) PO SCH (09:37)
[2019-05-29] MEDS: amLODIPine BESYLATE 5 MG TABLET (FP) PO SCH (09:37)
[2019-05-29] MEDS: CHLORTHALIDONE 25 MG TABLET PO SCH (09:37)
[2019-05-29] MEDS: NICOTINE 21 MG/24 HOURS TOPICAL PATCH TD SCH (09:37)
[2019-05-29] MEDS: guaiFENesin 600 MG TABLET.ER (FP) PO SCH ×2 (09:37→21:32)
--- NOTE | 2019-05-29 10:20 | PN ---
Progress Note (short form) - Note Progress Note: Congested cough and shortness of breath feels a little better today. Elverta slightly dizzy when she showered this AM. No acute events overnight. Intake & Output 05/26/19 05/27/19 05/28/19 05/29/19 23:59 23:59 23:59 23:59 Intake Total 550 2130 1777 477 Balance 550 2130 1777 477 Weight 299 lb 4 oz 298 lb 294 lb 292 lb Last Vital Signs Temp Pulse Resp BP Pulse Ox 98.0 F 64 18 145/82 95 05/29/19 07:51 05/29/19 07:51 05/29/19 07:51 05/29/19 07:51 05/28/19 21:00 Active Medications Acetaminophen (Tylenol -) 650 mg PO Q6H PRN PRN Reason: Fever Last Admin: 05/27/19 13:38 Dose: 650 mg Albuterol Sulfate (Ventolin 0.083% Nebulizer Soln -) 1 amp NEB Q4H PRN PRN Reason: SHORT OF BREATH/WHEEZING Last Admin: 05/26/19 03:22 Dose: 1 amp Albuterol/Ipratropium (Duoneb -) 1 amp NEB RQID [facility] Last Admin: 05/29/19 07:20 Dose: 1 amp Amlodipine Besylate (Norvasc -) 5 mg PO DAILY [facility] Last Admin: 05/29/19 09:37 Dose: 5 mg Buprenorphine/Naloxone (Suboxone 8 Mg/2 Mg Film Packet) 1 each SL DAILY [facility] Stop: 06/06/19 10:01 Last Admin: 05/29/19 09:28 Dose: 1 each Chlorthalidone (Hygroton -) 25 mg PO DAILY [facility] Last Admin: 05/29/19 09:37 Dose: 25 mg Colloidal Oatmeal (Aveeno Soap -) 1 applic TP DAILY PRN PRN Reason: HYGEINE Cyclobenzaprine HCl (Cyclobenzaprine Hcl) 5 mg PO TID [facility] Last Admin: 05/29/19 06:41 Dose: 5 mg Gabapentin (Neurontin -) 300 mg PO TID [facility] Last Admin: 05/29/19 06:41 Dose: 300 mg Guaifenesin (Mucinex -) 600 mg PO BID [facility] Last Admin: 05/29/19 09:37 Dose: 600 mg Heparin Sodium (Porcine) (Heparin -) 5,000 unit SQ BID [facility] Last Admin: 05/29/19 09:35 Dose: 5,000 unit Piperacillin Sod/Tazobactam (Sod 3.375 gm/ Dextrose) 50 mls @ 100 mls/hr IVPB Q8H-IV [facility]; Protocol Last Admin: 05/29/19 09:32 Dose: 100 mls/hr Methylprednisolone Sodium Succinate (Solu-Medrol -) 40 mg IVPUSH Q6H-IV [facility] Last Admin: 05/29/19 09:31 Dose: 40 mg Miconazole Nitrate (Monistat-7 Vaginal Cream -) 1 applic PV HS [facility] Last Admin: 05/28/19 21:43 Dose: 1 applic Mirtazapine (Remeron -) 15 mg PO HS [facility] Last Admin: 05/28/19 21:41 Dose: 15 mg Montelukast Sodium (Singulair -) 10 mg PO DAILY@1800 [facility] Last Admin: 05/28/19 18:30 Dose: 10 mg Nicotine (Nicoderm Patch -) 21 mg TD DAILY [facility] Stop: 07/04/19 10:01 Last Admin: 05/29/19 09:37 Dose: 21 mg Pantoprazole Sodium (Protonix -) 40 mg PO DAILY [facility] Last Admin: 05/29/19 09:37 Dose: 40 mg Quetiapine Fumarate (Seroquel -) 200 mg PO HS [facility] Last Admin: 05/28/19 21:41 Dose: 200 mg Quetiapine Fumarate (Seroquel -) 100 mg PO DAILY [facility] Last Admin: 05/29/19 09:37 Dose: 100 mg Gen: Less tachypneic at rest Heart: RRR Lung: scattered rhonchi and wheeze Abd: soft, nontender Ext: no edema Laboratory Results - last 24 hr 05/28/19 05/29/19 05/29/19 07:15 07:28 07:28 WBC 9.9 RBC 4.45 Hgb 14.1 Hct 40.9 MCV 91.9 MCH 31.7 MCHC 34.5 RDW 13.1 Plt Count 215 MPV 9.0 Absolute Neuts (auto) 8.1 H Neutrophils % 82.5 Neutrophils % (Manual) 77.0 Band Neutrophils % 1.0 Lymphocytes % 13.6 Lymphocytes % (Manual) 14.0 D Monocytes % 3.7 L Monocytes % (Manual) 5 Eosinophils % 0.0 D Eosinophils % (Manual) 0.0 Basophils % 0.2 Basophils % (Manual) 0.0 Myelocytes % (Man) 1 D Promyelocytes % (Man) 0 Blast Cells % (Manual) 0 Nucleated RBC % 0 Metamyelocytes 0 Hypochromia 0 Platelet Estimate Normal Polychromasia 0 Poikilocytosis 0 Anisocytosis 0 Microcytosis 0 Macrocytosis 0 Sodium 131 L Potassium 4.0 Chloride 94 L Carbon Dioxide 27 Anion Gap 10 BUN 24.6 H Creatinine 1.1 Est GFR (CKD-EPI)AfAm 62.75 Est GFR (CKD-EPI)NonAf 54.14 Random Glucose 354 H Calcium 9.7 Magnesium 2.3 A/P Acute COPD Exacerbation Pneumonia HTN Smoker Suspected ENRIQUE - Mucinex - continue medrol at current dose: Hopefully taper tomorrow - inhaled bronchodilators - O2 to keep SpO2 >90% - check ambulatory room air SpO2 when ready for discharge to assess for home O2 - smoking cessation - outpt PFTs, NPSG - outpt f/u of chest imaging - DVT prophylaxis Dr Ritter
[2019-05-29 11:10] LABS: ANISOCYTOSIS 0; MACROCYTOSIS 0; PLATELET ESTIMATE NORMAL
--- NOTE | 2019-05-29 14:04 | PN ---
Progress Note, Physician History of Present Illness: patient stable comfortable - Current Medication List Current Medications: Active Medications Acetaminophen (Tylenol -) 650 mg PO Q6H PRN PRN Reason: Fever Last Admin: 05/27/19 13:38 Dose: 650 mg Albuterol Sulfate (Ventolin 0.083% Nebulizer Soln -) 1 amp NEB Q4H PRN PRN Reason: SHORT OF BREATH/WHEEZING Last Admin: 05/26/19 03:22 Dose: 1 amp Albuterol/Ipratropium (Duoneb -) 1 amp NEB RQID [facility] Last Admin: 05/29/19 11:25 Dose: 1 amp Amlodipine Besylate (Norvasc -) 5 mg PO DAILY [facility] Last Admin: 05/29/19 09:37 Dose: 5 mg Buprenorphine/Naloxone (Suboxone 8 Mg/2 Mg Film Packet) 1 each SL DAILY [facility] Stop: 06/06/19 10:01 Last Admin: 05/29/19 09:28 Dose: 1 each Chlorthalidone (Hygroton -) 25 mg PO DAILY [facility] Last Admin: 05/29/19 09:37 Dose: 25 mg Colloidal Oatmeal (Aveeno Soap -) 1 applic TP DAILY PRN PRN Reason: HYGEINE Cyclobenzaprine HCl (Cyclobenzaprine Hcl) 5 mg PO TID [facility] Last Admin: 05/29/19 06:41 Dose: 5 mg Gabapentin (Neurontin -) 300 mg PO TID [facility] Last Admin: 05/29/19 06:41 Dose: 300 mg Guaifenesin (Mucinex -) 600 mg PO BID [facility] Last Admin: 05/29/19 09:37 Dose: 600 mg Heparin Sodium (Porcine) (Heparin -) 5,000 unit SQ BID [facility] Last Admin: 05/29/19 09:35 Dose: 5,000 unit Piperacillin Sod/Tazobactam (Sod 3.375 gm/ Dextrose) 50 mls @ 100 mls/hr IVPB Q8H-IV [facility]; Protocol Last Admin: 05/29/19 09:32 Dose: 100 mls/hr Methylprednisolone Sodium Succinate (Solu-Medrol -) 40 mg IVPUSH Q6H-IV [facility] Last Admin: 05/29/19 09:31 Dose: 40 mg Miconazole Nitrate (Monistat-7 Vaginal Cream -) 1 applic PV HS [facility] Last Admin: 05/28/19 21:43 Dose: 1 applic Mirtazapine (Remeron -) 15 mg PO HS [facility] Last Admin: 05/28/19 21:41 Dose: 15 mg Montelukast Sodium (Singulair -) 10 mg PO DAILY@1800 [facility] Last Admin: 05/28/19 18:30 Dose: 10 mg Nicotine (Nicoderm Patch -) 21 mg TD DAILY [facility] Stop: 07/04/19 10:01 Last Admin: 05/29/19 09:37 Dose: 21 mg Pantoprazole Sodium (Protonix -) 40 mg PO DAILY [facility] Last Admin: 05/29/19 09:37 Dose: 40 mg Quetiapine Fumarate (Seroquel -) 200 mg PO HS [facility] Last Admin: 05/28/19 21:41 Dose: 200 mg Quetiapine Fumarate (Seroquel -) 100 mg PO DAILY [facility] Last Admin: 05/29/19 09:37 Dose: 100 mg - Objective Vital Signs: Vital Signs Temperature 98.0 F 05/29/19 07:51 Pulse Rate 64 05/29/19 07:51 Respiratory Rate 18 05/29/19 07:51 Blood Pressure 145/82 05/29/19 07:51 O2 Sat by Pulse Oximetry (%) 95 05/29/19 09:00 Constitutional: Yes: No Distress, Calm Cardiovascular: Yes: S1, S2 Respiratory: Yes: Regular, CTA Bilaterally, Other Gastrointestinal: Yes: Normal Bowel Sounds, Soft Musculoskeletal: Yes: WNL Extremities: Yes: WNL Neurological: Yes: Alert, Oriented Psychiatric: Yes: Alert, Oriented Labs: CBC, BMP 05/29/19 07:28 05/29/19 07:28 INR, PTT INR 0.99 (0.83-1.09) 05/25/19 08:00 Assessment/Plan roblem List - Problems (1) COPD with acute exacerbation Code(s): J44.1 - CHRONIC OBSTRUCTIVE PULMONARY DISEASE W (ACUTE) EXACERBATION (2) Hypoxemia Code(s): R09.02 - HYPOXEMIA (3) COPD exacerbation Code(s): J44.1 - CHRONIC OBSTRUCTIVE PULMONARY DISEASE W (ACUTE) EXACERBATION (4) Hypertension Code(s): I10 - ESSENTIAL (PRIMARY) HYPERTENSION (5) GERD (gastroesophageal reflux disease) Code(s): K21.9 - GASTRO-ESOPHAGEAL REFLUX DISEASE WITHOUT ESOPHAGITIS Qualifiers: Esophagitis presence: without esophagitis Qualified Code(s): K21.9 - Gastro -esophageal reflux disease without esophagitis (6) Hypothyroidism Code(s): E03.9 - HYPOTHYROIDISM, UNSPECIFIED Qualifiers: Hypothyroidism type: acquired Qualified Code(s): E03.9 - Hypothyroidism, unspecified (7) Nicotine dependence Code(s): F17.200 - NICOTINE DEPENDENCE, UNSPECIFIED, UNCOMPLICATED Qualifiers: Nicotine product type: cigarettes Substance use status: uncomplicated Qualified Code(s): F17.210 - Nicotine dependence, cigarettes, uncomplicated (8) Obesity (BMI 30-39.9) Code(s): E66.9 - OBESITY, UNSPECIFIED (9) Pneumonia Code(s): J18.9 - PNEUMONIA, UNSPECIFIED ORGANISM plan ct abx when ready to discharge can switch to po levaquin rest as per the team
[2019-05-29] MEDS: MONTELUKAST NA 10 MG TABLET PO SCH (16:59)
[2019-05-29] MEDS: QUEtiapine FUMARATE 200 MG TABLET PO SCH (21:32)
[2019-05-29] MEDS: MIRTAZAPINE 15 MG TABLET (FP) PO SCH (21:32)
[2019-05-29] MEDS: MICONAZOLE NITRATE 2% VAGINAL CREAM 45 GM TUBE PV SCH (21:38)
[2019-05-30] MEDS ORDERED: DEXTROSE 5%-WATER - 50 ML IVPB ONE ×2 (00:46→09:42)
[2019-05-30] MEDS ORDERED: PIPERACILLIN/TAZOBACTAM 3.375 GM VIAL IVPB ONE ×2 (00:46→09:42)
[2019-05-30] MEDS: PIPERACILLIN/TAZOB 3.375 GM 3.375 GM in DEXTROSE 5%-WATER - 50 ML IVPB SCH ×2 (02:37→09:45)
[2019-05-30] MEDS: methylPREDNISolone NA SUCC 40 MG/1 ML VIAL IVPUSH SCH ×4 (03:35→23:00)
[2019-05-30] MEDS: GABAPENTIN 300 MG CAPSULE (FP) PO SCH ×3 (05:17→20:59)
[2019-05-30] MEDS: CYCLOBENZAPRINE HCL 5 MG TABLET PO SCH ×3 (05:17→20:59)
[2019-05-30 08:50] LABS: BASO % 0.2 % (0-2.0); HEMATOCRIT 42.6 % (32.4-45.2); HEMOGLOBIN 14.8 GM/dL (10.7-15.3); LYMPH % 12.1 % (8-40); MCH 31.6 pg (25.7-33.7); MCHC 34.7 g/dl (32.0-36.0); MEAN PLT VOLUME 8.9 fl (7.5-11.1); MONO % 4.3 % (3.8-10.2); NEUT % 83.4 % (42.8-82.8); PLATELET COUNT 232 K/MM3 (134-434); RBC 4.69 M/mm3 (3.60-5.2); RDW 13.4 % (11.6-15.6)
[2019-05-30] MEDS: ALBUTEROL SO4 2.5/IPRATROPIUM 0.5 INH SOL 3 ML VIAL.NEB. NEB SCH ×4 (09:00→20:25)
[2019-05-30 09:24] LABS: ALBUMIN 3.8 g/dl (3.4-5.0); BILIRUBIN,TOTAL 0.4 mg/dL (0.2-1); BLOOD UREA NITROGEN 25.9 mg/dL (7-18); CALCIUM 9.9 mg/dL (8.5-10.1); MAGNESIUM 2.5 mg/dL (1.8-2.4); POTASSIUM 4.2 mmol/L (3.5-5.1); TOT PROT 7.7 g/dl (6.4-8.2)
[2019-05-30] MEDS ORDERED: PT OWN MED DRAWER 7, Y5N ONE (09:42)
[2019-05-30] MEDS: QUEtiapine FUMARATE 100 MG TABLET (FP) PO SCH (09:44)
[2019-05-30] MEDS: PANTOPRAZOLE 40 MG TABLET (FP) PO SCH (09:44)
[2019-05-30] MEDS: guaiFENesin 600 MG TABLET.ER (FP) PO SCH ×2 (09:44→20:59)
[2019-05-30] MEDS: amLODIPine BESYLATE 5 MG TABLET (FP) PO SCH (09:44)
[2019-05-30] MEDS: CHLORTHALIDONE 25 MG TABLET PO SCH (09:45)
[2019-05-30] MEDS: BUPRENORPHINE/NALOXONE 8 MG/2 MG FILM PACKET SL SCH (09:45)
[2019-05-30] MEDS: NICOTINE 21 MG/24 HOURS TOPICAL PATCH TD SCH (09:45)
[2019-05-30] MEDS: HEPARIN NA (PORCINE) 5,000 UNITS/ML 1ML VIAL SQ SCH ×2 (09:45→21:06)
[2019-05-30 09:58] LABS: ANISOCYTOSIS 0; MACROCYTOSIS 0; PLATELET ESTIMATE NORMAL
--- NOTE | 2019-05-30 10:57 | PN ---
Progress Note (short form) - Note Progress Note: Continues to slowly improving. Still with "chest congestion" and sore throat. Less SOB. No acute events overnight. Intake & Output 05/27/19 05/28/19 05/29/19 05/30/19 23:59 23:59 23:59 23:59 Intake Total 2130 1777 827 350 Balance 2130 1777 827 350 Weight 298 lb 294 lb 292 lb 294 lb 2 oz Last Vital Signs Temp Pulse Resp BP Pulse Ox 98.0 F 65 18 155/94 96 05/30/19 06:00 05/30/19 06:00 05/30/19 06:00 05/30/19 06:00 05/29/19 21:00 Active Medications Acetaminophen (Tylenol -) 650 mg PO Q6H PRN PRN Reason: Fever Last Admin: 05/27/19 13:38 Dose: 650 mg Albuterol Sulfate (Ventolin 0.083% Nebulizer Soln -) 1 amp NEB Q4H PRN PRN Reason: SHORT OF BREATH/WHEEZING Last Admin: 05/26/19 03:22 Dose: 1 amp Albuterol/Ipratropium (Duoneb -) 1 amp NEB RQID [facility] Last Admin: 05/30/19 09:00 Dose: 1 amp Amlodipine Besylate (Norvasc -) 5 mg PO DAILY [facility] Last Admin: 05/30/19 09:44 Dose: 5 mg Buprenorphine/Naloxone (Suboxone 8 Mg/2 Mg Film Packet) 1 each SL DAILY [facility] Stop: 06/06/19 10:01 Last Admin: 05/30/19 09:45 Dose: 1 each Chlorthalidone (Hygroton -) 25 mg PO DAILY [facility] Last Admin: 05/30/19 09:45 Dose: 25 mg Colloidal Oatmeal (Aveeno Soap -) 1 applic TP DAILY PRN PRN Reason: HYGEINE Cyclobenzaprine HCl (Cyclobenzaprine Hcl) 5 mg PO TID [facility] Last Admin: 05/30/19 05:17 Dose: 5 mg Gabapentin (Neurontin -) 300 mg PO TID [facility] Last Admin: 05/30/19 05:17 Dose: 300 mg Guaifenesin (Mucinex -) 600 mg PO BID [facility] Last Admin: 05/30/19 09:44 Dose: 600 mg Heparin Sodium (Porcine) (Heparin -) 5,000 unit SQ BID [facility] Last Admin: 05/30/19 09:45 Dose: 5,000 unit Piperacillin Sod/Tazobactam (Sod 3.375 gm/ Dextrose) 50 mls @ 100 mls/hr IVPB Q8H-IV [facility]; Protocol Last Admin: 05/30/19 09:45 Dose: 100 mls/hr Methylprednisolone Sodium Succinate (Solu-Medrol -) 40 mg IVPUSH Q6H-IV [facility] Last Admin: 05/30/19 08:33 Dose: 40 mg Miconazole Nitrate (Monistat-7 Vaginal Cream -) 1 applic PV HS [facility] Last Admin: 05/29/19 21:38 Dose: 1 applic Mirtazapine (Remeron -) 15 mg PO HS [facility] Last Admin: 05/29/19 21:32 Dose: 15 mg Montelukast Sodium (Singulair -) 10 mg PO DAILY@1800 [facility] Last Admin: 05/29/19 16:59 Dose: 10 mg Nicotine (Nicoderm Patch -) 21 mg TD DAILY [facility] Stop: 07/04/19 10:01 Last Admin: 05/30/19 09:45 Dose: 21 mg Pantoprazole Sodium (Protonix -) 40 mg PO DAILY [facility] Last Admin: 05/30/19 09:44 Dose: 40 mg Quetiapine Fumarate (Seroquel -) 200 mg PO HS [facility] Last Admin: 05/29/19 21:32 Dose: 200 mg Quetiapine Fumarate (Seroquel -) 100 mg PO DAILY [facility] Last Admin: 05/30/19 09:44 Dose: 100 mg Gen: Appears more comfortable, Less tachypneic at rest Heart: RRR Lung: Less scattered rhonchi and wheeze Abd: soft, nontender Ext: no edema Laboratory Results - last 24 hr 05/29/19 05/30/19 05/30/19 07:28 08:00 08:00 WBC 10.0 RBC 4.69 Hgb 14.8 Hct 42.6 MCV 91.0 MCH 31.6 MCHC 34.7 RDW 13.4 Plt Count 232 MPV 8.9 Absolute Neuts (auto) 8.3 H Neutrophils % 83.4 H Neutrophils % (Manual) 72.7 76.0 Band Neutrophils % 0.0 4.0 Lymphocytes % 12.1 Lymphocytes % (Manual) 16.2 6.0 L D Monocytes % 4.3 Monocytes % (Manual) 5 7 Eosinophils % 0.0 Eosinophils % (Manual) 0.0 0.0 Basophils % 0.2 Basophils % (Manual) 0.0 0.0 Myelocytes % (Man) 1 1 Promyelocytes % (Man) 0 2 D Blast Cells % (Manual) 0 0 Nucleated RBC % 0 Metamyelocytes 1 D 2 D Hypochromia 0 0 Platelet Estimate Normal Normal Polychromasia 0 0 Poikilocytosis 0 0 Anisocytosis 0 0 Microcytosis 0 0 Macrocytosis 0 0 Sodium 132 L Potassium 4.2 Chloride 92 L Carbon Dioxide 29 Anion Gap 11 BUN 25.9 H Creatinine 1.0 Est GFR (CKD-EPI)AfAm 70.42 Est GFR (CKD-EPI)NonAf 60.76 Random Glucose 343 H Calcium 9.9 Magnesium 2.5 H Total Bilirubin 0.4 AST 7 L ALT 22 Alkaline Phosphatase 106 Total Protein 7.7 Albumin 3.8 A/P Acute COPD Exacerbation Pneumonia HTN Smoker Suspected ENRIQUE - Trial of Cepacol - Mucinex - Wean Medrol - inhaled bronchodilators - O2 to keep SpO2 >90% - check ambulatory room air SpO2 when ready for discharge to assess for home O2 - smoking cessation - outpt PFTs, NPSG - outpt f/u of chest imaging - DVT prophylaxis Dr Ritter
[2019-05-30] MEDS ORDERED: BENZOCAINE/MENTH/CETYLPYRD CL 1 EACH LOZENGE MM PRN (11:00)
--- NOTE | 2019-05-30 12:54 | PN ---
Progress Note, Physician History of Present Illness: continues to improve no new issues - Current Medication List Current Medications: Active Medications Acetaminophen (Tylenol -) 650 mg PO Q6H PRN PRN Reason: Fever Last Admin: 05/27/19 13:38 Dose: 650 mg Albuterol Sulfate (Ventolin 0.083% Nebulizer Soln -) 1 amp NEB Q4H PRN PRN Reason: SHORT OF BREATH/WHEEZING Last Admin: 05/26/19 03:22 Dose: 1 amp Albuterol/Ipratropium (Duoneb -) 1 amp NEB RQID [facility] Last Admin: 05/30/19 09:00 Dose: 1 amp Amlodipine Besylate (Norvasc -) 5 mg PO DAILY [facility] Last Admin: 05/30/19 09:44 Dose: 5 mg Benzocaine/Menthol (Cepacol Lozenge -) 1 each MM Q4H PRN PRN Reason: SORE THROAT Buprenorphine/Naloxone (Suboxone 8 Mg/2 Mg Film Packet) 1 each SL DAILY [facility] Stop: 06/06/19 10:01 Last Admin: 05/30/19 09:45 Dose: 1 each Chlorthalidone (Hygroton -) 25 mg PO DAILY [facility] Last Admin: 05/30/19 09:45 Dose: 25 mg Colloidal Oatmeal (Aveeno Soap -) 1 applic TP DAILY PRN PRN Reason: HYGEINE Cyclobenzaprine HCl (Cyclobenzaprine Hcl) 5 mg PO TID [facility] Last Admin: 05/30/19 05:17 Dose: 5 mg Gabapentin (Neurontin -) 300 mg PO TID [facility] Last Admin: 05/30/19 05:17 Dose: 300 mg Guaifenesin (Mucinex -) 600 mg PO BID [facility] Last Admin: 05/30/19 09:44 Dose: 600 mg Heparin Sodium (Porcine) (Heparin -) 5,000 unit SQ BID [facility] Last Admin: 05/30/19 09:45 Dose: 5,000 unit Piperacillin Sod/Tazobactam (Sod 3.375 gm/ Dextrose) 50 mls @ 100 mls/hr IVPB Q8H-IV [facility]; Protocol Last Admin: 05/30/19 09:45 Dose: 100 mls/hr Methylprednisolone Sodium Succinate (Solu-Medrol -) 40 mg IVPUSH Q12H [facility] Last Admin: 05/30/19 11:05 Dose: Not Given Miconazole Nitrate (Monistat-7 Vaginal Cream -) 1 applic PV [facility] Last Admin: 05/29/19 21:38 Dose: 1 applic Mirtazapine (Remeron -) 15 mg PO [facility] Last Admin: 05/29/19 21:32 Dose: 15 mg Montelukast Sodium (Singulair -) 10 mg PO DAILY@1800 [facility] Last Admin: 05/29/19 16:59 Dose: 10 mg Nicotine (Nicoderm Patch -) 21 mg TD DAILY [facility] Stop: 07/04/19 10:01 Last Admin: 05/30/19 09:45 Dose: 21 mg Pantoprazole Sodium (Protonix -) 40 mg PO DAILY [facility] Last Admin: 05/30/19 09:44 Dose: 40 mg Quetiapine Fumarate (Seroquel -) 200 mg PO [facility] Last Admin: 05/29/19 21:32 Dose: 200 mg Quetiapine Fumarate (Seroquel -) 100 mg PO DAILY [facility] Last Admin: 05/30/19 09:44 Dose: 100 mg - Objective Vital Signs: Vital Signs Temperature 98.2 F 05/30/19 10:00 Pulse Rate 68 05/30/19 10:00 Respiratory Rate 18 05/30/19 10:00 Blood Pressure 151/88 05/30/19 10:00 O2 Sat by Pulse Oximetry (%) 96 05/30/19 09:00 Constitutional: Yes: No Distress, Calm Cardiovascular: Yes: S1, S2 Respiratory: Yes: Regular, CTA Bilaterally Gastrointestinal: Yes: Normal Bowel Sounds, Soft Musculoskeletal: Yes: WNL Extremities: Yes: WNL Neurological: Yes: Alert, Oriented Psychiatric: Yes: Alert, Oriented Labs: CBC, BMP 05/30/19 08:00 05/30/19 08:00 INR, PTT INR 0.99 (0.83-1.09) 05/25/19 08:00 Assessment/Plan roblem List - Problems (1) COPD with acute exacerbation Code(s): J44.1 - CHRONIC OBSTRUCTIVE PULMONARY DISEASE W (ACUTE) EXACERBATION (2) Hypoxemia Code(s): R09.02 - HYPOXEMIA (3) COPD exacerbation Code(s): J44.1 - CHRONIC OBSTRUCTIVE PULMONARY DISEASE W (ACUTE) EXACERBATION (4) Hypertension Code(s): I10 - ESSENTIAL (PRIMARY) HYPERTENSION (5) GERD (gastroesophageal reflux disease) Code(s): K21.9 - GASTRO-ESOPHAGEAL REFLUX DISEASE WITHOUT ESOPHAGITIS Qualifiers: Esophagitis presence: without esophagitis Qualified Code(s): K21.9 - Gastro -esophageal reflux disease without esophagitis (6) Hypothyroidism Code(s): E03.9 - HYPOTHYROIDISM, UNSPECIFIED Qualifiers: Hypothyroidism type: acquired Qualified Code(s): E03.9 - Hypothyroidism, unspecified (7) Nicotine dependence Code(s): F17.200 - NICOTINE DEPENDENCE, UNSPECIFIED, UNCOMPLICATED Qualifiers: Nicotine product type: cigarettes Substance use status: uncomplicated Qualified Code(s): F17.210 - Nicotine dependence, cigarettes, uncomplicated (8) Obesity (BMI 30-39.9) Code(s): E66.9 - OBESITY, UNSPECIFIED (9) Pneumonia Code(s): J18.9 - PNEUMONIA, UNSPECIFIED ORGANISM plan continue current mgmt will change to oral abx
--- NOTE | 2019-05-30 13:12 | PN ---
Physical Exam: SUBJECTIVE: Patient seen and examined at the bedside. in no acute distress. tolerating room air. OBJECTIVE: + wheezing Patient is a 63yo F with h/o of long-standing tobacco use, suspected ENRIQUE, HTN, suboxone use who presents to ED worsening AGUIRRE and wheezing. She was seen in ED at [facility] about 3 weeks ago with similar complaints where she was given a Medrol dose pack and abx. Her home nebs were ineffective. After completion of steroids she had reoccurrence of symptoms and [facility] she was given another dose pack. Pt had worsening of symptoms in addition to green sputum production and pleuritic chest pain and presented to ED here for further evaluation. Vital Signs Period Temp Pulse Resp BP Sys/Steinberg Pulse Ox Last 24 Hr 97.9 F-98.2 F 65-71 18-18 151-158/77-94 96-96 GENERAL: The patient is awake, alert, and fully oriented, in no acute distress. HEAD: Normal with no signs of trauma. EYES: PERRL, extraocular movements intact, sclera anicteric, conjunctiva clear. No ptosis. ENT: Ears normal, nares patent, oropharynx clear without exudates, moist mucous membranes. NECK: Trachea midline, full range of motion, supple. LUNGS: + wheezing bilaterally, oxygen stable, prn 2-4 liters HEART: Regular rate and rhythm ABDOMEN: Soft, nontender, nondistended, normoactive bowel sounds, no guarding, no rebound, no hepatosplenomegaly, no masses. EXTREMITIES: no edema. NEUROLOGICAL: Normal speech, gait steady PSYCH: Normal mood, normal affect. SKIN: Warm, dry, normal turgor, no rashes or lesions noted Laboratory Results - last 24 hr 05/30/19 05/30/19 08:00 08:00 WBC 10.0 RBC 4.69 Hgb 14.8 Hct 42.6 MCV 91.0 MCH 31.6 MCHC 34.7 RDW 13.4 Plt Count 232 MPV 8.9 Absolute Neuts (auto) 8.3 H Neutrophils % 83.4 H Neutrophils % (Manual) 76.0 Band Neutrophils % 4.0 Lymphocytes % 12.1 Lymphocytes % (Manual) 6.0 L D Monocytes % 4.3 Monocytes % (Manual) 7 Eosinophils % 0.0 Eosinophils % (Manual) 0.0 Basophils % 0.2 Basophils % (Manual) 0.0 Myelocytes % (Man) 1 Promyelocytes % (Man) 2 D Blast Cells % (Manual) 0 Nucleated RBC % 0 Metamyelocytes 2 D Hypochromia 0 Platelet Estimate Normal Polychromasia 0 Poikilocytosis 0 Anisocytosis 0 Microcytosis 0 Macrocytosis 0 Sodium 132 L Potassium 4.2 Chloride 92 L Carbon Dioxide 29 Anion Gap 11 BUN 25.9 H Creatinine 1.0 Est GFR (CKD-EPI)AfAm 70.42 Est GFR (CKD-EPI)NonAf 60.76 Random Glucose 343 H Calcium 9.9 Magnesium 2.5 H Total Bilirubin 0.4 AST 7 L ALT 22 Alkaline Phosphatase 106 Total Protein 7.7 Albumin 3.8 Active Medications Generic Name Dose Route Start Last Admin Trade Name Freq PRN Reason Stop Dose Admin Acetaminophen 650 mg 05/27/19 10:53 05/27/19 13:38 Tylenol - PO 650 mg Q6H PRN Administration Fever Albuterol Sulfate 1 amp 05/24/19 16:05 05/26/19 03:22 Ventolin 0.083% Nebulizer Soln - NEB 1 amp Q4H PRN Administration SHORT OF BREATH/WHEEZING Albuterol/Ipratropium 1 amp 05/24/19 16:00 05/30/19 09:00 Duoneb - NEB 1 amp RQID [facility] Administration Amlodipine Besylate 5 mg 05/25/19 14:00 05/30/19 09:44 Norvasc - PO 5 mg DAILY [facility] Administration Amoxicillin/Clavulanate Potassium 1 tab 05/30/19 17:30 Augmentin - 875mg Tablet PO BID@0800,1730 [facility] Benzocaine/Menthol 1 each 05/30/19 11:00 Cepacol Lozenge - MM Q4H PRN SORE THROAT Buprenorphine/Naloxone 1 each 05/24/19 18:15 05/30/19 09:45 Suboxone 8 Mg/2 Mg Film Packet SL 06/06/19 10:01 1 each DAILY [facility] Administration Chlorthalidone 25 mg 05/24/19 14:00 05/30/19 09:45 Hygroton - PO 25 mg DAILY [facility] Administration Colloidal Oatmeal 1 applic 05/25/19 13:06 Aveeno Soap - TP DAILY PRN HYGEINE Cyclobenzaprine HCl 5 mg 05/26/19 14:00 05/30/19 05:17 Cyclobenzaprine Hcl PO 5 mg TID [facility] Administration Gabapentin 300 mg 05/24/19 14:00 05/30/19 05:17 Neurontin - PO 300 mg TID [facility] Administration Guaifenesin 600 mg 05/28/19 10:45 05/30/19 09:44 Mucinex - PO 600 mg BID [facility] Administration Heparin Sodium (Porcine) 5,000 unit 05/24/19 22:00 05/30/19 09:45 Heparin - SQ 5,000 unit BID [facility] Administration Methylprednisolone Sodium Succinate 40 mg 05/30/19 11:00 05/30/19 11:05 Solu-Medrol - IVPUSH Not Given Q12H [facility] Miconazole Nitrate 1 applic 05/25/19 22:00 05/29/19 21:38 Monistat-7 Vaginal Cream - PV 1 applic HS [facility] Administration Mirtazapine 15 mg 05/24/19 22:00 05/29/19 21:32 Remeron - PO 15 mg HS [facility] Administration Montelukast Sodium 10 mg 05/24/19 18:00 05/29/19 16:59 Singulair - PO 10 mg DAILY@1800 [facility] Administration Nicotine 21 mg 05/24/19 17:45 05/30/19 09:45 Nicoderm Patch - TD 07/04/19 10:01 21 mg DAILY [facility] Administration Pantoprazole Sodium 40 mg 05/24/19 14:00 05/30/19 09:44 Protonix - PO 40 mg DAILY [facility] Administration Quetiapine Fumarate 200 mg 05/24/19 22:00 05/29/19 21:32 Seroquel - PO 200 mg HS [facility] Administration Quetiapine Fumarate 100 mg 05/24/19 14:00 05/30/19 09:44 Seroquel - PO 100 mg DAILY [facility] Administration ASSESSMENT/PLAN: Problem List - Problems (1) Pneumonia Assessment/Plan: Dr Daphne blas, c/w abx Code(s): J18.9 - PNEUMONIA, UNSPECIFIED ORGANISM Qualifiers: Pneumonia type: due to Mycoplasma pneumoniae (2) COPD with acute exacerbation Assessment/Plan: supplemental O2 to maintain SPO2 >92% Duo nebs solumedrol c/w home dose of singulair c/w abx Code(s): J44.1 - CHRONIC OBSTRUCTIVE PULMONARY DISEASE W (ACUTE) EXACERBATION (3) Heroin addiction Assessment/Plan: on subxone Code(s): F11.20 - OPIOID DEPENDENCE, UNCOMPLICATED (4) Hypoxemia Code(s): R09.02 - HYPOXEMIA (5) Prophylactic measure Assessment/Plan: protonix Code(s): Z29.9 - ENCOUNTER FOR PROPHYLACTIC MEASURES, UNSPECIFIED (6) Respiratory failure with hypoxia Code(s): J96.91 - RESPIRATORY FAILURE, UNSPECIFIED WITH HYPOXIA (7) Hypertension Code(s): I10 - ESSENTIAL (PRIMARY) HYPERTENSION (8) Back pain Code(s): M54.9 - DORSALGIA, UNSPECIFIED Qualifiers: Back pain location: low back pain Chronicity: chronic Back pain laterality: unspecified Sciatica presence: unspecified whether sciatica present Qualified Code(s): M54.5 - Low back pain; G89.29 - Other chronic pain (9) Nicotine dependence Code(s): F17.200 - NICOTINE DEPENDENCE, UNSPECIFIED, UNCOMPLICATED Qualifiers: Nicotine product type: cigarettes Substance use status: uncomplicated Qualified Code(s): F17.210 - Nicotine dependence, cigarettes, uncomplicated Visit type - Emergency Visit Emergency Visit: Yes ED Registration Date: 05/24/19 Care time: The patient presented to the Emergency Department on the above date and was hospitalized for further evaluation of their emergent condition. - New Patient This patient is new to me today: No - Critical Care Critical Care patient: No - Discharge Referral Referred to [facility] Med [facility] No
[2019-05-30] MEDS: AMOX TR/POT CLAV 875MG/125MG TABLETS (FP) PO SCH (17:05)
[2019-05-30] MEDS: MONTELUKAST NA 10 MG TABLET PO SCH (17:05)
[2019-05-30] MEDS: MIRTAZAPINE 15 MG TABLET (FP) PO SCH (20:59)
[2019-05-30] MEDS: QUEtiapine FUMARATE 200 MG TABLET PO SCH (20:59)
[2019-05-30] MEDS: MICONAZOLE NITRATE 2% VAGINAL CREAM 45 GM TUBE PV SCH (21:06)
[2019-05-31] MEDS: GABAPENTIN 300 MG CAPSULE (FP) PO SCH ×2 (05:59→13:54)
[2019-05-31] MEDS: CYCLOBENZAPRINE HCL 5 MG TABLET PO SCH ×2 (05:59→13:54)
[2019-05-31] MEDS: ALBUTEROL SO4 2.5/IPRATROPIUM 0.5 INH SOL 3 ML VIAL.NEB. NEB SCH ×3 (07:35→15:24)
[2019-05-31] MEDS: AMOX TR/POT CLAV 875MG/125MG TABLETS (FP) PO SCH (08:36)
[2019-05-31 09:32] LABS: BASO % 0.3 % (0-2.0); EOS % 0.2 % (0-4.5); HEMATOCRIT 43.8 % (32.4-45.2); HEMOGLOBIN 15.3 GM/dL (10.7-15.3); MCH 32.2 pg (25.7-33.7); MCHC 34.9 g/dl (32.0-36.0); MEAN CELL VOLUME 92.1 fl (80-96); MEAN PLT VOLUME 8.9 fl (7.5-11.1); MONO % 6.2 % (3.8-10.2); NEUT % 75.3 % (42.8-82.8); PLATELET COUNT 236 K/MM3 (134-434); RBC 4.76 M/mm3 (3.60-5.2); RDW 13.6 % (11.6-15.6); WHITE BLOOD COUNT 12.5 K/mm3 (4.0-10.0)
[2019-05-31 09:44] VITALS: BP 159/82; TEMP 98.1
[2019-05-31 10:20] LABS: BILIRUBIN,TOTAL 0.3 mg/dL (0.2-1); BLOOD UREA NITROGEN 26.5 mg/dL (7-18); CALCIUM 9.7 mg/dL (8.5-10.1); CREATININE 1.2 mg/dL (0.55-1.3); MAGNESIUM 2.3 mg/dL (1.8-2.4)
[2019-05-31] MEDS ORDERED: PT OWN MED DRAWER 7, Y5N ONE ×2 (10:48→11:03)
[2019-05-31] MEDS: BUPRENORPHINE/NALOXONE 8 MG/2 MG FILM PACKET SL SCH (10:51)
[2019-05-31] MEDS: HEPARIN NA (PORCINE) 5,000 UNITS/ML 1ML VIAL SQ SCH (10:51)
[2019-05-31] MEDS: PANTOPRAZOLE 40 MG TABLET (FP) PO SCH (10:51)
[2019-05-31] MEDS: methylPREDNISolone NA SUCC 40 MG/1 ML VIAL IVPUSH SCH (10:51)
[2019-05-31] MEDS: guaiFENesin 600 MG TABLET.ER (FP) PO SCH (10:51)
[2019-05-31] MEDS: QUEtiapine FUMARATE 100 MG TABLET (FP) PO SCH (10:52)
[2019-05-31] MEDS: NICOTINE 21 MG/24 HOURS TOPICAL PATCH TD SCH (10:52)
[2019-05-31] MEDS: CHLORTHALIDONE 25 MG TABLET PO SCH ×2 (10:52→11:21)
[2019-05-31] MEDS: amLODIPine BESYLATE 5 MG TABLET (FP) PO SCH (10:52)
[2019-05-31 11:15] LABS: ANISOCYTOSIS 0; MACROCYTOSIS 0; PLATELET ESTIMATE NORMAL
--- NOTE | 2019-05-31 12:25 | PN ---
Progress Note, Physician History of Present Illness: continues to improve no new issues - Current Medication List Current Medications: Active Medications Acetaminophen (Tylenol -) 650 mg PO Q6H PRN PRN Reason: Fever Last Admin: 05/27/19 13:38 Dose: 650 mg Albuterol Sulfate (Ventolin 0.083% Nebulizer Soln -) 1 amp NEB Q4H PRN PRN Reason: SHORT OF BREATH/WHEEZING Last Admin: 05/26/19 03:22 Dose: 1 amp Albuterol/Ipratropium (Duoneb -) 1 amp NEB RQID [facility] Last Admin: 05/31/19 07:35 Dose: 1 amp Amlodipine Besylate (Norvasc -) 5 mg PO DAILY [facility] Last Admin: 05/31/19 10:52 Dose: 5 mg Amoxicillin/Clavulanate Potassium (Augmentin - 875mg Tablet) 1 tab PO BID@0800, 1730 [facility] Last Admin: 05/31/19 08:36 Dose: 1 tab Benzocaine/Menthol (Cepacol Lozenge -) 1 each MM Q4H PRN PRN Reason: SORE THROAT Last Admin: 05/30/19 21:02 Dose: 1 each Buprenorphine/Naloxone (Suboxone 8 Mg/2 Mg Film Packet) 1 each SL DAILY [facility] Stop: 06/06/19 10:01 Last Admin: 05/31/19 10:51 Dose: 1 each Chlorthalidone (Hygroton -) 25 mg PO DAILY [facility] Last Admin: 05/31/19 11:21 Dose: 25 mg Colloidal Oatmeal (Aveeno Soap -) 1 applic TP DAILY PRN PRN Reason: HYGEINE Cyclobenzaprine HCl (Cyclobenzaprine Hcl) 5 mg PO TID [facility] Last Admin: 05/31/19 05:59 Dose: 5 mg Gabapentin (Neurontin -) 300 mg PO TID [facility] Last Admin: 05/31/19 05:59 Dose: 300 mg Guaifenesin (Mucinex -) 600 mg PO BID [facility] Last Admin: 05/31/19 10:51 Dose: 600 mg Heparin Sodium (Porcine) (Heparin -) 5,000 unit SQ BID [facility] Last Admin: 05/31/19 10:51 Dose: 5,000 unit Methylprednisolone Sodium Succinate (Solu-Medrol -) 40 mg IVPUSH Q12H [facility] Last Admin: 05/31/19 10:51 Dose: 40 mg Miconazole Nitrate (Monistat-7 Vaginal Cream -) 1 applic PV [facility] Last Admin: 05/30/19 21:06 Dose: 1 applic Mirtazapine (Remeron -) 15 mg PO [facility] Last Admin: 05/30/19 20:59 Dose: 15 mg Montelukast Sodium (Singulair -) 10 mg PO DAILY@1800 [facility] Last Admin: 05/30/19 17:05 Dose: 10 mg Nicotine (Nicoderm Patch -) 21 mg TD DAILY [facility] Stop: 07/04/19 10:01 Last Admin: 05/31/19 10:52 Dose: 21 mg Pantoprazole Sodium (Protonix -) 40 mg PO DAILY [facility] Last Admin: 05/31/19 10:51 Dose: 40 mg Quetiapine Fumarate (Seroquel -) 200 mg PO [facility] Last Admin: 05/30/19 20:59 Dose: 200 mg Quetiapine Fumarate (Seroquel -) 100 mg PO DAILY [facility] Last Admin: 05/31/19 10:52 Dose: 100 mg - Objective Vital Signs: Vital Signs Temperature 98.1 F 05/31/19 09:00 Pulse Rate 88 05/31/19 09:00 Respiratory Rate 20 05/31/19 09:00 Blood Pressure 159/82 05/31/19 09:00 O2 Sat by Pulse Oximetry (%) 96 05/30/19 20:37 Constitutional: Yes: No Distress, Calm Cardiovascular: Yes: S1, S2 Respiratory: Yes: Regular, CTA Bilaterally Gastrointestinal: Yes: Normal Bowel Sounds, Soft Musculoskeletal: Yes: WNL Extremities: Yes: WNL Neurological: Yes: Alert, Oriented Psychiatric: Yes: Alert, Oriented Labs: CBC, BMP 05/31/19 08:50 05/31/19 08:50 INR, PTT INR 0.99 (0.83-1.09) 05/25/19 08:00 Assessment/Plan paom List - Problems (1) COPD with acute exacerbation Code(s): J44.1 - CHRONIC OBSTRUCTIVE PULMONARY DISEASE W (ACUTE) EXACERBATION (2) Hypoxemia Code(s): R09.02 - HYPOXEMIA (3) COPD exacerbation Code(s): J44.1 - CHRONIC OBSTRUCTIVE PULMONARY DISEASE W (ACUTE) EXACERBATION (4) Hypertension Code(s): I10 - ESSENTIAL (PRIMARY) HYPERTENSION (5) GERD (gastroesophageal reflux disease) Code(s): K21.9 - GASTRO-ESOPHAGEAL REFLUX DISEASE WITHOUT ESOPHAGITIS Qualifiers: Esophagitis presence: without esophagitis Qualified Code(s): K21.9 - Gastro -esophageal reflux disease without esophagitis (6) Hypothyroidism Code(s): E03.9 - HYPOTHYROIDISM, UNSPECIFIED Qualifiers: Hypothyroidism type: acquired Qualified Code(s): E03.9 - Hypothyroidism, unspecified (7) Nicotine dependence Code(s): F17.200 - NICOTINE DEPENDENCE, UNSPECIFIED, UNCOMPLICATED Qualifiers: Nicotine product type: cigarettes Substance use status: uncomplicated Qualified Code(s): F17.210 - Nicotine dependence, cigarettes, uncomplicated (8) Obesity (BMI 30-39.9) Code(s): E66.9 - OBESITY, UNSPECIFIED (9) Pneumonia Code(s): J18.9 - PNEUMONIA, UNSPECIFIED ORGANISM plan continue current mgmt oral abx
[2019-05-31 13:08] VITALS: PULSE 95
--- NOTE | 2019-05-31 15:13 | PN ---
Progress Note, Physician History of Present Illness: pulmonary alert,feeling better,less congested - Current Medication List Current Medications: Active Medications Acetaminophen (Tylenol -) 650 mg PO Q6H PRN PRN Reason: Fever Last Admin: 05/27/19 13:38 Dose: 650 mg Albuterol Sulfate (Ventolin 0.083% Nebulizer Soln -) 1 amp NEB Q4H PRN PRN Reason: SHORT OF BREATH/WHEEZING Last Admin: 05/26/19 03:22 Dose: 1 amp Albuterol/Ipratropium (Duoneb -) 1 amp NEB RQID [facility] Last Admin: 05/31/19 11:20 Dose: 1 amp Amlodipine Besylate (Norvasc -) 5 mg PO DAILY [facility] Last Admin: 05/31/19 10:52 Dose: 5 mg Amoxicillin/Clavulanate Potassium (Augmentin - 875mg Tablet) 1 tab PO BID@0800, 1730 [facility] Last Admin: 05/31/19 08:36 Dose: 1 tab Benzocaine/Menthol (Cepacol Lozenge -) 1 each MM Q4H PRN PRN Reason: SORE THROAT Last Admin: 05/30/19 21:02 Dose: 1 each Buprenorphine/Naloxone (Suboxone 8 Mg/2 Mg Film Packet) 1 each SL DAILY [facility] Stop: 06/06/19 10:01 Last Admin: 05/31/19 10:51 Dose: 1 each Chlorthalidone (Hygroton -) 25 mg PO DAILY [facility] Last Admin: 05/31/19 11:21 Dose: 25 mg Colloidal Oatmeal (Aveeno Soap -) 1 applic TP DAILY PRN PRN Reason: HYGEINE Cyclobenzaprine HCl (Cyclobenzaprine Hcl) 5 mg PO TID [facility] Last Admin: 05/31/19 13:54 Dose: 5 mg Gabapentin (Neurontin -) 300 mg PO TID [facility] Last Admin: 05/31/19 13:54 Dose: 300 mg Guaifenesin (Mucinex -) 600 mg PO BID [facility] Last Admin: 05/31/19 10:51 Dose: 600 mg Heparin Sodium (Porcine) (Heparin -) 5,000 unit SQ BID [facility] Last Admin: 05/31/19 10:51 Dose: 5,000 unit Methylprednisolone Sodium Succinate (Solu-Medrol -) 40 mg IVPUSH Q12H [facility] Last Admin: 05/31/19 10:51 Dose: 40 mg Miconazole Nitrate (Monistat-7 Vaginal Cream -) 1 applic PV [facility] Last Admin: 05/30/19 21:06 Dose: 1 applic Mirtazapine (Remeron -) 15 mg PO HS [facility] Last Admin: 05/30/19 20:59 Dose: 15 mg Montelukast Sodium (Singulair -) 10 mg PO DAILY@1800 [facility] Last Admin: 05/30/19 17:05 Dose: 10 mg Nicotine (Nicoderm Patch -) 21 mg TD DAILY [facility] Stop: 07/04/19 10:01 Last Admin: 05/31/19 10:52 Dose: 21 mg Pantoprazole Sodium (Protonix -) 40 mg PO DAILY [facility] Last Admin: 05/31/19 10:51 Dose: 40 mg Quetiapine Fumarate (Seroquel -) 200 mg PO [facility] Last Admin: 05/30/19 20:59 Dose: 200 mg Quetiapine Fumarate (Seroquel -) 100 mg PO DAILY [facility] Last Admin: 05/31/19 10:52 Dose: 100 mg - Objective Vital Signs: Vital Signs Temperature 98.1 F 05/31/19 09:00 Pulse Rate 95 H 05/31/19 12:57 Respiratory Rate 20 05/31/19 09:00 Blood Pressure 159/82 05/31/19 09:00 O2 Sat by Pulse Oximetry (%) 92 L 05/31/19 12:57 Constitutional: Yes: Calm, Obese Eyes: Yes: WNL HENT: Yes: WNL Neck: Yes: WNL Cardiovascular: Yes: Regular Rate and Rhythm, S1, S2 Respiratory: Yes: Rhonchi (scatteredd rhonchi) Gastrointestinal: Yes: Normal Bowel Sounds, Soft Extremities: Yes: WNL Edema: No Labs: CBC, BMP 05/31/19 08:50 05/31/19 08:50 INR, PTT INR 0.99 (0.83-1.09) 05/25/19 08:00 Problem List - Problems (1) COPD with acute exacerbation Code(s): J44.1 - CHRONIC OBSTRUCTIVE PULMONARY DISEASE W (ACUTE) EXACERBATION (2) Hypoxemia Code(s): R09.02 - HYPOXEMIA (3) COPD exacerbation Code(s): J44.1 - CHRONIC OBSTRUCTIVE PULMONARY DISEASE W (ACUTE) EXACERBATION (4) Hypertension Code(s): I10 - ESSENTIAL (PRIMARY) HYPERTENSION (5) GERD (gastroesophageal reflux disease) Code(s): K21.9 - GASTRO-ESOPHAGEAL REFLUX DISEASE WITHOUT ESOPHAGITIS Qualifiers: Esophagitis presence: without esophagitis Qualified Code(s): K21.9 - Gastro -esophageal reflux disease without esophagitis (6) Hypothyroidism Code(s): E03.9 - HYPOTHYROIDISM, UNSPECIFIED Qualifiers: Hypothyroidism type: acquired Qualified Code(s): E03.9 - Hypothyroidism, unspecified (7) Nicotine dependence Code(s): F17.200 - NICOTINE DEPENDENCE, UNSPECIFIED, UNCOMPLICATED Qualifiers: Nicotine product type: cigarettes Substance use status: uncomplicated Qualified Code(s): F17.210 - Nicotine dependence, cigarettes, uncomplicated (8) Obesity (BMI 30-39.9) Code(s): E66.9 - OBESITY, UNSPECIFIED (9) Pneumonia Code(s): J18.9 - PNEUMONIA, UNSPECIFIED ORGANISM Qualifiers: Pneumonia type: due to Mycoplasma pneumoniae Assessment/Plan A/P Acute COPD Exacerbation Pneumonia HTN Smoker Suspected ENRIQUE - Mucinex - Prednisone 60mg po daily - inhaled bronchodilators - O2 to keep SpO2 >90% - smoking cessation - outpt PFTs, NPSG - outpt f/u of chest imaging - DVT prophylaxis - home O2 - outpatient pulmonary rehab DR PERSAUD
--- NOTE | 2019-05-31 15:30 | DS ---
Physical Exam: SUBJECTIVE: Patient seen and examined OBJECTIVE: Patient is a 63yo F with h/o of long-standing tobacco use, suspected ENRIQUE, HTN, suboxone use who presents to ED worsening AGUIRRE and wheezing. She was seen in ED at [facility] about 3 weeks ago with similar complaints where she was given a Medrol dose pack and abx. Her home nebs were ineffective. After completion of steroids she had reoccurrence of symptoms and returned back to [facility] where she was given another dose pack. Pt had worsening of symptoms in addition to green sputum production and pleuritic chest pain and presented to ED here for further evaluation. During hospital stay, patient treated with IV antibiotics and IV solumedol taper. A respiratory pre and post done shows patient requires home oxygen therapy. She will be discharged with a prednisone taper. Vital Signs Period Temp Pulse Resp BP Sys/Steinberg Pulse Ox Last 24 Hr 98.1 F-98.5 F 70-95 18-20 150-159/68-82 92-96 PHYSICAL EXAM GENERAL: The patient is awake, alert, and fully oriented, in no acute distress. HEAD: Normal with no signs of trauma. EYES: PERRL, extraocular movements intact, sclera anicteric, conjunctiva clear. No ptosis. ENT: Ears normal, nares patent, oropharynx clear without exudates, moist mucous membranes. NECK: Trachea midline, full range of motion, supple. LUNGS: + wheezing bilaterally, oxygen stable, prn 2-4 liters HEART: Regular rate and rhythm ABDOMEN: Soft, nontender, nondistended, normoactive bowel sounds, no guarding, no rebound, no hepatosplenomegaly, no masses. EXTREMITIES: no edema. NEUROLOGICAL: Normal speech, gait steady PSYCH: Normal mood, normal affect. SKIN: Warm, dry, normal turgor, no rashes or lesions noted LABS Laboratory Results - last 24 hr 05/31/19 05/31/19 05/31/19 08:50 08:50 08:50 WBC 12.5 H RBC 4.76 Hgb 15.3 Hct 43.8 MCV 92.1 MCH 32.2 MCHC 34.9 RDW 13.6 Plt Count 236 MPV 8.9 Absolute Neuts (auto) 9.4 H Neutrophils % 75.3 Neutrophils % (Manual) 70.3 Band Neutrophils % 1.8 Lymphocytes % 18.0 D Lymphocytes % (Manual) 18.0 D Monocytes % 6.2 Monocytes % (Manual) 5 Eosinophils % 0.2 D Eosinophils % (Manual) 0.0 Basophils % 0.3 Basophils % (Manual) 0.0 Myelocytes % (Man) 1 Promyelocytes % (Man) 0 D Blast Cells % (Manual) 0 Nucleated RBC % 0 Metamyelocytes 4 H D Hypochromia 0 Platelet Estimate Normal Polychromasia 0 Anisocytosis 0 Microcytosis 0 Macrocytosis 0 Sodium 133 L Potassium 4.0 Chloride 92 L Carbon Dioxide 28 Anion Gap 13 BUN 26.5 H Creatinine 1.2 Est GFR (CKD-EPI)AfAm 56.49 Est GFR (CKD-EPI)NonAf 48.74 Random Glucose 410 H* Hemoglobin A1c % 7.5 H Calcium 9.7 Magnesium 2.3 Total Bilirubin 0.3 AST 13 L ALT 24 Alkaline Phosphatase 117 Total Protein 8.0 Albumin 4.0 HOSPITAL COURSE: Date of Admission:05/24/19 Date of Discharge: 05/31/19 Minutes to complete discharge: 60 Discharge Summary Problems reviewed: Yes Reason For Visit: ACUTE EXACERBATION OF COPD Current Active Problems COPD with acute exacerbation (Acute) Heroin addiction (Acute) Hypoxemia (Acute) Pneumonia (Acute) Prophylactic measure (Acute) Respiratory failure with hypoxia (Acute) Condition: Improved - Instructions Diet, Activity, Other Instructions: Mrs Zhu: You were admitted for exacerbation of your COPD and will be sent home with Prednisone. Take Prednisone 40mg ONCE per day for 3 days on 06/01/2019, 06/02/2019 and 06/03 Take Prednisone 30mg ONCE per day for 2 days on 06/04/2019 AND 06/05/2019 Take Prednisone 20mg ONCE per day for 1 day on 06/06/2019. this is your last dose Take Amoxocillin (antibiotic) for 5 more days as written on your medication bottle. Please note that your Hmga1c was slightly high at 7.5. This puts you at risk for diabetes. We have sent you a referral to see Dr. Álvarez or an sports centre manager of your choosing for follow up to help manage your elevated blood sugars. Please see your primary care doctor within 3-5 days. Referrals: Katelyn Bennett MD [Staff Physician] - Disposition: HOME - Home Medications Comprehensive Discharge Medication List: Ambulatory Orders Pantoprazole Sodium [Protonix -] 40 mg PO DAILY #14 tablet.ec 01/03/19 Blood Pressure Test Kit-Large [Blood Pressure Monitor] 1 each MC DAILY #1 kit Cyclobenzaprine HCl [Flexeril -] 10 mg PO HS PRN #30 tablet 02/24/19 Gabapentin 300 mg PO TID #42 capsule 03/22/19 Budesonide/Formeterol Fumarate [SYMBICORT 160/4.5mcg -] 1 inh IH BID #1 inhaler 04/07/19 Chlorthalidone 25 mg PO DAILY #30 tablet 04/07/19 Albuterol Sulfate Inhaler - [Ventolin HFA Inhaler -] 2 puff IH Q4H PRN #1 inhaler 04/12/19 Fluticasone Propionate [Flovent Diskus] 50 mcg IH BID #1 blst.w.dev 04/12/19 Mirtazapine [Remeron -] 15 mg PO HS #30 tablet 05/05/19 Quetiapine Fumarate [Seroquel -] 100 mg PO DAILY #30 tablet 05/05/19 Quetiapine Fumarate [Seroquel -] 200 tab PO HS #60 tablet 05/05/19 Albuterol 0.083% Nebulizer Nida [Ventolin 0.083% Nebulizer Soln -] 1 neb NEB Q4H #4 box 05/10/19 Amlodipine Besylate 5 mg PO DAILY #30 tablet 05/10/19 Ipratropium 0.02% Nebulizer [Atrovent 0.02% Nebulizer -] 1 neb NEB TID #2 box Montelukast Na [Singulair -] 10 mg PO DAILY #30 tablet 05/10/19 Buprenorphine/Naloxone [Suboxone 8Mg/2Mg Sl Film -] 1 each SL DAILY #14 packet MDD 1 05/17/19 Amox-Tr/K Cl [Augmentin 875-125mg Tablet -] 1 tab PO BID@0800,1730 #10 tablet Cyclobenzaprine HCl 5 mg PO TID tablet 05/31/19 Guaifenesin [Mucinex -] 600 mg PO BID tablet.er 05/31/19 Nicotine Patch [Nicoderm Patch -] 21 mg TD DAILY patch 05/31/19 Prednisone 40 mg PO DAILY #30 tab.ds.pk 05/31/19 Problem List - Problems (1) Pneumonia Assessment/Plan: transitioned to augmentin for 5 more days Code(s): J18.9 - PNEUMONIA, UNSPECIFIED ORGANISM Qualifiers: Pneumonia type: due to Mycoplasma pneumoniae (2) COPD with acute exacerbation Assessment/Plan: pre and post shows patient requires supplemental oxygen on prednisone taper Code(s): J44.1 - CHRONIC OBSTRUCTIVE PULMONARY DISEASE W (ACUTE) EXACERBATION (3) Heroin addiction Assessment/Plan: on subxone Code(s): F11.20 - OPIOID DEPENDENCE, UNCOMPLICATED (4) Hypoxemia Code(s): R09.02 - HYPOXEMIA (5) Prophylactic measure Assessment/Plan: protonix Code(s): Z29.9 - ENCOUNTER FOR PROPHYLACTIC MEASURES, UNSPECIFIED (6) Respiratory failure with hypoxia Code(s): J96.91 - RESPIRATORY FAILURE, UNSPECIFIED WITH HYPOXIA (7) Hypertension Code(s): I10 - ESSENTIAL (PRIMARY) HYPERTENSION (8) Back pain Code(s): M54.9 - DORSALGIA, UNSPECIFIED Qualifiers: Back pain location: low back pain Chronicity: chronic Back pain laterality: unspecified Sciatica presence: unspecified whether sciatica present Qualified Code(s): M54.5 - Low back pain; G89.29 - Other chronic pain (9) Nicotine dependence Code(s): F17.200 - NICOTINE DEPENDENCE, UNSPECIFIED, UNCOMPLICATED Qualifiers: Nicotine product type: cigarettes Substance use status: uncomplicated Qualified Code(s): F17.210 - Nicotine dependence, cigarettes, uncomplicated (10) Borderline diabetes mellitus Assessment/Plan: hmga1c 7.3. Will need follow up with sports centre manager and PCP. Have Hmga1c repeated in 3 months. discussed importance of diet modification/weight loss with patient. blood sugars elevated here secondary to solumedrol. Code(s): R73.03 - PREDIABETES This patient is new to me today: No Emergency Visit: Yes ED Registration Date: 05/24/19 Care time: The patient presented to the Emergency Department on the above date and was hospitalized for further evaluation of their emergent condition. Critical Care patient: No - Discharge Referral Referred to [facility] No
[2019-06-03 23:05] VITALS: BMI 40.7
== END 2019-05-31 17:00 | disposition home or self-care (01) | DRG 193 ==
LOC: JER 06:08 → JERBED 10:27 → J6S 17:17
PROVIDERS: ADMIT Internal Medicine; ATTEND Nurse Practitioner Family
DX: J18.9 Pneumonia, unspecified organism (principal); J96.01 Acute respiratory failure with hypoxia; J44.1 Chronic obstructive pulmonary disease with (acute) exacerbation; Z68.41 Body mass index [BMI] 40.0-44.9, adult; F31.89 Other bipolar disorder; F11.20 Opioid dependence, uncomplicated; K21.9 Gastro-esophageal reflux disease without esophagitis; E66.9 Obesity, unspecified; F17.210 Nicotine dependence, cigarettes, uncomplicated; I10 Essential (primary) hypertension; E03.9 Hypothyroidism, unspecified
CPT/HCPCS: 36415; 36600; 71045-TC-FY; 71250-TC; 80048; 80053; 81003; 82803; 83036; 83735; 84100; 84484; 85025; 85027; 85610; 87040; 87070; 87205; 90732; 93005; 93010; 94010; 94640; 94761; 97116-GP; 97161-GP; 99284-25; G0009; J1644

== ENCOUNTER 2019-07-25 13:51 | Inpatient (IN) | payer OTHER ==
[2019-07-25 16:39] VITALS: BP 197/99; PULSE 70; TEMP 99.3; BMI 41.8
--- NOTE | 2019-07-25 17:51 | HP ---
CIWA Score Nausea/Vomitin Muscle Tremors: 3 Anxiety: 3 Agitation: 2 Paroxysmal Sweats: 4-Forehead w/Sweat Beads Orientation: 0-Oriented Tacttile Disturbances: 1-Very Mild Itch/Numbness Auditory Disturbances: 0-None Visual Disturbances: 0-None Headache: 2-Mild CIWA-Ar Total Score: 17 - Admission Criteria OASAS Guidelines: Admission for Medically Managed Detox: Requires at least one of the followin. CIWA greater than 12 2. Seizures within the past 24 hours 3. Delirium tremens within the past 24 hours 4. Hallucinations within the past 24 hours 5. Acute intervention needed for co occurring medical disorder 6. Acute intervention needed for co occurring psychiatric disorder 7. Severe withdrawal that cannot be handled at a lower level of care (continued vomiting, continued diarrhea, abnormal vital signs) requiring intravenous medication and/or fluids 8. Admitting History and Physical - Admission Chief Complaint: "im here for alcohol and and heroin detox". History of Present Illness: A 63year old female with history of HTN, copd, bipolar, personality disorder, heroin, and alcohol use disorder who presents here today requesting for alcohol and heroin detox. Pt's utox is positive for fentanyl and suboxone. Pt initially denies any use of suboxone but later admitted she is on suboxon 8mg/2mg sl daily. As per Istop, pt was given suboxone prescription on 07/13/19 for 14days. Pt's LAUREEN is 0 but is withdrawing from alcohol, withdrawal symptoms noted. Pt reports that she used 1bag of heroin via iv yesterday in AM but usually uses 4bags. Will admit for alcohol detox for now. Suboxone to be started later after she has been reevaluated by the provider sanitation lead. History Source: Patient Limitations to Obtaining History: No Limitations - Past Medical History Cardiovascular: Yes: HTN Pulmonary: Yes: COPD, Sleep Apnea (suspected) Heme/Onc: Yes: Cancer (cervical Ca 1983) - Past Surgical History Past Surgical History: Yes: Appendectomy (age 7) - Smoking History Smoking history: Current every day smoker Have you smoked in the past 12 months: Yes Aproximately how many cigarettes per day: 20 - Alcohol/Substance Use Hx Alcohol Use: Yes History of Substance Use: reports: Heroin (currently on suboxone) - Social History Usual Living Arrangement: Yes: Alone, Other (pt's son lives with her.) Do you think of yourself as: Straight/Heterosexual ADL: Independent Occupation: on disability, worked at [employer] History of Recent Travel: No Admission ROS [facility] Allergies/Adverse Reactions: Allergies Allergy/AdvReac Type Severity Reaction Status Date / Time No Known Allergies Allergy Verified 07/25/19 16:26 Exam Limitations: No Limitations - Ebola screening Have you traveled outside of the country in the last 21 days: No Have you had contact with anyone from an Ebola affected area: No Have you been sick,other than usual withdrawal symptoms: No Do you have a fever: No - Review of Systems Constitutional: Chills, Night Sweats EENT: reports: No Symptoms Reported Respiratory: reports: Cough Cardiac: reports: No Symptoms Reported GI: reports: Nausea : reports: No Symptoms Reported Musculoskeletal: reports: Back Pain Integumentary: reports: No Symptoms Reported Neuro: reports: Headache, Numbness, Tremors Endocrine: reports: No Symptoms Reported Hematology: reports: No Symptoms Reported Psychiatric: reports: Mood/Affect Appropiate, Anxious Other Systems: Reviewed and Negative Patient History - Patient Medical History Hx Anemia: No Hx Asthma: Yes Hx Chronic Obstructive Pulmonary Disease (COPD): Yes Hx Cancer: Yes (Cervical Cancer 1983) Hx Cardiac Disorders: No Hx Congestive Heart Failure: No Hx Hypertension: No Hx Hypercholesterolemia: No HX Cerebrovascular Accident: No Hx Seizures: No Hx Dementia: No Hx Diabetes: No Hx Gastrointestinal Disorders: No Hx Liver Disease: No Hx Genitourinary Disorders: No Hx Sexually Transmitted Disorders: No Hx Renal Disease (ESRD): No Hx Thyroid Disease: No Hx Human Immunodeficiency Virus (HIV): No (Negative, November 2018.) Hx Hepatitis C: No (denies) Hx Depression: Yes (on meds , many hospitalizations) Hx Suicide Attempt: No (denies) Hx Bipolar Disorder: Yes Hx Schizophrenia: No - Patient Surgical History Past Surgical History: Yes Hx Neurologic Surgery: No Hx Cataract Extraction: No Hx Cardiac Surgery: No Hx Lung Surgery: No Hx Breast Surgery: No Hx Breast Biopsy: No Hx Abdominal Surgery: No Hx Appendectomy: Yes (age 7 yrs) Hx Cholecystectomy: No Hx Genitourinary Surgery: No Hx Section: No Hx Orthopedic Surgery: No Other Surgical History: R arm sx for abscess Anesthesia Reaction: No - PPD History Previous Implant?: Yes Documented Results: Negative w/proof Date: 03/17/18 Results: 0 mm PPD to be Administered?: Yes - Smoking Cessation Smoking history: Current every day smoker Have you smoked in the past 12 months: Yes Aproximately how many cigarettes per day: 20 Hx Chewing Tobacco Use: No Initiated information on smoking cessation: Yes 'Breaking Loose' booklet given: 07/25/19 - Substance & Tx. History Hx Substance Use Treatment: Yes (On suboxone ) - Substances abused Heroin Substance route: Injection Frequency: Daily Amount used: 4bags Age of first use: 40 Date of last use: 07/24/19 Alcohol Substance route: Oral Frequency: Daily Amount used: half of galoon wine Age of first use: 23 Date of last use: 07/24/19 Admission Physical Exam S - Vital Signs Vital Signs: Vital Signs - 24 hr 07/25/19 07/25/19 16:24 16:59 Temperature 99.3 F 99.3 F Pulse Rate 70 70 Respiratory 21 H 21 H Rate Blood Pressure 197/99 H 197/99 H - Physical General Appearance: Yes: No Apparent Distress, Tremorous, Irritable, Sweating, Anxious HEENTM: Yes: EOMI, Hearing grossly Normal, Normocephalic, Normal Voice, CHELSI Respiratory: Yes: Chest Non-Tender, Lungs Clear, No Respiratory Distress, Other Neck: Yes: No masses,lesions,Nodules, Trachea in good position Breast: Yes: Breast Exam Deferred Cardiology: Yes: Regular Rhythm, Regular Rate, S1, S2 Abdominal: Yes: Normal Bowel Sounds, Non Tender, Soft Genitourinary: Yes: Within Normal Limits Back: Yes: Normal Inspection Musculoskeletal: Yes: full range of Motion, Back pain Extremities: Yes: Normal Capillary Refill, Normal Range of Motion, Tremors Neurological: Yes: Alert, Motor Strength 5/5, Normal Mood/Affect, Normal Response Integumentary: Yes: Dry, Warm, Track Krishna (few track krishna to b/l arms.) Lymphatic: Yes: Within Normal Limits - Diagnostic (1) Borderline diabetes mellitus Current Visit: No Status: Acute (2) Heroin addiction Current Visit: No Status: Acute (3) Hypertension Current Visit: No Status: Acute (4) Asthma Current Visit: No Status: Chronic Qualifiers: Asthma severity: mild Asthma persistence: intermittent Asthma complication type: uncomplicated Qualified Code(s): J45.20 - Mild intermittent asthma, uncomplicated Comment: pulmonary consult pending; c/w albuterol, singulair, flovent, discussed exercise as tolerated, pulm consult, does not want to stop smoking (5) Back pain Current Visit: No Status: Chronic Qualifiers: Back pain location: low back pain Chronicity: chronic Back pain laterality: unspecified Sciatica presence: unspecified whether sciatica present Qualified Code(s): M54.5 - Low back pain; G89.29 - Other chronic pain Comment: gentle stretches, flexeril (6) Bipolar disorder Current Visit: No Status: Chronic Qualifiers: Active/Remission status: remission status unspecified Qualified Code(s): F31.9 - Bipolar disorder, unspecified Comment: As per history. (7) COPD (chronic obstructive pulmonary disease) Current Visit: No Status: Chronic Qualifiers: COPD type: emphysema Emphysema type: other Qualified Code(s): J43.8 - Other emphysema Comment: pateint with straight medicare with spend down; missed pulmonary consult because she can not afford the copay; albuterol, symbicort and ipratropium (8) GERD (gastroesophageal reflux disease) Current Visit: No Status: Chronic Qualifiers: Esophagitis presence: without esophagitis Qualified Code(s): K21.9 - Gastro -esophageal reflux disease without esophagitis Comment: on meds, monitor (9) Hypothyroidism Current Visit: No Status: Chronic Qualifiers: Hypothyroidism type: acquired Qualified Code(s): E03.9 - Hypothyroidism, unspecified Comment: needs f/u with primary (10) Nicotine dependence Current Visit: No Status: Chronic Qualifiers: Nicotine product type: cigarettes Substance use status: uncomplicated Qualified Code(s): F17.210 - Nicotine dependence, cigarettes, uncomplicated Comment: does not want to quit at this time; encourage smoking cessation (11) Opioid dependence Current Visit: No Status: Chronic Qualifiers: Substance use status: uncomplicated Qualified Code(s): F11.20 - Opioid dependence, uncomplicated Comment: cont suboxone 8mg daily, (12) Alcohol dependence with uncomplicated withdrawal Current Visit: No Status: Resolved Cleared for Admission [facility] - Detox or Rehab S Level of Care: Medically Managed Detox Regimen/Protocol: Librium Claeared for Rehab Admission: No Breathalyzer - Breathalyzer Breathalyzer: 0 Urine Drug Screen - Test Device Lot number: [id number] Expiration date: 07/25/19 - Control Is test valid?: Yes - Results Drug screen NEGATIVE: No Urine drug screen results: FEN-Fentanyl, BUP-Suboxone Inpatient Rehab Admission - Rehab Decision to Admit Inpatient rehab admission?: No
[2019-07-25] MEDS ORDERED: NICOTINE POLACRILEX 2 MG GUM BUC PRN (18:05)
[2019-07-25] MEDS ORDERED: MAG HYDROX/AL HYDROX/SIMETH 30 ML UNIT-DOSE CUP PO PRN (18:05)
[2019-07-25] MEDS ORDERED: IBUPROFEN 400 MG TABLET (FP) PO PRN (18:05)
[2019-07-25] MEDS ORDERED: guaiFENesin 200 MG/10 ML 10 ML UNIT-DOSE CUPS PO PRN (18:05)
[2019-07-25] MEDS ORDERED: MELATONIN 5 MG TABLETS PO PRN (18:05)
[2019-07-25] MEDS ORDERED: hydrOXYzine PAMOATE 25 MG CAPSULE (FP) PO PRN (18:05)
[2019-07-25] MEDS ORDERED: MENTHOL/PHENOL 1 EACH UD MM PRN (18:05)
[2019-07-25] MEDS ORDERED: METHOCARBAMOL 500 MG TABLET PO PRN (18:05)
[2019-07-25] MEDS ORDERED: MAGNESIUM HYDROX 2400MG/30ML ORAL SUSPENSION 30 ML CUP PO PRN (18:05)
[2019-07-25] MEDS ORDERED: MAGNESIUM CITRATE 300 ML BOTTLE PO PRN (18:05)
[2019-07-25] MEDS ORDERED: P-EPHED 60MG/TRIPROLIDI 2.5MG TABLET PO PRN (18:05)
[2019-07-25] MEDS ORDERED: ONDANSETRON *ODT* 4 MG TABLET SL PRN (18:05)
[2019-07-25] MEDS ORDERED: BISMUTH SUBSALICYLATE 524 MG/30 ML UD PO PRN (18:05)
[2019-07-25] MEDS ORDERED: ACETAMINOPHEN 325 MG TABLET (FP) PO PRN ×2 (18:05)
[2019-07-25] MEDS ORDERED: chlordiazePOXIDE HCL 10 MG CAPSULE PO PRN (18:08)
[2019-07-25] MEDS ORDERED: ALBUTEROL SO4 8 GM HFA INHALER IH PRN (18:10)
[2019-07-25] MEDS ORDERED: ALBUTEROL SO4 0.083% IH SOL 2.5 MG/3 ML VIAL.NEB. NEB SCH (18:15)
[2019-07-25] MEDS ORDERED: cloNIDine HCL 0.1 MG TABLET PO ONE (19:35)
[2019-07-25] MEDS ORDERED: chlordiazePOXIDE HCL 25 MG CAPSULE PO SCH (21:00)
--- NOTE | 2019-07-25 21:37 | DS ---
[facility] Detox Discharge Summary Admission Date: 07/25/19 Discharge Date: 07/25/19 (Pt left AMA) - History Present History: Alcohol Dependence, Opioid Dependence Additional Comments: As per H&P: "A 63year old female with history of HTN, copd, bipolar, personality disorder, heroin, and alcohol use disorder who presents here today requesting for alcohol and heroin detox. Pt's utox is positive for fentanyl and suboxone. Pt initially denies any use of suboxone but later admitted she is on suboxon 8mg/2mg sl daily. As per Istop, pt was given suboxone prescription on for 14days. Pt's LAUREEN is 0 but is withdrawing from alcohol, withdrawal symptoms noted. Pt reports that she used 1bag of heroin via iv yesterday in AM but usually uses 4bags. Will admit for alcohol detox for now. Suboxone to be started later after she has been reevaluated by the provider personnel interviewer". Pt left AMA, pt states, "I changed my mind". Pt did not complete the detox protocol. An attempt to let pt stay and complete the detox protocol failed. Pt is encouraged to follow-up with an outpatient CD program and also to follow-up with her pmd but was adamant about the information given. Pertinent Past History: h/o HTN, heroin, and alcohol use disorder. - Physical Exam Results Vital Signs: Vital Signs Temperature 99.3 F 07/25/19 16:59 Pulse Rate 70 07/25/19 16:59 Respiratory Rate 21 H 07/25/19 16:59 Blood Pressure 197/99 H 07/25/19 16:59 O2 Sat by Pulse Oximetry (%) Vital Signs 07/25/19 07/25/19 16:24 16:59 Temperature 99.3 F 99.3 F Pulse Rate 70 70 Respiratory 21 H 21 H Rate Blood Pressure 197/99 H 197/99 H Pertinent Admission Physical Exam Findings: withdrawal symptoms. - Medication Discharge Medications: Ambulatory Orders Pantoprazole Sodium [Protonix -] 40 mg PO DAILY #14 tablet.ec 01/03/19 Blood Pressure Test Kit-Large [Blood Pressure Monitor] 1 each MC DAILY #1 kit Cyclobenzaprine HCl [Flexeril -] 10 mg PO HS PRN #30 tablet 02/24/19 Gabapentin 300 mg PO TID #42 capsule 03/22/19 Budesonide/Formeterol Fumarate [SYMBICORT 160/4.5mcg -] 1 inh IH BID #1 inhaler 04/07/19 Chlorthalidone 25 mg PO DAILY #30 tablet 04/07/19 Albuterol Sulfate Inhaler - [Ventolin HFA Inhaler -] 2 puff IH Q4H PRN #1 inhaler 04/12/19 Fluticasone Propionate [Flovent Diskus] 50 mcg IH BID #1 blst.w.dev 04/12/19 Albuterol 0.083% Nebulizer Nida [Ventolin 0.083% Nebulizer Soln -] 1 neb NEB Q4H #4 box 05/10/19 Amlodipine Besylate 5 mg PO DAILY #30 tablet 05/10/19 Ipratropium 0.02% Nebulizer [Atrovent 0.02% Nebulizer -] 1 neb NEB TID #2 box Montelukast Na [Singulair -] 10 mg PO DAILY #30 tablet 05/10/19 Cyclobenzaprine HCl 5 mg PO TID tablet 05/31/19 Guaifenesin [Mucinex -] 600 mg PO BID tablet.er 05/31/19 Nicotine Patch [Nicoderm Patch -] 21 mg TD DAILY patch 05/31/19 Mirtazapine [Remeron -] 15 mg PO HS #30 tablet 06/23/19 Quetiapine Fumarate [Seroquel -] 100 mg PO DAILY #30 tablet 06/23/19 Quetiapine Fumarate [Seroquel -] 200 tab PO HS #30 tablet 06/23/19 Buprenorphine/Naloxone [Suboxone 8Mg/2Mg Sl Film -] 1 each SL DAILY #14 packet MDD 1 07/04/19 - Diagnosis (1) Borderline diabetes mellitus Status: Chronic (2) Heroin addiction Status: Chronic (3) Hypertension Status: Chronic (4) Asthma Status: Chronic Qualifiers: Asthma severity: mild Asthma persistence: intermittent Asthma complication type: uncomplicated Qualified Code(s): J45.20 - Mild intermittent asthma, uncomplicated (5) Bipolar disorder Status: Chronic Qualifiers: Active/Remission status: remission status unspecified Qualified Code(s): F31.9 - Bipolar disorder, unspecified (6) COPD (chronic obstructive pulmonary disease) Status: Chronic Qualifiers: COPD type: emphysema Emphysema type: other Qualified Code(s): J43.8 - Other emphysema (7) GERD (gastroesophageal reflux disease) Status: Chronic Qualifiers: Esophagitis presence: without esophagitis Qualified Code(s): K21.9 - Gastro -esophageal reflux disease without esophagitis (8) Hypothyroidism Status: Chronic Qualifiers: Hypothyroidism type: acquired Qualified Code(s): E03.9 - Hypothyroidism, unspecified (9) Nicotine dependence Status: Chronic Qualifiers: Nicotine product type: cigarettes Substance use status: uncomplicated Qualified Code(s): F17.210 - Nicotine dependence, cigarettes, uncomplicated (10) Opioid dependence Status: Chronic Qualifiers: Substance use status: uncomplicated Qualified Code(s): F11.20 - Opioid dependence, uncomplicated (11) Alcohol dependence with uncomplicated withdrawal Status: Acute - AMA Did Patient Leave Against Medical Advice: Yes
[2019-07-25] MEDS ORDERED: THIAMINE HCL 100 MG TABLET (FP) PO SCH (22:00)
[2019-07-25] MEDS ORDERED: BUDESONIDE/FORMETEROL FUMARATE 160/4.5 mcg INHALER IH SCH (22:00)
[2019-07-25] MEDS ORDERED: IPRATROPIUM BR 0.02% 0.5 MG/2.5 ML VIAL.NEB. NEB SCH (22:00)
[2019-07-26] MEDS ORDERED: amLODIPine BESYLATE 5 MG TABLET (FP) PO SCH (10:00)
[2019-07-26] MEDS ORDERED: PANTOPRAZOLE 40 MG TABLET PO SCH (10:00)
[2019-07-26] MEDS ORDERED: PRENATAL VITAMINS W/ FOLIC ACID TABLET (FP) PO SCH (10:00)
[2019-07-26] MEDS ORDERED: MONTELUKAST NA 10 MG TABLET PO SCH (10:00)
[2019-07-26] MEDS ORDERED: NICOTINE 21 MG/24 HOURS TOPICAL PATCH TD SCH (10:00)
[2019-07-27] MEDS ORDERED: chlordiazePOXIDE 5 MG CAPSULE PO SCH (05:00)
[2019-07-28] MEDS ORDERED: chlordiazePOXIDE HCL 10 MG CAPSULE PO PRN
[2019-07-28] MEDS ORDERED: chlordiazePOXIDE HCL 10 MG CAPSULE PO SCH (05:00)
[2019-07-29] MEDS ORDERED: chlordiazePOXIDE HCL 10 MG CAPSULE PO ONE (05:00)
== END 2019-07-25 21:25 | disposition left against medical advice (07) | DRG 894 ==
LOC: YASAS 13:51 → Y3N 18:29
PROVIDERS: ADMIT Allergy & Immunology; ATTEND Allergy & Immunology
PROC: HZ2ZZZZ Detoxification Services for Substance Abuse Treatment (ICD-10-PCS; principal; 2019-07-25)
DX: F11.23 Opioid dependence with withdrawal (principal); F17.210 Nicotine dependence, cigarettes, uncomplicated; F31.9 Bipolar disorder, unspecified; I10 Essential (primary) hypertension; R73.03 Prediabetes; J45.20 Mild intermittent asthma, uncomplicated; J43.8 Other emphysema; K21.9 Gastro-esophageal reflux disease without esophagitis; E03.9 Hypothyroidism, unspecified; R25.1 Tremor, unspecified; M54.5 Low back pain; G89.29 Other chronic pain; Z85.41 Personal history of malignant neoplasm of cervix uteri
CPT/HCPCS: 94640; J0735

== ENCOUNTER 2020-07-24 13:54 | Inpatient (IN) | payer OTHER ==
[2020-07-24] MEDS ORDERED: ALBUTEROL SO4 HFA INHALER IH ONE ×3 (14:38→15:10)
[2020-07-24] MEDS ORDERED: methylPREDNISolone NA SUCC 125 MG/2 ML VIAL IVPUSH ONE (14:50)
[2020-07-24] MEDS ORDERED: CEFTRIAXONE 1 GM in DEXTROSE 5%-WATER - 100 ML IVPB ONE (14:50)
[2020-07-24] MEDS ORDERED: AZITHROMYCIN IVPB 500 MG in DEXTROSE 5%-WATER - 250 ML IVPB ONE (14:50)
[2020-07-24] MEDS ORDERED: methylPREDNISolone NA SUCC 125 MG/2 ML VIAL ONE ×2 (15:10→22:29)
[2020-07-24] MEDS ORDERED: CEFTRIAXONE 1 GM/50 ML BAG ONE (15:10)
[2020-07-24] MEDS ORDERED: AZITHROMYCIN IVPB 500 MG/250 ML BAG IVPB ONE ×2 (15:10→15:22)
[2020-07-24 15:24] LABS: BASO % 0.6 % (0-2.0); EOS % 9.1 % (0-4.5); HEMATOCRIT 40.4 % (32.4-45.2); HEMOGLOBIN 13.7 GM/dL (10.7-15.3); LYMPH % 24.7 % (8-40); MCH 32.5 pg (25.7-33.7); MCHC 33.9 g/dl (32.0-36.0); MEAN CELL VOLUME 95.8 fl (80-96); MEAN PLT VOLUME 9.2 fl (7.5-11.1); MONO % 6.6 % (3.8-10.2); PLATELET COUNT 248 K/MM3 (134-434); RBC 4.21 M/mm3 (3.60-5.2); RDW 12.8 % (11.6-15.6); WHITE BLOOD COUNT 9.5 K/mm3 (4.0-10.0)
[2020-07-24 15:26] LABS: VENOUS BASE EXCESS -1.5 mmol/L (-2-2); VENOUS O2 SATURATION 52.9 % (70-80); VENOUS PCO2 48.6 mmHg (38-52); VENOUS PH 7.328 (7.310-7.410)
[2020-07-24 15:44] LABS: CHLORIDE 102 mmol/L (98-107); POTASSIUM 4.6 mmol/L (3.5-5.1); SODIUM 136 mmol/L (136-145)
[2020-07-24 15:47] LABS: ALBUMIN 3.7 g/dl (3.4-5.0); ANION GAP 5 MMOL/L (8-16); BLOOD UREA NITROGEN 11.1 mg/dL (7-18); CALCIUM 9.1 mg/dL (8.5-10.1); CO2 29 mmol/L (21-32); GLUCOSE,RANDOM 97 mg/dL (74-106); MAGNESIUM 2.1 mg/dL (1.8-2.4)
[2020-07-24 15:49] LABS: CREATININE 0.7 mg/dL (0.55-1.3); SGOT/AST 34 U/L (15-37); SGPT/ALT 27 U/L (13-61)
[2020-07-24 15:52] LABS: ALK PHOS 103 U/L (45-117); BILIRUBIN,TOTAL 0.2 mg/dL (0.2-1); TOT PROT 7.8 g/dl (6.4-8.2)
[2020-07-24 15:54] LABS: N-TERMINAL BNP 90.9 pg/ml (5-125)
[2020-07-24] MEDS ORDERED: ACETAMINOPHEN 500 MG TABLET (FP) PO ONE (17:58)
[2020-07-24] MEDS ORDERED: ACETAMINOPHEN 325 MG TABLET (FP) ONE (17:59)
[2020-07-24] MEDS ORDERED: ALBUTEROL SO4 2.5/IPRATROPIUM 0.5 INH SOL 3 ML VIAL.NEB. NEB PRN (22:18)
[2020-07-24] MEDS: methylPREDNISolone NA SUCC 40 MG/1 ML VIAL IVPUSH SCH (22:40)
[2020-07-24] MEDS: BUDESONIDE/FORMETEROL FUMARATE 160/4.5 mcg INHALER IH SCH (22:40)
[2020-07-24 23:42] LABS: CHOLESTEROL 225 mg/dL (50-200)
[2020-07-24 23:43] LABS: TRIGLYCERIDES 93 mg/dL (0-150)
[2020-07-24 23:45] LABS: HDL CHOLESTEROL 50 mg/dL (40-60); LDL CHOLESTEROL (ONLY SJRH) 146 mg/dL (5-100)
[2020-07-25 01:05] VITALS: BMI 43.2
[2020-07-25] MEDS ORDERED: QUEtiapine FUMARATE 100 MG TABLET (FP) PO SCH ×3 (02:00→23:09)
[2020-07-25] MEDS: ACETAMINOPHEN 325 MG TABLET (FP) PO PRN ×2 (02:17→15:09)
[2020-07-25] MEDS: methylPREDNISolone NA SUCC 40 MG/1 ML VIAL IVPUSH SCH ×3 (02:21→10:00)
[2020-07-25] MEDS ORDERED: METHADONE HCL 10 MG TABLET PO ONE (03:05)
[2020-07-25] MEDS ORDERED: cloNIDine HCL 0.1 MG TABLET PO SCH (03:15)
[2020-07-25] MEDS ORDERED: cloNIDine HCL 0.1 MG TABLET PO PRN (03:16)
[2020-07-25] MEDS: INSULIN SLIDING SCALE (NOVOLOG) 1 VIAL SQ SCH ×4 (06:31→23:04)
[2020-07-25] MEDS ORDERED: ALBUTEROL SO4 0.083% IH SOL 2.5 MG/3 ML VIAL.NEB. NEB PRN (08:33)
[2020-07-25 08:42] LABS: BASO % 0.1 % (0-2.0); EOS % 0.1 % (0-4.5); HEMATOCRIT 39.3 % (32.4-45.2); HEMOGLOBIN 13.4 GM/dL (10.7-15.3); LYMPH % 9.9 % (8-40); MCH 32.1 pg (25.7-33.7); MCHC 34.1 g/dl (32.0-36.0); MEAN PLT VOLUME 8.8 fl (7.5-11.1); MONO % 2.3 % (3.8-10.2); NEUT % 87.6 % (42.8-82.8); PLATELET COUNT 266 K/MM3 (134-434); RBC 4.18 M/mm3 (3.60-5.2); RDW 12.6 % (11.6-15.6); WHITE BLOOD COUNT 11.9 K/mm3 (4.0-10.0)
[2020-07-25] MEDS ORDERED: ALBUTEROL SO4 2.5/IPRATROPIUM 0.5 INH SOL 3 ML VIAL.NEB. NEB SCH (08:45)
[2020-07-25 09:23] LABS: POTASSIUM 4.5 mmol/L (3.5-5.1)
[2020-07-25 09:28] LABS: ALBUMIN 3.7 g/dl (3.4-5.0); CALCIUM 9.4 mg/dL (8.5-10.1)
[2020-07-25 09:29] LABS: BLOOD UREA NITROGEN 15.6 mg/dL (7-18); MAGNESIUM 2.4 mg/dL (1.8-2.4)
[2020-07-25 09:32] LABS: CREATININE 0.8 mg/dL (0.55-1.3); PHOSPHOROUS 3.6 mg/dL (2.5-4.9)
[2020-07-25 09:33] LABS: BILIRUBIN,TOTAL 0.4 mg/dL (0.2-1); TOT PROT 7.8 g/dl (6.4-8.2)
[2020-07-25] MEDS ORDERED: PT OWN MED DRAWER 7, Y5N ONE (09:52)
[2020-07-25] MEDS: ENOXAPARIN NA (PORCINE) 40 MG/0.4 ML DISP.SYRIN SQ SCH (09:56)
[2020-07-25] MEDS: NICOTINE 7 MG/24 HOURS TOPICAL PATCH TD SCH (09:58)
[2020-07-25] MEDS: PANTOPRAZOLE 40 MG TABLET PO SCH (09:59)
[2020-07-25] MEDS ORDERED: TIOTROPIUM BROMIDE 2.5 MCG (SPIRIVA) RESPIMAT INHALER IH SCH (10:30)
[2020-07-25] MEDS: BUDESONIDE/FORMETEROL FUMARATE 160/4.5 mcg INHALER IH SCH ×2 (10:55→22:27)
[2020-07-25] MEDS: ALBUTEROL SO4 2.5/IPRATROPIUM 0.5 INH SOL 3 ML VIAL.NEB. NEB SCH ×3 (11:10→20:51)
[2020-07-25] MEDS ORDERED: INSULIN (NOVOLOG) ASPART 100 UNITS/ML 10ML VIAL ONE (11:27)
[2020-07-25] MEDS: predniSONE 20 MG TABLET (UD) PO SCH (11:30)
[2020-07-25] MEDS: AZITHROMYCIN IVPB 250 MG in DEXTROSE 5%-WATER - 250 ML IVPB SCH (11:33)
[2020-07-25] MEDS ORDERED: GABAPENTIN 100 MG CAPSULE PO SCH (15:30)
[2020-07-25] MEDS: GABAPENTIN 300 MG CAPSULE PO SCH ×2 (16:05→22:24)
[2020-07-25] MEDS ORDERED: MONTELUKAST NA 10 MG TABLET PO SCH (22:00)
[2020-07-26] MEDS: GABAPENTIN 300 MG CAPSULE PO SCH (05:48)
[2020-07-26] MEDS ORDERED: METHADONE HCL 40 MG DISPERSABLE TABLET PO SCH (06:00)
[2020-07-26] MEDS: ALBUTEROL SO4 2.5/IPRATROPIUM 0.5 INH SOL 3 ML VIAL.NEB. NEB SCH ×2 (08:10→11:47)
[2020-07-26] MEDS ORDERED: PT OWN MED DRAWER 7, Y5N ONE (08:55)
[2020-07-26] MEDS: NICOTINE 7 MG/24 HOURS TOPICAL PATCH TD SCH (09:01)
[2020-07-26] MEDS: predniSONE 20 MG TABLET (UD) PO SCH (09:01)
[2020-07-26] MEDS: ENOXAPARIN NA (PORCINE) 40 MG/0.4 ML DISP.SYRIN SQ SCH (09:02)
[2020-07-26] MEDS: PANTOPRAZOLE 40 MG TABLET PO SCH (09:02)
[2020-07-26] MEDS: BUDESONIDE/FORMETEROL FUMARATE 160/4.5 mcg INHALER IH SCH (09:02)
[2020-07-26 10:15] LABS: POTASSIUM 4.2 mmol/L (3.5-5.1)
[2020-07-26 10:20] LABS: ALBUMIN 3.5 g/dl (3.4-5.0); BLOOD UREA NITROGEN 18.2 mg/dL (7-18); CALCIUM 8.8 mg/dL (8.5-10.1); MAGNESIUM 2.5 mg/dL (1.8-2.4)
[2020-07-26 10:23] LABS: CREATININE 0.7 mg/dL (0.55-1.3)
[2020-07-26 10:24] LABS: BASO % 0.2 % (0-2.0); EOS % 1.1 % (0-4.5); HEMATOCRIT 36.3 % (32.4-45.2); HEMOGLOBIN 12.1 GM/dL (10.7-15.3); LYMPH % 24.3 % (8-40); MCH 31.8 pg (25.7-33.7); MCHC 33.4 g/dl (32.0-36.0); MEAN CELL VOLUME 95.3 fl (80-96); MEAN PLT VOLUME 9.2 fl (7.5-11.1); MONO % 6.6 % (3.8-10.2); NEUT % 67.8 % (42.8-82.8); PLATELET COUNT 222 K/MM3 (134-434); RBC 3.81 M/mm3 (3.60-5.2); RDW 12.9 % (11.6-15.6); WHITE BLOOD COUNT 12.3 K/mm3 (4.0-10.0)
[2020-07-26 10:24] LABS: BILIRUBIN,TOTAL 0.5 mg/dL (0.2-1); PHOSPHOROUS 3.7 mg/dL (2.5-4.9); TOT PROT 7.1 g/dl (6.4-8.2)
[2020-07-26] MEDS: INSULIN SLIDING SCALE (NOVOLOG) 1 VIAL SQ SCH (11:29)
[2020-07-26] MEDS: AZITHROMYCIN IVPB 250 MG in DEXTROSE 5%-WATER - 250 ML IVPB SCH (11:29)
[2020-07-26 12:26] VITALS: BP 157/85; PULSE 77; TEMP 99.4
[2020-07-26] MEDS ORDERED: AZITHROMYCIN 250 MG TABLET PO ONE (12:30)
== END 2020-07-26 14:43 | disposition home or self-care (01) | DRG 190 ==
LOC: JER 13:54 → JERBED 16:12 → J6S 07-25 00:30
PROVIDERS: ADMIT Internal Medicine; ATTEND Student in an Organized Health Care Education/Training Program
DX: J44.1 Chronic obstructive pulmonary disease with (acute) exacerbation (principal); J96.22 Acute and chronic respiratory failure with hypercapnia; F11.20 Opioid dependence, uncomplicated; Z68.41 Body mass index [BMI] 40.0-44.9, adult; G47.33 Obstructive sleep apnea (adult) (pediatric); Z99.81 Dependence on supplemental oxygen; E11.9 Type 2 diabetes mellitus without complications; I10 Essential (primary) hypertension; Z79.84 Long term (current) use of oral hypoglycemic drugs; M41.9 Scoliosis, unspecified; E66.01 Morbid (severe) obesity due to excess calories; F17.210 Nicotine dependence, cigarettes, uncomplicated; Z91.14 Patient's other noncompliance with medication regimen; R07.89 Other chest pain; F32.9 Major depressive disorder, single episode, unspecified
CPT/HCPCS: 36415; 71045-TC-FY; 71250-TC; 80053; 80061; 82550; 82553; 82803; 82962; 83721; 83735; 83880; 84100; 84484; 85025; 87804; 93005; 93010; 94640; 94761; 97116-GP; 97161-GP; 99285-25; C9803; J0735; U0003

== ENCOUNTER 2020-08-21 12:16 | Inpatient (IN) | payer OTHER ==
[2020-08-21 12:37] VITALS: BMI 44.4
[2020-08-21] MEDS ORDERED: ALBUTEROL SO4 HFA INHALER IH ONE ×2 (13:26→14:26)
[2020-08-21] MEDS ORDERED: methylPREDNISolone NA SUCC 125 MG/2 ML VIAL IVPUSH ONE (13:26)
[2020-08-21] MEDS ORDERED: ASPIRIN 81 MG CHEWABLE TABLETS PO ONE (13:56)
[2020-08-21] MEDS ORDERED: ASPIRIN 81 MG CHEWABLE TABLETS ONE (14:26)
[2020-08-21] MEDS ORDERED: methylPREDNISolone NA SUCC 125 MG/2 ML VIAL ONE (14:27)
[2020-08-21 14:37] LABS: BASO % 0.8 % (0-2.0); EOS % 5.2 % (0-4.5); HEMATOCRIT 40.4 % (32.4-45.2); HEMOGLOBIN 13.8 GM/dL (10.7-15.3); LYMPH % 34.4 % (8-40); MCH 32.5 pg (25.7-33.7); MCHC 34.1 g/dl (32.0-36.0); MEAN CELL VOLUME 95.3 fl (80-96); MEAN PLT VOLUME 9.5 fl (7.5-11.1); MONO % 6.8 % (3.8-10.2); NEUT % 52.8 % (42.8-82.8); PLATELET COUNT 205 K/MM3 (134-434); RBC 4.23 M/mm3 (3.60-5.2); RDW 13.3 % (11.6-15.6); WHITE BLOOD COUNT 9.1 K/mm3 (4.0-10.0)
[2020-08-21] MEDS ORDERED: NICOTINE 7 MG/24 HOURS TOPICAL PATCH TD SCH (14:45)
[2020-08-21 14:53] LABS: URINE APPEARANCE CLEAR; URINE BILIRUBIN NEGATIVE (NEGATIVE); URINE COLOR YELLOW; URINE GLUCOSE (UA) NEGATIVE (NEGATIVE); URINE KETONE TRACE (NEGATIVE); URINE LEUK ESTERASE NEGATIVE (NEGATIVE); URINE NITRITE NEGATIVE (NEGATIVE); URINE PROTEIN NEGATIVE (NEGATIVE)
[2020-08-21 14:57] LABS: VENOUS BASE EXCESS -1.3 mmol/L (-2-2); VENOUS PCO2 44.6 mmHg (38-52); VENOUS PH 7.358 (7.310-7.410)
[2020-08-21 14:59] LABS: CHLORIDE 108 mmol/L (98-107); SODIUM 136 mmol/L (136-145)
[2020-08-21 15:04] LABS: ALBUMIN 3.6 g/dl (3.4-5.0); BLOOD UREA NITROGEN 14.7 mg/dL (7-18); CALCIUM 8.6 mg/dL (8.5-10.1); CO2 21 mmol/L (21-32); MAGNESIUM 2.3 mg/dL (1.8-2.4)
[2020-08-21 15:05] LABS: GLUCOSE,RANDOM 76 mg/dL (74-106)
[2020-08-21 15:06] LABS: PHOSPHOROUS 4.5 mg/dL (2.5-4.9)
[2020-08-21 15:07] LABS: CREATININE 0.9 mg/dL (0.55-1.3); SGOT/AST 75 U/L (15-37)
[2020-08-21 15:08] LABS: BILIRUBIN,TOTAL 0.4 mg/dL (0.2-1); TOT PROT 7.5 g/dl (6.4-8.2)
[2020-08-21 15:09] LABS: ALK PHOS 82 U/L (45-117); ANION GAP 6 MMOL/L (8-16); SGPT/ALT 22 U/L (13-61)
[2020-08-21 15:16] LABS: POTASSIUM 7.5 mmol/L (3.5-5.1)
[2020-08-21] MEDS ORDERED: MAGNESIUM SULF 50% (8.12 MEQ/2 ML-1 GM VIAL) IVPB ONE (15:31)
[2020-08-21] MEDS ORDERED: MAGNESIUM SULFATE IN WATER 2 GM/50 ML IVPB IVPB ONE (15:46)
[2020-08-21 15:48] LABS: PLATELET ESTIMATE NORMAL
[2020-08-21 16:43] LABS: POTASSIUM 4.1 mmol/L (3.5-5.1)
[2020-08-21 16:45] LABS: CALCIUM 9.4 mg/dL (8.5-10.1)
[2020-08-21 16:46] LABS: BLOOD UREA NITROGEN 14.8 mg/dL (7-18)
[2020-08-21 16:49] LABS: CREATININE 0.9 mg/dL (0.55-1.3)
[2020-08-21 16:50] LABS: BILIRUBIN,TOTAL 0.3 mg/dL (0.2-1); TOT PROT 7.8 g/dl (6.4-8.2)
[2020-08-21] MEDS ORDERED: ALBUTEROL SO4 HFA INHALER IH PRN (17:28)
[2020-08-21] MEDS ORDERED: IPRATROPIUM BR 0.02% 0.5 MG/2.5 ML VIAL.NEB. NEB PRN (17:33)
[2020-08-21] MEDS ORDERED: QUEtiapine FUMARATE 200 MG TABLET PO ONE (18:16)
[2020-08-21] MEDS ORDERED: QUEtiapine FUMARATE 100 MG TABLET (FP) ONE (18:57)
[2020-08-21] MEDS ORDERED: MIRTAZAPINE 15 MG TABLET (FP) PO SCH (22:00)
[2020-08-21] MEDS ORDERED: QUEtiapine FUMARATE 200 MG TABLET PO SCH (22:00)
[2020-08-21] MEDS ORDERED: MONTELUKAST NA 10 MG TABLET PO SCH (22:00)
[2020-08-21] MEDS ORDERED: QUEtiapine FUMARATE 100 MG TABLET (FP) PO SCH (22:00)
[2020-08-21] MEDS ORDERED: MIRTAZAPINE 15 MG TABLET (FP) ONE (23:00)
[2020-08-21] MEDS ORDERED: MONTELUKAST NA 10 MG TABLET ONE (23:00)
[2020-08-21] MEDS ORDERED: FAMOTIDINE 20 MG TABLET ONE (23:00)
[2020-08-21] MEDS: FAMOTIDINE 20 MG TABLET PO SCH (23:04)
[2020-08-21] MEDS: INSULIN SLIDING SCALE (NOVOLOG) 1 VIAL SQ SCH (23:09)
[2020-08-22] MEDS: BUDESONIDE/FORMETEROL FUMARATE 160/4.5 mcg INHALER IH SCH ×2 (01:00→11:02)
[2020-08-22] MEDS: INSULIN SLIDING SCALE (NOVOLOG) 1 VIAL SQ SCH ×2 (06:08→12:41)
[2020-08-22 06:53] VITALS: BP 158/53; PULSE 71; TEMP 98.5
[2020-08-22 07:23] LABS: BASO % 0.2 % (0-2.0); EOS % 0.1 % (0-4.5); HEMATOCRIT 38.6 % (32.4-45.2); HEMOGLOBIN 13.1 GM/dL (10.7-15.3); LYMPH % 15.5 % (8-40); MCH 32.4 pg (25.7-33.7); MEAN CELL VOLUME 95.3 fl (80-96); MEAN PLT VOLUME 9.3 fl (7.5-11.1); MONO % 6.7 % (3.8-10.2); NEUT % 77.5 % (42.8-82.8); PLATELET COUNT 245 K/MM3 (134-434); RBC 4.05 M/mm3 (3.60-5.2); RDW 12.7 % (11.6-15.6); WHITE BLOOD COUNT 8.2 K/mm3 (4.0-10.0)
[2020-08-22 07:48] LABS: POTASSIUM 4.9 mmol/L (3.5-5.1)
[2020-08-22 07:58] LABS: CALCIUM 8.9 mg/dL (8.5-10.1)
[2020-08-22 07:59] LABS: ALBUMIN 3.7 g/dl (3.4-5.0); BLOOD UREA NITROGEN 16.2 mg/dL (7-18); MAGNESIUM 2.6 mg/dL (1.8-2.4)
[2020-08-22 08:01] LABS: BILIRUBIN,TOTAL 0.3 mg/dL (0.2-1); CREATININE 0.7 mg/dL (0.55-1.3); PHOSPHOROUS 3.2 mg/dL (2.5-4.9); TOT PROT 7.4 g/dl (6.4-8.2)
[2020-08-22] MEDS ORDERED: AZITHROMYCIN 250 MG TABLET PO SCH (10:00)
[2020-08-22] MEDS ORDERED: predniSONE 20 MG TABLET (UD) PO SCH (10:00)
[2020-08-22] MEDS ORDERED: QUEtiapine FUMARATE 100 MG TABLET (FP) PO SCH (10:00)
[2020-08-22] MEDS ORDERED: NICOTINE 21 MG/24 HOURS TOPICAL PATCH TD SCH (10:00)
[2020-08-22] MEDS ORDERED: TIOTROPIUM BROMIDE 2.5 MCG (SPIRIVA) RESPIMAT INHALER IH SCH (10:00)
[2020-08-22] MEDS ORDERED: ENOXAPARIN NA (PORCINE) 40 MG/0.4 ML DISP.SYRIN SQ SCH (10:00)
[2020-08-22] MEDS ORDERED: amLODIPine BESYLATE 5 MG TABLET (FP) PO SCH (10:00)
[2020-08-22] MEDS ORDERED: predniSONE 20 MG TABLET (UD) ONE (10:39)
[2020-08-22] MEDS ORDERED: FAMOTIDINE 20 MG TABLET ONE (10:40)
[2020-08-22] MEDS ORDERED: amLODIPine BESYLATE 5 MG TABLET (FP) ONE (10:40)
[2020-08-22] MEDS ORDERED: METHADONE HCL 40 MG DISPERSABLE TABLET ONE (10:40)
[2020-08-22] MEDS ORDERED: QUEtiapine FUMARATE 100 MG TABLET (FP) ONE (10:41)
[2020-08-22] MEDS ORDERED: AZITHROMYCIN 250 MG TABLET ONE (10:41)
[2020-08-22] MEDS ORDERED: ENOXAPARIN NA (PORCINE) 40 MG/0.4 ML DISP.SYRIN SQ ONE (10:41)
[2020-08-22] MEDS ORDERED: METHADONE HCL 40 MG DISPERSABLE TABLET PO SCH (10:45)
[2020-08-22] MEDS ORDERED: METHADONE HCL 10 MG TABLET (FOR DETOX USE ONLY) PO SCH (11:00)
[2020-08-22] MEDS: FAMOTIDINE 20 MG TABLET PO SCH (11:02)
[2020-08-22] MEDS ORDERED: methylPREDNISolone NA SUCC 40 MG/1 ML VIAL ONE (12:42)
[2020-08-22] MEDS ORDERED: methylPREDNISolone NA SUCC 40 MG/1 ML VIAL IVPUSH SCH (12:45)
[2020-08-22] MEDS ORDERED: BUDESONIDE/FORMETEROL FUMARATE 160/4.5 mcg INHALER IH SCH (13:34)
[2020-08-22] MEDS ORDERED: DOXYCYCLINE HYCLATE 100 MG CAPSULE PO SCH (18:00)
== END 2020-08-22 17:00 | disposition left against medical advice (07) | DRG 191 ==
LOC: JER 12:16 → JERBED 15:46 → OBSVTOIN 16:47
PROVIDERS: ADMIT Internal Medicine; ATTEND Internal Medicine
PROC: HZ91ZZZ Pharmacotherapy for Substance Abuse Treatment, Methadone Maintenance (ICD-10-PCS; principal; 2020-08-21)
DX: J44.1 Chronic obstructive pulmonary disease with (acute) exacerbation (principal); Z68.41 Body mass index [BMI] 40.0-44.9, adult; F11.20 Opioid dependence, uncomplicated; I10 Essential (primary) hypertension; E03.9 Hypothyroidism, unspecified; E11.9 Type 2 diabetes mellitus without complications; G47.33 Obstructive sleep apnea (adult) (pediatric); E66.9 Obesity, unspecified; F17.210 Nicotine dependence, cigarettes, uncomplicated; K21.9 Gastro-esophageal reflux disease without esophagitis; M54.5 Low back pain; M41.9 Scoliosis, unspecified; F31.9 Bipolar disorder, unspecified; F19.982 Other psychoactive substance use, unspecified with psychoactive substance-induced sleep disorder; M54.30 Sciatica, unspecified side; R07.89 Other chest pain; Z85.41 Personal history of malignant neoplasm of cervix uteri; Z99.81 Dependence on supplemental oxygen
CPT/HCPCS: 36415; 71045-TC-FY; 80053; 80061; 81003; 82550; 82803; 82962; 83036; 83721; 83735; 83880; 84100; 84443; 84484; 85025; 87086; 87899; 93005; 93010; 93306-TC; 99285-25; C9803; G0378; U0003

== ENCOUNTER 2020-10-06 12:44 | Inpatient (IN) | payer OTHER ==
[2020-10-06 13:03] VITALS: TEMP 98.3; BMI 44.6
[2020-10-06] MEDS ORDERED: HYDROCORTISONE 1% TOPICAL CREAM 30 GM TUBE TP ONE (13:24)
[2020-10-06] MEDS ORDERED: methylPREDNISolone NA SUCC 125 MG/2 ML VIAL IVPB ONE (13:24)
[2020-10-06] MEDS ORDERED: AZITHROMYCIN IVPB 500 MG in DEXTROSE 5%-WATER - 250 ML IVPB ONE (13:34)
[2020-10-06] MEDS ORDERED: CEFTRIAXONE 1,000 MG in DEXTROSE 5%-WATER - 50 ML IVPB ONE (13:34)
[2020-10-06] MEDS: ALBUTEROL SO4 2.5/IPRATROPIUM 0.5 INH SOL 3 ML VIAL.NEB. NEB SCH ×4 (13:40→14:43)
[2020-10-06] MEDS ORDERED: ALBUTEROL SO4 2.5/IPRATROPIUM 0.5 INH SOL 3 ML VIAL.NEB. NEB ONE ×2 (13:48→19:46)
[2020-10-06] MEDS ORDERED: methylPREDNISolone NA SUCC 125 MG/2 ML VIAL ONE (13:49)
[2020-10-06] MEDS ORDERED: AZITHROMYCIN IVPB 500 MG/250 ML BAG IVPB ONE (13:49)
[2020-10-06] MEDS ORDERED: CEFTRIAXONE 1 GM/50 ML BAG ONE (13:49)
[2020-10-06 13:51] LABS: BASO % 0.9 % (0-2.0); EOS % 5.7 % (0-4.5); HEMATOCRIT 40.6 % (32.4-45.2); HEMOGLOBIN 13.7 GM/dL (10.7-15.3); MCH 31.9 pg (25.7-33.7); MCHC 33.8 g/dl (32.0-36.0); MEAN CELL VOLUME 94.5 fl (80-96); MEAN PLT VOLUME 9.2 fl (7.5-11.1); MONO % 7.5 % (3.8-10.2); NEUT % 61.9 % (42.8-82.8); PLATELET COUNT 213 K/MM3 (134-434); RBC 4.29 M/mm3 (3.60-5.2); RDW 13.9 % (11.6-15.6); WHITE BLOOD COUNT 8.7 K/mm3 (4.0-10.0)
[2020-10-06 14:08] LABS: CHLORIDE 106 mmol/L (98-107); SODIUM 139 mmol/L (136-145)
[2020-10-06 14:10] LABS: ANION GAP 6 MMOL/L (8-16); CALCIUM 9.9 mg/dL (8.5-10.1); CO2 27 mmol/L (21-32)
[2020-10-06 14:11] LABS: GLUCOSE,RANDOM 113 mg/dL (74-106)
[2020-10-06 14:13] LABS: BLOOD UREA NITROGEN 14.9 mg/dL (7-18)
[2020-10-06 14:14] LABS: CREATININE 0.9 mg/dL (0.55-1.3); SGOT/AST 16 U/L (15-37); SGPT/ALT 19 U/L (13-61)
[2020-10-06 14:15] LABS: BILIRUBIN,TOTAL 0.2 mg/dL (0.2-1); TOT PROT 7.5 g/dl (6.4-8.2)
[2020-10-06 14:16] LABS: ALK PHOS 92 U/L (45-117)
[2020-10-06 14:19] LABS: N-TERMINAL BNP 46.6 pg/ml (5-125)
[2020-10-06] MEDS ORDERED: ACETAMINOPHEN 325 MG TABLET (FP) PO PRN (17:11)
[2020-10-06] MEDS ORDERED: ONDANSETRON 4 MG/2 ML VIAL IVPB PRN (17:14)
[2020-10-06] MEDS ORDERED: NICOTINE 21 MG/24 HOURS TOPICAL PATCH TD SCH (20:00)
[2020-10-06] MEDS ORDERED: ALBUTEROL SO4 0.083% IH SOL 2.5 MG/3 ML VIAL.NEB. NEB SCH (20:00)
[2020-10-06] MEDS ORDERED: methylPREDNISolone NA SUCC 40 MG/1 ML VIAL IVPUSH SCH (21:00)
[2020-10-06 21:16] VITALS: BP 155/76; PULSE 93
[2020-10-06] MEDS ORDERED: FAMOTIDINE 20 MG TABLET ONE (21:18)
[2020-10-06] MEDS ORDERED: MONTELUKAST NA 10 MG TABLET ONE (21:18)
[2020-10-06] MEDS ORDERED: QUEtiapine FUMARATE 100 MG TABLET (FP) ONE (21:18)
[2020-10-06] MEDS ORDERED: GABAPENTIN 100 MG CAPSULE ONE (21:18)
[2020-10-06] MEDS ORDERED: MIRTAZAPINE 15 MG TABLET (FP) ONE (21:19)
[2020-10-06] MEDS ORDERED: methylPREDNISolone NA SUCC 40 MG/1 ML VIAL ONE (21:19)
[2020-10-06] MEDS ORDERED: FAMOTIDINE 20 MG TABLET PO SCH (22:00)
[2020-10-06] MEDS ORDERED: QUEtiapine FUMARATE 200 MG TABLET PO SCH (22:00)
[2020-10-06] MEDS ORDERED: QUEtiapine FUMARATE 100 MG TABLET (FP) PO SCH (22:00)
[2020-10-06] MEDS ORDERED: MONTELUKAST NA 10 MG TABLET PO SCH (22:00)
[2020-10-06] MEDS ORDERED: GABAPENTIN 300 MG CAPSULE PO SCH (22:00)
[2020-10-06] MEDS ORDERED: MIRTAZAPINE 15 MG TABLET (FP) PO SCH (22:00)
[2020-10-06] MEDS ORDERED: METFORMIN HCL 500 MG PO SCH (22:00)
[2020-10-06] MEDS ORDERED: BUDESONIDE/FORMETEROL FUMARATE 160/4.5 mcg INHALER IH SCH (22:00)
[2020-10-06] MEDS ORDERED: guaiFENesin 600 MG TABLET.ER (FP) PO SCH (22:00)
[2020-10-07] MEDS ORDERED: METHADONE HCL 40 MG DISPERSABLE TABLET PO SCH (06:00)
[2020-10-07] MEDS ORDERED: PANTOPRAZOLE 40 MG TABLET PO SCH (10:00)
[2020-10-07] MEDS ORDERED: TIOTROPIUM BROMIDE 2.5 MCG (SPIRIVA) RESPIMAT INHALER IH SCH (10:00)
[2020-10-07] MEDS ORDERED: CEFTRIAXONE 1 GM in DEXTROSE 5%-WATER - 50 ML IVPB SCH (10:00)
[2020-10-07] MEDS ORDERED: amLODIPine BESYLATE 5 MG TABLET (FP) PO SCH (10:00)
[2020-10-07] MEDS ORDERED: ENOXAPARIN NA (PORCINE) 40 MG/0.4 ML DISP.SYRIN SQ SCH (10:00)
[2020-10-07] MEDS ORDERED: AZITHROMYCIN IVPB 500 MG/250 ML BAG IVPB SCH (10:00)
[2020-10-07] MEDS ORDERED: QUEtiapine FUMARATE 100 MG TABLET (FP) PO SCH (10:00)
== END 2020-10-07 00:30 | disposition left against medical advice (07) | DRG 191 ==
LOC: JER 12:44 → JERBED 14:30 → J4W 23:15
PROVIDERS: ADMIT Internal Medicine; ATTEND Internal Medicine
DX: J44.1 Chronic obstructive pulmonary disease with (acute) exacerbation (principal); F11.20 Opioid dependence, uncomplicated; Z68.41 Body mass index [BMI] 40.0-44.9, adult; J44.9 Chronic obstructive pulmonary disease, unspecified; I10 Essential (primary) hypertension; G47.33 Obstructive sleep apnea (adult) (pediatric); F17.210 Nicotine dependence, cigarettes, uncomplicated; E66.9 Obesity, unspecified
CPT/HCPCS: 36415; 71045-TC-FY; 80053; 83880; 84484; 85025; 93005; 93010; 99285-25; C9803; U0003; U0005

== ENCOUNTER 2024-02-05 10:36 | Inpatient (IN) | payer OTHER ==
[2024-02-05 11:17] VITALS: BMI 34.7
[2024-02-05] MEDS ORDERED: IBUPROFEN 400 MG TABLET (FP) PO PRN (12:34)
[2024-02-05] MEDS ORDERED: NALOXONE HCL 0.4 MG/ML VIAL IM PRN (12:34)
[2024-02-05] MEDS ORDERED: MAGNESIUM HYDROX 2400MG/30ML ORAL SUSPENSION 30 ML CUP PO PRN (12:34)
[2024-02-05] MEDS ORDERED: BENZONATATE 200 MG CAPSULE PO PRN (12:34)
[2024-02-05] MEDS ORDERED: POLYETHYLENE GLYCOL (HEALTHYLAX) 3350 17 GM PACKET PO PRN (12:34)
[2024-02-05] MEDS ORDERED: NICOTINE POLACRILEX 4 MG LOZENGE BC PRN (12:34)
[2024-02-05] MEDS ORDERED: ONDANSETRON *ODT* 4 MG TABLET SL PRN (12:34)
[2024-02-05] MEDS ORDERED: guaiFENesin 600 MG TABLET.ER (FP) PO PRN (12:34)
[2024-02-05] MEDS ORDERED: DICYCLOMINE HCL 10 MG CAPSULE PO PRN (12:34)
[2024-02-05] MEDS ORDERED: BENZOCAINE/MENTHOL (CHLORASEPTIC ) LOZENGE MM PRN (12:34)
[2024-02-05] MEDS ORDERED: BISMUTH SUBSALICYLATE 524 MG/30 ML PO PRN (12:34)
[2024-02-05] MEDS ORDERED: NALOXONE (NARCAN) HCL 4 MG/0.1 ML SPRAY NS PRN (12:34)
[2024-02-05] MEDS ORDERED: ACETAMINOPHEN 325 MG TABLET (FP) PO PRN (12:34)
[2024-02-05] MEDS ORDERED: LOPERAMIDE HCL 2 MG CAPSULE PO PRN (12:34)
[2024-02-05] MEDS ORDERED: MAG HYDROX/AL HYDROX/SIMETH 30 ML UNIT-DOSE CUP PO PRN (12:34)
[2024-02-05] MEDS ORDERED: methaDONE HCL 10 MG TABLET (FOR DETOX USE ONLY) ONE (12:52)
[2024-02-05] MEDS ORDERED: MECLIZINE HCL 12.5 MG TABLET PO PRN (13:03)
[2024-02-05] MEDS ORDERED: ALBUTEROL SO4 0.083% IH SOL 2.5 MG/3 ML VIAL.NEB. NEB PRN (13:03)
[2024-02-05] MEDS ORDERED: FAMOTIDINE 20 MG TABLET PO PRN (13:03)
[2024-02-05] MEDS: NICOTINE 21 MG/24 HOURS TOPICAL PATCH TD SCH (13:03)
[2024-02-05] MEDS: methaDONE HCL 40 MG DISPERSABLE TABLET PO ONE (13:03)
[2024-02-05] MEDS ORDERED: HYDROCORTISONE 1% TOPICAL OINT 30 GM TUBE TP PRN (13:03)
[2024-02-05] MEDS: amLODIPine BESYLATE 5 MG TABLET (FP) PO SCH (14:37)
[2024-02-05] MEDS ORDERED: amLODIPine BESYLATE 5 MG TABLET (FP) ONE (14:49)
[2024-02-05] MEDS ORDERED: NICOTINE 21 MG/24 HOURS TOPICAL PATCH ONE (15:22)
[2024-02-05] MEDS: LIDOCAINE 5% TOPICAL PATCH TP SCH (15:29)
[2024-02-05] MEDS: guaiFENesin 600 MG TABLET.ER (FP) PO SCH (15:29)
[2024-02-05] MEDS: FLUTICASONE PROP 0.05% 16 GM NASAL SPRAY NS SCH (16:11)
[2024-02-05] MEDS: chlordiazePOXIDE HCL 25 MG CAPSULE PO SCH (17:01)
[2024-02-05] MEDS: METHOCARBAMOL 500 MG TABLET PO PRN (17:31)
[2024-02-05] MEDS: IBUPROFEN 600 MG TABLET (FP) PO PRN (17:31)
[2024-02-05] MEDS: ALBUTEROL SO4 HFA INHALER IH PRN (18:52)
[2024-02-05] MEDS: chlordiazePOXIDE HCL 25 MG CAPSULE PO PRN (20:24)
[2024-02-05] MEDS: MICONAZOLE NITRATE 2% VAGINAL CREAM 45 GM TUBE VG SCH (20:44)
[2024-02-05] MEDS: MELATONIN 5 MG TABLETS PO SCH (22:45)
[2024-02-05] MEDS: LIDOCAINE PATCH REMOVAL MC SCH (22:45)
[2024-02-05] MEDS: THIAMINE 100 MG TABLET PO SCH (22:46)
[2024-02-05] MEDS: BUDESONIDE/FORMETEROL FUMARATE 160/4.5 mcg INHALER IH SCH (22:46)
[2024-02-06] MEDS ORDERED: methaDONE HCL 40 MG DISPERSABLE TABLET PO SCH (06:00)
[2024-02-06 10:01] VITALS: RESP 16
[2024-02-06] MEDS: MONTELUKAST NA 10 MG TABLET PO SCH (10:29)
[2024-02-06] MEDS: PRENATAL VITAMINS W/ FOLIC ACID TABLET (FP) PO SCH (10:29)
[2024-02-06] MEDS: CHOLECALCIFEROL (VIT D3) 5000 UNITS (125 MCG) CAP PO SCH (12:03)
[2024-02-06] MEDS: LORazepam 1 MG TABLET PO PRN (14:05)
[2024-02-06 16:33] VITALS: BP 122/68; PULSE 95; TEMP 97.9
[2024-02-06] MEDS: LORazepam 2 MG TABLET PO SCH (17:43)
[2024-02-06] MEDS ORDERED: MIRTAZAPINE 15 MG TABLET (FP) PO SCH (22:00)
[2024-02-06] MEDS ORDERED: MIRTAZAPINE 30 MG TABLET PO SCH (22:00)
[2024-02-07] MEDS ORDERED: chlordiazePOXIDE HCL 25 MG CAPSULE PO SCH (05:00)
[2024-02-08] MEDS ORDERED: chlordiazePOXIDE HCL 10 MG CAPSULE PO PRN
[2024-02-08] MEDS ORDERED: chlordiazePOXIDE HCL 10 MG CAPSULE PO SCH (05:00)
[2024-02-08] MEDS ORDERED: LORazepam 1 MG TABLET PO SCH (05:00)
[2024-02-09] MEDS ORDERED: chlordiazePOXIDE HCL 10 MG CAPSULE PO SCH (05:00)
[2024-02-09] MEDS ORDERED: LORazepam 0.5 MG TABLET PO SCH (05:00)
[2024-02-10] MEDS ORDERED: chlordiazePOXIDE HCL 10 MG CAPSULE PO ONE (05:00)
[2024-02-10] MEDS ORDERED: LORazepam 0.5 MG TABLET PO ONE (05:00)
== END 2024-02-06 19:45 | disposition left against medical advice (07) | DRG 894 ==
LOC: YASAS 10:36 → Y6N 13:56
PROVIDERS: ADMIT Allergy & Immunology; ATTEND Surgery
PROC: HZ2ZZZZ Detoxification Services for Substance Abuse Treatment (ICD-10-PCS; principal; 2024-02-05)
DX: F10.230 Alcohol dependence with withdrawal, uncomplicated (principal); F11.20 Opioid dependence, uncomplicated; F17.210 Nicotine dependence, cigarettes, uncomplicated; F31.9 Bipolar disorder, unspecified; F19.982 Other psychoactive substance use, unspecified with psychoactive substance-induced sleep disorder; F19.980 Other psychoactive substance use, unspecified with psychoactive substance-induced anxiety disorder; I10 Essential (primary) hypertension; J45.20 Mild intermittent asthma, uncomplicated; E05.90 Thyrotoxicosis, unspecified without thyrotoxic crisis or storm; M54.41 Lumbago with sciatica, right side; G89.29 Other chronic pain; J43.9 Emphysema, unspecified; K21.9 Gastro-esophageal reflux disease without esophagitis; M41.9 Scoliosis, unspecified; G47.33 Obstructive sleep apnea (adult) (pediatric); Z85.41 Personal history of malignant neoplasm of cervix uteri; E66.9 Obesity, unspecified; Z68.34 Body mass index [BMI] 34.0-34.9, adult; R26.2 Difficulty in walking, not elsewhere classified; Z99.89 Dependence on other enabling machines and devices; Z56.0 Unemployment, unspecified
CPT/HCPCS: 80305; 80307; 93005; 93010

== ENCOUNTER 2024-02-19 13:04 | Inpatient (IN) | payer OTHER ==
[2024-02-19 14:09] VITALS: BMI 32.8
[2024-02-19] MEDS ORDERED: MAGNESIUM HYDROX 2400MG/30ML ORAL SUSPENSION 30 ML CUP PO PRN (15:22)
[2024-02-19] MEDS ORDERED: IBUPROFEN 400 MG TABLET (FP) PO PRN (15:22)
[2024-02-19] MEDS ORDERED: NALOXONE (NARCAN) HCL 4 MG/0.1 ML SPRAY NS PRN (15:22)
[2024-02-19] MEDS ORDERED: LIDOCAINE 5% TOPICAL PATCH TP PRN (15:22)
[2024-02-19] MEDS ORDERED: MAG HYDROX/AL HYDROX/SIMETH 30 ML UNIT-DOSE CUP PO PRN (15:22)
[2024-02-19] MEDS ORDERED: guaiFENesin 600 MG TABLET.ER (FP) PO PRN (15:22)
[2024-02-19] MEDS ORDERED: LOPERAMIDE HCL 2 MG CAPSULE PO PRN (15:22)
[2024-02-19] MEDS ORDERED: NALOXONE HCL 0.4 MG/ML VIAL IM PRN (15:22)
[2024-02-19] MEDS ORDERED: BENZOCAINE/MENTHOL (CHLORASEPTIC ) LOZENGE MM PRN (15:22)
[2024-02-19] MEDS ORDERED: BENZONATATE 200 MG CAPSULE PO PRN (15:22)
[2024-02-19] MEDS ORDERED: POLYETHYLENE GLYCOL (HEALTHYLAX) 3350 17 GM PACKET PO PRN (15:22)
[2024-02-19] MEDS ORDERED: amLODIPine BESYLATE 5 MG TABLET (FP) ONE (16:08)
[2024-02-19] MEDS ORDERED: methaDONE HCL 10 MG TABLET (FOR DETOX USE ONLY) ONE (16:08)
[2024-02-19] MEDS: methaDONE HCL 10 MG TABLET PO ONE (16:15)
[2024-02-19] MEDS: amLODIPine BESYLATE 10 MG TABLET (FP) PO SCH (16:15)
[2024-02-19] MEDS: hydrOXYzine PAMOATE 25 MG CAPSULE (FP) PO PRN (17:39)
[2024-02-19] MEDS: IBUPROFEN 600 MG TABLET (FP) PO PRN (17:39)
[2024-02-19] MEDS: ALBUTEROL SO4 HFA INHALER IH PRN (20:12)
[2024-02-19] MEDS: THIAMINE 100 MG TABLET PO SCH (21:52)
[2024-02-19] MEDS: MELATONIN 5 MG TABLETS PO SCH (21:52)
[2024-02-19] MEDS: BUDESONIDE/FORMETEROL FUMARATE 160/4.5 mcg INHALER IH SCH (21:53)
[2024-02-19] MEDS: LIDOCAINE PATCH REMOVAL MC SCH (22:01)
[2024-02-20] MEDS ORDERED: methaDONE HCL 10 MG TABLET PO SCH (09:30)
[2024-02-20] MEDS: PRENATAL VITAMINS W/ FOLIC ACID TABLET (FP) PO SCH (10:07)
[2024-02-20] MEDS: NICOTINE 21 MG/24 HOURS TOPICAL PATCH TD PRN (10:54)
[2024-02-20] MEDS: ACETAMINOPHEN 325 MG TABLET (FP) PO PRN (16:00)
[2024-02-20 18:11] LABS: EPI CELLS >36 /uL (0-25.1); HYALINE CASTS 2 /uL (0-3.1); PH,URINE 5.5 (5.0-8.0); URINE APPEARANCE CLEAR; URINE BACTERIA 679 /uL (0-1359); URINE BILIRUBIN NEGATIVE (NEGATIVE); URINE COLOR YELLOW; URINE GLUCOSE (UA) NEGATIVE (NEGATIVE); URINE KETONE NEGATIVE (NEGATIVE); URINE LEUK ESTERASE TRACE (NEGATIVE); URINE NITRITE NEGATIVE (NEGATIVE); URINE PROTEIN NEGATIVE (NEGATIVE); URINE RBC 9 /uL (0-23.9); URINE WBC 51 /uL (0-25.8)
[2024-02-20] MEDS: MONTELUKAST NA 10 MG TABLET PO SCH (21:54)
[2024-02-20] MEDS: QUEtiapine FUMARATE 50 MG TABLET PO SCH (21:54)
[2024-02-21 06:15] VITALS: RESP 16
[2024-02-21] MEDS ORDERED: MECLIZINE HCL 12.5 MG TABLET PO PRN (09:11)
[2024-02-21] MEDS ORDERED: FAMOTIDINE 20 MG TABLET PO PRN (09:11)
[2024-02-21 09:18] VITALS: BP 161/72; PULSE 60; TEMP 97.7
[2024-02-21] MEDS ORDERED: PATIENT'S OWN MEDICATION (NON-FORMULARY) (Fluticasone/Vilanterol 1 PUFF Each) IH SCH (10:00)
[2024-02-21] MEDS: CHOLECALCIFEROL (VIT D3) 5000 UNITS (125 MCG) CAP PO SCH (10:45)
== END 2024-02-21 11:57 | disposition left against medical advice (07) | DRG 894 ==
LOC: YASAS 13:04 → Y3NR 16:24
PROVIDERS: ADMIT Neuromusculoskeletal Medicine & OMM; ATTEND Psychiatry & Neurology Pain Medicine
PROC: HZ42ZZZ Group Counseling for Substance Abuse Treatment, Cognitive-Behavioral (ICD-10-PCS; principal; 2024-02-19)
DX: F11.20 Opioid dependence, uncomplicated (principal); F10.20 Alcohol dependence, uncomplicated; F17.210 Nicotine dependence, cigarettes, uncomplicated; F31.9 Bipolar disorder, unspecified; F41.9 Anxiety disorder, unspecified; G62.9 Polyneuropathy, unspecified; I10 Essential (primary) hypertension; J44.9 Chronic obstructive pulmonary disease, unspecified; K21.9 Gastro-esophageal reflux disease without esophagitis; M54.41 Lumbago with sciatica, right side; M54.42 Lumbago with sciatica, left side; G89.29 Other chronic pain
CPT/HCPCS: 80305; 81003; 87811; 93005; 93010

== ENCOUNTER 2024-04-08 20:58 | Inpatient (IN) | payer OTHER ==
[2024-04-08] MEDS ORDERED: ACETAMINOPHEN INJECTION 100 ML ONE (21:58)
[2024-04-08] MEDS ORDERED: methylPREDNISolone NA SUCC 125 MG/2 ML VIAL ONE (21:58)
[2024-04-08] MEDS ORDERED: ALBUTEROL SO4 2.5/IPRATROPIUM 0.5 INH SOL 3 ML VIAL.NEB. NEB ONE (21:58)
[2024-04-08] MEDS: ACETAMINOPHEN 1000 MG/100 ML BAG IVPB ONE (22:21)
[2024-04-08] MEDS: methylPREDNISolone NA SUCC 125 MG/2 ML VIAL IVPUSH ONE (22:21)
[2024-04-08] MEDS: ALBUTEROL SO4 2.5/IPRATROPIUM 0.5 INH SOL 3 ML VIAL.NEB. NEB ONE ×2 (22:21→22:23)
[2024-04-08 22:25] LABS: BASO % 0.5 % (0-2.0); EOS % 6.2 % (0-4.5); HEMATOCRIT 42.5 % (32.4-45.2); HEMOGLOBIN 14.3 GM/dL (10.7-15.3); LYMPH % 20.6 % (8-40); MCH 31.9 pg (25.7-33.7); MCHC 33.7 g/dl (32.0-36.0); MEAN CELL VOLUME 94.7 fl (80-96); MEAN PLT VOLUME 8.6 fl (7.5-11.1); NEUT % 65.7 % (42.8-82.8); PLATELET COUNT 158 10^3/uL (134-434); RBC 4.48 M/mm3 (3.60-5.2); RDW 13.6 % (11.6-15.6); VENOUS BASE EXCESS 0.5 mmol/L (-2-2); VENOUS O2 SATURATION 87.1 % (70-80); VENOUS PCO2 47.6 mmHg (38-52); VENOUS PH 7.363 (7.310-7.410); WHITE BLOOD COUNT 7.9 K/mm3 (4.0-10.0)
[2024-04-08 22:50] LABS: THROAT:GRP A STREP NOT DETECTED (NOTDETECTED)
[2024-04-08 22:58] LABS: CALCIUM 8.9 mg/dL (8.5-10.1)
[2024-04-08 22:59] LABS: ALBUMIN 3.8 g/dl (3.4-5.0); BLOOD UREA NITROGEN 11.4 mg/dL (7-18)
[2024-04-08 23:02] LABS: CREATININE 0.7 mg/dL (0.55-1.3)
[2024-04-08] MEDS ORDERED: AZITHROMYCIN IVPB 500 MG/250 ML BAG IVPB ONE (23:02)
[2024-04-08] MEDS ORDERED: CEFTRIAXONE 1 GM/50 ML BAG ONE (23:02)
[2024-04-08 23:04] LABS: BILIRUBIN,TOTAL 0.3 mg/dL (0.2-1); TOT PROT 7.2 g/dl (6.4-8.2)
[2024-04-08 23:07] LABS: N-TERMINAL BNP 213.4 pg/ml (5-125)
[2024-04-08] MEDS: CEFTRIAXONE 1,000 MG in DEXTROSE 5%-WATER - 50 ML IVPB ONE (23:15)
[2024-04-09] MEDS: AZITHROMYCIN IVPB 500 MG in DEXTROSE 5%-WATER - 250 ML IVPB ONE (00:17)
[2024-04-09 02:13] VITALS: BMI 33.6
[2024-04-09] MEDS ORDERED: NAPROXEN SODIUM 220 MG PO PRN (03:11)
[2024-04-09] MEDS ORDERED: ALBUTEROL SO4 HFA INHALER IH PRN (03:11)
[2024-04-09] MEDS ORDERED: FAMOTIDINE 20 MG TABLET PO PRN (03:11)
[2024-04-09] MEDS ORDERED: LIDOCAINE 4% PATCH TP PRN (03:14)
[2024-04-09] MEDS ORDERED: NICOTINE 21 MG/24 HOURS TOPICAL PATCH TD PRN (05:30)
[2024-04-09] MEDS: ACETAMINOPHEN 500 MG TABLET (FP) PO PRN (06:32)
[2024-04-09] MEDS ORDERED: methaDONE HCL 40 MG DISPERSABLE TABLET PO SCH (07:38)
[2024-04-09] MEDS: ALBUTEROL SO4 2.5/IPRATROPIUM 0.5 INH SOL 3 ML VIAL.NEB. NEB SCH ×2 (07:48→11:40)
[2024-04-09] MEDS ORDERED: methaDONE HCL 40 MG DISPERSABLE TABLET PO ONE (08:12)
[2024-04-09 08:17] LABS: EPI CELLS >36 /uL (0-25.1); HYALINE CASTS 1 /uL (0-3.1); URINE APPEARANCE CLEAR; URINE BACTERIA 1745 /uL (0-1359); URINE BILIRUBIN NEGATIVE (NEGATIVE); URINE COLOR YELLOW; URINE GLUCOSE (UA) 3+ (NEGATIVE); URINE KETONE TRACE (NEGATIVE); URINE LEUK ESTERASE NEGATIVE (NEGATIVE); URINE NITRITE NEGATIVE (NEGATIVE); URINE PROTEIN TRACE (NEGATIVE); URINE RBC 60 /uL (0-23.9); URINE WBC 14 /uL (0-25.8)
[2024-04-09 09:27] LABS: HEMATOCRIT 39.8 % (32.4-45.2); HEMOGLOBIN 13.6 GM/dL (10.7-15.3); MCH 32.1 pg (25.7-33.7); MEAN CELL VOLUME 94.3 fl (80-96); MEAN PLT VOLUME 8.8 fl (7.5-11.1); PLATELET COUNT 169 10^3/uL (134-434); RBC 4.23 M/mm3 (3.60-5.2); RDW 13.1 % (11.6-15.6); WHITE BLOOD COUNT 4.9 K/mm3 (4.0-10.0)
[2024-04-09 09:51] LABS: POTASSIUM 4.1 mmol/L (3.5-5.1)
[2024-04-09 09:54] LABS: ALBUMIN 3.8 g/dl (3.4-5.0); CALCIUM 9.2 mg/dL (8.5-10.1)
[2024-04-09 09:55] LABS: BLOOD UREA NITROGEN 10.4 mg/dL (7-18)
[2024-04-09 09:58] LABS: CREATININE 0.8 mg/dL (0.55-1.3); PHOSPHOROUS 2.4 mg/dL (2.5-4.9)
[2024-04-09 09:59] LABS: BILIRUBIN,TOTAL 0.3 mg/dL (0.2-1); TOT PROT 7.4 g/dl (6.4-8.2)
[2024-04-09] MEDS ORDERED: methylPREDNISolone NA SUCC 40 MG/1 ML VIAL IVPUSH SCH (10:00)
[2024-04-09] MEDS: ENOXAPARIN NA (PORCINE) 40 MG/0.4 ML DISP.SYRIN SQ SCH (10:55)
[2024-04-09] MEDS: QUEtiapine FUMARATE 50 MG TABLET PO SCH (10:55)
[2024-04-09] MEDS: CEFTRIAXONE 1 GM in DEXTROSE 5%-WATER - 50 ML IVPB SCH (10:55)
[2024-04-09] MEDS: methylPREDNISolone NA SUCC 40 MG/1 ML VIAL IVPUSH SCH (10:55)
[2024-04-09] MEDS: amLODIPine BESYLATE 10 MG TABLET (FP) PO SCH (10:55)
[2024-04-09] MEDS: KETOROLAC TROMETHAMINE 15 MG/ML VIAL IVPUSH ONE (11:37)
[2024-04-09] MEDS: ACETAMINOPHEN 325 MG TABLET (FP) PO SCH (12:17)
[2024-04-09] MEDS: CYCLOBENZAPRINE HCL 5 MG TABLET PO STA (12:17)
[2024-04-09] MEDS: KETOROLAC TROMETHAMINE 15 MG/ML VIAL IM ONE (12:19)
[2024-04-09] MEDS: guaiFENesin 600 MG TABLET.ER (FP) PO SCH (12:55)
[2024-04-09] MEDS: PATIENT'S OWN MEDICATION (NON-FORMULARY) (Fluticasone/Vilanterol 1 PUFF Each) IH SCH (13:49)
[2024-04-09] MEDS: AZITHROMYCIN IVPB 500 MG/250 ML BAG IVPB SCH (13:50)
[2024-04-09] MEDS: DOXYCYCLINE HYCLATE 100 MG CAPSULE PO SCH (17:51)
[2024-04-09] MEDS: LIDOCAINE PATCH REMOVAL MC SCH (21:27)
[2024-04-09] MEDS ORDERED: LIDOCAINE PATCH REMOVAL MC SCH (22:00)
[2024-04-09] MEDS ORDERED: AZITHROMYCIN IVPB 500 MG in DEXTROSE 5%-WATER - 250 ML IVPB ONE (22:38)
[2024-04-10] MEDS: MELATONIN 5 MG TABLETS PO PRN (00:59)
[2024-04-10] MEDS ORDERED: methaDONE HCL 10 MG TABLET PO SCH (06:00)
[2024-04-10] MEDS ORDERED: FLUTICASONE/UMECLIDIN/VILANTER(200-62.5-25 TRELEGY ELLIPTA) INAHLER IH SCH (10:00)
[2024-04-10] MEDS: FLUTICASONE/UMECLIDIN/VILANTER(200-62.5-25 TRELEGY ELLIPTA) INAHLER IH SCH (10:20)
[2024-04-10] MEDS: NICOTINE 21 MG/24 HOURS TOPICAL PATCH TD SCH (10:20)
[2024-04-10] MEDS: methaDONE HCL 40 MG DISPERSABLE TABLET PO SCH (11:57)
[2024-04-10 12:07] LABS: HEMATOCRIT 39.6 % (32.4-45.2); HEMOGLOBIN 13.1 GM/dL (10.7-15.3); MCH 31.4 pg (25.7-33.7); MCHC 33.2 g/dl (32.0-36.0); MEAN CELL VOLUME 94.7 fl (80-96); MEAN PLT VOLUME 9.3 fl (7.5-11.1); PLATELET COUNT 197 10^3/uL (134-434); RBC 4.18 M/mm3 (3.60-5.2); RDW 13.4 % (11.6-15.6); WHITE BLOOD COUNT 10.4 K/mm3 (4.0-10.0)
[2024-04-10 12:50] LABS: POTASSIUM 5.4 mmol/L (3.5-5.1)
[2024-04-10 12:52] LABS: BLOOD UREA NITROGEN 18.1 mg/dL (7-18); CALCIUM 8.1 mg/dL (8.5-10.1)
[2024-04-10 12:55] LABS: CREATININE 0.6 mg/dL (0.55-1.3)
[2024-04-10 14:47] VITALS: BP 132/67; PULSE 64; RESP 18; TEMP 98.4
[2024-04-10] MEDS ORDERED: MIRTAZAPINE 15 MG TABLET (FP) PO SCH (22:00)
== END 2024-04-10 17:56 | disposition home or self-care (01) | DRG 190 ==
LOC: JER 20:58 → JERBED 23:55 → J6S 04-09 02:03
PROVIDERS: ADMIT Internal Medicine; ATTEND Internal Medicine
DX: J44.0 Chronic obstructive pulmonary disease with (acute) lower respiratory infection (principal); J18.9 Pneumonia, unspecified organism; J96.11 Chronic respiratory failure with hypoxia; F31.81 Bipolar II disorder; F11.20 Opioid dependence, uncomplicated; J44.1 Chronic obstructive pulmonary disease with (acute) exacerbation; R63.4 Abnormal weight loss; E66.9 Obesity, unspecified; I10 Essential (primary) hypertension; E21.3 Hyperparathyroidism, unspecified; F32.A Depression, unspecified; Z68.33 Body mass index [BMI] 33.0-33.9, adult; F17.210 Nicotine dependence, cigarettes, uncomplicated; G47.33 Obstructive sleep apnea (adult) (pediatric)
CPT/HCPCS: 0241U-QW; 36415; 71045-TC-FY; 72110-TC-FY; 80048; 80053; 81003; 82803; 83735; 83880; 84100; 84484; 85025; 85027; 87651; 93005; 93010; 94640; 94761; 99285-25; J0131

== ENCOUNTER 2024-07-10 12:49 | Inpatient (IN) | payer OTHER ==
[2024-07-10 13:22] VITALS: BMI 34.8
[2024-07-10] MEDS ORDERED: LOPERAMIDE HCL 2 MG CAPSULE PO PRN (13:26)
[2024-07-10] MEDS ORDERED: MAGNESIUM HYDROX 2400MG/30ML ORAL SUSPENSION 30 ML CUP PO PRN (13:26)
[2024-07-10] MEDS ORDERED: guaiFENesin 600 MG TABLET.ER (FP) PO PRN (13:26)
[2024-07-10] MEDS ORDERED: BENZONATATE 200 MG CAPSULE PO PRN (13:26)
[2024-07-10] MEDS ORDERED: NALOXONE (NARCAN) HCL 4 MG/0.1 ML SPRAY NS PRN (13:26)
[2024-07-10] MEDS ORDERED: POLYETHYLENE GLYCOL (HEALTHYLAX) 3350 17 GM PACKET PO PRN (13:26)
[2024-07-10] MEDS ORDERED: hydrOXYzine PAMOATE 25 MG CAPSULE (FP) PO PRN (13:26)
[2024-07-10] MEDS ORDERED: MAG HYDROX/AL HYDROX/SIMETH 30 ML UNIT-DOSE CUP PO PRN (13:26)
[2024-07-10] MEDS ORDERED: ONDANSETRON *ODT* 4 MG TABLET SL PRN (13:26)
[2024-07-10] MEDS ORDERED: IBUPROFEN 400 MG TABLET (FP) PO PRN (13:26)
[2024-07-10] MEDS ORDERED: DICYCLOMINE HCL 10 MG CAPSULE PO PRN (13:26)
[2024-07-10] MEDS ORDERED: METHOCARBAMOL 500 MG TABLET PO PRN (13:26)
[2024-07-10] MEDS ORDERED: NICOTINE POLACRILEX 4 MG GUM BUC PRN (13:26)
[2024-07-10] MEDS ORDERED: BISMUTH SUBSALICYLATE 524 MG/30 ML PO PRN (13:26)
[2024-07-10] MEDS ORDERED: BENZOCAINE/MENTHOL (CHLORASEPTIC ) LOZENGE MM PRN (13:26)
[2024-07-10] MEDS ORDERED: ALBUTEROL SO4 2.5/IPRATROPIUM 0.5 INH SOL 3 ML VIAL.NEB. NEB ONE (13:58)
[2024-07-10] MEDS: ALBUTEROL SO4 2.5/IPRATROPIUM 0.5 INH SOL 3 ML VIAL.NEB. NEB ONE (13:59)
[2024-07-10] MEDS ORDERED: amLODIPine BESYLATE 5 MG TABLET (FP) ONE (14:29)
[2024-07-10] MEDS ORDERED: IBUPROFEN 600 MG TABLET (FP) PO ONE (14:30)
[2024-07-10] MEDS: amLODIPine BESYLATE 5 MG TABLET (FP) PO ONE (14:31)
[2024-07-10] MEDS: IBUPROFEN 600 MG TABLET (FP) PO PRN (14:32)
[2024-07-10] MEDS ORDERED: NICOTINE 21 MG/24 HOURS TOPICAL PATCH ONE (14:37)
[2024-07-10] MEDS: NICOTINE 21 MG/24 HOURS TOPICAL PATCH TD SCH (14:39)
[2024-07-10] MEDS: FAMOTIDINE 20 MG TABLET PO SCH ×2 (16:21→16:27)
[2024-07-10] MEDS: BUDESONIDE/FORMETEROL FUMARATE 160/4.5 mcg INHALER IH SCH ×2 (16:22→16:28)
[2024-07-10] MEDS: CYCLOBENZAPRINE HCL 10 MG TABLET (FP) PO SCH ×2 (16:23→16:29)
[2024-07-10] MEDS: chlordiazePOXIDE HCL 25 MG CAPSULE PO SCH (17:32)
[2024-07-10] MEDS: QUEtiapine FUMARATE 100 MG TABLET (FP) PO ONE (19:52)
[2024-07-10] MEDS ORDERED: MIRTAZAPINE 15 MG TABLET (FP) ONE (22:24)
[2024-07-10] MEDS: MELATONIN 5 MG TABLETS PO SCH (22:25)
[2024-07-10] MEDS: THIAMINE 100 MG TABLET PO SCH (22:25)
[2024-07-10] MEDS: MIRTAZAPINE 30 MG TABLET PO SCH (22:25)
[2024-07-11] MEDS: chlordiazePOXIDE HCL 25 MG CAPSULE PO PRN (01:03)
[2024-07-11] MEDS: methaDONE 80 MG, methaDONE 20 MG PO SCH (05:53)
[2024-07-11] MEDS ORDERED: methaDONE HCL 40 MG DISPERSABLE TABLET PO SCH ×2 (06:00)
[2024-07-11] MEDS: PRENATAL VITAMINS W/ FOLIC ACID TABLET (FP) PO SCH (10:11)
[2024-07-11] MEDS: amLODIPine BESYLATE 10 MG TABLET (FP) PO SCH (10:12)
[2024-07-11 12:25] LABS: HEMATOCRIT 43.2 % (32.4-45.2); HEMOGLOBIN 14.5 GM/dL (10.7-15.3); MCHC 33.6 g/dl (32.0-36.0); MEAN CELL VOLUME 95.1 fl (80-96); MEAN PLT VOLUME 10.2 fl (7.5-11.1); PLATELET COUNT 167 10^3/uL (134-434); RBC 4.54 M/mm3 (3.60-5.2); RDW 13.4 % (11.6-15.6); WHITE BLOOD COUNT 5.7 K/mm3 (4.0-10.0)
[2024-07-11 13:11] LABS: POTASSIUM 5.1 mmol/L (3.5-5.1)
[2024-07-11 13:23] LABS: BLOOD UREA NITROGEN 19.4 mg/dL (7-18); CALCIUM 9.9 mg/dL (8.5-10.1)
[2024-07-11 13:24] LABS: BILIRUBIN,TOTAL 0.3 mg/dL (0.2-1)
[2024-07-11 13:25] LABS: TOT PROT 7.1 g/dl (6.4-8.2)
[2024-07-11 13:26] LABS: CREATININE 0.7 mg/dL (0.55-1.3)
[2024-07-11] MEDS ORDERED: MIRTAZAPINE 15 MG TABLET (FP) ONE (22:39)
[2024-07-11] MEDS: ACETAMINOPHEN 325 MG TABLET (FP) PO PRN (22:41)
[2024-07-12] MEDS: chlordiazePOXIDE HCL 25 MG CAPSULE PO SCH (06:00)
[2024-07-12] MEDS: cloNIDine HCL 0.1 MG TABLET PO PRN (06:21)
[2024-07-12] MEDS: ALBUTEROL SO4 HFA INHALER IH PRN (21:45)
[2024-07-13] MEDS: chlordiazePOXIDE HCL 10 MG CAPSULE PO SCH (05:34)
[2024-07-13] MEDS: LOSARTAN POTASSIUM 25 MG TABLET PO SCH (11:01)
[2024-07-13] MEDS: chlordiazePOXIDE HCL 10 MG CAPSULE PO PRN (14:26)
[2024-07-13] MEDS: CYCLOBENZAPRINE HCL 10 MG TABLET (FP) PO SCH (23:33)
[2024-07-14] MEDS: chlordiazePOXIDE HCL 10 MG CAPSULE PO SCH (05:53)
[2024-07-14 18:16] VITALS: RESP 18
[2024-07-15] MEDS: chlordiazePOXIDE HCL 10 MG CAPSULE PO ONE (05:54)
[2024-07-15 12:46] VITALS: BP 153/94; PULSE 87; TEMP 97.6
== END 2024-07-15 15:44 | disposition home or self-care (01) | DRG 897 ==
LOC: YASAS 12:49 → Y3N 14:31 → Y6N 07-12 20:49
PROVIDERS: ADMIT Allergy & Immunology; ATTEND Allergy & Immunology
PROC: HZ2ZZZZ Detoxification Services for Substance Abuse Treatment (ICD-10-PCS; principal; 2024-07-10)
DX: F10.230 Alcohol dependence with withdrawal, uncomplicated (principal); F11.20 Opioid dependence, uncomplicated; F17.210 Nicotine dependence, cigarettes, uncomplicated; F19.24 Other psychoactive substance dependence with psychoactive substance-induced mood disorder; E03.9 Hypothyroidism, unspecified; I10 Essential (primary) hypertension; J43.9 Emphysema, unspecified; J45.20 Mild intermittent asthma, uncomplicated; K21.9 Gastro-esophageal reflux disease without esophagitis; G47.33 Obstructive sleep apnea (adult) (pediatric); M54.30 Sciatica, unspecified side
CPT/HCPCS: 36415; 80053; 80305; 80307; 85027; 86780; 94640

== ENCOUNTER 2024-08-15 09:31 | Inpatient (IN) | payer OTHER ==
[2024-08-15 10:09] VITALS: BMI 34.8
[2024-08-15] MEDS ORDERED: BENZOCAINE/MENTHOL (CHLORASEPTIC ) LOZENGE MM PRN (10:27)
[2024-08-15] MEDS ORDERED: IBUPROFEN 400 MG TABLET (FP) PO PRN (10:27)
[2024-08-15] MEDS ORDERED: ONDANSETRON *ODT* 4 MG TABLET SL PRN (10:27)
[2024-08-15] MEDS ORDERED: BISMUTH SUBSALICYLATE 262 MG/15 ML BTL PO PRN (10:27)
[2024-08-15] MEDS ORDERED: MAGNESIUM HYDROX 2400MG/30ML ORAL SUSPENSION 30 ML CUP PO PRN (10:27)
[2024-08-15] MEDS ORDERED: P-EPHED 60MG/TRIPROLIDI 2.5MG TABLET PO PRN (10:27)
[2024-08-15] MEDS ORDERED: NICOTINE POLACRILEX 2 MG GUM BUC PRN (10:27)
[2024-08-15] MEDS ORDERED: NALOXONE (NARCAN) HCL 4 MG/0.1 ML SPRAY NS PRN (10:27)
[2024-08-15] MEDS ORDERED: POLYETHYLENE GLYCOL (HEALTHYLAX) 3350 17 GM PACKET PO PRN (10:27)
[2024-08-15] MEDS ORDERED: guaiFENesin 600 MG TABLET.ER (FP) PO PRN (10:27)
[2024-08-15] MEDS ORDERED: MAG HYDROX/AL HYDROX/SIMETH 30 ML UNIT-DOSE CUP PO PRN (10:27)
[2024-08-15] MEDS ORDERED: LOPERAMIDE HCL 2 MG CAPSULE PO PRN (10:27)
[2024-08-15] MEDS ORDERED: BENZONATATE 200 MG CAPSULE PO PRN (10:27)
[2024-08-15] MEDS ORDERED: amLODIPine BESYLATE 5 MG TABLET (FP) ONE (11:22)
[2024-08-15] MEDS ORDERED: chlordiazePOXIDE HCL 25 MG CAPSULE ONE (11:22)
[2024-08-15] MEDS: chlordiazePOXIDE HCL 25 MG CAPSULE PO SCH (11:24)
[2024-08-15] MEDS: amLODIPine BESYLATE 10 MG TABLET (FP) PO SCH (11:24)
[2024-08-15] MEDS: LOSARTAN POTASSIUM 25 MG TABLET PO SCH (11:52)
[2024-08-15] MEDS: BUDESONIDE/FORMETEROL FUMARATE 160/4.5 mcg INHALER IH SCH (11:57)
[2024-08-15] MEDS: IBUPROFEN 600 MG TABLET (FP) PO PRN (11:57)
[2024-08-15] MEDS: NICOTINE POLACRILEX 2 MG LOZENGE BC PRN (16:45)
[2024-08-15] MEDS: ACETAMINOPHEN 325 MG TABLET (FP) PO PRN (16:49)
[2024-08-15] MEDS: ALBUTEROL SO4 0.083% IH SOL 2.5 MG/3 ML VIAL.NEB. NEB SCH (20:44)
[2024-08-15] MEDS: THIAMINE 100 MG TABLET PO SCH (22:35)
[2024-08-15] MEDS: MELATONIN 5 MG TABLETS PO SCH (22:36)
[2024-08-16] MEDS: methaDONE 80 MG, methaDONE 20 MG PO SCH (05:34)
[2024-08-16] MEDS ORDERED: methaDONE HCL 40 MG DISPERSABLE TABLET PO SCH (06:00)
[2024-08-16] MEDS: ALBUTEROL SO4 HFA INHALER IH PRN (06:14)
[2024-08-16] MEDS: PRENATAL VITAMINS W/ FOLIC ACID TABLET (FP) PO SCH (10:24)
[2024-08-16] MEDS: NICOTINE 14 MG/24 HOURS TOPICAL PATCH TD SCH (10:24)
[2024-08-16] MEDS: FAMOTIDINE 20 MG TABLET PO SCH (10:25)
[2024-08-16] MEDS: cloNIDine HCL 0.1 MG TABLET PO SCH (10:27)
[2024-08-16] MEDS ORDERED: ALBUTEROL SO4 0.083% IH SOL 2.5 MG/3 ML VIAL.NEB. NEB PRN (12:36)
[2024-08-16] MEDS: chlordiazePOXIDE HCL 25 MG CAPSULE PO PRN (15:08)
[2024-08-16 17:07] LABS: HEMATOCRIT 42.2 % (32.4-45.2); HEMOGLOBIN 14.1 GM/dL (10.7-15.3); MCHC 33.3 g/dl (32.0-36.0); MEAN CELL VOLUME 95.9 fl (80-96); MEAN PLT VOLUME 11.7 fl (7.5-11.1); PLATELET COUNT 166 10^3/uL (134-434); RDW 13.6 % (11.6-15.6)
[2024-08-16 17:28] LABS: POTASSIUM 5.1 mmol/L (3.5-5.1)
[2024-08-16 17:35] LABS: ALBUMIN 3.9 g/dl (3.4-5.0); BLOOD UREA NITROGEN 20.5 mg/dL (7-18); CALCIUM 9.4 mg/dL (8.5-10.1)
[2024-08-16 17:38] LABS: CREATININE 0.9 mg/dL (0.55-1.3)
[2024-08-16 17:40] LABS: BILIRUBIN,TOTAL 0.3 mg/dL (0.2-1); TOT PROT 6.7 g/dl (6.4-8.2)
[2024-08-16 21:42] VITALS: BP 121/60; PULSE 61; RESP 18; TEMP 97.7
[2024-08-16] MEDS ORDERED: QUEtiapine FUMARATE 50 MG TABLET PO SCH (22:00)
[2024-08-16] MEDS ORDERED: MIRTAZAPINE 15 MG TABLET (FP) PO SCH (22:00)
[2024-08-17] MEDS ORDERED: chlordiazePOXIDE HCL 25 MG CAPSULE PO SCH (05:00)
[2024-08-17] MEDS ORDERED: NICOTINE 21 MG/24 HOURS TOPICAL PATCH TD SCH (10:00)
[2024-08-17] MEDS ORDERED: methaDONE HCL 10 MG TABLET PO ONE (10:00)
[2024-08-18] MEDS ORDERED: cloNIDine HCL 0.1 MG TABLET PO PRN
[2024-08-18] MEDS ORDERED: chlordiazePOXIDE HCL 10 MG CAPSULE PO PRN
[2024-08-18] MEDS ORDERED: chlordiazePOXIDE HCL 10 MG CAPSULE PO SCH (05:00)
[2024-08-19] MEDS ORDERED: chlordiazePOXIDE HCL 10 MG CAPSULE PO SCH (05:00)
[2024-08-19] MEDS ORDERED: methaDONE HCL 10 MG TABLET PO ONE (10:00)
[2024-08-20] MEDS ORDERED: chlordiazePOXIDE HCL 10 MG CAPSULE PO ONE (05:00)
== END 2024-08-16 21:00 | disposition left against medical advice (07) | DRG 894 ==
LOC: YASAS 09:31 → Y3N 11:21
PROVIDERS: ADMIT Allergy & Immunology; ATTEND Allergy & Immunology
PROC: HZ2ZZZZ Detoxification Services for Substance Abuse Treatment (ICD-10-PCS; principal; 2024-08-15)
DX: F19.230 Other psychoactive substance dependence with withdrawal, uncomplicated (principal); F11.20 Opioid dependence, uncomplicated; J44.1 Chronic obstructive pulmonary disease with (acute) exacerbation; F10.230 Alcohol dependence with withdrawal, uncomplicated; F17.210 Nicotine dependence, cigarettes, uncomplicated; F41.9 Anxiety disorder, unspecified; F32.A Depression, unspecified; I10 Essential (primary) hypertension; J45.20 Mild intermittent asthma, uncomplicated; K21.9 Gastro-esophageal reflux disease without esophagitis; M54.50 Low back pain, unspecified; G89.29 Other chronic pain; F19.24 Other psychoactive substance dependence with psychoactive substance-induced mood disorder; B37.31 Acute candidiasis of vulva and vagina; Z85.41 Personal history of malignant neoplasm of cervix uteri
CPT/HCPCS: 36415; 80053; 80305; 80307; 85027; 86780; 94640

== ENCOUNTER 2024-10-08 11:19 | Inpatient (IN) | payer OTHER ==
[2024-10-08 11:44] VITALS: BMI 35.6
[2024-10-08] MEDS ORDERED: guaiFENesin 600 MG TABLET.ER (FP) PO PRN (14:49)
[2024-10-08] MEDS ORDERED: IBUPROFEN 400 MG TABLET (FP) PO PRN (14:49)
[2024-10-08] MEDS ORDERED: LOPERAMIDE HCL 2 MG CAPSULE PO PRN (14:49)
[2024-10-08] MEDS ORDERED: DICYCLOMINE HCL 10 MG CAPSULE PO PRN (14:49)
[2024-10-08] MEDS ORDERED: ONDANSETRON *ODT* 4 MG TABLET SL PRN (14:49)
[2024-10-08] MEDS ORDERED: MAG HYDROX/AL HYDROX/SIMETH 30 ML UNIT-DOSE CUP PO PRN (14:49)
[2024-10-08] MEDS ORDERED: MAGNESIUM HYDROX 2400MG/30ML ORAL SUSPENSION 30 ML CUP PO PRN (14:49)
[2024-10-08] MEDS ORDERED: NALOXONE (NARCAN) HCL 4 MG/0.1 ML SPRAY NS PRN ×2 (14:49→14:52)
[2024-10-08] MEDS ORDERED: POLYETHYLENE GLYCOL (HEALTHYLAX) 3350 17 GM PACKET PO PRN (14:49)
[2024-10-08] MEDS ORDERED: BENZONATATE 200 MG CAPSULE PO PRN (14:49)
[2024-10-08] MEDS ORDERED: NICOTINE POLACRILEX 4 MG GUM BUC PRN (14:49)
[2024-10-08] MEDS ORDERED: BISMUTH SUBSALICYLATE 524 MG/30 ML PO PRN (14:49)
[2024-10-08] MEDS ORDERED: LIDOCAINE 5% TOPICAL PATCH TP PRN (14:54)
[2024-10-08] MEDS ORDERED: amLODIPine BESYLATE 5 MG TABLET (FP) ONE (15:42)
[2024-10-08] MEDS ORDERED: methaDONE HCL 10 MG TABLET (FOR DETOX USE ONLY) ONE (15:42)
[2024-10-08] MEDS ORDERED: NICOTINE 21 MG/24 HOURS TOPICAL PATCH ONE (15:42)
[2024-10-08] MEDS: methaDONE 40 MG, methaDONE 10 MG PO ONE (15:55)
[2024-10-08] MEDS: amLODIPine BESYLATE 10 MG TABLET (FP) PO SCH (15:55)
[2024-10-08] MEDS: NICOTINE 21 MG/24 HOURS TOPICAL PATCH TD SCH (15:55)
[2024-10-08] MEDS: chlordiazePOXIDE HCL 25 MG CAPSULE PO SCH (16:54)
[2024-10-08] MEDS: ACETAMINOPHEN 325 MG TABLET (FP) PO PRN (16:57)
[2024-10-08] MEDS: LOSARTAN POTASSIUM 25 MG TABLET PO SCH ×2 (17:21→17:37)
[2024-10-08] MEDS: FLUCONAZOLE 150 MG TABLET PO ONE ×2 (17:38→21:29)
[2024-10-08] MEDS: ALBUTEROL SO4 HFA INHALER IH PRN (19:56)
[2024-10-08] MEDS: chlordiazePOXIDE HCL 25 MG CAPSULE PO PRN (20:09)
[2024-10-08] MEDS: MELATONIN 5 MG TABLETS PO SCH (22:23)
[2024-10-08] MEDS: THIAMINE 100 MG TABLET PO SCH (22:23)
[2024-10-08] MEDS: IBUPROFEN 600 MG TABLET (FP) PO PRN (22:25)
[2024-10-08] MEDS: BUDESONIDE/FORMETEROL FUMARATE 160/4.5 mcg INHALER IH SCH (22:26)
[2024-10-08] MEDS: LIDOCAINE PATCH REMOVAL MC SCH (22:26)
[2024-10-09] MEDS ORDERED: methaDONE HCL 10 MG TABLET PO SCH (07:15)
[2024-10-09] MEDS: methaDONE 80 MG, methaDONE 20 MG PO ONE (07:36)
[2024-10-09 08:30] LABS: EPI CELLS >36 /uL (0-25.1); HYALINE CASTS 0 /uL (0-3.1); PH,URINE 5.5 (5.0-8.0); URINE APPEARANCE CLOUDY; URINE BACTERIA 2375 /uL (0-1359); URINE BILIRUBIN NEGATIVE (NEGATIVE); URINE COLOR YELLOW; URINE GLUCOSE (UA) NEGATIVE (NEGATIVE); URINE KETONE TRACE (NEGATIVE); URINE LEUK ESTERASE TRACE (NEGATIVE); URINE NITRITE NEGATIVE (NEGATIVE); URINE PROTEIN NEGATIVE (NEGATIVE); URINE WBC 26 /uL (0-25.8)
[2024-10-09 09:00] LABS: URINE RBC 32.9 /uL (0-23.9)
[2024-10-09] MEDS ORDERED: CHOLECALCIFEROL (VIT D3) 5000 UNITS (125 MCG) CAP PO SCH (10:00)
[2024-10-09] MEDS: PRENATAL VITAMINS W/ FOLIC ACID TABLET (FP) PO SCH (10:16)
[2024-10-09] MEDS: QUEtiapine FUMARATE 50 MG TABLET PO SCH ×2 (10:17→22:06)
[2024-10-09] MEDS: FAMOTIDINE 20 MG TABLET PO SCH (10:17)
[2024-10-09 11:26] LABS: ABSOLUTE IMMATURE GRANULOCYTES 0.02 x10^3/uL (0.0-0.031); BASOPHILS # 0.04 x10^3/uL (0.01-0.08); EOSINOPHIL % 2.8 % (0.7-5.8); EOSINOPHILS # 0.21 x10^3/uL (0.04-0.36); HEMATOCRIT 42.7 % (34.1-44.9); HEMOGLOBIN 13.6 g/dL (11.2-15.7); MCHC 31.9 g/dl (32.2-35.5); MEAN CELL VOLUME 99.1 fl (79.4-94.8); MEAN PLT VOLUME 12.6 fl (9.4-12.3); MONOCYTE # 0.61 x10^3/uL (0.24-0.86); PLATELET COUNT 194 x10^3/uL (182-369); RDW 12.9 % (12.4-16.4)
[2024-10-09 11:31] LABS: ALBUMIN 4.1 g/dl (3.4-5.0); BLOOD UREA NITROGEN 20.5 mg/dL (7-18)
[2024-10-09 11:35] LABS: CREATININE 0.7 mg/dL (0.55-1.3)
[2024-10-09 11:36] LABS: BILIRUBIN,TOTAL 0.4 mg/dL (0.2-1); TOT PROT 7.3 g/dl (6.4-8.2)
[2024-10-09] MEDS: MIRTAZAPINE 15 MG TABLET (FP) PO SCH (22:06)
[2024-10-09] MEDS: CycloBENZAprine HCL 5 MG TABLET PO PRN (22:07)
[2024-10-10] MEDS: chlordiazePOXIDE HCL 25 MG CAPSULE PO SCH (05:55)
[2024-10-10] MEDS: methaDONE 80 MG, methaDONE 20 MG PO SCH (05:57)
[2024-10-10] MEDS: NITROFURANTOIN MACROCRYSTAL 50 MG CAPSULE (FP) PO SCH (15:23)
[2024-10-10] MEDS: chlordiazePOXIDE HCL 10 MG CAPSULE PO SCH (17:33)
[2024-10-10] MEDS ORDERED: SULFAMETHOXAZOLE/TRIMETHOPRIM 800MG/160MG D.S. TABLET PO SCH (22:00)
[2024-10-10] MEDS: NITROFURANTOIN MONOHYD/M-CRYST 100 MG CAPSULE PO SCH (22:21)
[2024-10-11] MEDS ORDERED: chlordiazePOXIDE HCL 10 MG CAPSULE PO PRN
[2024-10-11] MEDS: chlordiazePOXIDE HCL 10 MG CAPSULE PO SCH (05:48)
[2024-10-11] MEDS: LOSARTAN POTASSIUM 50 MG TABLET PO SCH (09:58)
[2024-10-11] MEDS: chlordiazePOXIDE 5 MG CAPSULE PO SCH (10:00)
[2024-10-11] MEDS ORDERED: ALBUTEROL SO4 2.5/IPRATROPIUM 0.5 INH SOL 3 ML VIAL.NEB. NEB ONE (23:16)
[2024-10-11] MEDS: ALBUTEROL SO4 2.5/IPRATROPIUM 0.5 INH SOL 3 ML VIAL.NEB. NEB SCH (23:45)
[2024-10-12] MEDS: predniSONE 20 MG TABLET (UD) PO ONE ×2 (00:46→02:34)
[2024-10-12] MEDS ORDERED: chlordiazePOXIDE HCL 10 MG CAPSULE PO SCH (05:00)
[2024-10-12] MEDS: chlordiazePOXIDE 5 MG CAPSULE PO SCH (05:45)
[2024-10-12 08:00] VITALS: RESP 18
[2024-10-12] MEDS: LOSARTAN POTASSIUM 25 MG TABLET PO SCH (10:02)
[2024-10-12] MEDS: ACAMPROSATE CALCIUM 333 MG TABLET.DR PO SCH (21:51)
[2024-10-12] MEDS: BENZOCAINE/MENTHOL (CHLORASEPTIC ) LOZENGE MM PRN (22:05)
[2024-10-13] MEDS: ALBUTEROL SO4 0.083% IH SOL 2.5 MG/3 ML VIAL.NEB. NEB PRN (00:35)
[2024-10-13] MEDS ORDERED: chlordiazePOXIDE HCL 10 MG CAPSULE PO ONE (05:00)
[2024-10-13] MEDS: chlordiazePOXIDE 5 MG CAPSULE PO ONE (05:59)
[2024-10-13 09:20] VITALS: BP 153/77; PULSE 84; TEMP 98.4
== END 2024-10-13 12:00 | disposition home or self-care (01) | DRG 897 ==
LOC: YASAS 11:19 → Y6N 15:19
PROVIDERS: ADMIT Allergy & Immunology; ATTEND Family Medicine Addiction Medicine
PROC: HZ2ZZZZ Detoxification Services for Substance Abuse Treatment (ICD-10-PCS; principal; 2024-10-08)
DX: F10.230 Alcohol dependence with withdrawal, uncomplicated (principal); F11.20 Opioid dependence, uncomplicated; F19.282 Other psychoactive substance dependence with psychoactive substance-induced sleep disorder; F19.280 Other psychoactive substance dependence with psychoactive substance-induced anxiety disorder; N39.0 Urinary tract infection, site not specified; F17.210 Nicotine dependence, cigarettes, uncomplicated; F31.9 Bipolar disorder, unspecified; F19.24 Other psychoactive substance dependence with psychoactive substance-induced mood disorder; B37.31 Acute candidiasis of vulva and vagina; G47.33 Obstructive sleep apnea (adult) (pediatric); I10 Essential (primary) hypertension; J44.9 Chronic obstructive pulmonary disease, unspecified; J45.20 Mild intermittent asthma, uncomplicated; M54.30 Sciatica, unspecified side; E03.9 Hypothyroidism, unspecified; Z99.89 Dependence on other enabling machines and devices; Z85.41 Personal history of malignant neoplasm of cervix uteri; Z62.810 Personal history of physical and sexual abuse in childhood; Z91.410 Personal history of adult physical and sexual abuse; Z63.0 Problems in relationship with spouse or partner; Z63.8 Other specified problems related to primary support group
CPT/HCPCS: 36415; 72100-TC-FY; 73030-TC-RT-FY; 80053; 80305; 80307; 81003; 85025; 86780; 93005; 93010; 94640

== ENCOUNTER 2024-12-02 23:35 | Observation (INO) | payer OTHER ==
[2024-12-02 23:51] VITALS: BP 171/64; PULSE 66; RESP 19; TEMP 98; BMI 33.5
[2024-12-03 00:14] LABS: HEMATOCRIT 41.2 % (34.1-44.9); HEMOGLOBIN 13.6 g/dL (11.2-15.7); MEAN CELL VOLUME 96.9 fl (79.4-94.8); MEAN PLT VOLUME 10.2 fl (9.4-12.3)
[2024-12-03] MEDS ORDERED: methylPREDNISolone NA SUCC 125 MG/2 ML VIAL ONE (00:14)
[2024-12-03 00:15] LABS: PLATELET COUNT 249 x10^3/uL (182-369); RDW 12.6 % (12.4-16.4)
[2024-12-03] MEDS: ALBUTEROL SO4 2.5/IPRATROPIUM 0.5 INH SOL 3 ML VIAL.NEB. NEB SCH (00:23)
[2024-12-03] MEDS: methylPREDNISolone NA SUCC 125 MG/2 ML VIAL IVPUSH ONE (00:23)
[2024-12-03 00:34] LABS: POTASSIUM 4.3 mmol/L (3.5-5.1)
[2024-12-03 00:36] LABS: CALCIUM 9.7 mg/dL (8.5-10.1)
[2024-12-03 00:37] LABS: BLOOD UREA NITROGEN 13.9 mg/dL (7-18); MAGNESIUM 2.2 mg/dL (1.8-2.4)
[2024-12-03 00:40] LABS: CREATININE 0.8 mg/dL (0.55-1.3)
[2024-12-03 00:41] LABS: BILIRUBIN,TOTAL 0.3 mg/dL (0.2-1); TOT PROT 7.2 g/dl (6.4-8.2)
[2024-12-03 00:50] LABS: VENOUS BASE EXCESS -0.7 mmol/L (-2-2); VENOUS O2 SATURATION 32.3 % (70-80); VENOUS PCO2 49.2 mmHg (38-52); VENOUS PH 7.337 (7.310-7.410)
[2024-12-03] MEDS ORDERED: PIPERACILLIN/TAZOB 4.5 GM 4.5 GM/100 ML BAG IVPB ONE (02:28)
[2024-12-03] MEDS ORDERED: VANCOMYCIN 1 GM PREMIX (F) 1 GM/200 ML BAG ONE (02:28)
[2024-12-03] MEDS ORDERED: AZITHROMYCIN IVPB 500 MG/250 ML BAG IVPB ONE (02:28)
[2024-12-03] MEDS ORDERED: ACETAMINOPHEN INJECTION 100 ML ONE (02:28)
[2024-12-03] MEDS ORDERED: ALBUTEROL SO4 0.083% IH SOL 2.5 MG/3 ML VIAL.NEB. NEB PRN (02:43)
[2024-12-03] MEDS: ACETAMINOPHEN 1000 MG/100 ML BAG IVPB ONE (02:45)
[2024-12-03] MEDS: PIPERACILLIN/TAZOB 4.5 GM 4.5 GM in DEXTROSE 5%-WATER 100 ML IVPB ONE (02:46)
[2024-12-03] MEDS: AZITHROMYCIN IVPB 500 MG in DEXTROSE 5%-WATER - 250 ML IVPB ONE (02:46)
[2024-12-03] MEDS: SODIUM CHLORIDE 1,000 ML IV SCH (03:00)
[2024-12-03] MEDS ORDERED: PIPERACILLIN/TAZOB 4.5 GM 4.5 GM in DEXTROSE 5%-WATER 100 ML IVPB SCH ×2 (03:00→09:00)
[2024-12-03] MEDS: VANCOMYCIN 1,000 MG in DEXTROSE 5%-WATER - 250 ML IVPB ONE (03:16)
[2024-12-03] MEDS: BUDESONIDE/FORMETEROL FUMARATE 160/4.5 mcg INHALER IH ONE (04:02)
[2024-12-03] MEDS ORDERED: ALBUTEROL SO4 0.083% IH SOL 2.5 MG/3 ML VIAL.NEB. NEB ONE (04:03)
[2024-12-03] MEDS: ALBUTEROL SO4 0.083% IH SOL 2.5 MG/3 ML VIAL.NEB. NEB SCH (04:06)
[2024-12-03] MEDS ORDERED: methaDONE HCL 40 MG DISPERSABLE TABLET PO SCH (06:00)
[2024-12-03] MEDS ORDERED: predniSONE 20 MG TABLET (UD) PO SCH (10:00)
[2024-12-03] MEDS ORDERED: amLODIPine BESYLATE 10 MG TABLET (FP) PO SCH (10:00)
[2024-12-03] MEDS ORDERED: DOXYCYCLINE HYCLATE 100 MG CAPSULE PO SCH (10:00)
[2024-12-03] MEDS ORDERED: AZITHROMYCIN IVPB 250 MG in DEXTROSE 5%-WATER - 250 ML IVPB SCH (10:00)
[2024-12-03] MEDS ORDERED: BUDESONIDE/FORMETEROL FUMARATE 160/4.5 mcg INHALER IH SCH (10:00)
[2024-12-03] MEDS ORDERED: LOSARTAN POTASSIUM 50 MG TABLET PO SCH (10:00)
[2024-12-03] MEDS ORDERED: NICOTINE 14 MG/24 HOURS TOPICAL PATCH TD SCH (10:00)
[2024-12-03] MEDS ORDERED: ENOXAPARIN NA (PORCINE) 40 MG/0.4 ML DISP.SYRIN SQ SCH (10:00)
[2024-12-03] MEDS ORDERED: VANCOMYCIN 1,000 MG in DEXTROSE 5%-WATER - 250 ML IVPB SCH (10:00)
[2024-12-03] MEDS ORDERED: FAMOTIDINE 20 MG TABLET PO SCH (10:00)
[2024-12-03] MEDS ORDERED: QUEtiapine FUMARATE 50 MG TABLET PO SCH (10:00)
[2024-12-03] MEDS ORDERED: MIRTAZAPINE 15 MG TABLET (FP) PO SCH (22:00)
[2024-12-04] MEDS ORDERED: VANCOMYCIN/WATER FOR INJ (PEG) 1,000 MG/200 ML BAG IVPB SCH (02:00)
== END 2024-12-03 05:20 | disposition left against medical advice (07) ==
LOC: JER 23:35 → JERBED 12-03 02:39
PROVIDERS: ADMIT Hospitalist; ATTEND Hospitalist
PROC: 3E033NZ Introduction of Analgesics, Hypnotics, Sedatives into Peripheral Vein, Percutaneous Approach (ICD-10-PCS; principal; 2024-12-03)
PROC: 3E0F7GC Introduction of Other Therapeutic Substance into Respiratory Tract, Via Natural or Artificial Opening (ICD-10-PCS; 2024-12-03)
PROC: 3E03329 Introduction of Other Anti-infective into Peripheral Vein, Percutaneous Approach (ICD-10-PCS; 2024-12-03)
PROC: 3E0337Z Introduction of Electrolytic and Water Balance Substance into Peripheral Vein, Percutaneous Approach (ICD-10-PCS; 2024-12-03)
DX: J44.1 Chronic obstructive pulmonary disease with (acute) exacerbation (principal); R09.02 Hypoxemia; R06.02 Shortness of breath; F31.9 Bipolar disorder, unspecified; I73.9 Peripheral vascular disease, unspecified; F19.21 Other psychoactive substance dependence, in remission; Z85.41 Personal history of malignant neoplasm of cervix uteri; I10 Essential (primary) hypertension; F17.210 Nicotine dependence, cigarettes, uncomplicated
CPT/HCPCS: 0241U-QW; 36415; 71045-TC-FY; 80053; 82803; 83735; 83880; 84484; 85025; 85379; 87040; 93005; 93010; 93970-TC; 94640; 96361; 96365; 96368; 96375; 99285-25; G0378

== ENCOUNTER 2025-01-13 12:46 | Inpatient (IN) | payer OTHER ==
[2025-01-13 13:21] VITALS: BMI 36.5
[2025-01-13] MEDS ORDERED: LOPERAMIDE HCL 2 MG CAPSULE PO PRN (14:46)
[2025-01-13] MEDS ORDERED: POLYETHYLENE GLYCOL (HEALTHYLAX) 3350 17 GM PACKET PO PRN (14:46)
[2025-01-13] MEDS ORDERED: NALOXONE (NARCAN) HCL 4 MG/0.1 ML SPRAY NS PRN (14:46)
[2025-01-13] MEDS ORDERED: MAGNESIUM HYDROX 2400MG/30ML ORAL SUSPENSION 30 ML CUP PO PRN (14:46)
[2025-01-13] MEDS ORDERED: MAG HYDROX/AL HYDROX/SIMETH 30 ML UNIT-DOSE CUP PO PRN (14:46)
[2025-01-13] MEDS ORDERED: BENZONATATE 200 MG CAPSULE PO PRN (14:46)
[2025-01-13] MEDS ORDERED: BISMUTH SUBSALICYLATE 524 MG/30 ML PO PRN (14:46)
[2025-01-13] MEDS ORDERED: IBUPROFEN 400 MG TABLET (FP) PO PRN (14:46)
[2025-01-13] MEDS ORDERED: DICYCLOMINE HCL 10 MG CAPSULE PO PRN (14:46)
[2025-01-13] MEDS ORDERED: guaiFENesin 600 MG TABLET.ER (FP) PO PRN (14:46)
[2025-01-13] MEDS ORDERED: ONDANSETRON *ODT* 4 MG TABLET SL PRN (14:46)
[2025-01-13] MEDS ORDERED: NICOTINE POLACRILEX 4 MG GUM BUC PRN (14:46)
[2025-01-13] MEDS ORDERED: BENZOCAINE/MENTHOL (CHLORASEPTIC ) LOZENGE MM PRN (14:46)
[2025-01-13] MEDS ORDERED: amLODIPine BESYLATE 5 MG TABLET (FP) ONE (17:28)
[2025-01-13] MEDS ORDERED: NICOTINE 21 MG/24 HOURS TOPICAL PATCH ONE (17:28)
[2025-01-13] MEDS: NICOTINE 21 MG/24 HOURS TOPICAL PATCH TD SCH (17:47)
[2025-01-13] MEDS: amLODIPine BESYLATE 10 MG TABLET (FP) PO SCH (17:48)
[2025-01-13] MEDS: LOSARTAN POTASSIUM 50 MG TABLET PO SCH (18:14)
[2025-01-13] MEDS: ALBUTEROL SO4 HFA INHALER IH PRN (18:23)
[2025-01-13] MEDS: METHOCARBAMOL 500 MG TABLET PO PRN (18:26)
[2025-01-13] MEDS: BUDESONIDE/FORMETEROL FUMARATE 160/4.5 mcg INHALER IH SCH (21:52)
[2025-01-13] MEDS: THIAMINE 100 MG TABLET PO SCH (22:31)
[2025-01-13] MEDS: MELATONIN 5 MG TABLETS PO SCH (22:31)
[2025-01-13] MEDS: ACETAMINOPHEN 325 MG TABLET (FP) PO PRN (22:33)
[2025-01-14 06:39] VITALS: RESP 16
[2025-01-14] MEDS: IBUPROFEN 600 MG TABLET (FP) PO PRN (08:52)
[2025-01-14 09:27] LABS: MCHC 33.3 g/dl (32.2-35.5); MEAN CELL VOLUME 97.3 fl (79.4-94.8); MEAN PLT VOLUME 12.3 fl (9.4-12.3); RDW 12.5 % (12.4-16.4)
[2025-01-14 09:36] LABS: CO2 27.0 mmol/L (21-32); GLUCOSE,RANDOM 106.0 mg/dL (74-106)
[2025-01-14 09:39] LABS: CREATININE 0.7 mg/dL (0.55-1.3); SGOT/AST 13.0 U/L (15-37)
[2025-01-14 09:40] LABS: SGPT/ALT 16.0 U/L (13-61)
[2025-01-14 09:41] LABS: TOT PROT 7.0 g/dl (6.4-8.2)
[2025-01-14 09:42] VITALS: BP 154/82; PULSE 75; TEMP 97.6
[2025-01-14 09:42] LABS: ALK PHOS 89.0 U/L (45-117)
[2025-01-14] MEDS: FAMOTIDINE 20 MG TABLET PO SCH (11:25)
[2025-01-14] MEDS: PRENATAL VITAMINS W/ FOLIC ACID TABLET (FP) PO SCH (11:25)
[2025-01-14] MEDS ORDERED: MIRTAZAPINE 15 MG TABLET (FP) PO SCH (22:00)
== END 2025-01-14 11:25 | disposition left against medical advice (07) | DRG 894 ==
LOC: YASAS 12:46 → Y6N 17:13
PROVIDERS: ADMIT Allergy & Immunology; ATTEND Allergy & Immunology
PROC: HZ2ZZZZ Detoxification Services for Substance Abuse Treatment (ICD-10-PCS; principal; 2025-01-13)
DX: F10.230 Alcohol dependence with withdrawal, uncomplicated (principal); F11.20 Opioid dependence, uncomplicated; F19.282 Other psychoactive substance dependence with psychoactive substance-induced sleep disorder; F17.210 Nicotine dependence, cigarettes, uncomplicated; F31.9 Bipolar disorder, unspecified; F60.9 Personality disorder, unspecified; F19.24 Other psychoactive substance dependence with psychoactive substance-induced mood disorder; E03.9 Hypothyroidism, unspecified; I10 Essential (primary) hypertension; G62.9 Polyneuropathy, unspecified; I73.9 Peripheral vascular disease, unspecified; K21.9 Gastro-esophageal reflux disease without esophagitis; M54.50 Low back pain, unspecified; G89.29 Other chronic pain; Z62.810 Personal history of physical and sexual abuse in childhood
CPT/HCPCS: 36415; 80053; 80305; 85027; 86780; 93005; 93010